=== PATIENT | female | born 1945 | race Caucasian/White ===

== ENCOUNTER 2017-09-07 10:18 | Inpatient (IN) | payer MEDICARE, MEDICAID ==
--- NOTE | 2017-09-07 10:46 | ED Physician Chart ---
ED Chief Complaint/HPI - Patient Information Date Seen:: 09/07/17 Time Seen:: 10:30 Chief Complaint:: anorexia History of Present Illness:: Patient's had anorexia for more than one month. She's had a 25 pound weight loss over the last 2 months. Allergies:: Allergies Allergy/AdvReac Type Severity Reaction Status Date / Time No Known Allergies Allergy Verified 09/07/17 10:33 Vitals:: Vital Signs - 8 hr 09/07/17 10:25 Temp 97.4 F HR 107 RR 18 BP 88/43 O2 Sat % 98 Historian:: Family Member Review:: Nurse's Note Reviewed, Patient unable to respond ED Review of Systems - Review of Systems General/Constitutional: No fever, No chills, Weight loss Skin: No skin lesions Head: No headache Eyes: No loss of vision ENT: No earache Neck: No neck pain Cardio Vascular: No chest pain, No palpitations Pulmonary: No SOB, No cough GI: No nausea, No vomiting, No diarrhea G/U: No dysuria, No hematuria Musculoskeletal: No bone or joint pain, No back pain, No muscle pain Psychiatric: Prior psych history Hematopoietic: No bruising, No lymphadenopathy Allergic/Immuno: No urticaria, No angioedema Neurological: No syncope, No focal symptoms ED Past Medical History - Past Medical History Past Medical History: HTN, DM, Dyslipidemia, Arthritis, Dementia, Other ( hyperlipidemia; anxiety; osteoporosis; degenerative joint disease; neuropathy) Family History: Heart disease Social History: Non Smoker, Care Facility, Other (formerly drank alcohol occasionally) Surgical History: None Psychiatricy History: Dementia Medication: Reviewed Family Medical History - Family Member Mother Ethnicity: Living Status: Hx Family Coronary Artery Disease: Yes ED Physical Exam - Physical Examination General/Constitutional: Awake Other Gen/Cons comments:: Chronically ill-appearing Head: Atraumatic Eyes: Lids, conjuctiva normal Skin: Nl inspection, No rash ENMT: External ears, nose nl Other ENMT comments:: 3 out of 4 peridontal disease Neck: No nuchal rigidity Respiratory: Nl effort/Exclusion, Clear to Auscultation Cardio Vascular: RRR GI: No tenderness/rebounding/guarding, No organomegaly, No hernia : No CVA tenderness Other Extremities comments:: 1/4 pretibial pitting edema Neuro/Psych: No focal deficits Misc: Normal back ED Labs/Radiology/EKG Results - Lab Results Results: Laboratory Results - last 24 hr 09/07/17 09/07/17 09/07/17 10:40 10:40 10:40 WBC 15.7 H RBC 3.94 Hgb 10.2 L Hct 30.6 L MCV 77.7 L MCH 25.9 L MCHC Differential 33.3 RDW 14.3 Plt Count 302 MPV 8.3 Neutrophils % PRODUCTION [employer]ONE LEADER Band Neutrophils % 7 Lymphocytes % PRODUCTION ZONE LEADER Monocytes % PRODUCTION ZONE LEADER Eosinophils % PRODUCTION ZONE LEADER Basophils % PRODUCTION ZONE LEADER Neutrophils (Manual) 80 Lymphocytes 10 L Monocytes 3 PT 10.8 INR 1.04 PTT (Actin FS) 29.0 Sodium 143 Potassium 4.6 Chloride 111 H Carbon Dioxide 25.1 Anion Gap 11.5 BUN 53 H Creatinine 0.9 Est GFR ( Amer) TNP Est GFR (Non-Af Amer) TNP BUN/Creatinine Ratio 58.9 Glucose 182 H Hemoglobin A1c % Whole Bld Lactic Acid Calcium 8.6 Lipase Urine Color Urine Clarity Urine pH Ur Specific [place] Urine Protein Urine Glucose (UA) Urine Ketones Urine Blood Urine Nitrate Urine Bilirubin Urine Urobilinogen Ur Leukocyte Esterase 09/07/17 09/07/17 09/07/17 10:40 10:40 11:10 WBC RBC Hgb Hct MCV MCH MCHC Differential RDW Plt Count MPV Neutrophils % Band Neutrophils % Lymphocytes % Monocytes % Eosinophils % Basophils % Neutrophils (Manual) Lymphocytes Monocytes PT INR PTT (Actin FS) Sodium Potassium Chloride Carbon Dioxide Anion Gap BUN Creatinine Est GFR ( Amer) Est GFR (Non-Af Amer) BUN/Creatinine Ratio Glucose Hemoglobin A1c % 5.7 Whole Bld Lactic Acid 1.39 Calcium Lipase 20 Urine Color Urine Clarity Urine pH Ur Specific [place] Urine Protein Urine Glucose (UA) Urine Ketones Urine Blood Urine Nitrate Urine Bilirubin Urine Urobilinogen Ur Leukocyte Esterase 09/07/17 11:30 WBC RBC Hgb Hct MCV MCH MCHC Differential RDW Plt Count MPV Neutrophils % Band Neutrophils % Lymphocytes % Monocytes % Eosinophils % Basophils % Neutrophils (Manual) Lymphocytes Monocytes PT INR PTT (Actin FS) Sodium Potassium Chloride Carbon Dioxide Anion Gap BUN Creatinine Est GFR ( Amer) Est GFR (Non-Af Amer) BUN/Creatinine Ratio Glucose Hemoglobin A1c % Whole Bld Lactic Acid Calcium Lipase Urine Color YELLOW Urine Clarity HAZY Urine pH 5.5 Ur Specific [place] >= 1.030 Urine Protein 100 H Urine Glucose (UA) NEGATIVE Urine Ketones TRACE Urine Blood NEGATIVE Urine Nitrate NEGATIVE Urine Bilirubin SMALL H Urine Urobilinogen 2.0 Ur Leukocyte Esterase NEGATIVE - Radiology Results Results: Chest x-ray showed prominence of the aortic arch and no infiltrate; scoliosis is noted. ED Assessment - Assessment General Assessment: Etiology of the patient's leukocytosis is uncertain as her urinalysis and the chest x-ray were negative ED Septic Shock - . Is Septic Shock (SBP<90, OR Lactate>4 mmol\L) present?: No - <6hrs of presentation: Vital Signs: Vital Signs - 8 hr 09/07/17 10:25 Temp 97.4 F HR 107 RR 18 BP 88/43 O2 Sat % 98 ED Reassessment (Disposition) - Reassessment Reassessment Condition:: Unchanged - Diagnosis Diagnosis:: Dehydration; leukocytosis; dementia - Patient Disposition Admitted to:: Med/Surg Spoke to:: Allen Quintero Admitting Medical Physician:: Allen Quintero Condition at Disposition:: Stable, Unchanged
[2017-09-07] MEDS ORDERED: Sodium Chloride 0.9% 1,000 ML IV ONE (10:51)
[2017-09-07 10:53] LABS: HEMATOCRIT 30.6 % (41.0-60); HEMOGLOBIN 10.2 gm/dL (12-16); MEAN CELL VOLUME 77.7 fl (81-100); MEAN CORPUSCULAR HEMOGLOBIN 25.9 pg (27.0-31.0); MEAN CORPUSCULAR HGB CONC 33.3 pg (28.0-36.0); MEAN PLATELET VOLUME 8.3 fl; PLATELET COUNT 302 Th/cmm (150-400); RED BLOOD COUNT 3.94 Mil/cmm (3.80-5.20); RED CELL DISTRIBUTION WIDTH 14.3 % (11.5-20.0)
[2017-09-07 10:58] LABS: WHITE BLOOD COUNT 15.7 Th/cmm (4.8-10.8)
[2017-09-07 11:01] LABS: INR 1.04 (0.5-1.4); PROTHROMBIN TIME (TEST) 10.8 SECONDS (9.5-11.5)
[2017-09-07 11:05] LABS: ANION GAP 11.5 (7.0-16.0); BUN - UREA NITROGEN 53 mg/dL (7-25); BUN/CREATININE RATIO 58.9; CALCIUM SERUM 8.6 mg/dL (8.6-10.3); CARBON DIOXIDE 25.1 mEq/L (21.0-31.0); CHLORIDE 111 mEq/L (98-107); CREATININE - SERUM 0.9 mg/dL (0.6-1.2); GLUCOSE 182 mg/dL (40-70); POTASSIUM SERUM 4.6 mEq/L (3.5-5.1); SODIUM SERUM 143 mEq/L (136-145)
[2017-09-07 11:12] LABS: BAND NEUTROPHILE 7 % (0-10); NEUTROPHILS 80 % (40-80); TOTAL CELLS COUNTED 100
[2017-09-07 11:47] LABS: URINE BILIRUBIN SMALL (NEGATIVE); URINE BLOOD NEGATIVE (NEGATIVE); URINE GLUCOSE (UA) NEGATIVE (NEGATIVE); URINE KETONE TRACE mg/dL (NEGATIVE); URINE PH 5.5 (4.6 - 8.0); URINE PROTEIN 100 mg/dL (NEGATIVE)
[2017-09-07 11:55] LABS: URINE COLOR YELLOW
[2017-09-07 11:56] LABS: URINE RBC 0-2 /hpf (0-5); URINE WBC 0-2 /hpf (0-5)
[2017-09-07 11:57] LABS: URINE BACTERIA FEW /hpf (NONE SEEN); URINE EPITHELIAL CELLS MODERATE /lpf (FEW); URINE FINE GRANULAR CAST 0-2 /lpf (NONE SEEN)
--- NOTE | 2017-09-07 12:14 | Diagnostic Imaging Report ---
Exam: Portable examination of the chest. HISTORY: Pneumonia. Findings: Portable examination of the chest at 1117 hours was reviewed no prior studies available comparison. The study demonstrates no acute pulmonic infiltrates or effusions. Bony thorax remarkable for degenerative changes. Mediastinal structures midline the aortic arch calcified. IMPRESSION: No acute disease.
[2017-09-07] MEDS ORDERED: cefTRIAXone 1 GM in Sodium Chloride 0.9% 50 ML IV SCH (12:30)
[2017-09-07] MEDS ORDERED: D5-0.45NS 1,000 ML IV SCH (12:30)
[2017-09-07] MEDS ORDERED: Sodium Chloride 0.9% 500 ML IV ONE (15:26)
[2017-09-07] MEDS ORDERED: Diltiazem 5 mg/mL 5mL Vial IVP PRN (16:32)
[2017-09-07] MEDS ORDERED: Magnesium Hydroxide (MOM) 30 mL UDC PO PRN (16:36)
[2017-09-07] MEDS ORDERED: Fleet Enema 135 mL RC PRN (16:36)
[2017-09-07 17:13] LABS: HEMOGLOBIN 8.6 gm/dL (12-16); MEAN CELL VOLUME 78.4 fl (81-100); MEAN CORPUSCULAR HEMOGLOBIN 25.6 pg (27.0-31.0); MEAN CORPUSCULAR HGB CONC 32.7 pg (28.0-36.0); MEAN PLATELET VOLUME 7.8 fl; RED BLOOD COUNT 3.35 Mil/cmm (3.80-5.20); RED CELL DISTRIBUTION WIDTH 14.5 % (11.5-20.0)
[2017-09-07 17:15] VITALS: BP 129/67
[2017-09-07 17:18] LABS: HEMATOCRIT 26.2 % (41.0-60); WHITE BLOOD COUNT 4.5 Th/cmm (4.8-10.8)
[2017-09-07 17:19] LABS: PLATELET COUNT 231 Th/cmm (150-400)
[2017-09-07 17:25] LABS: ANION GAP 20.2 (7.0-16.0); BUN - UREA NITROGEN 51 mg/dL (7-25); BUN/CREATININE RATIO 39.2; CALCIUM SERUM 7.3 mg/dL (8.6-10.3); CARBON DIOXIDE 12.2 mEq/L (21.0-31.0); CHLORIDE 117 mEq/L (98-107); CREATININE - SERUM 1.3 mg/dL (0.6-1.2); GLUCOSE 144 mg/dL (40-70); POTASSIUM SERUM 3.4 mEq/L (3.5-5.1); SODIUM SERUM 146 mEq/L (136-145)
[2017-09-07 17:43] LABS: BAND NEUTROPHILE 13 % (0-10); BASOPHIL 0 % (0-3); EOSINOPHIL 0 % (0-5); NEUTROPHILS 77 % (40-80); PLATELET ESTIMATE ADEQUATE (NORMAL); PLATELET MORPHOLOGY NORMAL (NORMAL); TOTAL CELLS COUNTED 100
[2017-09-07 17:44] LABS: MICROCYTOSIS 1+
[2017-09-07] MEDS ORDERED: D5-0.9NS w/KCL 20mEq 1,000 ML IV SCH (18:36)
[2017-09-07] MEDS ORDERED: Sodium Bicarbonate 8.4% 50mEq PFS IVP ONE (18:50)
[2017-09-07] MEDS ORDERED: Mag Sulfate 2gm/50mL Premix 2 GM/50 ML BAG IV ONE (20:03)
[2017-09-07] MEDS: KCL 20mEq/100mL Premix 20 MEQ/100 ML PIGGYBACK IV SCH ×2 (20:25→21:31)
[2017-09-07] MEDS ORDERED: MELATONIN PO SCH (21:00)
[2017-09-07] MEDS ORDERED: Vancomycin HCl 500 MG in Sodium Chloride 0.9% 100 ML IV SCH (22:00)
[2017-09-07] MEDS ORDERED: 0.9% NS w/20 mEq KCL 1,000 ML IV SCH (22:00)
--- NOTE | 2017-09-07 23:46 | Consultation ---
Consult Note - Consult Note Service Date: 09/07/17 Referring Physician: Allen Quintero Consult Note: PHYSICIAN Consultation Note: Date of Admission: 09/07/17 Purpose of Consultation: septic shock. Chief Complaint: Patient MILADIS RUIZ was admitted to location Intensive Care Unit with DEHYDRATION,FAILURE TO THRIVE,PNA,UTI. History of Present Illness: 72 year old female with history of dementia, HTN, DM, Dyslipidemia, Arthritis, Dementia, hyperlipidemia; anxiety; osteoporosis; degenerative joint disease; neuropathy brought from SNF for generalized weakness, weight loss and loss of appetite. On initial evaluation, her temperature was 97.4 degree F and WBC Count was 15,700. sepsis was diagnosed. Pneumonia diagnosed and started on ceftriaxone. On iniital evaluation, her BP was in 80's , and it was improving, but her blood pressure dropped to 60's again in medsurg unit. She was transferred to the ICu. Antibiotics were changed to zosyn, I was called and added vanco IV. She had received 2 liter of NS bolus and started on levophed. She also required neisynephrine. ID consult was called for antibiotic management. She had lost 33 lbs in last three months. Past Medical History: dementia, HTN, DM, Dyslipidemia, Arthritis, Dementia, hyperlipidemia; anxiety; osteoporosis; degenerative joint disease; neuropathy Allergies Allergy/AdvReac Type Severity Reaction Status Date / Time No Known Allergies Allergy Verified 09/07/17 10:33 Vital Signs Temp 101 F 09/07/17 16:45 Pulse 129 09/07/17 19:26 Resp 16 09/07/17 19:26 BP 87/45 09/07/17 19:00 Pulse Ox 100 09/07/17 19:26 Intake & Output 09/07/17 09/07/17 09/08/17 06:59 18:59 06:59 Intake Total 543.187 Output Total 100 Balance -100 543.187 Weight (lbs) 53.977 kg Intake: Intake, IV Amount 543.187 KCL 20mEq/100mL Premix 20 55 meq In 100 ml @ 50 mls/ hr IV Q2H [facility] Rx#: [id number] Norepinephrine 4 mg In 480.187 Dextrose 5% 250 ml @ Per Protocol IV STAT PRN Rx#: [id number] Phenylephrine HCl 10 mg 8 In Sodium Chloride 0.9% 249 ml @ 20 MCG/MIN 30 mls/hr IV TITR [facility] Rx#: [id number] Output: Urine 100 Laboratory Results - last 24 hr 09/07/17 09/07/17 09/07/17 15:34 17:00 17:00 WBC 4.5 L D RBC 3.35 L Hgb 8.6 L Hct 26.2 L D MCV 78.4 L MCH 25.6 L MCHC Differential 32.7 RDW 14.5 Plt Count 231 D MPV 7.8 Band Neutrophils % 13 H Neutrophils (Manual) 77 Lymphocytes 8 L Monocytes 2 Eosinophils 0 Basophils 0 Platelet Estimate ADEQUATE Platelet Morphology NORMAL Microcytosis 1+ RBC Morph Micro Appear ABNORMAL Sodium 146 H Potassium 3.4 L Chloride 117 H Carbon Dioxide 12.2 L Anion Gap 20.2 H BUN 51 H Creatinine 1.3 H Est GFR ( Amer) TNP Est GFR (Non-Af Amer) TNP BUN/Creatinine Ratio 39.2 Glucose 144 H D POC Glucose 164 H Whole Bld Lactic Acid Calcium 7.3 L Magnesium Troponin I B-Natriuretic Peptide 09/07/17 09/07/17 09/07/17 17:00 17:00 17:00 WBC RBC Hgb Hct MCV MCH MCHC Differential RDW Plt Count MPV Band Neutrophils % Neutrophils (Manual) Lymphocytes Monocytes Eosinophils Basophils Platelet Estimate Platelet Morphology Microcytosis RBC Morph Micro Appear Sodium Potassium Chloride Carbon Dioxide Anion Gap BUN Creatinine Est GFR ( Amer) Est GFR (Non-Af Amer) BUN/Creatinine Ratio Glucose POC Glucose Whole Bld Lactic Acid Calcium Magnesium 1.6 L Troponin I 0.09 H* B-Natriuretic Peptide 86.4 09/07/17 09/07/17 09/07/17 18:18 20:28 21:27 WBC RBC Hgb Hct MCV MCH MCHC Differential RDW Plt Count MPV Band Neutrophils % Neutrophils (Manual) Lymphocytes Monocytes Eosinophils Basophils Platelet Estimate Platelet Morphology Microcytosis RBC Morph Micro Appear Sodium Potassium Chloride Carbon Dioxide Anion Gap BUN Creatinine Est GFR ( Amer) Est GFR (Non-Af Amer) BUN/Creatinine Ratio Glucose POC Glucose 151 H Whole Bld Lactic Acid 10.41 H* 7.77 H* Calcium Magnesium Troponin I B-Natriuretic Peptide Home Medication Medication Instructions Recorded Type Acetaminophen [Tylenol] 650 mg PO Q6HR PRN 09/07/17 History Alendronate Sodium [Fosamax] 70 mg PO QTHUR 09/07/17 History Aspirin 81 mg PO DAILY 09/07/17 History Bisacodyl [Dulcolax 10 Mg Supp] 10 mg RC DAILY PRN 09/07/17 History Clonazepam [Klonopin] 2 mg PO DAILY 09/07/17 History Cyanocobalamin [Vitamin B12] 1 tab PO DAILY 09/07/17 History Docusate Sodium [Colace] 100 mg PO DAILY 09/07/17 History Fleet Enema [Fleet Enema] 135 ml RC DAILY PRN 09/07/17 History Insulin Glargine, Recombinan 10 units SQ HS 09/07/17 History [Lantus] Lisinopril 40 mg PO HS 09/07/17 History Lorazepam [Ativan] 0.5 mg PO Q6HR PRN 09/07/17 History Magnesium Hydroxide [Milk of 30 ml PO DAILY PRN 09/07/17 History Magnesia] Megestrol Acetate [Megace] 400 mg PO TID 09/07/17 History Melatonin 2 tab PO HS 09/07/17 History Metformin HCl [Glucophage] 1,000 mg PO BIDAC 09/07/17 History Multivitamin [Multiple Vitamins] 1 tab PO DAILY 09/07/17 History QUEtiapine Fumarate [SEROquel] 1 tab PO HS 09/07/17 History Simvastatin [Zocor] 40 mg PO HS 09/07/17 History clonazePAM [klonoPIN] 1 tab PO DAILY 09/07/17 History Current Medications Generic Name Dose Route Start Last Admin Trade Name Freq PRN Reason Stop Dose Admin Acetaminophen 650 mg 09/07/17 16:36 Tylenol PO 11/06/17 16:35 Q6HR PRN MILD PAIN OR TEMP>100.4 Alendronate Sodium 70 mg 09/09/17 06:30 Fosamax PO 11/08/17 06:29 QSAT [facility] Aspirin 81 mg 09/08/17 09:00 Aspirin Chewable PO 11/07/17 08:59 DAILY [facility] Bisacodyl 10 mg 09/07/17 16:36 Dulcolax 10 Mg Supp RC 11/06/17 16:35 DAILY PRN IF MOM INEFFECTIVE Clonazepam 1 mg 09/08/17 09:00 Klonopin PO 11/07/17 08:59 DAILY [facility] Protocol Cyanocobalamin 1,000 mcg 09/08/17 09:00 Vitamin B12 PO 11/07/17 08:59 DAILY [facility] Diltiazem HCl 20 mg 09/07/17 16:32 Cardizem IVP 11/06/17 16:44 Q3H PRN Heart Rate > than 120 bpm Docusate Sodium 100 mg 09/08/17 09:00 Colace PO 11/07/17 08:59 DAILY [facility] Heparin Sodium (Porcine) 5,000 units 09/07/17 21:00 09/07/17 21:31 Heparin SUBQ 11/06/17 20:59 5,000 units Q12HR [facility] Administration Norepinephrine Bitartrate 4 mg 254 mls @ 0 mls/hr 09/07/17 16:12 09/07/17 23: 09 / Dextrose IV 11/06/17 16:11 30 mcg/min STAT PRN 114.3 mls/hr BP MAINTENANCE (PER PROTOCOL) Administration Protocol Per Protocol Piperacillin Sod/Tazobactam 50 mls @ 100 mls/hr 09/07/17 21:00 09/07/17 20:40 Sod 3.375 gm/ Sodium Chloride IV 11/06/17 20:59 100 mls/hr Q8HR [facility] Administration Vancomycin HCl 500 mg/ Sodium 100 mls @ 100 mls/hr 09/07/17 22:00 09/07/17 23 :14 Chloride IV 11/06/17 21:59 100 mls/hr Q24H [facility] Administration Phenylephrine HCl 10 mg/ 250 mls @ 30 mls/hr 09/07/17 22:00 09/07/17 23:02 Sodium Chloride IV 11/06/17 21:59 30 mcg/min TITR [facility] 45 mls/hr Protocol Titration 20 MCG/MIN Potassium Chloride/Sodium Chloride 1,000 mls @ 75 mls/hr 09/07/17 22:00 09/07 22:20 0.9% Ns W/20 Meq Kcl IV 11/06/17 21:59 75 mls/hr .[id number] [facility] Administration Insulin Aspart 0 units 09/07/17 19:00 Novolog Insulin Sliding Scale SUBQ 11/06/17 18:59 Q6HR [facility] Insulin Detemir 10 units 09/07/17 21:00 Levemir Insulin SUBQ 11/06/17 20:59 HS [facility] Lisinopril 40 mg 09/07/17 21:00 Zestril PO 11/06/17 20:59 HS [facility] Lorazepam 0.5 mg 09/07/17 16:36 Ativan PO 11/06/17 16:35 Q6HR PRN Anxiety Protocol Magnesium Hydroxide 30 ml 09/07/17 16:36 Milk Of Magnesia PO 11/06/17 16:35 DAILY PRN Constipation Megestrol Acetate 400 mg 09/07/17 21:00 Megace PO 11/06/17 20:59 TID [facility] Metformin HCl 1,000 mg 09/08/17 07:30 Glucophage PO 11/07/17 07:29 BIDAC [facility] Miscellaneous 2 mg 09/08/17 09:00 Clonazepam [Klonopin] PO 11/07/17 08:59 DAILY [facility] Miscellaneous 2 tab 09/07/17 21:00 Melatonin [Melatonin] PO 11/06/17 20:59 HS [facility] Miscellaneous 1 ea 09/07/17 21:15 Vancomycin Iv Per Pharmacy [facility] 11/06/17 21:14 PRN [facility] Multivitamins/Vitamin C 1 tab 09/08/17 09:00 Theragran PO 11/07/17 08:59 DAILY [facility] Pantoprazole Sodium 40 mg 09/07/17 19:00 09/07/17 21:31 Protonix IVP 11/06/17 18:59 40 mg DAILY [facility] Administration Quetiapine Fumarate mg 09/07/17 21:00 Seroquel PO 11/06/17 20:59 HS [facility] Protocol Simvastatin 40 mg 09/07/17 21:00 Zocor PO 11/06/17 20:59 HS [facility] Protocol Sodium Phosphate 135 ml 09/07/17 16:36 Fleet Enema RC 11/06/17 16:35 DAILY PRN Constipation Review of Systems: A 12 point ROS was reviewed with the pertinent positive and negatives noted in the HPI. Social History Smoking Status Never smoker Physical Exam: General: comfortable, cachectic.lethargic. HEENT: Head is normocephalic and atraumatic. Oral cavity is moist and pink tongue, eyes pallor is present, no icterus. Neck: supple, no JVD, no carotid bruit. Cardio: S1 and S 2 WNL. no murmur. Respiratory: Vesicular breath sounds, no crackles, no wheezing. Abdominal: Soft NT ND BS preesnt, Genital/Urinary: Extremities: NCCE Neurological: Lethargic, unable to communicate. Assessment: 1. sever septic shock. 2. likely reac tive . suspect pneuonia. 3, DM2 4. HTN Plan: Will continue same antibiotics. Thank yo Dr Quintero for involving me in taking care of the patient. Afshin maciel Devesh N., M.D. [id number]
[2017-09-08] MEDS: Insulin Detemir 100 units/mL 10mL Vial SUBQ SCH ×2 (01:09→21:00)
[2017-09-08] MEDS: INSULIN ASPART SLIDING SCALE 100 UNITS/ML UNIT SUBQ SCH ×5 (01:10→20:47)
[2017-09-08] MEDS ORDERED: Piperacillin Sodium/Tazobact 3.375 gm Vial IV ONE ×2 (01:21→04:33)
[2017-09-08] MEDS ORDERED: Norepinephrine 4 mg/4mL Vial IV ONE ×2 (01:23→04:35)
[2017-09-08] MEDS ORDERED: Albumin 25% 25gm/100mL 25 GM/100 ML BTL IV ONE (02:24)
[2017-09-08] MEDS ORDERED: Sodium Bicarbonate 8.4% 50mEq PFS IVP ONE ×2 (02:53→16:48)
--- NOTE | 2017-09-08 03:26 | Consultation ---
DATE OF CONSULTATION: 09/07/2017 INPATIENT GI CONSULTATION CONSULTING PHYSICIAN: Dr. Quintero. REASON FOR CONSULTATION: Failure to thrive. HISTORY OF PRESENT ILLNESS: The patient is a 72-year-old female with past medical history significant for dementia, type 2 diabetes, arthritis, who is admitted to [facility] with hypotension from her [place] [facility] facility. The history is mostly obtained from the chart and the patient's daughter as the patient is noncommunicative. Apparently, the patient has been living at her [place] [facility] facility for some time now, but has been noted that she has lost about 30 pounds in the past 3 months. The patient's daughter reports that she barely eats anything volitionally and that any food has to be injected into her mouth for her to even have an attempted swallowing it. This has been the scenario for some time now. The patient's daughter reports that they did discuss amongst their family whether they would like a G-tube placed for feeding and that the current decision is that they would like this placed. She was transferred to this hospital yesterday because it was noted that her blood pressure was systolic of 80 at her [place] [facility] facility. She is now admitted on ceftriaxone with suspected pneumonia. PAST MEDICAL HISTORY: Hypertension, type 2 diabetes, dementia, arthritis, hyperlipidemia. PAST SURGICAL HISTORY: The patient's daughter denies that she has ever had any surgery. FAMILY HISTORY: Noncontributory. SOCIAL HISTORY: The patient lives in a [place] [facility] facility. There is no history of alcoholism or cigarette use. ALLERGIES: THERE ARE NO KNOWN DRUG ALLERGIES. REVIEW OF SYSTEMS: Not able to be performed given the patient's reduced mental status. CURRENT MEDICATIONS: Include ceftriaxone. PHYSICAL EXAMINATION: VITAL SIGNS: Blood pressure is 102/45, pulse of 95 beats per minute, temperature 98.0, oxygenation 97% on room air. GENERAL: The patient is lying flat in bed. She is contracted and alert and oriented x 0. HEAD, EARS, EYES, NOSE AND THROAT: Extraocular muscles appear to be intact. Pupils are equal and reactive to light. No scleral icterus. Dry mucous membranes are noted. Normocephalic and atraumatic appearing head otherwise. NECK: Supple. No JVD, no thyromegaly, no lymphadenopathy. CHEST: Crackles at both bases. CARDIOVASCULAR: S1, S2 is present. Regular rate and rhythm. ABDOMEN: Soft, nontender to palpation. No obvious guarding or rebound. No distention noted. EXTREMITIES: Contracted. There is slight pitting edema in both legs. Pulses are not palpable. SKIN: No obvious jaundice or other rash or lesions. LABORATORY DATA: White blood cell count 15.7, hemoglobin 10.2, platelet count 302. INR 1.04. Creatinine is 0.9, BUN 53, sodium 143. INR is 1.04. IMAGING: Chest x-ray was performed and shows no obvious acute disease. IMPRESSION AND RECOMMENDATIONS: This is a 72-year-old female with dementia, type 2 diabetes, who is a resident of the [place] [facility], who is now admitted with hypotension. 1. Suspected infection, possibly pneumonia. 2. Failure to thrive with 30-pound weight loss in the past 3 months. 3. Anorexia. 4. Dementia. DISCUSSION: Certainly this patient is likely not achieving adequate nutrition on her own and G-tube is reasonable given her weight loss. The family has discussed this matter previously and do want a G-tube at this time. They understand that a G-tube may not extend her life in any meaningful way or restore her mental status, but will possibly allow her to maintain the same level of health for an extended period of time. At the current time, the patient is a bit tachypneic on exam and presents with a leukocytosis. Thus, we will wait a few days for her infection to improve on antibiotics and then plan for G-tube placement with endoscopy. RECOMMENDATIONS: 1. G-tube placement likely on Monday in the endoscopy suite, n.p.o. after midnight Monday night. 2. We will get an abdominal ultrasound to ensure there is no liver disease or ascites that may complicate placement. 3. We can get a swallowing study, although this may not be of much use given the patient's weight loss. 4. Continue supportive care as per Dr. Quintero. Thank you for allowing me to participate in this patient's care. I will continue to follow. Please call with any further questions. JOB# [id number]
[2017-09-08] MEDS ORDERED: 0.9% NS w/20 mEq KCL 1,000 ML IV SCH (04:06)
[2017-09-08 06:07] LABS: HEMATOCRIT 26.1 % (41.0-60); HEMOGLOBIN 8.6 gm/dL (12-16); MEAN CELL VOLUME 78.2 fl (81-100); MEAN CORPUSCULAR HEMOGLOBIN 25.9 pg (27.0-31.0); MEAN CORPUSCULAR HGB CONC 33.1 pg (28.0-36.0); MEAN PLATELET VOLUME 8.5 fl; NEUTROPHILE ABSOLUTE 28.3 Th/cmm (1.8-8.0); PLATELET COUNT 199 Th/cmm (150-400); RED BLOOD COUNT 3.33 Mil/cmm (3.80-5.20); RED CELL DISTRIBUTION WIDTH 14.6 % (11.5-20.0)
[2017-09-08 06:13] LABS: WHITE BLOOD COUNT 29.9 Th/cmm (4.8-10.8)
[2017-09-08 06:25] LABS: BAND NEUTROPHILE 6 % (0-10); NEUTROPHILS 82 % (40-80); PLATELET ESTIMATE ADEQUATE (NORMAL)
[2017-09-08 06:26] LABS: MICROCYTOSIS 1+
[2017-09-08 06:27] LABS: ALB/GLOB RATIO 0.8 (1.0-1.8); ALKALINE PHOSPHATASE 194 U/L (34-104); ANION GAP 15.1 (7.0-16.0); BILIRUBIN,TOTAL 1.3 mg/dL (0.3-1.0); BUN - UREA NITROGEN 52 mg/dL (7-25); BUN/CREATININE RATIO 28.9; CALCIUM SERUM 7.1 mg/dL (8.6-10.3); CARBON DIOXIDE 16.7 mEq/L (21.0-31.0); CHLORIDE 111 mEq/L (98-107); CREATININE - SERUM 1.8 mg/dL (0.6-1.2); GLUCOSE 230 mg/dL (40-70); MAGNESIUM 2.1 mg/dL (1.9-2.7); POTASSIUM SERUM 4.8 mEq/L (3.5-5.1); SGOT 61 U/L (13-39); SGPT/ALT 30 U/L (7-52); SODIUM SERUM 138 mEq/L (136-145)
--- NOTE | 2017-09-08 07:59 | Diagnostic Imaging Report ---
CHEST X-RAY: AP view INDICATION: Desaturation COMPARISON: Chest x-ray earlier the same day FINDINGS: Increased left basal lung markings are noted. No focal consolidation or pleural effusions. Heart size is normal. IMPRESSION: Increased left basal lung markings favoring subsegmental atelectasis versus scarring. No focal consolidation identified.
--- NOTE | 2017-09-08 07:59 | Diagnostic Imaging Report ---
Abdominal ultrasound HISTORY: Cirrhosis, abnormal liver function tests The exam is very limited due to difficulty in patient positioning and cooperation. There is incomplete visualization of the liver. No obvious focal lesions. There is a markedly dilated gallbladder. Low-level intraluminal echoes may be associated with "sludge". No discrete calculi are seen. The common bile duct could not be visualized. The pancreas cannot be seen. No definite focal renal lesions. No hydronephrosis. Limited visualization of the spleen demonstrates what appears to be a normal size. No other retroperitoneal or intra-abdominal abnormalities. IMPRESSION: 1. Very Limited/suboptimal exam due to difficulty in patient positioning and cooperation. 2. Incomplete visualization of the liver with no obvious focal lesions in the 3 markedly dilated gallbladder. No definite calculi seen. Exact etiology uncertain. If necessary, a radionuclide biliary scan (HIDA scan) would provide for further assessment of gallbladder function.
--- NOTE | 2017-09-08 08:19 | Diagnostic Imaging Report ---
CHEST X-RAY: AP view INDICATION: Septic shock shortness of breath COMPARISON: Chest x-ray 11-17 FINDINGS: Suboptimal lung bones are seen with a focal consolidation or pleural effusions. Heart size is normal. Degenerative changes of the spine are noted. IMPRESSION: Suboptimal lung volumes with no focal consolidation or evidence of CHF.
--- NOTE | 2017-09-08 08:31 | History and Physical ---
History of Present Illness - HPI Chief Complaint: anorexia HPI: 72 year old female who presents to [facility] ER for 25 pound weight loss noted at the [facility]. Patient was noted to have increased fatigue and weakness and decrease appetite. While in the ER patient had a chest xray which revealed a pneumonia. Patient was found to have elevated WBC's of 15.7, and H/H 10.2/30.6, andplatelets 302. Bun/Cr 53/0.9. Na 143 K 4.6. Patient was noted to be hypotensive and was subsequently transferred to ICU for further evaluation and treatment. Vital Signs: Last Vital Signs Temp 98.9 F 09/08/17 04:00 Pulse 104 09/08/17 07:16 Resp 16 09/08/17 07:16 BP 116/65 09/08/17 07:00 Pulse Ox 100 09/08/17 07:16 Past Medical History Cardiovascular: Report: HTN, Hyperlipidemia [employer]ERV[employer]IR ENGINEERING ADVISOR: Report: Peripheral neuropathy Psych: Report: Anxiety, Other (Dementia) Musculoskeletal: Report: Osteoarthritis Rheumatologic: Report: Other (arthritis) Endocrine: Report: Diabetes Family Medical History - Family Member Mother Ethnicity: Living Status: Hx Family Cancer: No Hx Family Coronary Artery Disease: No Hx Family Congestive Heart Failure: Yes sister Hx Family Cancer: Yes Hx Family Coronary Artery Disease: No Hx Family Congestive Heart Failure: Yes Hx Family Hypertension: No Hx Family Stroke: No Hx Family Seizures: No Hx Family Dementia: No Hx Family AIDS: No Hx Family COPD: No Hx Family Hepatitis: No Hx Family Psychiatric Problems: No Hx Family Tuberculosis: No Social History Smoke: No Alcohol: None Drugs: None Lives: Jail - Medications Home Medications: Home Medication Medication Instructions Recorded Type Acetaminophen [Tylenol] 650 mg PO Q6HR PRN 09/07/17 History Alendronate Sodium [Fosamax] 70 mg PO QTHUR 09/07/17 History Aspirin 81 mg PO DAILY 09/07/17 History Bisacodyl [Dulcolax 10 Mg Supp] 10 mg RC DAILY PRN 09/07/17 History Clonazepam [Klonopin] 2 mg PO DAILY 09/07/17 History Cyanocobalamin [Vitamin B12] 1 tab PO DAILY 09/07/17 History Docusate Sodium [Colace] 100 mg PO DAILY 09/07/17 History Fleet Enema [Fleet Enema] 135 ml RC DAILY PRN 09/07/17 History Insulin Glargine, Recombinan 10 units SQ HS 09/07/17 History [Lantus] Lisinopril 40 mg PO HS 09/07/17 History Lorazepam [Ativan] 0.5 mg PO Q6HR PRN 09/07/17 History Magnesium Hydroxide [Milk of 30 ml PO DAILY PRN 09/07/17 History Magnesia] Megestrol Acetate [Megace] 400 mg PO TID 09/07/17 History Melatonin 2 tab PO HS 09/07/17 History Metformin HCl [Glucophage] 1,000 mg PO BIDAC 09/07/17 History Multivitamin [Multiple Vitamins] 1 tab PO DAILY 09/07/17 History QUEtiapine Fumarate [SEROquel] 1 tab PO HS 09/07/17 History Simvastatin [Zocor] 40 mg PO HS 09/07/17 History clonazePAM [klonoPIN] 1 tab PO DAILY 09/07/17 History - Allergies Allergies/Adverse Reactions: Allergies Allergy/AdvReac Type Severity Reaction Status Date / Time No Known Allergies Allergy Verified 09/07/17 10:33 Review of Systems - Review of Systems Constitutional: Report: Fever, Malaise Eyes: Report: No Significant ENT: Report: No Significant Respiratory: Report: Shortness of Breath Cardiovascular: Report: No Significant Gastrointestinal: Denies: Nausea, Vomiting, Abdominal Pain, Diarrhea Genitourinary: Report: No Significant Musculoskeletal: Report: No Significant Skin: Report: No Significant Neurological: Report: Weakness Physical Exam - Physical Exam HEENT: Report: Ears Nose Throat within normal limits, Pharnyx within normal limits Neck: Report: Within normal limits Cardiovascular Systems: Report: Tachycardia Abdomen: Report: Non-tender to palpation Back: Report: Inspection of back is within normal limits. Extremities: Report: Non-tender to palpation. Skin: Report: Color of skin is within normal limits - Lab Results All Lab Results last 24 hours: Laboratory Results - last 24 hr 09/07/17 09/07/17 09/07/17 15:34 17:00 17:00 WBC 4.5 L D RBC 3.35 L Hgb 8.6 L Hct 26.2 L D MCV 78.4 L MCH 25.6 L MCHC Differential 32.7 RDW 14.5 Plt Count 231 D MPV 7.8 Band Neutrophils % 13 H Neutrophils (Manual) 77 Lymphocytes 8 L Monocytes 2 Eosinophils 0 Basophils 0 Platelet Estimate ADEQUATE Platelet Morphology NORMAL Microcytosis 1+ RBC Morph Micro Appear ABNORMAL Sodium 146 H Potassium 3.4 L Chloride 117 H Carbon Dioxide 12.2 L Anion Gap 20.2 H BUN 51 H Creatinine 1.3 H Est GFR ( Amer) TNP Est GFR (Non-Af Amer) TNP BUN/Creatinine Ratio 39.2 Glucose 144 H D POC Glucose 164 H Whole Bld Lactic Acid Calcium 7.3 L Magnesium Total Bilirubin AST ALT Alkaline Phosphatase Troponin I B-Natriuretic Peptide Total Protein Albumin Globulin Albumin/Globulin Ratio 09/07/17 09/07/17 09/07/17 17:00 17:00 17:00 WBC RBC Hgb Hct MCV MCH MCHC Differential RDW Plt Count MPV Band Neutrophils % Neutrophils (Manual) Lymphocytes Monocytes Eosinophils Basophils Platelet Estimate Platelet Morphology Microcytosis RBC Morph Micro Appear Sodium Potassium Chloride Carbon Dioxide Anion Gap BUN Creatinine Est GFR ( Amer) Est GFR (Non-Af Amer) BUN/Creatinine Ratio Glucose POC Glucose Whole Bld Lactic Acid Calcium Magnesium 1.6 L Total Bilirubin AST ALT Alkaline Phosphatase Troponin I 0.09 H* B-Natriuretic Peptide 86.4 Total Protein Albumin Globulin Albumin/Globulin Ratio 09/07/17 09/07/17 09/07/17 18:18 20:28 21:27 WBC RBC Hgb Hct MCV MCH MCHC Differential RDW Plt Count MPV Band Neutrophils % Neutrophils (Manual) Lymphocytes Monocytes Eosinophils Basophils Platelet Estimate Platelet Morphology Microcytosis RBC Morph Micro Appear Sodium Potassium Chloride Carbon Dioxide Anion Gap BUN Creatinine Est GFR ( Amer) Est GFR (Non-Af Amer) BUN/Creatinine Ratio Glucose POC Glucose 151 H Whole Bld Lactic Acid 10.41 H* 7.77 H* Calcium Magnesium Total Bilirubin AST ALT Alkaline Phosphatase Troponin I B-Natriuretic Peptide Total Protein Albumin Globulin Albumin/Globulin Ratio 09/08/17 09/08/17 09/08/17 01:16 05:57 05:57 WBC 29.9 H* RBC 3.33 L Hgb 8.6 L Hct 26.1 L MCV 78.2 L MCH 25.9 L MCHC Differential 33.1 RDW 14.6 Plt Count 199 MPV 8.5 Band Neutrophils % 6 Neutrophils (Manual) 82 H Lymphocytes 10 L Monocytes 1 L Eosinophils Basophils Platelet Estimate ADEQUATE Platelet Morphology Microcytosis 1+ RBC Morph Micro Appear ABNORMAL Sodium 138 Potassium 4.8 Chloride 111 H Carbon Dioxide 16.7 L Anion Gap 15.1 BUN 52 H Creatinine 1.8 H Est GFR ( Amer) TNP Est GFR (Non-Af Amer) TNP BUN/Creatinine Ratio 28.9 Glucose 230 H D POC Glucose 205 H Whole Bld Lactic Acid Calcium 7.1 L Magnesium 2.1 Total Bilirubin 1.3 H AST 61 H ALT 30 Alkaline Phosphatase 194 H Troponin I B-Natriuretic Peptide Total Protein 5.4 L Albumin 2.4 L Globulin 3.0 Albumin/Globulin Ratio 0.8 L 09/08/17 09/08/17 09/08/17 05:57 05:57 06:01 WBC RBC Hgb Hct MCV MCH MCHC Differential RDW Plt Count MPV Band Neutrophils % Neutrophils (Manual) Lymphocytes Monocytes Eosinophils Basophils Platelet Estimate Platelet Morphology Microcytosis RBC Morph Micro Appear Sodium Potassium Chloride Carbon Dioxide Anion Gap BUN Creatinine Est GFR ( Amer) Est GFR (Non-Af Amer) BUN/Creatinine Ratio Glucose POC Glucose 238 H Whole Bld Lactic Acid 4.43 H* Calcium Magnesium Total Bilirubin AST ALT Alkaline Phosphatase Troponin I 0.20 H* D B-Natriuretic Peptide Total Protein Albumin Globulin Albumin/Globulin Ratio - Assessment Assessment: Dehydration Malnutrition sepsis pneumonia UTI leukocytosis - Plan Plan: IV vancomycin IV fluids ID consult Pulmonary consult cardiology consult repeat chest xray blood cultures urine cultures repeat cbc, cmp admit to ICU
[2017-09-08] MEDS ORDERED: Sodium Chloride 0.45% 1,000 ML IV SCH (08:45)
--- NOTE | 2017-09-08 08:48 | General Progress Note ---
Subjective - Review of Systems Service Date: 09/08/17 Subjective: Patient was seen and evaluated this morning. Patient currently on IV vasopressors. Objective - Results Result Diagrams: 09/10/17 05:48 09/10/17 05:48 Recent Labs: Laboratory Last Values WBC 29.9 Th/cmm (4.8-10.8) H* 09/08/17 05:57 RBC 3.33 Mil/cmm (3.80-5.20) L 09/08/17 05:57 Hgb 8.6 gm/dL (12-16) L 09/08/17 05:57 Hct 26.1 % (41.0-60) L 09/08/17 05:57 MCV 78.2 fl (81-100) L 09/08/17 05:57 MCH 25.9 pg (27.0-31.0) L 09/08/17 05:57 MCHC Differential 33.1 pg (28.0-36.0) 09/08/17 05:57 RDW 14.6 % (11.5-20.0) 09/08/17 05:57 Plt Count 199 Th/cmm (150-400) 09/08/17 05:57 MPV 8.5 fl 09/08/17 05:57 Neutrophils % RECREATION WORKER 09/07/17 10:40 Band Neutrophils % 6 % (0-10) 09/08/17 05:57 Lymphocytes % RECREATION WORKER 09/07/17 10:40 Monocytes % RECREATION WORKER 09/07/17 10:40 Eosinophils % RECREATION WORKER 09/07/17 10:40 Basophils % RECREATION WORKER 09/07/17 10:40 Neutrophils (Manual) 82 % (40-80) H 09/08/17 05:57 Lymphocytes 10 % (20-50) L 09/08/17 05:57 Monocytes 1 % (2-10) L 09/08/17 05:57 Eosinophils 0 % (0-5) 09/07/17 17:00 Basophils 0 % (0-3) 09/07/17 17:00 Platelet Estimate ADEQUATE (NORMAL) 09/08/17 05:57 Platelet Morphology NORMAL (NORMAL) 09/07/17 17:00 Microcytosis 1+ 09/08/17 05:57 RBC Morph Micro Appear ABNORMAL (NORMAL) 09/08/17 05:57 PT 10.8 SECONDS (9.5-11.5) 09/07/17 10:40 INR 1.04 (0.5-1.4) 09/07/17 10:40 PTT (Actin FS) 29.0 SECONDS (26.0-38.0) 09/07/17 10:40 Sodium 138 mEq/L (136-145) 09/08/17 05:57 Potassium 4.8 mEq/L (3.5-5.1) 09/08/17 05:57 Chloride 111 mEq/L (98-107) H 09/08/17 05:57 Carbon Dioxide 16.7 mEq/L (21.0-31.0) L 09/08/17 05:57 Anion Gap 15.1 (7.0-16.0) 09/08/17 05:57 BUN 52 mg/dL (7-25) H 09/08/17 05:57 Creatinine 1.8 mg/dL (0.6-1.2) H 09/08/17 05:57 Est GFR ( Amer) TNP 09/08/17 05:57 Est GFR (Non-Af Amer) TNP 09/08/17 05:57 BUN/Creatinine Ratio 28.9 09/08/17 05:57 Glucose 230 mg/dL (40-70) H D 09/08/17 05:57 POC Glucose 238 MG/DL (70 - 105) H 09/08/17 06:01 Hemoglobin A1c % 5.7 % (4.0-6.0) 09/07/17 10:40 Whole Bld Lactic Acid 4.96 mmol/L (0.60-1.99) H* 09/08/17 08:00 Calcium 7.1 mg/dL (8.6-10.3) L 09/08/17 05:57 Magnesium 2.1 mg/dL (1.9-2.7) 09/08/17 05:57 Total Bilirubin 1.3 mg/dL (0.3-1.0) H 09/08/17 05:57 AST 61 U/L (13-39) H 09/08/17 05:57 ALT 30 U/L (7-52) 09/08/17 05:57 Alkaline Phosphatase 194 U/L (34-104) H 09/08/17 05:57 Troponin I 0.20 ng/mL (0.01-0.05) H* D 09/08/17 05:57 B-Natriuretic Peptide 86.4 pg/mL (5.0-100.0) 09/07/17 17:00 Total Protein 5.4 gm/dL (6.0-8.3) L 09/08/17 05:57 Albumin 2.4 gm/dL (3.7-5.3) L 09/08/17 05:57 Globulin 3.0 gm/dL 09/08/17 05:57 Albumin/Globulin Ratio 0.8 (1.0-1.8) L 09/08/17 05:57 Lipase 20 U/L (11-82) 09/07/17 10:40 Urine Source CATH 09/07/17 11:30 Urine Color YELLOW 09/07/17 11:30 Urine Clarity HAZY (CLEAR) 09/07/17 11:30 Urine pH 5.5 (4.6 - 8.0) 09/07/17 11:30 Ur Specific Urich >= 1.030 (1.005-1.030) 09/07/17 11:30 Urine Protein 100 mg/dL (NEGATIVE) H 09/07/17 11:30 Urine Glucose (UA) NEGATIVE mg/dL (NEGATIVE) 09/07/17 11:30 Urine Ketones TRACE mg/dL (NEGATIVE) 09/07/17 11:30 Urine Blood NEGATIVE (NEGATIVE) 09/07/17 11:30 Urine Nitrate NEGATIVE (NEGATIVE) 09/07/17 11:30 Urine Bilirubin SMALL (NEGATIVE) H 09/07/17 11:30 Urine Urobilinogen 2.0 E.U./dL (0.2 - 1.0) 09/07/17 11:30 Ur Leukocyte Esterase NEGATIVE (NEGATIVE) 09/07/17 11:30 Urine RBC 0-2 /hpf (0-5) 09/07/17 11:30 Urine WBC 0-2 /hpf (0-5) 09/07/17 11:30 Ur Epithelial Cells MODERATE /lpf (FEW) 09/07/17 11:30 Urine Bacteria FEW /hpf (NONE SEEN) 09/07/17 11:30 Fine Granular Casts 0-2 /lpf (NONE SEEN) H 09/07/17 11:30 Coarse Granular Casts 2-5 /lpf (NONE SEEN) H 09/07/17 11:30 Urine Mucus FEW /lpf (FEW) 09/07/17 11:30 - Physical Exam Vitals and I&O: Vital Signs Temp 98.9 F 09/08/17 04:00 Pulse 104 09/08/17 07:16 Resp 16 09/08/17 07:16 BP 116/65 09/08/17 07:00 Pulse Ox 100 09/08/17 07:16 Intake & Output 09/07/17 09/08/17 09/08/17 18:59 06:59 18:59 Intake Total 1512.020 Output Total 100 100 Balance -100 1412.020 Weight (lbs) 53.977 kg 55.474 kg 55.338 kg Intake: Intake, IV Amount 1512.020 0.9% NS w/20 mEq KCL 1, 20.833 000 ml @ 125 mls/hr IV . Q8H [facility] Rx#:[id number] KCL 20mEq/100mL Premix 20 55 meq In 100 ml @ 50 mls/ hr IV Q2H [facility] Rx#: [id number] Norepinephrine 4 mg In 988.187 Dextrose 5% 250 ml @ Per Protocol IV STAT PRN Rx#: [id number] Phenylephrine HCl 10 mg 298.000 In Sodium Chloride 0.9% 249 ml @ 20 MCG/MIN 30 mls/hr IV TITR [facility] Rx#: [id number] Piperacillin Sodium/ 50 Tazobact 3.375 gm In Sodium Chloride 0.9% 50 ml @ 100 mls/hr IV Q8HR [facility] Rx#:[id number] Vancomycin HCl 500 mg In 100 Sodium Chloride 0.9% 100 ml @ 100 mls/hr IV Q24H [facility] Rx#:[id number] Output: Urine 100 100 Other: # Bowel Movements 0 1 Active Medications: Current Medications Acetaminophen (Tylenol) 650 mg PO Q6HR PRN PRN Reason: MILD PAIN OR TEMP>100.4 Stop: 11/06/17 16:35 Alendronate Sodium (Fosamax) 70 mg PO QSAT [facility] Stop: 11/08/17 06:29 Aspirin (Aspirin Chewable) 81 mg PO DAILY [facility] Stop: 11/07/17 08:59 Bisacodyl (Dulcolax 10 Mg Supp) 10 mg RC DAILY PRN PRN Reason: IF MOM INEFFECTIVE Stop: 11/06/17 16:35 Clonazepam (Klonopin) 1 mg PO DAILY [facility] PRN Reason: Protocol Stop: 11/07/17 08:59 Clonazepam (Klonopin) 2 mg PO DAILY [facility] Stop: 11/07/17 08:59 Cyanocobalamin (Vitamin B12) 1,000 mcg PO DAILY [facility] Stop: 11/07/17 08:59 Diltiazem HCl (Cardizem) 20 mg IVP Q3H PRN PRN Reason: Heart Rate > than 120 bpm Stop: 11/06/17 16:44 Docusate Sodium (Colace) 100 mg PO DAILY [facility] Stop: 11/07/17 08:59 Heparin Sodium (Porcine) (Heparin) 5,000 units SUBQ Q12HR [facility] Stop: 11/06/17 20:59 Last Admin: 09/07/17 21:31 Dose: 5,000 units Norepinephrine Bitartrate 4 mg (/ Dextrose) 254 mls @ 0 mls/hr IV STAT PRN; Protocol; Per Protocol PRN Reason: BP MAINTENANCE (PER PROTOCOL) Stop: 11/06/17 16:11 Last Admin: 09/08/17 06:44 Dose: 24 mcg/min, 91.44 mls/hr Phenylephrine HCl 10 mg/ (Sodium Chloride) 250 mls @ 30 mls/hr IV TITR [facility]; 20 MCG/MIN PRN Reason: Protocol Stop: 11/06/17 21:59 Last Titration: 09/08/17 06:01 Dose: 0 mcg/min, 0 mls/hr Vancomycin HCl 0.75 gm/ Sodium (Chloride) 250 mls @ 165 mls/hr IV ONCE ONE Stop: 09/08/17 10:30 Piperacillin Sod/Tazobactam (Sod 2.25 gm/ Sodium Chloride) 50 mls @ 100 mls/hr IV Q6HR [facility] Stop: 11/07/17 11:59 Sodium Chloride (Nacl 0.45%) 1,000 mls @ 100 mls/hr IV .Q10H [facility] Stop: 11/07/17 08:44 Insulin Aspart (Novolog Insulin Sliding Scale) 0 units SUBQ ACHS [facility] PRN Reason: Protocol Stop: 11/07/17 11:29 Insulin Detemir (Levemir Insulin) 10 units SUBQ HS [facility] Stop: 11/06/17 20:59 Last Admin: 09/08/17 01:09 Dose: Not Given Lisinopril (Zestril) 40 mg PO HS [facility] Stop: 11/06/17 20:59 Last Admin: 09/07/17 21:40 Dose: Not Given Lorazepam (Ativan) 0.5 mg PO Q6HR PRN; Protocol PRN Reason: Anxiety Stop: 11/06/17 16:35 Magnesium Hydroxide (Milk Of Magnesia) 30 ml PO DAILY PRN PRN Reason: Constipation Stop: 11/06/17 16:35 Megestrol Acetate (Megace) 400 mg PO TID [facility] Stop: 11/06/17 20:59 Last Admin: 09/07/17 21:40 Dose: Not Given Miscellaneous (Vancomycin Iv Per Pharmacy) 1 ea PRN [facility] Stop: 11/06/17 21:14 Miscellaneous (Clinical Monitoring) 1 ea PRN PRN PRN Reason: RENAL DOSE [facility] Stop: 11/07/17 07:51 Multivitamins/Vitamin C (Theragran) 1 tab PO DAILY [facility] Stop: 11/07/17 08:59 Pantoprazole Sodium (Protonix) 40 mg IVP DAILY [facility] Stop: 11/06/17 18:59 Last Admin: 09/07/17 21:31 Dose: 40 mg Quetiapine Fumarate (Seroquel) 100 mg PO HS [facility] PRN Reason: Protocol Stop: 11/06/17 20:59 Simvastatin (Zocor) 40 mg PO HS [facility] PRN Reason: Protocol Stop: 11/06/17 20:59 Last Admin: 09/07/17 21:40 Dose: Not Given Sodium Phosphate (Fleet Enema) 135 ml RC DAILY PRN PRN Reason: Constipation Stop: 11/06/17 16:35 General: no Alert HEENT: Atraumatic Neck: Supple Cardiovascular: Other (increased HR) Lungs: Other (decrease breath sounds) Abdomen: Bowel sounds, Soft Extremities: no Clubbing, no Cyanosis, no Edema Assessment/Plan - Assessment Assessment: Sepsis --- WBC's 29-> 31K continue IV antibiotics. Cholelithiasis ... Prerenal Azotemia --- will continue IV hydration CKD --- Renal Consult Malnutrition ... for swallow evaluation on hold for now Pleural Effusion UTI ... - Plan Plan: IV vancomycin IV fluids ID consult Pulmonary consult cardiology consult repeat chest xray blood cultures urine cultures repeat cbc, cmp admit to ICU Nutritional Asmnt/Malnutr-PDOC - Dietary Evaluation Malnutrition Findings (Please click <Entered> for more info): Nutritional Asmnt/Malnutrition Start: 09/07/17 16: 06 Text: Status: Active Freq: Document 09/07/17 16:06 NIK (Rec: 09/07/17 16:34 NIK [id number]) Nutritional Asmnt/Malnutrition Patient General Information Nutritional Screening Consult Diagnosis Dehydration, leukcytosis, dementia Pertinent Medical Hx/Surgical Hx HTN, DM, Dyslipidemia, Arthritis, Dementia, Hyperlipidemia, Anxiety, Osteoporosis, Degenerative joint disease, Neurophay. Subjective Information Per H&P, pt was on pureed NCS, NSPOT diet from [facility] ([facility]). Pt had anorexia more than one month and wt loss of 25lb in the past two months. Pt was transfered to ICU d/t rapid response. Families were aside, not a propriate time to approach. Currently no plan for nutrition d/t pt is not responding per RN. Current Diet Order/ Nutrition Support no diet order/swallowing eval pending Pertinent Medications D5 50ml/hr Pertinent Labs 09/07 Na 143, K 4.6, Cl 111 H, BUN 53 H, Cr 0.9 GLU 182 H, POC 164 H Nutritional Hx/Data Height 1.42 m Height (Calculated Centimeters) 142.2 Current Weight (lbs) 55.338 kg Weight (Calculated Kilograms) 55.3 Weight (Calculated Grams) 40336.3 [place] Body Weight 90 Recent Weight Change Yes Weight Status Overweight GI Symptoms Food Allergies No Skin Integrity/Comment: 1/4 pretibial pitting edema Estimated Nutritional Goals BEE in Kcals: Using Current wt Calories/Kcals/Kg 30 Kcals Calculated 1664 Protein: Using Current wt Protein g/k-1.2 Protein Calculated 56-67 Fluid: ml 1664-1943ml (30-35ml/kg) Nutritional Problem 1. Problem Problem Involuntary weight loss Etiology anorexia for more then one month Signs/Symptoms: recent wt loss of 25lb in two month Malnutrition Alert Interpretation of weight loss (Severe) >5% in 1 month Intervention/Recommendation Comments No nutrition intervention at this time. RD will follow up as high risk in 1-2 days. Expected Outcomes/Goals Expected Outcomes/Goals Pt to meet 50% of nutritional needs in the following 3 days.
[2017-09-08] MEDS: Aspirin 81mg Chewable Tab PO SCH (09:00)
[2017-09-08] MEDS: Multivitamin Tab PO SCH (09:00)
--- NOTE | 2017-09-08 09:53 | GI Progress Note ---
Subjective - Review of Systems Service Date: 09/08/17 Subjective: Pt became hypotensive after her US, now requiring ICU transfer and levophed. Objective - Results Result Diagrams: 09/08/17 05:57 09/08/17 05:57 Recent Labs: Laboratory Last Values WBC 29.9 Th/cmm (4.8-10.8) H* 09/08/17 05:57 RBC 3.33 Mil/cmm (3.80-5.20) L 09/08/17 05:57 Hgb 8.6 gm/dL (12-16) L 09/08/17 05:57 Hct 26.1 % (41.0-60) L 09/08/17 05:57 MCV 78.2 fl (81-100) L 09/08/17 05:57 MCH 25.9 pg (27.0-31.0) L 09/08/17 05:57 MCHC Differential 33.1 pg (28.0-36.0) 09/08/17 05:57 RDW 14.6 % (11.5-20.0) 09/08/17 05:57 Plt Count 199 Th/cmm (150-400) 09/08/17 05:57 MPV 8.5 fl 09/08/17 05:57 Neutrophils % RESEARCH MICROBIOLOGIST 09/07/17 10:40 Band Neutrophils % 6 % (0-10) 09/08/17 05:57 Lymphocytes % RESEARCH MICROBIOLOGIST 09/07/17 10:40 Monocytes % RESEARCH MICROBIOLOGIST 09/07/17 10:40 Eosinophils % RESEARCH MICROBIOLOGIST 09/07/17 10:40 Basophils % RESEARCH MICROBIOLOGIST 09/07/17 10:40 Neutrophils (Manual) 82 % (40-80) H 09/08/17 05:57 Lymphocytes 10 % (20-50) L 09/08/17 05:57 Monocytes 1 % (2-10) L 09/08/17 05:57 Eosinophils 0 % (0-5) 09/07/17 17:00 Basophils 0 % (0-3) 09/07/17 17:00 Platelet Estimate ADEQUATE (NORMAL) 09/08/17 05:57 Platelet Morphology NORMAL (NORMAL) 09/07/17 17:00 Microcytosis 1+ 09/08/17 05:57 RBC Morph Micro Appear ABNORMAL (NORMAL) 09/08/17 05:57 PT 10.8 SECONDS (9.5-11.5) 09/07/17 10:40 INR 1.04 (0.5-1.4) 09/07/17 10:40 PTT (Actin FS) 29.0 SECONDS (26.0-38.0) 09/07/17 10:40 Sodium 138 mEq/L (136-145) 09/08/17 05:57 Potassium 4.8 mEq/L (3.5-5.1) 09/08/17 05:57 Chloride 111 mEq/L (98-107) H 09/08/17 05:57 Carbon Dioxide 16.7 mEq/L (21.0-31.0) L 09/08/17 05:57 Anion Gap 15.1 (7.0-16.0) 09/08/17 05:57 BUN 52 mg/dL (7-25) H 09/08/17 05:57 Creatinine 1.8 mg/dL (0.6-1.2) H 09/08/17 05:57 Est GFR ( Amer) TNP 09/08/17 05:57 Est GFR (Non-Af Amer) TNP 09/08/17 05:57 BUN/Creatinine Ratio 28.9 09/08/17 05:57 Glucose 230 mg/dL (40-70) H D 09/08/17 05:57 POC Glucose 238 MG/DL (70 - 105) H 09/08/17 06:01 Hemoglobin A1c % 5.7 % (4.0-6.0) 09/07/17 10:40 Whole Bld Lactic Acid 4.96 mmol/L (0.60-1.99) H* 09/08/17 08:00 Calcium 7.1 mg/dL (8.6-10.3) L 09/08/17 05:57 Magnesium 2.1 mg/dL (1.9-2.7) 09/08/17 05:57 Total Bilirubin 1.3 mg/dL (0.3-1.0) H 09/08/17 05:57 AST 61 U/L (13-39) H 09/08/17 05:57 ALT 30 U/L (7-52) 09/08/17 05:57 Alkaline Phosphatase 194 U/L (34-104) H 09/08/17 05:57 Troponin I 0.20 ng/mL (0.01-0.05) H* D 09/08/17 05:57 B-Natriuretic Peptide 86.4 pg/mL (5.0-100.0) 09/07/17 17:00 Total Protein 5.4 gm/dL (6.0-8.3) L 09/08/17 05:57 Albumin 2.4 gm/dL (3.7-5.3) L 09/08/17 05:57 Globulin 3.0 gm/dL 09/08/17 05:57 Albumin/Globulin Ratio 0.8 (1.0-1.8) L 09/08/17 05:57 Lipase 20 U/L (11-82) 09/07/17 10:40 Urine Source CATH 09/07/17 11:30 Urine Color YELLOW 09/07/17 11:30 Urine Clarity HAZY (CLEAR) 09/07/17 11:30 Urine pH 5.5 (4.6 - 8.0) 09/07/17 11:30 Ur Specific [place] >= 1.030 (1.005-1.030) 09/07/17 11:30 Urine Protein 100 mg/dL (NEGATIVE) H 09/07/17 11:30 Urine Glucose (UA) NEGATIVE mg/dL (NEGATIVE) 09/07/17 11:30 Urine Ketones TRACE mg/dL (NEGATIVE) 09/07/17 11:30 Urine Blood NEGATIVE (NEGATIVE) 09/07/17 11:30 Urine Nitrate NEGATIVE (NEGATIVE) 09/07/17 11:30 Urine Bilirubin SMALL (NEGATIVE) H 09/07/17 11:30 Urine Urobilinogen 2.0 E.U./dL (0.2 - 1.0) 09/07/17 11:30 Ur Leukocyte Esterase NEGATIVE (NEGATIVE) 09/07/17 11:30 Urine RBC 0-2 /hpf (0-5) 09/07/17 11:30 Urine WBC 0-2 /hpf (0-5) 09/07/17 11:30 Ur Epithelial Cells MODERATE /lpf (FEW) 09/07/17 11:30 Urine Bacteria FEW /hpf (NONE SEEN) 09/07/17 11:30 Fine Granular Casts 0-2 /lpf (NONE SEEN) H 09/07/17 11:30 Coarse Granular Casts 2-5 /lpf (NONE SEEN) H 09/07/17 11:30 Urine Mucus FEW /lpf (FEW) 09/07/17 11:30 - Physical Exam Vitals and I&O: Vital Signs Temp 98.9 F 09/08/17 04:00 Pulse 104 09/08/17 07:16 Resp 16 09/08/17 07:16 BP 116/65 09/08/17 07:00 Pulse Ox 100 09/08/17 07:16 Intake & Output 09/07/17 09/08/17 09/08/17 18:59 06:59 18:59 Intake Total 1512.020 Output Total 100 100 Balance -100 1412.020 Weight (lbs) 53.977 kg 55.474 kg 55.338 kg Intake: Intake, IV Amount 1512.020 0.9% NS w/20 mEq KCL 1, 20.833 000 ml @ 125 mls/hr IV . Q8H [facility] Rx#:[id number] KCL 20mEq/100mL Premix 20 55 meq In 100 ml @ 50 mls/ hr IV Q2H [facility] Rx#: [id number] Norepinephrine 4 mg In 988.187 Dextrose 5% 250 ml @ Per Protocol IV STAT PRN Rx#: [id number] Phenylephrine HCl 10 mg 298.000 In Sodium Chloride 0.9% 249 ml @ 20 MCG/MIN 30 mls/hr IV TITR [facility] Rx#: [id number] Piperacillin Sodium/ 50 Tazobact 3.375 gm In Sodium Chloride 0.9% 50 ml @ 100 mls/hr IV Q8HR [facility] Rx#:[id number] Vancomycin HCl 500 mg In 100 Sodium Chloride 0.9% 100 ml @ 100 mls/hr IV Q24H [facility] Rx#:[id number] Output: Urine 100 100 Other: # Bowel Movements 0 1 Active Medications: Current Medications Acetaminophen (Tylenol) 650 mg PO Q6HR PRN PRN Reason: MILD PAIN OR TEMP>100.4 Stop: 11/06/17 16:35 Alendronate Sodium (Fosamax) 70 mg PO QSAT [facility] Stop: 11/08/17 06:29 Aspirin (Aspirin Chewable) 81 mg PO DAILY [facility] Stop: 11/07/17 08:59 Bisacodyl (Dulcolax 10 Mg Supp) 10 mg RC DAILY PRN PRN Reason: IF MOM INEFFECTIVE Stop: 11/06/17 16:35 Clonazepam (Klonopin) 1 mg PO DAILY [facility] PRN Reason: Protocol Stop: 11/07/17 08:59 Clonazepam (Klonopin) 2 mg PO DAILY [facility] Stop: 11/07/17 08:59 Cyanocobalamin (Vitamin B12) 1,000 mcg PO DAILY [facility] Stop: 11/07/17 08:59 Diltiazem HCl (Cardizem) 20 mg IVP Q3H PRN PRN Reason: Heart Rate > than 120 bpm Stop: 11/06/17 16:44 Docusate Sodium (Colace) 100 mg PO DAILY [facility] Stop: 11/07/17 08:59 Heparin Sodium (Porcine) (Heparin) 5,000 units SUBQ Q12HR [facility] Stop: 11/06/17 20:59 Last Admin: 09/08/17 08:46 Dose: 5,000 units Phenylephrine HCl 10 mg/ (Sodium Chloride) 250 mls @ 30 mls/hr IV TITR [facility]; 20 MCG/MIN PRN Reason: Protocol Stop: 11/06/17 21:59 Last Titration: 09/08/17 06:01 Dose: 0 mcg/min, 0 mls/hr Vancomycin HCl 0.75 gm/ Sodium (Chloride) 250 mls @ 165 mls/hr IV ONCE ONE Stop: 09/08/17 10:30 Last Admin: 09/08/17 09:05 Dose: 165 mls/hr Piperacillin Sod/Tazobactam (Sod 2.25 gm/ Sodium Chloride) 50 mls @ 100 mls/hr IV Q6HR [facility] Stop: 11/07/17 11:59 Sodium Chloride (Nacl 0.45%) 1,000 mls @ 100 mls/hr IV .Q10H [facility] Stop: 11/07/17 08:44 Norepinephrine Bitartrate 8 mg (/ Dextrose) 258 mls @ 0 mls/hr IV STAT PRN; Protocol; Per Protocol PRN Reason: BP MAINTENANCE (PER PROTOCOL) Stop: 11/06/17 16:11 Insulin Aspart (Novolog Insulin Sliding Scale) 0 units SUBQ ACHS [facility] PRN Reason: Protocol Stop: 11/07/17 11:29 Insulin Detemir (Levemir Insulin) 10 units SUBQ HS [facility] Stop: 11/06/17 20:59 Last Admin: 09/08/17 01:09 Dose: Not Given Lisinopril (Zestril) 40 mg PO HS [facility] Stop: 11/06/17 20:59 Last Admin: 09/07/17 21:40 Dose: Not Given Lorazepam (Ativan) 0.5 mg PO Q6HR PRN; Protocol PRN Reason: Anxiety Stop: 11/06/17 16:35 Magnesium Hydroxide (Milk Of Magnesia) 30 ml PO DAILY PRN PRN Reason: Constipation Stop: 11/06/17 16:35 Megestrol Acetate (Megace) 400 mg PO TID [facility] Stop: 11/06/17 20:59 Last Admin: 09/07/17 21:40 Dose: Not Given Miscellaneous (Vancomycin Iv Per Pharmacy) 1 ea PRN [facility] Stop: 11/06/17 21:14 Miscellaneous (Clinical Monitoring) 1 ea PRN PRN PRN Reason: RENAL DOSE [facility] Stop: 11/07/17 07:51 Multivitamins/Vitamin C (Theragran) 1 tab PO DAILY [facility] Stop: 11/07/17 08:59 Pantoprazole Sodium (Protonix) 40 mg IVP DAILY [facility] Stop: 11/06/17 18:59 Last Admin: 09/08/17 08:46 Dose: 40 mg Quetiapine Fumarate (Seroquel) 100 mg PO HS [facility] PRN Reason: Protocol Stop: 11/06/17 20:59 Simvastatin (Zocor) 40 mg PO HS [facility] PRN Reason: Protocol Stop: 11/06/17 20:59 Last Admin: 09/07/17 21:40 Dose: Not Given Sodium Phosphate (Fleet Enema) 135 ml RC DAILY PRN PRN Reason: Constipation Stop: 11/06/17 16:35 General: no Alert HEENT: Atraumatic Neck: Supple Cardiovascular: Other (increased HR) Lungs: Other (decrease breath sounds) Abdomen: Bowel sounds, Soft, Other (grimaces to abdominal palpation) Extremities: no Clubbing, no Cyanosis, no Edema Assessment/Plan - Assessment Assessment: # Septic shock, likely abdominal source Suspect severe cholecystitis at this point given the appearance of the US with markedly distended GB. She also grimaces to abdominal exam, which indicates an abdominal source. At this point, she will require further imaging, surgery consultation, and possible PTC tube for GB drainage if the family would like to pursue all measures. Likely would not tolerate surgery at this point given levophed requirement, and thus consider PTC tube # Anorexia # Dysphasia G tube placement is reasonable, but would need to be after her infectious process resolves Recommendations: - Surgery consultation - IR consultation for PTC tube drainage - broad abx and ICU blood pressure support - NPO - agree with ID consultation as well. Prognosis is guarded at this time, and likely without GB drainage may be poor. Thank you for allowing me to participate in this patient's care.
--- NOTE | 2017-09-08 11:33 | Diagnostic Imaging Report ---
CT abdomen and pelvis without intravenous contrast Indication: Abdominal pain, assess for cholecystitis, possible perforation 09/08/2017 Technique: Axial images were obtained from the lung bases to the bilateral proximal femurs without IV contrast. Coronal reconstructions were made. total DLP: 618, CTDI12.3 FINDINGS: Hypoventilatory atelectatic changes of the lung bases are seen with small bilateral effusions and bibasal consolidative changes left greater than right. Diffuse atherosclerotic vascular disease is noted. Assessment of the solid organs is limited due to lack of IV contrast. No evidence of focal hepatic lesions. Distended gallbladder is noted. Mild haziness along the gallbladder margins also noted. Small calcifications are seen along the neck portion of the gallbladder. No focal splenic lesions. No focal adrenal lesions. Mild nonspecific bilateral perinephric inflammatory changes are noted. No hydronephrosis. Hurtado catheter is seen within underdistended urinary bladder with few pockets of gas. Calcified lymph nodes of the pelvis are noted. There is moderate amount of stool throughout the colon. Small amount of fluid is seen within the right lower quadrant with mild bowel wall thickening of the cecum and ascending colonic region. The appendix is not well-visualized. No evidence of free air. Nonspecific fluid-filled loops of small bowel are also noted. Degenerative changes of the spine are noted with old mild compression deformity of the T10 vertebral body. There is also 2 mm anterolisthesis of L4 on L5 likely due to facet arthropathy. Mild anasarca is noted. IMPRESSION: Distended gallbladder with small calcification/likely small stones along the gallbladder neck that were not well visualized on previous ultrasound examination. There is also haziness of the gallbladder wall margins. Findings may be due to underlying cholecystitis. No definite evidence of perforation at this time. Recommend clinical correlation and further assessment nuclear medicine HIDA scan Small amount of free fluid in the right lower quadrant. Mild adjacent bowel wall thickening is seen along the right lower quadrant which may be due to infectious inflammatory less likely infiltrative process. Clinical correlation recommended. The Appendix was not visualized. Nonspecific fluid-filled loops of small bowel without evidence of small bowel obstruction. Mild anasarca. Diffuse atherosclerotic vascular disease. Small bilateral effusions and bibasal consolidation changes, left greater than right. Hurtado catheter with few pockets of gas within the urinary bladder.
[2017-09-08] MEDS: Piperacillin/Tazobact 2.25 gm in 0.9% NS 50 ML IV SCH ×2 (12:13→17:29)
[2017-09-08] MEDS: D5-0.9%NS 1,000 ML IV SCH (16:56)
--- NOTE | 2017-09-08 17:22 | Infectious Disease Prog Note ---
Infectious Disease Subjective - Review of Systems Service Date: 09/08/17 Subjective: There is no new change. There is no fever. Still on levophed. Infectious Disease Objective - Results Result Diagrams: 09/08/17 05:57 09/08/17 05:57 Recent Labs: Laboratory Last Values WBC 29.9 Th/cmm (4.8-10.8) H* 09/08/17 05:57 RBC 3.33 Mil/cmm (3.80-5.20) L 09/08/17 05:57 Hgb 8.6 gm/dL (12-16) L 09/08/17 05:57 Hct 26.1 % (41.0-60) L 09/08/17 05:57 MCV 78.2 fl (81-100) L 09/08/17 05:57 MCH 25.9 pg (27.0-31.0) L 09/08/17 05:57 MCHC Differential 33.1 pg (28.0-36.0) 09/08/17 05:57 RDW 14.6 % (11.5-20.0) 09/08/17 05:57 Plt Count 199 Th/cmm (150-400) 09/08/17 05:57 MPV 8.5 fl 09/08/17 05:57 Neutrophils % USER SUPPORT ANALYST SUPERVISOR 09/07/17 10:40 Band Neutrophils % 6 % (0-10) 09/08/17 05:57 Lymphocytes % USER SUPPORT ANALYST SUPERVISOR 09/07/17 10:40 Monocytes % USER SUPPORT ANALYST SUPERVISOR 09/07/17 10:40 Eosinophils % USER SUPPORT ANALYST SUPERVISOR 09/07/17 10:40 Basophils % USER SUPPORT ANALYST SUPERVISOR 09/07/17 10:40 Neutrophils (Manual) 82 % (40-80) H 09/08/17 05:57 Lymphocytes 10 % (20-50) L 09/08/17 05:57 Monocytes 1 % (2-10) L 09/08/17 05:57 Eosinophils 0 % (0-5) 09/07/17 17:00 Basophils 0 % (0-3) 09/07/17 17:00 Platelet Estimate ADEQUATE (NORMAL) 09/08/17 05:57 Platelet Morphology NORMAL (NORMAL) 09/07/17 17:00 Microcytosis 1+ 09/08/17 05:57 RBC Morph Micro Appear ABNORMAL (NORMAL) 09/08/17 05:57 PT 10.8 SECONDS (9.5-11.5) 09/07/17 10:40 INR 1.04 (0.5-1.4) 09/07/17 10:40 PTT (Actin FS) 29.0 SECONDS (26.0-38.0) 09/07/17 10:40 Sodium 138 mEq/L (136-145) 09/08/17 05:57 Potassium 4.8 mEq/L (3.5-5.1) 09/08/17 05:57 Chloride 111 mEq/L (98-107) H 09/08/17 05:57 Carbon Dioxide 16.7 mEq/L (21.0-31.0) L 09/08/17 05:57 Anion Gap 15.1 (7.0-16.0) 09/08/17 05:57 BUN 52 mg/dL (7-25) H 09/08/17 05:57 Creatinine 1.8 mg/dL (0.6-1.2) H 09/08/17 05:57 Est GFR ( Amer) TNP 09/08/17 05:57 Est GFR (Non-Af Amer) TNP 09/08/17 05:57 BUN/Creatinine Ratio 28.9 09/08/17 05:57 Glucose 230 mg/dL (40-70) H D 09/08/17 05:57 POC Glucose 202 MG/DL (70 - 105) H 09/08/17 16:26 Hemoglobin A1c % 5.7 % (4.0-6.0) 09/07/17 10:40 Whole Bld Lactic Acid 4.96 mmol/L (0.60-1.99) H* 09/08/17 08:00 Calcium 7.1 mg/dL (8.6-10.3) L 09/08/17 05:57 Magnesium 2.1 mg/dL (1.9-2.7) 09/08/17 05:57 Total Bilirubin 1.3 mg/dL (0.3-1.0) H 09/08/17 05:57 AST 61 U/L (13-39) H 09/08/17 05:57 ALT 30 U/L (7-52) 09/08/17 05:57 Alkaline Phosphatase 194 U/L (34-104) H 09/08/17 05:57 Troponin I 0.20 ng/mL (0.01-0.05) H* D 09/08/17 05:57 B-Natriuretic Peptide 86.4 pg/mL (5.0-100.0) 09/07/17 17:00 Total Protein 5.4 gm/dL (6.0-8.3) L 09/08/17 05:57 Albumin 2.4 gm/dL (3.7-5.3) L 09/08/17 05:57 Globulin 3.0 gm/dL 09/08/17 05:57 Albumin/Globulin Ratio 0.8 (1.0-1.8) L 09/08/17 05:57 Lipase 20 U/L (11-82) 09/07/17 10:40 Urine Source CATH 09/07/17 11:30 Urine Color YELLOW 09/07/17 11:30 Urine Clarity HAZY (CLEAR) 09/07/17 11:30 Urine pH 5.5 (4.6 - 8.0) 09/07/17 11:30 Ur Specific [place] >= 1.030 (1.005-1.030) 09/07/17 11:30 Urine Protein 100 mg/dL (NEGATIVE) H 09/07/17 11:30 Urine Glucose (UA) NEGATIVE mg/dL (NEGATIVE) 09/07/17 11:30 Urine Ketones TRACE mg/dL (NEGATIVE) 09/07/17 11:30 Urine Blood NEGATIVE (NEGATIVE) 09/07/17 11:30 Urine Nitrate NEGATIVE (NEGATIVE) 09/07/17 11:30 Urine Bilirubin SMALL (NEGATIVE) H 09/07/17 11:30 Urine Urobilinogen 2.0 E.U./dL (0.2 - 1.0) 09/07/17 11:30 Ur Leukocyte Esterase NEGATIVE (NEGATIVE) 09/07/17 11:30 Urine RBC 0-2 /hpf (0-5) 09/07/17 11:30 Urine WBC 0-2 /hpf (0-5) 09/07/17 11:30 Ur Epithelial Cells MODERATE /lpf (FEW) 09/07/17 11:30 Urine Bacteria FEW /hpf (NONE SEEN) 09/07/17 11:30 Fine Granular Casts 0-2 /lpf (NONE SEEN) H 09/07/17 11:30 Coarse Granular Casts 2-5 /lpf (NONE SEEN) H 09/07/17 11:30 Urine Mucus FEW /lpf (FEW) 09/07/17 11:30 - Physical Exam Vitals and I&O: Vital Signs Temp 98.2 F 09/08/17 16:00 Pulse 105 09/08/17 17:00 Resp 35 09/08/17 17:00 BP 97/59 09/08/17 17:00 Pulse Ox 100 09/08/17 17:00 Intake & Output 09/07/17 09/08/17 09/08/17 18:59 06:59 18:59 Intake Total 1512.020 333.155 Output Total 100 100 Balance -100 1412.020 333.155 Weight (lbs) 53.977 kg 55.474 kg 55.338 kg Intake: Intake, IV Amount 1512.020 333.155 0.9% NS w/20 mEq KCL 1, 20.833 000 ml @ 125 mls/hr IV . Q8H [facility] Rx#:[id number] KCL 20mEq/100mL Premix 20 55 meq In 100 ml @ 50 mls/ hr IV Q2H [facility] Rx#: [id number] Norepinephrine 4 mg In 988.187 Dextrose 5% 250 ml @ Per Protocol IV STAT PRN Rx#: [id number] Norepinephrine 8 mg In 283.155 Dextrose 5% 250 ml @ Per Protocol IV STAT PRN Rx#: [id number] Phenylephrine HCl 10 mg 298.000 In Sodium Chloride 0.9% 249 ml @ 20 MCG/MIN 30 mls/hr IV TITR [facility] Rx#: [id number] Piperacillin Sodium/ 50 Tazobact 2.25 gm In Sodium Chloride 0.9% 50 ml @ 100 mls/hr IV Q6HR [facility] Rx#:[id number] Piperacillin Sodium/ 50 Tazobact 3.375 gm In Sodium Chloride 0.9% 50 ml @ 100 mls/hr IV Q8HR [facility] Rx#:[id number] Vancomycin HCl 500 mg In 100 Sodium Chloride 0.9% 100 ml @ 100 mls/hr IV Q24H [facility] Rx#:[id number] Output: Urine 100 100 Other: # Bowel Movements 0 1 Stool Characteristics Soft Brown Active Medications: Current Medications Acetaminophen (Tylenol) 650 mg PO Q6HR PRN PRN Reason: MILD PAIN OR TEMP>100.4 Stop: 11/06/17 16:35 Alendronate Sodium (Fosamax) 70 mg PO QSAT [facility] Stop: 11/08/17 06:29 Aspirin (Aspirin Chewable) 81 mg PO DAILY [facility] Stop: 11/07/17 08:59 Last Admin: 09/08/17 09:00 Dose: Not Given Bisacodyl (Dulcolax 10 Mg Supp) 10 mg RC DAILY PRN PRN Reason: IF MOM INEFFECTIVE Stop: 11/06/17 16:35 Clonazepam (Klonopin) 1 mg PO DAILY [facility] PRN Reason: Protocol Stop: 11/07/17 08:59 Last Admin: 09/08/17 09:00 Dose: Not Given Clonazepam (Klonopin) 2 mg PO DAILY [facility] Stop: 11/07/17 08:59 Cyanocobalamin (Vitamin B12) 1,000 mcg PO DAILY [facility] Stop: 11/07/17 08:59 Last Admin: 09/08/17 09:00 Dose: Not Given Diltiazem HCl (Cardizem) 20 mg IVP Q3H PRN PRN Reason: Heart Rate > than 120 bpm Stop: 11/06/17 16:44 Docusate Sodium (Colace) 100 mg PO DAILY [facility] Stop: 11/07/17 08:59 Last Admin: 09/08/17 09:00 Dose: Not Given Heparin Sodium (Porcine) (Heparin) 5,000 units SUBQ Q12HR [facility] Stop: 11/06/17 20:59 Last Admin: 09/08/17 08:46 Dose: 5,000 units Phenylephrine HCl 10 mg/ (Sodium Chloride) 250 mls @ 30 mls/hr IV TITR [facility]; 20 MCG/MIN PRN Reason: Protocol Stop: 11/06/17 21:59 Last Titration: 09/08/17 06:01 Dose: 0 mcg/min, 0 mls/hr Piperacillin Sod/Tazobactam (Sod 2.25 gm/ Sodium Chloride) 50 mls @ 100 mls/hr IV Q6HR [facility] Stop: 11/07/17 11:59 Last Infusion: 09/08/17 12:45 Dose: Infused Norepinephrine Bitartrate 8 mg (/ Dextrose) 258 mls @ 0 mls/hr IV STAT PRN; Protocol; Per Protocol PRN Reason: BP MAINTENANCE (PER PROTOCOL) Stop: 11/06/17 16:11 Last Titration: 09/08/17 16:29 Dose: 20 mcg/min, 38.7 mls/hr Dextrose/Sodium Chloride (D5-0.9%Ns) 1,000 mls @ 125 mls/hr IV .Q8H [facility] Stop: 11/07/17 16:59 Last Admin: 09/08/17 16:56 Dose: 125 mls/hr Insulin Aspart (Novolog Insulin Sliding Scale) 0 units SUBQ ACHS [facility] PRN Reason: Protocol Stop: 11/07/17 11:29 Last Admin: 09/08/17 16:31 Dose: Not Given Insulin Detemir (Levemir Insulin) 10 units SUBQ HS [facility] Stop: 11/06/17 20:59 Last Admin: 09/08/17 01:09 Dose: Not Given Lisinopril (Zestril) 40 mg PO HS [facility] Stop: 11/06/17 20:59 Last Admin: 09/07/17 21:40 Dose: Not Given Lorazepam (Ativan) 0.5 mg PO Q6HR PRN; Protocol PRN Reason: Anxiety Stop: 11/06/17 16:35 Magnesium Hydroxide (Milk Of Magnesia) 30 ml PO DAILY PRN PRN Reason: Constipation Stop: 11/06/17 16:35 Megestrol Acetate (Megace) 400 mg PO TID [facility] Stop: 11/06/17 20:59 Last Admin: 09/08/17 14:20 Dose: Not Given Miscellaneous (Vancomycin Iv Per Pharmacy) 1 [facility] PRN [facility] Stop: 11/06/17 21:14 Miscellaneous (Clinical Monitoring) 1 [facility] PRN PRN PRN Reason: RENAL DOSE [facility] Stop: 11/07/17 07:51 Miscellaneous (Zosyn Iv Per Pharmacy) 1 [facility] PRN PRN PRN Reason: PROTOCOL Stop: 11/07/17 14:31 Multivitamins/Vitamin C (Theragran) 1 tab PO DAILY [facility] Stop: 11/07/17 08:59 Last Admin: 09/08/17 09:00 Dose: Not Given Pantoprazole Sodium (Protonix) 40 mg IVP DAILY [facility] Stop: 11/06/17 18:59 Last Admin: 09/08/17 08:46 Dose: 40 mg Quetiapine Fumarate (Seroquel) 100 mg PO [facility] PRN Reason: Protocol Stop: 11/06/17 20:59 Simvastatin (Zocor) 40 mg PO HS [facility] PRN Reason: Protocol Stop: 11/06/17 20:59 Last Admin: 09/07/17 21:40 Dose: Not Given Sodium Phosphate (Fleet Enema) 135 ml RC DAILY [facility] PRN Reason: Constipation Stop: 11/06/17 16:35 General: no acute distress, well developed, well nourished HEENT: atraumatic, normocephalic, PERRLA Cardiovascular: S1S2, regular, systolic murmur Lungs: clear to auscultation bilaterally, clear to percussion Abdomen: soft, tender (RUQ), other (Main's sign positive.) Extremities: no cyanosis, no clubbing, no edema Neurological: awake, alert, oriented Skin: intact Infectious Disease Assmt/Plan - Assessment Assessment: 1. sepsis. 2. Acute cholecystitis. 3. dementia. 4. acute renal failure. - Plan Plan: Conitnue zosyn. Dc vanco. repeat blood c./s. labx in am. HIDA. Surgery consult. Nutritional Asmnt/Malnutr-PDOC - Dietary Evaluation Malnutrition Findings (Please click <Entered> for more info): Nutritional Asmnt/Malnutrition Start: 09/07/17 16: 06 Text: Status: Active Freq: Document 09/07/17 16:06 ZACG (Rec: 09/07/17 16:34 [id number] [email or web address]) Nutritional Asmnt/Malnutrition Patient General Information Nutritional Screening Consult Diagnosis Dehydration, leukcytosis, dementia Pertinent Medical Hx/Surgical Hx HTN, DM, Dyslipidemia, Arthritis, Dementia, Hyperlipidemia, Anxiety, Osteoporosis, Degenerative joint disease, Neurophay. Subjective Information Per H&P, pt was on pureed NCS, NSPOT diet from [facility] ([facility]). Pt had anorexia more than one month and wt loss of 25lb in the past two months. Pt was transfered to ICU d/t rapid response. Families were aside, not a propriate time to approach. Currently no plan for nutrition d/t pt is not responding per RN. Current Diet Order/ Nutrition Support no diet order/swallowing eval pending Pertinent Medications D5 50ml/hr Pertinent Labs 09/07 Na 143, K 4.6, Cl 111 H, BUN 53 H, Cr 0.9 GLU 182 H, POC 164 H Nutritional Hx/Data Height 1.42 m Height (Calculated Centimeters) 142.2 Current Weight (lbs) 55.338 kg Weight (Calculated Kilograms) 55.3 Weight (Calculated Grams) 60205.3 [place] Body Weight 90 Recent Weight Change Yes Weight Status Overweight GI Symptoms Food Allergies No Skin Integrity/Comment: 11/09 pretibial pitting edema Estimated Nutritional Goals BEE in Kcals: Using Current wt Calories/Kcals/Kg 30 Kcals Calculated 1664 Protein: Using Current wt Protein g/k-1.2 Protein Calculated 56-67 Fluid: ml 1664-1943ml (30-35ml/kg) Nutritional Problem 1. Problem Problem Involuntary weight loss Etiology anorexia for more then one month Signs/Symptoms: recent wt loss of 25lb in two month Malnutrition Alert Interpretation of weight loss (Severe) >5% in 1 month Intervention/Recommendation Comments No nutrition intervention at this time. RD will follow up as high risk in 1-2 days. Expected Outcomes/Goals Expected Outcomes/Goals Pt to meet 50% of nutritional needs in the following 3 days.
--- NOTE | 2017-09-08 20:07 | Cardiology ---
09/08/2017 PROCEDURE: Echocardiogram. The patient of Dr. Allen Quintero. M-MODE ECHOCARDIOGRAM: Mitral valve, anterior leaflet of mitral valve shows normal excursion, EF velocity. Posterior leaflet of mitral valve shows normal excursion. Left ventricular posterior wall shows increased thickness, normal excursion. Interventricular septum shows increased thickness, normal excursion, hypertrophy of the left ventricle, ejection fraction 50%. Left atrium normal. Aortic root shows normal dimension, normal excursion of aortic leaflets. CONCLUSION: Hypertrophy of the left ventricle, ejection fraction 50%. 2D ECHO: Long axis view showed normal sized left ventricle with hypertrophy of the left ventricle. Left atrium normal. Aortic root shows normal dimension, normal excursion of aortic leaflets. Short axis view of mitral valve normal. Short axis view of aortic valve normal. Apical four chamber view showed normal sized left ventricle with hypertrophy of the left ventricle. Left atrium normal. Right ventricular cavity, right atrium normal, no pericardial effusion. CONCLUSION: Hypertrophy of the left ventricle, ejection fraction 50%. Doppler study shows prominent A wave consistent with poor compliance of left ventricle, mild aortic regurgitation, mild tricuspid regurgitation. Right ventricular systolic pressure 30 mmHg. JOB# [id number]
[2017-09-08] MEDS: Morphine Sulfate 2 mg/mL 1mL Syr IVP PRN (21:20)
--- NOTE | 2017-09-09 01:09 | Consultation ---
DATE OF CONSULTATION: 09/08/2017 PULMONARY/CRITICAL CARE CONSULTATION REASON FOR CONSULTATION: Significant metabolic disease with tachypnea. CONSULT NOTE: This is a 72-year-old female who is basically a very poor historian. Most of the information is obtained by talking to Dr. Quintero yesterday. The patient was basically becoming more anorexic, more short of breath, more fatigued and weak, etc. Subsequently, there was some question as to patient has possibly pneumonia and also subsequently the patient was having more tachypnea with periods of hypertension. Subsequently, the patient was transferred to Intensive Care Unit for further care and necessary treatment. Unfortunately, the patient is awake, blinks eyes. Other meaningful history from the patient is not available except for mentioned above. PAST MEDICAL HISTORY: History of hypertension, dyslipoproteinemia, history of dementia, history of osteoarthritis, although history is very minimal to nil. MEDICATIONS: Medications prior to coming to the hospital include lisinopril, lorazepam, aspirin, Dulcolax, and Klonopin. SOCIAL HISTORY: Smoking history is not available. ALLERGIES: Allergic history is not available. PHYSICAL EXAMINATION: GENERAL: This is an elderly looking female, opens eyes, awake, not in any acute distress. VITAL SIGNS: The patient's recorded vitals: Temperature 96, pulse 110, blood pressure is ____, and saturation is 100% on 4 L. HEENT: Examination of the head is essentially unremarkable. Pupils appear to be equal and reacting to light. Conjunctivae are slightly pallor, otherwise unremarkable. ABDOMEN: Slightly distended, otherwise unremarkable. EXTREMITIES: Show no peripheral edema. No cyanosis or clubbing. LABORATORY DATA: The patient's chest x-ray done on 09/07/2017 shows questionable haziness in left base, but otherwise unremarkable. The patient's other laboratory studies: White count ____ and hemoglobin 8.6. Electrolytes are okay with creatinine 1.52 and lactic acid 4.43. The patient's ABG done yesterday shows significant metabolic acidosis, which is well compensated. IMPRESSION: 1. The patient has acute sepsis with hypertension with questionable pneumonia, left side. 2. Significant malnourishment with anorexia with history of hypertension. PLANS AND SUGGESTIONS: I have discussed with Dr. Quintero, we will go ahead and continue IV fluids. I agree with various cultures. Add vancomycin. Continue Rocephin and we will see how she does. The patient is DNR. Care and plan briefly discussed with patient's daughter at the bedside. [facility]# [id number]
[2017-09-09] MEDS: D5-0.9%NS 1,000 ML IV SCH ×3 (02:00→19:49)
[2017-09-09] MEDS: Piperacillin/Tazobact 2.25 gm in 0.9% NS 50 ML IV SCH ×4 (05:35→17:37)
[2017-09-09 06:09] LABS: HEMATOCRIT 27.9 % (41.0-60); HEMOGLOBIN 9.3 gm/dL (12-16); MEAN CELL VOLUME 77.8 fl (81-100); MEAN CORPUSCULAR HEMOGLOBIN 25.9 pg (27.0-31.0); MEAN CORPUSCULAR HGB CONC 33.2 pg (28.0-36.0); MEAN PLATELET VOLUME 9.6 fl; RED BLOOD COUNT 3.58 Mil/cmm (3.80-5.20); RED CELL DISTRIBUTION WIDTH 14.5 % (11.5-20.0)
[2017-09-09 06:33] LABS: ALB/GLOB RATIO 0.7 (1.0-1.8); ALKALINE PHOSPHATASE 163 U/L (34-104); ANION GAP 12.8 (7.0-16.0); BILIRUBIN,TOTAL 0.9 mg/dL (0.3-1.0); BUN - UREA NITROGEN 53 mg/dL (7-25); CALCIUM SERUM 6.5 mg/dL (8.6-10.3); CARBON DIOXIDE 18.1 mEq/L (21.0-31.0); CHLORIDE 110 mEq/L (98-107); CREATININE - SERUM 2.3 mg/dL (0.6-1.2); POTASSIUM SERUM 3.9 mEq/L (3.5-5.1); SGOT 66 U/L (13-39); SGPT/ALT 42 U/L (7-52); SODIUM SERUM 137 mEq/L (136-145)
[2017-09-09 06:47] LABS: WHITE BLOOD COUNT 31.5 Th/cmm (4.8-10.8)
[2017-09-09 06:48] LABS: PLATELET COUNT 147 Th/cmm (150-400)
[2017-09-09 06:53] LABS: GLUCOSE 286 mg/dL (40-70)
[2017-09-09] MEDS: INSULIN ASPART SLIDING SCALE 100 UNITS/ML UNIT SUBQ SCH ×4 (07:00→21:04)
--- NOTE | 2017-09-09 07:46 | GI Progress Note ---
Subjective - Review of Systems Service Date: 09/09/17 Subjective: HIDA markedly positive, levophed requirement is less but WBC is up Objective - Results Result Diagrams: 09/09/17 05:54 09/09/17 05:54 Recent Labs: Laboratory Last Values WBC 31.5 Th/cmm (4.8-10.8) H* 09/09/17 05:54 RBC 3.58 Mil/cmm (3.80-5.20) L 09/09/17 05:54 Hgb 9.3 gm/dL (12-16) L 09/09/17 05:54 Hct 27.9 % (41.0-60) L 09/09/17 05:54 MCV 77.8 fl (81-100) L 09/09/17 05:54 MCH 25.9 pg (27.0-31.0) L 09/09/17 05:54 MCHC Differential 33.2 pg (28.0-36.0) 09/09/17 05:54 RDW 14.5 % (11.5-20.0) 09/09/17 05:54 Plt Count 147 Th/cmm (150-400) L D 09/09/17 05:54 MPV 9.6 fl 09/09/17 05:54 Neutrophils % ACCREDITED PHARMACY TECHNICIAN 09/07/17 10:40 Band Neutrophils % 6 % (0-10) 09/08/17 05:57 Lymphocytes % ACCREDITED PHARMACY TECHNICIAN 09/07/17 10:40 Monocytes % ACCREDITED PHARMACY TECHNICIAN 09/07/17 10:40 Eosinophils % ACCREDITED PHARMACY TECHNICIAN 09/07/17 10:40 Basophils % ACCREDITED PHARMACY TECHNICIAN 09/07/17 10:40 Neutrophils (Manual) 82 % (40-80) H 09/08/17 05:57 Lymphocytes 10 % (20-50) L 09/08/17 05:57 Monocytes 1 % (2-10) L 09/08/17 05:57 Eosinophils 0 % (0-5) 09/07/17 17:00 Basophils 0 % (0-3) 09/07/17 17:00 Platelet Estimate ADEQUATE (NORMAL) 09/08/17 05:57 Platelet Morphology NORMAL (NORMAL) 09/07/17 17:00 Microcytosis 1+ 09/08/17 05:57 RBC Morph Micro Appear ABNORMAL (NORMAL) 09/08/17 05:57 PT 10.8 SECONDS (9.5-11.5) 09/07/17 10:40 INR 1.04 (0.5-1.4) 09/07/17 10:40 PTT (Actin FS) 29.0 SECONDS (26.0-38.0) 09/07/17 10:40 Sodium 137 mEq/L (136-145) 09/09/17 05:54 Potassium 3.9 mEq/L (3.5-5.1) 09/09/17 05:54 Chloride 110 mEq/L (98-107) H 09/09/17 05:54 Carbon Dioxide 18.1 mEq/L (21.0-31.0) L 09/09/17 05:54 Anion Gap 12.8 (7.0-16.0) 09/09/17 05:54 BUN 53 mg/dL (7-25) H 09/09/17 05:54 Creatinine 2.3 mg/dL (0.6-1.2) H 09/09/17 05:54 Est GFR ( Amer) TNP 09/09/17 05:54 Est GFR (Non-Af Amer) TNP 09/09/17 05:54 BUN/Creatinine Ratio 23.0 09/09/17 05:54 Glucose 286 mg/dL (40-70) H* D 09/09/17 05:54 POC Glucose 276 MG/DL (70 - 105) H 09/09/17 06:43 Hemoglobin A1c % 5.7 % (4.0-6.0) 09/07/17 10:40 Whole Bld Lactic Acid 2.16 mmol/L (0.60-1.99) H* 09/09/17 05:54 Calcium 6.5 mg/dL (8.6-10.3) L 09/09/17 05:54 Magnesium 2.1 mg/dL (1.9-2.7) 09/08/17 05:57 Total Bilirubin 0.9 mg/dL (0.3-1.0) 09/09/17 05:54 AST 66 U/L (13-39) H 09/09/17 05:54 ALT 42 U/L (7-52) 09/09/17 05:54 Alkaline Phosphatase 163 U/L (34-104) H 09/09/17 05:54 Ammonia 35 umol/L (16-53) 09/09/17 05:54 Troponin I 0.20 ng/mL (0.01-0.05) H* D 09/08/17 05:57 B-Natriuretic Peptide 469.0 pg/mL (5.0-100.0) H 09/09/17 05:54 Total Protein 5.1 gm/dL (6.0-8.3) L 09/09/17 05:54 Albumin 2.1 gm/dL (3.7-5.3) L 09/09/17 05:54 Globulin 3.0 gm/dL 09/09/17 05:54 Albumin/Globulin Ratio 0.7 (1.0-1.8) L 09/09/17 05:54 Lipase 20 U/L (11-82) 09/07/17 10:40 Urine Source CATH 09/07/17 11:30 Urine Color YELLOW 09/07/17 11:30 Urine Clarity HAZY (CLEAR) 09/07/17 11:30 Urine pH 5.5 (4.6 - 8.0) 09/07/17 11:30 Ur Specific [place] >= 1.030 (1.005-1.030) 09/07/17 11:30 Urine Protein 100 mg/dL (NEGATIVE) H 09/07/17 11:30 Urine Glucose (UA) NEGATIVE mg/dL (NEGATIVE) 09/07/17 11:30 Urine Ketones TRACE mg/dL (NEGATIVE) 09/07/17 11:30 Urine Blood NEGATIVE (NEGATIVE) 09/07/17 11:30 Urine Nitrate NEGATIVE (NEGATIVE) 09/07/17 11:30 Urine Bilirubin SMALL (NEGATIVE) H 09/07/17 11:30 Urine Urobilinogen 2.0 E.U./dL (0.2 - 1.0) 09/07/17 11:30 Ur Leukocyte Esterase NEGATIVE (NEGATIVE) 09/07/17 11:30 Urine RBC 0-2 /hpf (0-5) 09/07/17 11:30 Urine WBC 0-2 /hpf (0-5) 09/07/17 11:30 Ur Epithelial Cells MODERATE /lpf (FEW) 09/07/17 11:30 Urine Bacteria FEW /hpf (NONE SEEN) 09/07/17 11:30 Fine Granular Casts 0-2 /lpf (NONE SEEN) H 09/07/17 11:30 Coarse Granular Casts 2-5 /lpf (NONE SEEN) H 09/07/17 11:30 Urine Mucus FEW /lpf (FEW) 09/07/17 11:30 Random Vancomycin 13.5 ug/mL (5.0-40.0) 09/09/17 05:54 - Physical Exam Vitals and I&O: Vital Signs Temp 97.5 F 09/09/17 04:00 Pulse 90 09/09/17 07:30 Resp 19 09/09/17 07:37 BP 121/76 09/09/17 07:37 Pulse Ox 100 09/09/17 07:30 Intake & Output 09/08/17 09/09/17 09/09/17 18:59 06:59 18:59 Intake Total 383.155 530.525 Output Total 400 Balance -16.845 530.525 Weight (lbs) 56.245 kg Intake: Intake, IV Amount 383.155 530.525 Norepinephrine 8 mg In 283.155 480.525 Dextrose 5% 250 ml @ Per Protocol IV STAT PRN Rx#: [id number] Piperacillin Sodium/ 100.000 50 Tazobact 2.25 gm In Sodium Chloride 0.9% 50 ml @ 100 mls/hr IV Q6HR [facility] Rx#:[id number] Output: Urine 400 Other: # Bowel Movements 2 Stool Characteristics Soft Brown Active Medications: Current Medications Acetaminophen (Tylenol) 650 mg PO Q6HR PRN PRN Reason: MILD PAIN OR TEMP>100.4 Stop: 11/06/17 16:35 Alendronate Sodium (Fosamax) 70 mg PO QSAT [facility] [place] Stop: 11/08/17 06:29 Aspirin (Aspirin Chewable) 81 mg PO DAILY [facility] [place] Stop: 11/07/17 08:59 Last Admin: 09/08/17 09:00 Dose: Not Given Bisacodyl (Dulcolax 10 Mg Supp) 10 mg RC DAILY PRN PRN Reason: IF MOM INEFFECTIVE Stop: 11/06/17 16:35 Clonazepam (Klonopin) 1 mg PO DAILY [facility] PRN Reason: Protocol Stop: 11/07/17 08:59 Last Admin: 09/08/17 09:00 Dose: Not Given Clonazepam (Klonopin) 2 mg PO DAILY [facility] [place] Stop: 11/07/17 08:59 Cyanocobalamin (Vitamin B12) 1,000 mcg PO DAILY [facility] [place] Stop: 11/07/17 08:59 Last Admin: 09/08/17 09:00 Dose: Not Given Diltiazem HCl (Cardizem) 20 mg IVP Q3H PRN PRN Reason: Heart Rate > than 120 bpm Stop: 11/06/17 16:44 Docusate Sodium (Colace) 100 mg PO DAILY [facility] [place] Stop: 11/07/17 08:59 Last Admin: 09/08/17 09:00 Dose: Not Given Heparin Sodium (Porcine) (Heparin) 5,000 units SUBQ Q12HR [facility] [place] Stop: 11/06/17 20:59 Last Admin: 09/08/17 20:47 Dose: 5,000 units Phenylephrine HCl 10 mg/ (Sodium Chloride) 250 mls @ 30 mls/hr IV TITR [facility]; 20 MCG/MIN PRN Reason: Protocol Stop: 11/06/17 21:59 Last Titration: 09/08/17 06:01 Dose: 0 mcg/min, 0 mls/hr Piperacillin Sod/Tazobactam (Sod 2.25 gm/ Sodium Chloride) 50 mls @ 100 mls/hr IV Q6HR [facility] [place] Stop: 11/07/17 11:59 Last Admin: 09/09/17 05:35 Dose: 100 mls/hr Norepinephrine Bitartrate 8 mg (/ Dextrose) 258 mls @ 0 mls/hr IV STAT PRN; Protocol; Per Protocol PRN Reason: BP MAINTENANCE (PER PROTOCOL) Stop: 11/06/17 16:11 Last Admin: 09/09/17 05:15 Dose: 20 mcg/min, 38.7 mls/hr Dextrose/Sodium Chloride (D5-0.9%Ns) 1,000 mls @ 125 mls/hr IV .Q8H [facility] [place] Stop: 11/07/17 16:59 Last Admin: 09/08/17 16:56 Dose: 125 mls/hr Insulin Aspart (Novolog Insulin Sliding Scale) 0 units SUBQ ACHS [facility] PRN Reason: Protocol Stop: 11/07/17 11:29 Last Admin: 09/09/17 07:00 Dose: 6 units Insulin Detemir (Levemir Insulin) 10 units SUBQ HS [facility] [place] Stop: 11/06/17 20:59 Last Admin: 09/08/17 21:00 Dose: Not Given Lisinopril (Zestril) 40 mg PO HS [facility] [place] Stop: 11/06/17 20:59 Last Admin: 09/08/17 21:00 Dose: Not Given Lorazepam (Ativan) 0.5 mg PO Q6HR PRN; Protocol PRN Reason: Anxiety Stop: 11/06/17 16:35 Magnesium Hydroxide (Milk Of Magnesia) 30 ml PO DAILY PRN PRN Reason: Constipation Stop: 11/06/17 16:35 Megestrol Acetate (Megace) 400 mg PO TID [facility] [place] Stop: 11/06/17 20:59 Last Admin: 09/08/17 22:34 Dose: Not Given Miscellaneous (Clinical Monitoring) 1 ea PRN PRN PRN Reason: RENAL DOSE ZOSYN Stop: 11/07/17 07:51 Miscellaneous (Zosyn Iv Per Pharmacy) 1 [facility] PRN PRN PRN Reason: PROTOCOL Stop: 11/07/17 14:31 Morphine Sulfate (Morphine) 1 mg IVP Q6HR PRN PRN Reason: Pain (Mild) Stop: 11/07/17 18:24 Last Admin: 09/08/17 21:20 Dose: 1 mg Multivitamins/Vitamin C (Theragran) 1 tab PO DAILY [facility] [place] Stop: 11/07/17 08:59 Last Admin: 09/08/17 09:00 Dose: Not Given Pantoprazole Sodium (Protonix) 40 mg IVP DAILY [facility] Stop: 11/06/17 18:59 Last Admin: 09/08/17 08:46 Dose: 40 mg Quetiapine Fumarate (Seroquel) 100 mg PO [facility] PRN Reason: Protocol Stop: 11/06/17 20:59 Simvastatin (Zocor) 40 mg PO HS [facility] PRN Reason: Protocol Stop: 11/06/17 20:59 Last Admin: 09/08/17 22:20 Dose: Not Given Sodium Phosphate (Fleet Enema) 135 ml RC DAILY PRN PRN Reason: Constipation Stop: 11/06/17 16:35 General: no Alert HEENT: Atraumatic Neck: Supple Cardiovascular: Other (increased HR) Lungs: Other (decrease breath sounds) Abdomen: Bowel sounds, Soft, Other (grimaces to abdominal palpation) Extremities: no Clubbing, no Cyanosis, no Edema Assessment/Plan - Assessment Assessment: # Septic shock, likely abdominal source Suspect severe cholecystitis at this point given the appearance of the US with markedly distended GB. She also grimaces to abdominal exam, which indicates an abdominal source. HIDA and CT consistent with cholecystitis, which is severe by clinical standards. Patient would be best served by percutaneous cholecystostomy tube if possible, or cholecystectomy if deemed safe by surgery. # Anorexia # Dysphasia G tube placement is reasonable, but would need to be after her infectious process resolves Recommendations: - Surgery consultation - IR consultation for PTC cholecystostomy tube for gallbladder drainage - broad abx and ICU blood pressure support - NPO - appreciate ID input Prognosis is guarded at this time, and likely without GB drainage may be poor. Thank you for allowing me to participate in this patient's care.
--- NOTE | 2017-09-09 08:35 | General Progress Note ---
Subjective - Review of Systems Service Date: 09/09/17 Subjective: Patient more awake and alert today. Patient currently on IV vasopressor. on Levophed IV and Dopamine. Objective - Results Result Diagrams: 09/09/17 05:54 09/09/17 05:54 Recent Labs: Laboratory Last Values WBC 31.5 Th/cmm (4.8-10.8) H* 09/09/17 05:54 RBC 3.58 Mil/cmm (3.80-5.20) L 09/09/17 05:54 Hgb 9.3 gm/dL (12-16) L 09/09/17 05:54 Hct 27.9 % (41.0-60) L 09/09/17 05:54 MCV 77.8 fl (81-100) L 09/09/17 05:54 MCH 25.9 pg (27.0-31.0) L 09/09/17 05:54 MCHC Differential 33.2 pg (28.0-36.0) 09/09/17 05:54 RDW 14.5 % (11.5-20.0) 09/09/17 05:54 Plt Count 147 Th/cmm (150-400) L D 09/09/17 05:54 MPV 9.6 fl 09/09/17 05:54 Neutrophils % ADVERTISING REP 09/07/17 10:40 Band Neutrophils % 6 % (0-10) 09/08/17 05:57 Lymphocytes % ADVERTISING REP 09/07/17 10:40 Monocytes % ADVERTISING REP 09/07/17 10:40 Eosinophils % ADVERTISING REP 09/07/17 10:40 Basophils % ADVERTISING REP 09/07/17 10:40 Neutrophils (Manual) 82 % (40-80) H 09/08/17 05:57 Lymphocytes 10 % (20-50) L 09/08/17 05:57 Monocytes 1 % (2-10) L 09/08/17 05:57 Eosinophils 0 % (0-5) 09/07/17 17:00 Basophils 0 % (0-3) 09/07/17 17:00 Platelet Estimate ADEQUATE (NORMAL) 09/08/17 05:57 Platelet Morphology NORMAL (NORMAL) 09/07/17 17:00 Microcytosis 1+ 09/08/17 05:57 RBC Morph Micro Appear ABNORMAL (NORMAL) 09/08/17 05:57 PT 10.8 SECONDS (9.5-11.5) 09/07/17 10:40 INR 1.04 (0.5-1.4) 09/07/17 10:40 PTT (Actin FS) 29.0 SECONDS (26.0-38.0) 09/07/17 10:40 Sodium 137 mEq/L (136-145) 09/09/17 05:54 Potassium 3.9 mEq/L (3.5-5.1) 09/09/17 05:54 Chloride 110 mEq/L (98-107) H 09/09/17 05:54 Carbon Dioxide 18.1 mEq/L (21.0-31.0) L 09/09/17 05:54 Anion Gap 12.8 (7.0-16.0) 09/09/17 05:54 BUN 53 mg/dL (7-25) H 09/09/17 05:54 Creatinine 2.3 mg/dL (0.6-1.2) H 09/09/17 05:54 Est GFR ( Amer) TNP 09/09/17 05:54 Est GFR (Non-Af Amer) TNP 09/09/17 05:54 BUN/Creatinine Ratio 23.0 09/09/17 05:54 Glucose 286 mg/dL (40-70) H* D 09/09/17 05:54 POC Glucose 276 MG/DL (70 - 105) H 09/09/17 06:43 Hemoglobin A1c % 5.7 % (4.0-6.0) 09/07/17 10:40 Whole Bld Lactic Acid 2.59 mmol/L (0.60-1.99) H* 09/09/17 07:43 Calcium 6.5 mg/dL (8.6-10.3) L 09/09/17 05:54 Magnesium 2.1 mg/dL (1.9-2.7) 09/08/17 05:57 Total Bilirubin 0.9 mg/dL (0.3-1.0) 09/09/17 05:54 AST 66 U/L (13-39) H 09/09/17 05:54 ALT 42 U/L (7-52) 09/09/17 05:54 Alkaline Phosphatase 163 U/L (34-104) H 09/09/17 05:54 Ammonia 35 umol/L (16-53) 09/09/17 05:54 Troponin I 0.20 ng/mL (0.01-0.05) H* D 09/08/17 05:57 B-Natriuretic Peptide 469.0 pg/mL (5.0-100.0) H 09/09/17 05:54 Total Protein 5.1 gm/dL (6.0-8.3) L 09/09/17 05:54 Albumin 2.1 gm/dL (3.7-5.3) L 09/09/17 05:54 Globulin 3.0 gm/dL 09/09/17 05:54 Albumin/Globulin Ratio 0.7 (1.0-1.8) L 09/09/17 05:54 Lipase 20 U/L (11-82) 09/07/17 10:40 Urine Source CATH 09/07/17 11:30 Urine Color YELLOW 09/07/17 11:30 Urine Clarity HAZY (CLEAR) 09/07/17 11:30 Urine pH 5.5 (4.6 - 8.0) 09/07/17 11:30 Ur Specific [place] >= 1.030 (1.005-1.030) 09/07/17 11:30 Urine Protein 100 mg/dL (NEGATIVE) H 09/07/17 11:30 Urine Glucose (UA) NEGATIVE mg/dL (NEGATIVE) 09/07/17 11:30 Urine Ketones TRACE mg/dL (NEGATIVE) 09/07/17 11:30 Urine Blood NEGATIVE (NEGATIVE) 09/07/17 11:30 Urine Nitrate NEGATIVE (NEGATIVE) 09/07/17 11:30 Urine Bilirubin SMALL (NEGATIVE) H 09/07/17 11:30 Urine Urobilinogen 2.0 E.U./dL (0.2 - 1.0) 09/07/17 11:30 Ur Leukocyte Esterase NEGATIVE (NEGATIVE) 09/07/17 11:30 Urine RBC 0-2 /hpf (0-5) 09/07/17 11:30 Urine WBC 0-2 /hpf (0-5) 09/07/17 11:30 Ur Epithelial Cells MODERATE /lpf (FEW) 09/07/17 11:30 Urine Bacteria FEW /hpf (NONE SEEN) 09/07/17 11:30 Fine Granular Casts 0-2 /lpf (NONE SEEN) H 09/07/17 11:30 Coarse Granular Casts 2-5 /lpf (NONE SEEN) H 09/07/17 11:30 Urine Mucus FEW /lpf (FEW) 09/07/17 11:30 Random Vancomycin 14.8 ug/mL (5.0-40.0) 09/09/17 05:54 - Physical Exam Vitals and I&O: Vital Signs Temp 97.5 F 09/09/17 04:00 Pulse 90 09/09/17 07:30 Resp 19 09/09/17 07:37 BP 121/76 09/09/17 07:37 Pulse Ox 100 09/09/17 07:30 Intake & Output 09/08/17 09/09/17 09/09/17 18:59 06:59 18:59 Intake Total 288.626 0733.525 Output Total 400 350 Balance -16.845 1180.525 Weight (lbs) 56.245 kg 60.237 kg Intake: Intake, IV Amount 651.332 3090.525 D5-0.9%Ns 1,000 ml @ 125 1000 mls/hr IV .Q8H [facility] Rx#: [id number] Norepinephrine 8 mg In 283.155 480.525 Dextrose 5% 250 ml @ Per Protocol IV STAT PRN Rx#: [id number] Piperacillin Sodium/ 100.000 50 Tazobact 2.25 gm In Sodium Chloride 0.9% 50 ml @ 100 mls/hr IV Q6HR [facility] Rx#:[id number] Oral 0 Output: Urine 400 350 Other: # Bowel Movements 2 1 Stool Characteristics Soft Brown Active Medications: Current Medications Acetaminophen (Tylenol) 650 mg PO Q6HR PRN PRN Reason: MILD PAIN OR TEMP>100.4 Stop: 11/06/17 16:35 Alendronate Sodium (Fosamax) 70 mg PO QSAT [facility] Stop: 11/08/17 06:29 Aspirin (Aspirin Chewable) 81 mg PO DAILY [facility] Stop: 11/07/17 08:59 Last Admin: 09/08/17 09:00 Dose: Not Given Bisacodyl (Dulcolax 10 Mg Supp) 10 mg RC DAILY PRN PRN Reason: IF MOM INEFFECTIVE Stop: 11/06/17 16:35 Clonazepam (Klonopin) 1 mg PO DAILY [facility] PRN Reason: Protocol Stop: 11/07/17 08:59 Last Admin: 09/08/17 09:00 Dose: Not Given Clonazepam (Klonopin) 2 mg PO DAILY [facility] Stop: 11/07/17 08:59 Cyanocobalamin (Vitamin B12) 1,000 mcg PO DAILY [facility] Stop: 11/07/17 08:59 Last Admin: 09/08/17 09:00 Dose: Not Given Diltiazem HCl (Cardizem) 20 mg IVP Q3H PRN PRN Reason: Heart Rate > than 120 bpm Stop: 11/06/17 16:44 Docusate Sodium (Colace) 100 mg PO DAILY [facility] Stop: 11/07/17 08:59 Last Admin: 09/08/17 09:00 Dose: Not Given Heparin Sodium (Porcine) (Heparin) 5,000 units SUBQ Q12HR [facility] Stop: 11/06/17 20:59 Last Admin: 09/08/17 20:47 Dose: 5,000 units Phenylephrine HCl 10 mg/ (Sodium Chloride) 250 mls @ 30 mls/hr IV TITR [facility]; 20 MCG/MIN PRN Reason: Protocol Stop: 11/06/17 21:59 Last Titration: 09/08/17 06:01 Dose: 0 mcg/min, 0 mls/hr Piperacillin Sod/Tazobactam (Sod 2.25 gm/ Sodium Chloride) 50 mls @ 100 mls/hr IV Q6HR [facility] Stop: 11/07/17 11:59 Last Admin: 09/09/17 05:35 Dose: 100 mls/hr Norepinephrine Bitartrate 8 mg (/ Dextrose) 258 mls @ 0 mls/hr IV STAT PRN; Protocol; Per Protocol PRN Reason: BP MAINTENANCE (PER PROTOCOL) Stop: 11/06/17 16:11 Last Admin: 09/09/17 05:15 Dose: 20 mcg/min, 38.7 mls/hr Dextrose/Sodium Chloride (D5-0.9%Ns) 1,000 mls @ 125 mls/hr IV .Q8H [facility] Stop: 11/07/17 16:59 Last Admin: 09/09/17 02:00 Dose: 125 mls/hr Insulin Aspart (Novolog Insulin Sliding Scale) 0 units SUBQ [facility] PRN Reason: Protocol Stop: 11/07/17 11:29 Last Admin: 09/09/17 07:00 Dose: 6 units Insulin Detemir (Levemir Insulin) 10 units SUBQ HS [facility] Stop: 11/06/17 20:59 Last Admin: 09/08/17 21:00 Dose: Not Given Lisinopril (Zestril) 40 mg PO HS [facility] Stop: 11/06/17 20:59 Last Admin: 09/08/17 21:00 Dose: Not Given Lorazepam (Ativan) 0.5 mg PO Q6HR PRN; Protocol PRN Reason: Anxiety Stop: 11/06/17 16:35 Magnesium Hydroxide (Milk Of Magnesia) 30 ml PO DAILY PRN PRN Reason: Constipation Stop: 11/06/17 16:35 Megestrol Acetate (Megace) 400 mg PO TID [facility] Stop: 11/06/17 20:59 Last Admin: 09/08/17 22:34 Dose: Not Given Miscellaneous (Clinical Monitoring) 1 [facility] PRN PRN PRN Reason: RENAL DOSE ZOSYN Stop: 11/07/17 07:51 Miscellaneous (Zosyn Iv Per Pharmacy) 1 [facility] PRN PRN PRN Reason: PROTOCOL Stop: 11/07/17 14:31 Morphine Sulfate (Morphine) 1 mg IVP Q6HR PRN PRN Reason: Pain (Mild) Stop: 11/07/17 18:24 Last Admin: 09/08/17 21:20 Dose: 1 mg Multivitamins/Vitamin C (Theragran) 1 tab PO DAILY [facility] Stop: 11/07/17 08:59 Last Admin: 09/08/17 09:00 Dose: Not Given Pantoprazole Sodium (Protonix) 40 mg IVP DAILY [facility] Stop: 11/06/17 18:59 Last Admin: 09/08/17 08:46 Dose: 40 mg Quetiapine Fumarate (Seroquel) 100 mg PO [facility] PRN Reason: Protocol Stop: 11/06/17 20:59 Simvastatin (Zocor) 40 mg PO [facility] PRN Reason: Protocol Stop: 11/06/17 20:59 Last Admin: 09/08/17 22:20 Dose: Not Given Sodium Phosphate (Fleet Enema) 135 ml RC DAILY PRN PRN Reason: Constipation Stop: 11/06/17 16:35 General: no Alert HEENT: Atraumatic Neck: Supple Cardiovascular: Other (increased HR) Lungs: Other (decrease breath sounds) Abdomen: Bowel sounds, Soft, Other (grimaces to abdominal palpation) Extremities: no Clubbing, no Cyanosis, no Edema Assessment/Plan - Assessment Assessment: Sepsis WBC's 31K .... continue IV Zosyn Chronic Kidney Disease ... continue BMP, Dehydration Cholecystitis +hida scan .... UTI Hypotension ... on IV Vasopressors, IV fluids. CHF ... will monitor BNP - Plan Plan: IV vancomycin IV fluids ID consult Pulmonary consult cardiology consult repeat chest xray blood cultures urine cultures repeat cbc, cmp admit to ICU Nutritional Asmnt/Malnutr-PDOC - Dietary Evaluation Malnutrition Findings (Please click <Entered> for more info): Nutritional Asmnt/Malnutrition Start: 09/07/17 16: 06 Text: Status: Active Freq: Document 09/07/17 16:06 LCHENG (Rec: 09/07/17 16:34 [email or web address] [email or web address]) Nutritional Asmnt/Malnutrition Patient General Information Nutritional Screening Consult Diagnosis Dehydration, leukcytosis, dementia Pertinent Medical Hx/Surgical Hx HTN, DM, Dyslipidemia, Arthritis, Dementia, Hyperlipidemia, Anxiety, Osteoporosis, Degenerative joint disease, Neurophay. Subjective Information Per H&P, pt was on pureed NCS, NSPOT diet from [facility] ([facility]). Pt had anorexia more than one month and wt loss of 25lb in the past two months. Pt was transfered to ICU d/t rapid response. Families were aside, not a propriate time to approach. Currently no plan for nutrition d/t pt is not responding per RN. Current Diet Order/ Nutrition Support no diet order/swallowing eval pending Pertinent Medications D5 50ml/hr Pertinent Labs 09/07 Na 143, K 4.6, Cl 111 H, BUN 53 H, Cr 0.9 GLU 182 H, POC 164 H Nutritional Hx/Data Height 1.42 m Height (Calculated Centimeters) 142.2 Current Weight (lbs) 55.338 kg Weight (Calculated Kilograms) 55.3 Weight (Calculated Grams) 80326.3 [place] Body Weight 90 Recent Weight Change Yes Weight Status Overweight GI Symptoms Food Allergies No Skin Integrity/Comment: 11/09 pretibial pitting edema Estimated Nutritional Goals BEE in Kcals: Using Current wt Calories/Kcals/Kg 30 Kcals Calculated 1664 Protein: Using Current wt Protein g/k-1.2 Protein Calculated 56-67 Fluid: ml 1664-1943ml (30-35ml/kg) Nutritional Problem 1. Problem Problem Involuntary weight loss Etiology anorexia for more then one month Signs/Symptoms: recent wt loss of 25lb in two month Malnutrition Alert Interpretation of weight loss (Severe) >5% in 1 month Intervention/Recommendation Comments No nutrition intervention at this time. RD will follow up as high risk in 1-2 days. Expected Outcomes/Goals Expected Outcomes/Goals Pt to meet 50% of nutritional needs in the following 3 days.
[2017-09-09] MEDS: Aspirin 81mg Chewable Tab PO SCH (08:58)
[2017-09-09 09:09] LABS: ABG SOURCE Arterial; BE(B) -7.7 mEq/L (-3.0-3.0); HCO3 18.9 mEq/L (20.0-26.0); pH 7.37 (7.35-7.45)
[2017-09-09 09:10] LABS: ALLEN TEST YES; FIO2 28
[2017-09-09 09:10] LABS: BAND NEUTROPHILE 9 % (0-10); NEUTROPHILS 81 % (40-80); TOTAL CELLS COUNTED 100
[2017-09-09 09:11] LABS: MICROCYTOSIS 1+; PLATELET ESTIMATE ADEQUATE (NORMAL); PLATELET MORPHOLOGY NORMAL (NORMAL)
--- NOTE | 2017-09-09 09:34 | General Progress Note ---
Subjective - Review of Systems Service Date: 09/09/17 Events since last encounter: consult dictated HIDA non=-viz of GB LFT noted, minimal elevation continues to be hypotensive, on Levo patient is very high risk for surgery, doubt GB gangrene is cause for leukocytosis as she does not appear to be tender in this area Objective - Results Result Diagrams: 09/09/17 05:54 09/09/17 05:54 Recent Labs: Laboratory Last Values WBC 31.5 Th/cmm (4.8-10.8) H* 09/09/17 05:54 RBC 3.58 Mil/cmm (3.80-5.20) L 09/09/17 05:54 Hgb 9.3 gm/dL (12-16) L 09/09/17 05:54 Hct 27.9 % (41.0-60) L 09/09/17 05:54 MCV 77.8 fl (81-100) L 09/09/17 05:54 MCH 25.9 pg (27.0-31.0) L 09/09/17 05:54 MCHC Differential 33.2 pg (28.0-36.0) 09/09/17 05:54 RDW 14.5 % (11.5-20.0) 09/09/17 05:54 Plt Count 147 Th/cmm (150-400) L D 09/09/17 05:54 MPV 9.6 fl 09/09/17 05:54 Neutrophils % [employer] 09/07/17 10:40 Band Neutrophils % 9 % (0-10) 09/09/17 05:54 Lymphocytes % [employer] 09/07/17 10:40 Monocytes % [employer] 09/07/17 10:40 Eosinophils % [employer] 09/07/17 10:40 Basophils % [employer] 09/07/17 10:40 Neutrophils (Manual) 81 % (40-80) H 09/09/17 05:54 Lymphocytes 10 % (20-50) L 09/09/17 05:54 Monocytes 1 % (2-10) L 09/08/17 05:57 Eosinophils 0 % (0-5) 09/07/17 17:00 Basophils 0 % (0-3) 09/07/17 17:00 Platelet Estimate ADEQUATE (NORMAL) 09/09/17 05:54 Platelet Morphology NORMAL (NORMAL) 09/09/17 05:54 Microcytosis 1+ 09/09/17 05:54 RBC Morph Micro Appear ABNORMAL (NORMAL) 09/09/17 05:54 PT 10.8 SECONDS (9.5-11.5) 09/07/17 10:40 INR 1.04 (0.5-1.4) 09/07/17 10:40 PTT (Actin FS) 29.0 SECONDS (26.0-38.0) 09/07/17 10:40 Specimen Source Arterial 09/09/17 08:53 Sample Site Left Radial 09/09/17 08:53 pH 7.37 (7.35-7.45) 09/09/17 08:53 pCO2 28.0 mmHg (35.0-45.0) L 09/09/17 08:53 pO2 100.0 mmHg (80.0-100.0) 09/09/17 08:53 HCO3 18.9 mEq/L (20.0-26.0) L 09/09/17 08:53 Base Excess -7.7 mEq/L (-3.0-3.0) L 09/09/17 08:53 O2 Saturation 98.0 % (92.0-100.0) 09/09/17 08:53 Vinod Test YES 09/09/17 08:53 Vent Rate NA 09/09/17 08:53 Inspired O2 28 09/09/17 08:53 Tidal Volume NA 09/09/17 08:53 PEEP NA 09/09/17 08:53 Pressure (ins/psv/peep) NA 09/09/17 08:53 Critical Value FERNANDO LEEDSMA 09/09/17 08:53 Sodium 137 mEq/L (136-145) 09/09/17 05:54 Potassium 3.9 mEq/L (3.5-5.1) 09/09/17 05:54 Chloride 110 mEq/L (98-107) H 09/09/17 05:54 Carbon Dioxide 18.1 mEq/L (21.0-31.0) L 09/09/17 05:54 Anion Gap 12.8 (7.0-16.0) 09/09/17 05:54 BUN 53 mg/dL (7-25) H 09/09/17 05:54 Creatinine 2.3 mg/dL (0.6-1.2) H 09/09/17 05:54 Est GFR ( Amer) TNP 09/09/17 05:54 Est GFR (Non-Af Amer) TNP 09/09/17 05:54 BUN/Creatinine Ratio 23.0 09/09/17 05:54 Glucose 286 mg/dL (40-70) H* D 09/09/17 05:54 POC Glucose 276 MG/DL (70 - 105) H 09/09/17 06:43 Hemoglobin A1c % 5.7 % (4.0-6.0) 09/07/17 10:40 Whole Bld Lactic Acid 2.59 mmol/L (0.60-1.99) H* 09/09/17 07:43 Calcium 6.5 mg/dL (8.6-10.3) L 09/09/17 05:54 Magnesium 2.1 mg/dL (1.9-2.7) 09/08/17 05:57 Total Bilirubin 0.9 mg/dL (0.3-1.0) 09/09/17 05:54 AST 66 U/L (13-39) H 09/09/17 05:54 ALT 42 U/L (7-52) 09/09/17 05:54 Alkaline Phosphatase 163 U/L (34-104) H 09/09/17 05:54 Ammonia 35 umol/L (16-53) 09/09/17 05:54 Troponin I 0.20 ng/mL (0.01-0.05) H* D 09/08/17 05:57 B-Natriuretic Peptide 469.0 pg/mL (5.0-100.0) H 09/09/17 05:54 Total Protein 5.1 gm/dL (6.0-8.3) L 09/09/17 05:54 Albumin 2.1 gm/dL (3.7-5.3) L 09/09/17 05:54 Globulin 3.0 gm/dL 09/09/17 05:54 Albumin/Globulin Ratio 0.7 (1.0-1.8) L 09/09/17 05:54 Lipase 20 U/L (11-82) 09/07/17 10:40 Urine Source CATH 09/07/17 11:30 Urine Color YELLOW 09/07/17 11:30 Urine Clarity HAZY (CLEAR) 09/07/17 11:30 Urine pH 5.5 (4.6 - 8.0) 09/07/17 11:30 Ur Specific [place] >= 1.030 (1.005-1.030) 09/07/17 11:30 Urine Protein 100 mg/dL (NEGATIVE) H 09/07/17 11:30 Urine Glucose (UA) NEGATIVE mg/dL (NEGATIVE) 09/07/17 11:30 Urine Ketones TRACE mg/dL (NEGATIVE) 09/07/17 11:30 Urine Blood NEGATIVE (NEGATIVE) 09/07/17 11:30 Urine Nitrate NEGATIVE (NEGATIVE) 09/07/17 11:30 Urine Bilirubin SMALL (NEGATIVE) H 09/07/17 11:30 Urine Urobilinogen 2.0 E.U./dL (0.2 - 1.0) 09/07/17 11:30 Ur Leukocyte Esterase NEGATIVE (NEGATIVE) 09/07/17 11:30 Urine RBC 0-2 /hpf (0-5) 09/07/17 11:30 Urine WBC 0-2 /hpf (0-5) 09/07/17 11:30 Ur Epithelial Cells MODERATE /lpf (FEW) 09/07/17 11:30 Urine Bacteria FEW /hpf (NONE SEEN) 09/07/17 11:30 Fine Granular Casts 0-2 /lpf (NONE SEEN) H 09/07/17 11:30 Coarse Granular Casts 2-5 /lpf (NONE SEEN) H 09/07/17 11:30 Urine Mucus FEW /lpf (FEW) 09/07/17 11:30 Random Vancomycin 14.8 ug/mL (5.0-40.0) 09/09/17 05:54 - Physical Exam Vitals and I&O: Vital Signs Temp 97.5 F 09/09/17 04:00 Pulse 90 09/09/17 07:30 Resp 19 09/09/17 07:37 BP 121/76 09/09/17 07:37 Pulse Ox 100 09/09/17 08:00 Intake & Output 09/08/17 09/09/17 09/09/17 18:59 06:59 18:59 Intake Total 503.311 6815.525 870.833 Output Total 400 350 Balance -16.845 1230.525 870.833 Weight (lbs) 56.245 kg 60.237 kg Intake: Intake, IV Amount 942.279 0601.525 870.833 D5-0.9%Ns 1,000 ml @ 125 1000 870.833 mls/hr IV .Q8H [facility] Rx#: [id number] Norepinephrine 8 mg In 283.155 480.525 Dextrose 5% 250 ml @ Per Protocol IV STAT PRN Rx#: [id number] Piperacillin Sodium/ 100.000 100 Tazobact 2.25 gm In Sodium Chloride 0.9% 50 ml @ 100 mls/hr IV Q6HR [facility] Rx#:[id number] Oral 0 Output: Urine 400 350 Other: # Bowel Movements 2 1 Stool Characteristics Soft Soft Brown Brown Active Medications: Current Medications Acetaminophen (Tylenol) 650 mg PO Q6HR PRN PRN Reason: MILD PAIN OR TEMP>100.4 Stop: 11/06/17 16:35 Alendronate Sodium (Fosamax) 70 mg PO QSAT [facility] Stop: 11/08/17 06:29 Aspirin (Aspirin Chewable) 81 mg PO DAILY [facility] Stop: 11/07/17 08:59 Last Admin: 09/09/17 08:58 Dose: Not Given Bisacodyl (Dulcolax 10 Mg Supp) 10 mg RC DAILY PRN PRN Reason: IF MOM INEFFECTIVE Stop: 11/06/17 16:35 Clonazepam (Klonopin) 1 mg PO DAILY [facility] PRN Reason: Protocol Stop: 11/07/17 08:59 Last Admin: 09/09/17 08:58 Dose: Not Given Clonazepam (Klonopin) 2 mg PO DAILY [facility] Stop: 11/07/17 08:59 Cyanocobalamin (Vitamin B12) 1,000 mcg PO DAILY [facility] Stop: 11/07/17 08:59 Last Admin: 09/09/17 08:58 Dose: Not Given Diltiazem HCl (Cardizem) 20 mg IVP Q3H PRN PRN Reason: Heart Rate > than 120 bpm Stop: 11/06/17 16:44 Docusate Sodium (Colace) 100 mg PO DAILY [facility] Stop: 11/07/17 08:59 Last Admin: 09/09/17 08:59 Dose: Not Given Heparin Sodium (Porcine) (Heparin) 5,000 units SUBQ Q12HR [facility] Stop: 11/06/17 20:59 Last Admin: 09/09/17 08:56 Dose: 5,000 units Phenylephrine HCl 10 mg/ (Sodium Chloride) 250 mls @ 30 mls/hr IV TITR [facility]; 20 MCG/MIN PRN Reason: Protocol Stop: 11/06/17 21:59 Last Titration: 09/08/17 06:01 Dose: 0 mcg/min, 0 mls/hr Piperacillin Sod/Tazobactam (Sod 2.25 gm/ Sodium Chloride) 50 mls @ 100 mls/hr IV Q6HR [facility] Stop: 11/07/17 11:59 Last Infusion: 09/09/17 06:05 Dose: Infused Dextrose/Sodium Chloride (D5-0.9%Ns) 1,000 mls @ 125 mls/hr IV .Q8H [facility] Stop: 11/07/17 16:59 Last Admin: 09/09/17 08:58 Dose: 125 mls/hr Norepinephrine Bitartrate 4 mg (/ Dextrose) 254 mls @ 0 mls/hr IV STAT PRN; Protocol; Per Protocol PRN Reason: BP MAINTENANCE (PER PROTOCOL) Stop: 11/06/17 16:11 Insulin Aspart (Novolog Insulin Sliding Scale) 0 units SUBQ [facility] PRN Reason: Protocol Stop: 11/07/17 11:29 Last Admin: 09/09/17 07:00 Dose: 6 units Insulin Detemir (Levemir Insulin) 10 units SUBQ [facility] Stop: 11/06/17 20:59 Last Admin: 09/08/17 21:00 Dose: Not Given Lisinopril (Zestril) 40 mg PO HS [facility] Stop: 11/06/17 20:59 Last Admin: 09/08/17 21:00 Dose: Not Given Lorazepam (Ativan) 0.5 mg PO Q6HR PRN; Protocol PRN Reason: Anxiety Stop: 11/06/17 16:35 Magnesium Hydroxide (Milk Of Magnesia) 30 ml PO DAILY PRN PRN Reason: Constipation Stop: 11/06/17 16:35 Megestrol Acetate (Megace) 400 mg PO TID [facility] Stop: 11/06/17 20:59 Last Admin: 09/09/17 08:59 Dose: Not Given Miscellaneous (Clinical Monitoring) 1 [facility] PRN PRN PRN Reason: RENAL DOSE ZOSYN Stop: 11/07/17 07:51 Miscellaneous (Zosyn Iv Per Pharmacy) 1 [facility] PRN PRN PRN Reason: PROTOCOL Stop: 11/07/17 14:31 Morphine Sulfate (Morphine) 1 mg IVP Q6HR PRN PRN Reason: Pain (Mild) Stop: 11/07/17 18:24 Last Admin: 09/08/17 21:20 Dose: 1 mg Multivitamins/Vitamin C (Theragran) 1 tab PO DAILY [facility] Stop: 11/07/17 08:59 Last Admin: 09/08/17 09:00 Dose: Not Given Pantoprazole Sodium (Protonix) 40 mg IVP DAILY [facility] Stop: 11/06/17 18:59 Last Admin: 09/09/17 08:56 Dose: 40 mg Quetiapine Fumarate (Seroquel) 100 mg PO HS [facility] PRN Reason: Protocol Stop: 11/06/17 20:59 Simvastatin (Zocor) 40 mg PO HS [facility] PRN Reason: Protocol Stop: 11/06/17 20:59 Last Admin: 09/08/17 22:20 Dose: Not Given Sodium Phosphate (Fleet Enema) 135 ml RC DAILY PRN PRN Reason: Constipation Stop: 11/06/17 16:35 General: no Alert HEENT: Atraumatic Neck: Supple Cardiovascular: Other (increased HR) Lungs: Other (decrease breath sounds) Abdomen: Bowel sounds, Soft, Other (grimaces to abdominal palpation) Extremities: no Clubbing, no Cyanosis, no Edema Nutritional Asmnt/Malnutr-PDOC - Dietary Evaluation Malnutrition Findings (Please click <Entered> for more info): Nutritional Asmnt/Malnutrition Start: 09/07/17 16: 06 Text: Status: Active Freq: Document 09/07/17 16:06 LCHENG (Rec: 09/07/17 16:34 [email or web address] [email or web address]) Nutritional Asmnt/Malnutrition Patient General Information Nutritional Screening Consult Diagnosis Dehydration, leukcytosis, dementia Pertinent Medical Hx/Surgical Hx HTN, DM, Dyslipidemia, Arthritis, Dementia, Hyperlipidemia, Anxiety, Osteoporosis, Degenerative joint disease, Neurophay. Subjective Information Per H&P, pt was on pureed NCS, NSPOT diet from [facility] ([facility] Pt had anorexia more than one month and wt loss of 25lb in the past two months. Pt was transfered to ICU d/t rapid response. Families were aside, not a propriate time to approach. Currently no plan for nutrition d/t pt is not responding per RN. Current Diet Order/ Nutrition Support no diet order/swallowing eval pending Pertinent Medications D5 50ml/hr Pertinent Labs 09/07 Na 143, K 4.6, Cl 111 H, BUN 53 H, Cr 0.9 GLU 182 H, POC 164 H Nutritional Hx/Data Height 1.42 m Height (Calculated Centimeters) 142.2 Current Weight (lbs) 55.338 kg Weight (Calculated Kilograms) 55.3 Weight (Calculated Grams) 60220.3 [place] Body Weight 90 Recent Weight Change Yes Weight Status Overweight GI Symptoms Food Allergies No Skin Integrity/Comment: 11/09 pretibial pitting edema Estimated Nutritional Goals BEE in Kcals: Using Current wt Calories/Kcals/Kg 30 Kcals Calculated 1664 Protein: Using Current wt Protein g/k-1.2 Protein Calculated 56-67 Fluid: ml 1664-1943ml (30-35ml/kg) Nutritional Problem 1. Problem Problem Involuntary weight loss Etiology anorexia for more then one month Signs/Symptoms: recent wt loss of 25lb in two month Malnutrition Alert Interpretation of weight loss (Severe) >5% in 1 month Intervention/Recommendation Comments No nutrition intervention at this time. RD will follow up as high risk in 1-2 days. Expected Outcomes/Goals Expected Outcomes/Goals Pt to meet 50% of nutritional needs in the following 3 days.
--- NOTE | 2017-09-09 10:06 | Diagnostic Imaging Report ---
CHEST X-RAY: AP view INDICATION: Shortness of breath COMPARISON: Chest x-ray 09/08/2017 FINDINGS: Small left effusion is noted. Mild cardiomegaly is noted. IMPRESSION: Small left effusion. No focal consolidation identified. Mild cardiomegaly.
--- NOTE | 2017-09-09 10:09 | Diagnostic Imaging Report ---
Nuclear medicine HIDA scan HISTORY: Pain, assess for possible cholecystitis COMPARISON: CT abdomen and pelvis on 09/08/2017 ultrasound abdomen on 09-22 Technique/procedure: 5.1 mCi of technetium labeled Choletec was administered intravenously and multiple scintigraphic images were obtained for up to 3.5 hours FINDINGS: Prompt hepatic uptake is demonstrated. Small bowel uptake is seen at 45 minutes. Images obtained from to 3.5 hours demonstrate no evidence of gallbladder uptake. IMPRESSION: No evidence of gallbladder uptake after 3.5 hours. Findings may be due to cystic duct obstruction and acute or chronic cholecystitis. Clinical correlation is recommended.
[2017-09-09] MEDS ORDERED: Probiotic Screen MC PRN (10:16)
[2017-09-09] MEDS: Multivitamin Tab PO SCH (11:30)
--- NOTE | 2017-09-09 14:35 | Consultation ---
DATE OF CONSULTATION: 09/08/[address] Quintero. HISTORY AND PHYSICAL: This is a 72-year-old female patient, who was brought to the hospital with respiratory failure. The patient was found to have septic shock, hypotension, and pneumonia. The patient was started on Levophed. The patient is admitted to ICU and Cardiac consult is requested. PAST MEDICAL HISTORY: Respiratory failure, diabetes mellitus type 2, diabetic CKD stage II, dementia, anxiety, diabetic peripheral neuropathy. FAMILY HISTORY: Unremarkable. SOCIAL HISTORY: No history of smoking, alcohol abuse. ALLERGIES: No known allergies. PHYSICAL EXAMINATION: VITAL SIGNS: Blood pressure 90 systolic, on Levophed; pulse 100; respirations 28. HEAD: Normocephalic. No lumps or bumps. EYES: Pupils equal, reactive to light. Fundi show AV nicking, sclerae white, conjunctivae pink. NECK: Carotids 2+. Normal upstroke. JVD 10 cm above sternal angle. Thyroid not palpable. Lymph nodes not palpable. CHEST: Shows increased AP diameter. No kyphosis or scoliosis. LUNGS: Bilateral rales. Decreased breath sounds in both the bases. HEART: PMI sixth intercostal space with lateral to midclavicular line. S1 and S2. S3, S4. Soft systolic murmur. ABDOMEN: Soft. Liver and spleen not palpable. Tenderness in the right upper quadrant. No rebound tenderness. Bowel sounds active. RECTAL: Hemoccult negative. EXTREMITIES: Peripheral pulses 1+. No pedal edema. CLINICAL IMPRESSION: Acute respiratory failure, septic shock, hypotension, septicemia, urinary tract infection, pneumonia, lactic acidosis, diabetes mellitus type 2, diabetic chronic kidney disease stage II, diabetic peripheral neuropathy, acute cholecystitis, bilateral pleural effusion, dementia, and anxiety. PLAN: Admit the patient. We will continue present care. We will continue on Levophed, IV antibiotics, and get ultrasound of the gallbladder and pancreas. JOB# [id number]
[2017-09-09] MEDS: Morphine Sulfate 2 mg/mL 1mL Syr IVP PRN ×2 (15:06→20:56)
[2017-09-09] MEDS: Insulin Detemir 100 units/mL 10mL Vial SUBQ SCH (21:05)
[2017-09-10] MEDS: Piperacillin/Tazobact 2.25 gm in 0.9% NS 50 ML IV SCH ×4 (00:09→17:52)
--- NOTE | 2017-09-10 02:00 | History & Physical ---
ADMIT DATE: 09/09/2017 SURGICAL CONSULTATION REFERRING PHYSICIAN: Dr. Quintero. REASON FOR CONSULTATION: Distended gallbladder. Thank you for referring this patient to me. HISTORY OF PRESENT ILLNESS: This is a 72-year-old female admitted because of hypertension, leukocytosis and failure to obtain adequate malnutrition. She has lost about 30-pound in the last 2 to 3 months. She resides in the senior care. On admission, she was found to have bibasilar ____ changes, greater on the right side with bilateral small effusions, likely the etiology of the WBC count is markedly elevated. Additionally, she had distended gallbladder. LABORATORY STUDIES: WBC was 29,900 with a hemoglobin of 8.2. Chemistry showed blood sugar of 286 and albumin of 2.1. Liver function tests are slightly abnormal. The patient has been evaluated by Infectious Disease, Cardiology, Pulmonary as well as GI consultants. PAST MEDICAL HISTORY: In view of the distended gallbladder and CT scan, a HIDA scan was done and this showed nonvisualization of the gallbladder. PHYSICAL EXAMINATION: GENERAL: The patient is now on Levophed drip at 9 mcg per hours. She is awake, but noncommunicative. ABDOMEN: It is difficult to assess of any abdominal tenderness, but the abdomen per se is soft with minimal bowel sounds and pushing the right upper quadrant does not really elicit pain. RECOMMENDATIONS: The patient will continue to be observed and receive antibiotics. When improvement occurs, possibility of gallbladder surgery will be considered, but the patient is extremely at high risk. We will follow with you. [facility]# [id number]
[2017-09-10] MEDS: D5-0.9%NS 1,000 ML IV SCH ×3 (03:16→17:53)
[2017-09-10 06:08] LABS: HEMATOCRIT 29.6 % (41.0-60); HEMOGLOBIN 9.7 gm/dL (12-16); MEAN CORPUSCULAR HEMOGLOBIN 25.5 pg (27.0-31.0); MEAN CORPUSCULAR HGB CONC 32.7 pg (28.0-36.0); MEAN PLATELET VOLUME 10.1 fl; NEUTROPHILE ABSOLUTE 13.2 Th/cmm (1.8-8.0); RED BLOOD COUNT 3.79 Mil/cmm (3.80-5.20); RED CELL DISTRIBUTION WIDTH 14.5 % (11.5-20.0)
[2017-09-10 06:25] LABS: PLATELET COUNT 102 Th/cmm (150-400); WHITE BLOOD COUNT 14.2 Th/cmm (4.8-10.8)
[2017-09-10 06:33] LABS: ALB/GLOB RATIO 0.6 (1.0-1.8); ALKALINE PHOSPHATASE 196 U/L (34-104); ANION GAP 14.2 (7.0-16.0); BILIRUBIN,TOTAL 0.7 mg/dL (0.3-1.0); BUN - UREA NITROGEN 50 mg/dL (7-25); BUN/CREATININE RATIO 20.8; CALCIUM SERUM 6.3 mg/dL (8.6-10.3); CARBON DIOXIDE 15.6 mEq/L (21.0-31.0); CHLORIDE 115 mEq/L (98-107); CREATININE - SERUM 2.4 mg/dL (0.6-1.2); MAGNESIUM 1.8 mg/dL (1.9-2.7); PHOSPHOROUS 2.1 mg/dL (2.5-5.0); POTASSIUM SERUM 3.8 mEq/L (3.5-5.1); SGOT 30 U/L (13-39); SGPT/ALT 37 U/L (7-52); SODIUM SERUM 141 mEq/L (136-145); URIC ACID 5.4 mg/dL (2.3-6.6)
[2017-09-10 06:37] LABS: GLUCOSE 284 mg/dL (40-70)
[2017-09-10] MEDS: INSULIN ASPART SLIDING SCALE 100 UNITS/ML UNIT SUBQ SCH ×4 (06:51→21:13)
[2017-09-10 07:07] LABS: ANISOCYTOSIS 1+; BAND NEUTROPHILE 2 % (0-10); NEUTROPHILS 95 % (40-80); TOTAL CELLS COUNTED 100
[2017-09-10] MEDS ORDERED: Mag Sulfate 2gm/50mL Premix 2 GM/50 ML BAG IV ONE (07:11)
--- NOTE | 2017-09-10 07:19 | General Progress Note ---
Subjective - Review of Systems Service Date: 09/10/17 Subjective: Patient is much more awake and alert this morning. WBC's 14K this AM. On Iv vasopressors. Objective - Results Result Diagrams: 09/10/17 05:48 09/10/17 05:48 Recent Labs: Laboratory Last Values WBC 14.2 Th/cmm (4.8-10.8) H D 09/10/17 05:48 RBC 3.79 Mil/cmm (3.80-5.20) L 09/10/17 05:48 Hgb 9.7 gm/dL (12-16) L 09/10/17 05:48 Hct 29.6 % (41.0-60) L 09/10/17 05:48 MCV 78.0 fl (81-100) L 09/10/17 05:48 MCH 25.5 pg (27.0-31.0) L 09/10/17 05:48 MCHC Differential 32.7 pg (28.0-36.0) 09/10/17 05:48 RDW 14.5 % (11.5-20.0) 09/10/17 05:48 Plt Count 102 Th/cmm (150-400) L D 09/10/17 05:48 MPV 10.1 fl 09/10/17 05:48 Neutrophils % [employer]PLIANCE WORKER 09/07/17 10:40 Band Neutrophils % 2 % (0-10) 09/10/17 05:48 Lymphocytes % APPLIANCE WORKER 09/07/17 10:40 Monocytes % APPLIANCE WORKER 09/07/17 10:40 Eosinophils % APPLIANCE WORKER 09/07/17 10:40 Basophils % APPLIANCE WORKER 09/07/17 10:40 Neutrophils (Manual) 95 % (40-80) H 09/10/17 05:48 Lymphocytes 3 % (20-50) L 09/10/17 05:48 Monocytes 1 % (2-10) L 09/08/17 05:57 Eosinophils 0 % (0-5) 09/07/17 17:00 Basophils 0 % (0-3) 09/07/17 17:00 Platelet Estimate ADEQUATE (NORMAL) 09/09/17 05:54 Platelet Morphology NORMAL (NORMAL) 09/09/17 05:54 Anisocytosis 1+ 09/10/17 05:48 Microcytosis 1+ 09/09/17 05:54 RBC Morph Micro Appear ABNORMAL (NORMAL) 09/09/17 05:54 Eos Smear Source URINE 09/09/17 21:29 Eos Smear Total Cells NONE SEEN (NONE SEEN) 09/09/17 21:29 PT 10.8 SECONDS (9.5-11.5) 09/07/17 10:40 INR 1.04 (0.5-1.4) 09/07/17 10:40 PTT (Actin FS) 29.0 SECONDS (26.0-38.0) 09/07/17 10:40 Specimen Source Arterial 09/09/17 08:53 Sample Site Left Radial 09/09/17 08:53 pH 7.37 (7.35-7.45) 09/09/17 08:53 pCO2 28.0 mmHg (35.0-45.0) L 09/09/17 08:53 pO2 100.0 mmHg (80.0-100.0) 09/09/17 08:53 HCO3 18.9 mEq/L (20.0-26.0) L 09/09/17 08:53 Base Excess -7.7 mEq/L (-3.0-3.0) L 09/09/17 08:53 O2 Saturation 98.0 % (92.0-100.0) 09/09/17 08:53 Vinod Test YES 09/09/17 08:53 Vent Rate NA 09/09/17 08:53 Inspired O2 28 09/09/17 08:53 Tidal Volume NA 09/09/17 08:53 PEEP NA 09/09/17 08:53 Pressure (ins/psv/peep) NA 09/09/17 08:53 Critical Value FERNANDO LEDESMA 09/09/17 08:53 Sodium 141 mEq/L (136-145) 09/10/17 05:48 Potassium 3.8 mEq/L (3.5-5.1) 09/10/17 05:48 Chloride 115 mEq/L (98-107) H 09/10/17 05:48 Carbon Dioxide 15.6 mEq/L (21.0-31.0) L 09/10/17 05:48 Anion Gap 14.2 (7.0-16.0) 09/10/17 05:48 BUN 50 mg/dL (7-25) H 09/10/17 05:48 Creatinine 2.4 mg/dL (0.6-1.2) H 09/10/17 05:48 Est GFR ( Amer) TNP 09/10/17 05:48 Est GFR (Non-Af Amer) TNP 09/10/17 05:48 BUN/Creatinine Ratio 20.8 09/10/17 05:48 Glucose 284 mg/dL (40-70) H* 09/10/17 05:48 POC Glucose 270 MG/DL (70 - 105) H 09/10/17 06:15 Hemoglobin A1c % 5.7 % (4.0-6.0) 09/07/17 10:40 Whole Bld Lactic Acid 2.49 mmol/L (0.60-1.99) H* 09/10/17 05:48 Uric Acid 5.4 mg/dL (2.3-6.6) 09/10/17 05:48 Calcium 6.3 mg/dL (8.6-10.3) L 09/10/17 05:48 Phosphorus 2.1 mg/dL (2.5-5.0) L 09/10/17 05:48 Magnesium 1.8 mg/dL (1.9-2.7) L 09/10/17 05:48 Total Bilirubin 0.7 mg/dL (0.3-1.0) 09/10/17 05:48 AST 30 U/L (13-39) 09/10/17 05:48 ALT 37 U/L (7-52) 09/10/17 05:48 Alkaline Phosphatase 196 U/L (34-104) H 09/10/17 05:48 Ammonia 35 umol/L (16-53) 09/09/17 05:54 Troponin I 0.20 ng/mL (0.01-0.05) H* D 09/08/17 05:57 B-Natriuretic Peptide 298.0 pg/mL (5.0-100.0) H 09/10/17 05:48 Total Protein 4.6 gm/dL (6.0-8.3) L 09/10/17 05:48 Albumin 1.8 gm/dL (3.7-5.3) L 09/10/17 05:48 Globulin 2.8 gm/dL 09/10/17 05:48 Albumin/Globulin Ratio 0.6 (1.0-1.8) L 09/10/17 05:48 Lipase 20 U/L (11-82) 09/07/17 10:40 Urine Source CATH 09/07/17 11:30 Urine Color YELLOW 09/07/17 11:30 Urine Clarity HAZY (CLEAR) 09/07/17 11:30 Urine pH 5.5 (4.6 - 8.0) 09/07/17 11:30 Ur Specific [place] >= 1.030 (1.005-1.030) 09/07/17 11:30 Urine Protein 100 mg/dL (NEGATIVE) H 09/07/17 11:30 Urine Glucose (UA) NEGATIVE mg/dL (NEGATIVE) 09/07/17 11:30 Urine Ketones TRACE mg/dL (NEGATIVE) 09/07/17 11:30 Urine Blood NEGATIVE (NEGATIVE) 09/07/17 11:30 Urine Nitrate NEGATIVE (NEGATIVE) 09/07/17 11:30 Urine Bilirubin SMALL (NEGATIVE) H 09/07/17 11:30 Urine Urobilinogen 2.0 E.U./dL (0.2 - 1.0) 09/07/17 11:30 Ur Leukocyte Esterase NEGATIVE (NEGATIVE) 09/07/17 11:30 Urine RBC 0-2 /hpf (0-5) 09/07/17 11:30 Urine WBC 0-2 /hpf (0-5) 09/07/17 11:30 Ur Epithelial Cells MODERATE /lpf (FEW) 09/07/17 11:30 Urine Bacteria FEW /hpf (NONE SEEN) 09/07/17 11:30 Fine Granular Casts 0-2 /lpf (NONE SEEN) H 09/07/17 11:30 Coarse Granular Casts 2-5 /lpf (NONE SEEN) H 09/07/17 11:30 Urine Mucus FEW /lpf (FEW) 09/07/17 11:30 Urine Creatinine 24.0 mg/dl (28.0-217.0) L 09/09/17 21:29 Random Vancomycin 14.8 ug/mL (5.0-40.0) 09/09/17 05:54 - Physical Exam Vitals and I&O: Vital Signs Temp 97.5 F 09/10/17 04:00 Pulse 95 09/10/17 06:20 Resp 20 09/10/17 06:00 BP 112/67 09/10/17 06:20 Pulse Ox 100 09/10/17 06:00 Intake & Output 09/09/17 09/10/17 09/10/17 19:59 06:59 18:59 Intake Total Output Total Balance Weight (lbs) Intake: Intake, IV Amount D5-0.9%Ns 1,000 ml @ 125 mls/hr IV .Q8H [facility] Rx#: [id number] Norepinephrine 4 mg In Dextrose 5% 250 ml @ Per Protocol IV STAT PRN Rx#: [id number] Piperacillin Sodium/ Tazobact 2.25 gm In Sodium Chloride 0.9% 50 ml @ 100 mls/hr IV Q6HR [facility] Rx#:[id number] Oral Output: Urine Other: # Bowel Movements Stool Characteristics Active Medications: Current Medications Acetaminophen (Tylenol) 650 mg PO Q6HR PRN PRN Reason: MILD PAIN OR TEMP>100.4 Stop: 11/06/17 16:35 Alendronate Sodium (Fosamax) 70 mg PO QSAT [facility] Stop: 11/08/17 06:29 Last Admin: 09/09/17 07:10 Dose: Not Given Aspirin (Aspirin Chewable) 81 mg PO DAILY [facility] Stop: 11/07/17 08:59 Last Admin: 09/09/17 08:58 Dose: Not Given Bisacodyl (Dulcolax 10 Mg Supp) 10 mg RC DAILY PRN PRN Reason: IF MOM INEFFECTIVE Stop: 11/06/17 16:35 Clonazepam (Klonopin) 1 mg PO DAILY [facility] PRN Reason: Protocol Stop: 11/07/17 08:59 Last Admin: 09/09/17 08:58 Dose: Not Given Clonazepam (Klonopin) 2 mg PO DAILY [facility] Stop: 11/07/17 08:59 Last Admin: 09/09/17 13:35 Dose: Not Given Cyanocobalamin (Vitamin B12) 1,000 mcg PO DAILY [facility] Stop: 11/07/17 08:59 Last Admin: 09/09/17 08:58 Dose: Not Given Diltiazem HCl (Cardizem) 20 mg IVP Q3H PRN PRN Reason: Heart Rate > than 120 bpm Stop: 11/06/17 16:44 Docusate Sodium (Colace) 100 mg PO DAILY [facility] Stop: 11/07/17 08:59 Last Admin: 09/09/17 08:59 Dose: Not Given Heparin Sodium (Porcine) (Heparin) 5,000 units SUBQ Q12HR [facility] Stop: 11/06/17 20:59 Last Admin: 09/09/17 20:50 Dose: 5,000 units Phenylephrine HCl 10 mg/ (Sodium Chloride) 250 mls @ 30 mls/hr IV TITR [facility]; 20 MCG/MIN PRN Reason: Protocol Stop: 11/06/17 21:59 Last Titration: 09/08/17 06:01 Dose: 0 mcg/min, 0 mls/hr Piperacillin Sod/Tazobactam (Sod 2.25 gm/ Sodium Chloride) 50 mls @ 100 mls/hr IV Q6HR [facility] Stop: 11/07/17 11:59 Last Infusion: 09/10/17 06:05 Dose: Infused Dextrose/Sodium Chloride (D5-0.9%Ns) 1,000 mls @ 125 mls/hr IV .Q8H [facility] Stop: 11/07/17 16:59 Last Admin: 09/10/17 03:16 Dose: 125 mls/hr Norepinephrine Bitartrate 4 mg (/ Dextrose) 254 mls @ 0 mls/hr IV STAT PRN; Protocol; Per Protocol PRN Reason: BP MAINTENANCE (PER PROTOCOL) Stop: 11/06/17 16:11 Last Titration: 09/10/17 06:20 Dose: 0 mcg/min, 0 mls/hr Magnesium Sulfate (Magnesium Sulfate Premix) 2 gm in 50 mls @ 25 mls/hr IV X1 ONE Stop: 09/10/17 09:10 Insulin Aspart (Novolog Insulin Sliding Scale) 0 units SUBQ ACHS [facility] PRN Reason: Protocol Stop: 11/07/17 11:29 Last Admin: 09/10/17 06:51 Dose: 6 units Insulin Detemir (Levemir Insulin) 10 units SUBQ HS [facility] Stop: 11/06/17 20:59 Last Admin: 09/09/17 21:05 Dose: Not Given Lactobacillus Rhamnosus (Culturelle) 1 each PO DAILY [facility] Stop: 11/09/17 08:59 Lorazepam (Ativan) 0.5 mg PO Q6HR PRN; Protocol PRN Reason: Anxiety Stop: 11/06/17 16:35 Magnesium Hydroxide (Milk Of Magnesia) 30 ml PO DAILY PRN PRN Reason: Constipation Stop: 11/06/17 16:35 Megestrol Acetate (Megace) 400 mg PO TID [facility] Stop: 11/06/17 20:59 Last Admin: 09/09/17 20:35 Dose: Not Given Miscellaneous (Clinical Monitoring) 1 ea PRN PRN PRN Reason: RENAL DOSE ZOSYN Stop: 11/07/17 07:51 Miscellaneous (Zosyn Iv Per Pharmacy) 1 ea PRN PRN PRN Reason: PROTOCOL Stop: 11/07/17 14:31 Miscellaneous (Probiotic Screen) 1 ea PRN PRN PRN Reason: PROTOCOL Stop: 11/08/17 10:15 Morphine Sulfate (Morphine) 1 mg IVP Q6HR PRN PRN Reason: Pain (Mild) Stop: 11/07/17 18:24 Last Admin: 09/09/17 20:56 Dose: 1 mg Multivitamins/Vitamin C (Theragran) 1 tab PO DAILY [facility] Stop: 11/07/17 08:59 Last Admin: 09/09/17 11:30 Dose: Not Given Pantoprazole Sodium (Protonix) 40 mg IVP DAILY [facility] Stop: 11/06/17 18:59 Last Admin: 09/09/17 08:56 Dose: 40 mg Quetiapine Fumarate (Seroquel) 100 mg PO HS [facility] PRN Reason: Protocol Stop: 11/06/17 20:59 Last Admin: 09/09/17 20:34 Dose: Not Given Simvastatin (Zocor) 40 mg PO HS [facility] PRN Reason: Protocol Stop: 11/06/17 20:59 Last Admin: 09/09/17 20:35 Dose: Not Given Sodium Phosphate (Fleet Enema) 135 ml RC DAILY PRN PRN Reason: Constipation Stop: 11/06/17 16:35 General: no Alert HEENT: Atraumatic Neck: Supple Cardiovascular: Other (increased HR) Lungs: Other (decrease breath sounds) Abdomen: Bowel sounds, Soft Extremities: no Clubbing, no Cyanosis, no Edema Assessment/Plan - Assessment Assessment: Sepsis --- blood cultures x 2 pending, WBC's 29-> 31K --> 14K continue IV antibiotics. Cholelithiasis ... high risk for surgery Prerenal Azotemia --- will continue IV hydration CKD --- for 24h urine protein collection Anemia ... check h/h Malnutrition ... for swallow evaluation, on hold for now d/t current state Left Pleural Effusion r/o CHF .... will monitor BNP. Chest xray done yesterday. UTI ... urine cultures pending - Plan Plan: IV vancomycin IV fluids ID consult Pulmonary consult cardiology consult repeat chest xray blood cultures urine cultures repeat cbc, cmp admit to ICU Nutritional Asmnt/Malnutr-PDOC - Dietary Evaluation Malnutrition Findings (Please click <Entered> for more info): Nutritional Asmnt/Malnutrition Start: 09/07/17 16: 06 Text: Status: Active Freq: Document 09/07/17 16:06 SAGRARIOG (Rec: 09/07/17 16:34 SAGRARIOG [id number]) Nutritional Asmnt/Malnutrition Patient General Information Nutritional Screening Consult Diagnosis Dehydration, leukcytosis, dementia Pertinent Medical Hx/Surgical Hx HTN, DM, Dyslipidemia, Arthritis, Dementia, Hyperlipidemia, Anxiety, Osteoporosis, Degenerative joint disease, Neurophay. Subjective Information Per H&P, pt was on pureed NCS, NSPOT diet from [facility] ([facility]). Pt had anorexia more than one month and wt loss of 25lb in the past two months. Pt was transfered to ICU d/t rapid response. Families were aside, not a propriate time to approach. Currently no plan for nutrition d/t pt is not responding per RN. Current Diet Order/ Nutrition Support no diet order/swallowing eval pending Pertinent Medications D5 50ml/hr Pertinent Labs 09/07 Na 143, K 4.6, Cl 111 H, BUN 53 H, Cr 0.9 GLU 182 H, POC 164 H Nutritional Hx/Data Height 1.42 m Height (Calculated Centimeters) 142.2 Current Weight (lbs) 55.338 kg Weight (Calculated Kilograms) 55.3 Weight (Calculated Grams) 14685.3 Grace Body Weight 90 Recent Weight Change Yes Weight Status Overweight GI Symptoms Food Allergies No Skin Integrity/Comment: 11/09 pretibial pitting edema Estimated Nutritional Goals BEE in Kcals: Using Current wt Calories/Kcals/Kg 30 Kcals Calculated 1664 Protein: Using Current wt Protein g/k-1.2 Protein Calculated 56-67 Fluid: ml 1664-1943ml (30-35ml/kg) Nutritional Problem 1. Problem Problem Involuntary weight loss Etiology anorexia for more then one month Signs/Symptoms: recent wt loss of 25lb in two month Malnutrition Alert Interpretation of weight loss (Severe) >5% in 1 month Intervention/Recommendation Comments No nutrition intervention at this time. RD will follow up as high risk in 1-2 days. Expected Outcomes/Goals Expected Outcomes/Goals Pt to meet 50% of nutritional needs in the following 3 days.
[2017-09-10] MEDS ORDERED: Potassium Phosphate 20 MMOLE in Sodium Chloride 0.9% 250 ML IV ONE (07:29)
[2017-09-10] MEDS ORDERED: Calcium Gluconate 1 GM in Sodium Chloride 0.9% 100 ML IV ONE ×2 (07:49→09:18)
[2017-09-10] MEDS: Morphine Sulfate 2 mg/mL 1mL Syr IVP PRN ×3 (08:40→21:32)
[2017-09-10] MEDS: Aspirin 81mg Chewable Tab PO SCH (08:42)
[2017-09-10] MEDS: Lactobacillus Rhamnosus 10 Billion CFU Capsule PO SCH (08:43)
--- NOTE | 2017-09-10 09:08 | GI Progress Note ---
Subjective - Review of Systems Service Date: 09/10/17 Subjective: remains on levophed Objective - Results Result Diagrams: 09/10/17 05:48 09/10/17 05:48 Recent Labs: Laboratory Last Values WBC 14.2 Th/cmm (4.8-10.8) H D 09/10/17 05:48 RBC 3.79 Mil/cmm (3.80-5.20) L 09/10/17 05:48 Hgb 9.7 gm/dL (12-16) L 09/10/17 05:48 Hct 29.6 % (41.0-60) L 09/10/17 05:48 MCV 78.0 fl (81-100) L 09/10/17 05:48 MCH 25.5 pg (27.0-31.0) L 09/10/17 05:48 MCHC Differential 32.7 pg (28.0-36.0) 09/10/17 05:48 RDW 14.5 % (11.5-20.0) 09/10/17 05:48 Plt Count 102 Th/cmm (150-400) L D 09/10/17 05:48 MPV 10.1 fl 09/10/17 05:48 Neutrophils % [employer] 09/07/17 10:40 Band Neutrophils % 2 % (0-10) 09/10/17 05:48 Lymphocytes % [employer] 09/07/17 10:40 Monocytes % [employer] 09/07/17 10:40 Eosinophils % [employer] 09/07/17 10:40 Basophils % [employer] 09/07/17 10:40 Neutrophils (Manual) 95 % (40-80) H 09/10/17 05:48 Lymphocytes 3 % (20-50) L 09/10/17 05:48 Monocytes 1 % (2-10) L 09/08/17 05:57 Eosinophils 0 % (0-5) 09/07/17 17:00 Basophils 0 % (0-3) 09/07/17 17:00 Platelet Estimate ADEQUATE (NORMAL) 09/09/17 05:54 Platelet Morphology NORMAL (NORMAL) 09/09/17 05:54 Anisocytosis 1+ 09/10/17 05:48 Microcytosis 1+ 09/09/17 05:54 RBC Morph Micro Appear ABNORMAL (NORMAL) 09/09/17 05:54 Eos Smear Source URINE 09/09/17 21:29 Eos Smear Total Cells NONE SEEN (NONE SEEN) 09/09/17 21:29 PT 10.8 SECONDS (9.5-11.5) 09/07/17 10:40 INR 1.04 (0.5-1.4) 09/07/17 10:40 PTT (Actin FS) 29.0 SECONDS (26.0-38.0) 09/07/17 10:40 Specimen Source Arterial 09/09/17 08:53 Sample Site Left Radial 09/09/17 08:53 pH 7.37 (7.35-7.45) 09/09/17 08:53 pCO2 28.0 mmHg (35.0-45.0) L 09/09/17 08:53 pO2 100.0 mmHg (80.0-100.0) 09/09/17 08:53 HCO3 18.9 mEq/L (20.0-26.0) L 09/09/17 08:53 Base Excess -7.7 mEq/L (-3.0-3.0) L 09/09/17 08:53 O2 Saturation 98.0 % (92.0-100.0) 09/09/17 08:53 Vinod Test YES 09/09/17 08:53 Vent Rate NA 09/09/17 08:53 Inspired O2 28 09/09/17 08:53 Tidal Volume NA 09/09/17 08:53 PEEP NA 09/09/17 08:53 Pressure (ins/psv/peep) NA 09/09/17 08:53 Critical Value FERNANDO LEDESMA 09/09/17 08:53 Sodium 141 mEq/L (136-145) 09/10/17 05:48 Potassium 3.8 mEq/L (3.5-5.1) 09/10/17 05:48 Chloride 115 mEq/L (98-107) H 09/10/17 05:48 Carbon Dioxide 15.6 mEq/L (21.0-31.0) L 09/10/17 05:48 Anion Gap 14.2 (7.0-16.0) 09/10/17 05:48 BUN 50 mg/dL (7-25) H 09/10/17 05:48 Creatinine 2.4 mg/dL (0.6-1.2) H 09/10/17 05:48 Est GFR ( Amer) TNP 11/05/17 05:48 Est GFR (Non-Af Amer) TNP 09/10/17 05:48 BUN/Creatinine Ratio 20.8 09/10/17 05:48 Glucose 284 mg/dL (40-70) H* 09/10/17 05:48 POC Glucose 270 MG/DL (70 - 105) H 09/10/17 06:15 Hemoglobin A1c % 5.7 % (4.0-6.0) 09/07/17 10:40 Whole Bld Lactic Acid 2.66 mmol/L (0.60-1.99) H* 09/10/17 07:48 Uric Acid 5.4 mg/dL (2.3-6.6) 09/10/17 05:48 Calcium 6.3 mg/dL (8.6-10.3) L 09/10/17 05:48 Phosphorus 2.1 mg/dL (2.5-5.0) L 09/10/17 05:48 Magnesium 1.8 mg/dL (1.9-2.7) L 09/10/17 05:48 Total Bilirubin 0.7 mg/dL (0.3-1.0) 09/10/17 05:48 AST 30 U/L (13-39) 09/10/17 05:48 ALT 37 U/L (7-52) 09/10/17 05:48 Alkaline Phosphatase 196 U/L (34-104) H 09/10/17 05:48 Ammonia 35 umol/L (16-53) 09/09/17 05:54 Troponin I 0.20 ng/mL (0.01-0.05) H* D 09/08/17 05:57 B-Natriuretic Peptide 298.0 pg/mL (5.0-100.0) H 09/10/17 05:48 Total Protein 4.6 gm/dL (6.0-8.3) L 09/10/17 05:48 Albumin 1.8 gm/dL (3.7-5.3) L 09/10/17 05:48 Globulin 2.8 gm/dL 09/10/17 05:48 Albumin/Globulin Ratio 0.6 (1.0-1.8) L 09/10/17 05:48 Lipase 20 U/L (11-82) 09/07/17 10:40 Urine Source CATH 09/07/17 11:30 Urine Color YELLOW 09/07/17 11:30 Urine Clarity HAZY (CLEAR) 09/07/17 11:30 Urine pH 5.5 (4.6 - 8.0) 09/07/17 11:30 Ur Specific [place] >= 1.030 (1.005-1.030) 09/07/17 11:30 Urine Protein 100 mg/dL (NEGATIVE) H 09/07/17 11:30 Urine Glucose (UA) NEGATIVE mg/dL (NEGATIVE) 09/07/17 11:30 Urine Ketones TRACE mg/dL (NEGATIVE) 09/07/17 11:30 Urine Blood NEGATIVE (NEGATIVE) 09/07/17 11:30 Urine Nitrate NEGATIVE (NEGATIVE) 09/07/17 11:30 Urine Bilirubin SMALL (NEGATIVE) H 09/07/17 11:30 Urine Urobilinogen 2.0 E.U./dL (0.2 - 1.0) 09/07/17 11:30 Ur Leukocyte Esterase NEGATIVE (NEGATIVE) 09/07/17 11:30 Urine RBC 0-2 /hpf (0-5) 09/07/17 11:30 Urine WBC 0-2 /hpf (0-5) 09/07/17 11:30 Ur Epithelial Cells MODERATE /lpf (FEW) 09/07/17 11:30 Urine Bacteria FEW /hpf (NONE SEEN) 09/07/17 11:30 Fine Granular Casts 0-2 /lpf (NONE SEEN) H 09/07/17 11:30 Coarse Granular Casts 2-5 /lpf (NONE SEEN) H 09/07/17 11:30 Urine Mucus FEW /lpf (FEW) 09/07/17 11:30 Urine Creatinine 24.0 mg/dl (28.0-217.0) L 09/09/17 21:29 Random Vancomycin 14.8 ug/mL (5.0-40.0) 09/09/17 05:54 - Physical Exam Vitals and I&O: Vital Signs Temp 97.5 F 09/10/17 04:00 Pulse 104 09/10/17 07:28 Resp 23 09/10/17 07:28 BP 112/67 09/10/17 06:20 Pulse Ox 100 09/10/17 07:28 Intake & Output 09/09/17 09/10/17 09/10/17 19:59 06:59 18:59 Intake Total 658.333 Output Total Balance 658.333 Weight (lbs) Intake: Intake, IV Amount 658.333 D5-0.9%Ns 1,000 ml @ 125 658.333 mls/hr IV .Q8H [facility] Rx#: [id number] Norepinephrine 4 mg In Dextrose 5% 250 ml @ Per Protocol IV STAT PRN Rx#: [id number] Piperacillin Sodium/ Tazobact 2.25 gm In Sodium Chloride 0.9% 50 ml @ 100 mls/hr IV Q6HR [facility] Rx#:[id number] Oral Output: Urine Other: # Bowel Movements Stool Characteristics Active Medications: Current Medications Acetaminophen (Tylenol) 650 mg PO Q6HR PRN PRN Reason: MILD PAIN OR TEMP>100.4 Stop: 11/06/17 16:35 Alendronate Sodium (Fosamax) 70 mg PO QSAT [facility] Stop: 11/08/17 06:29 Last Admin: 09/09/17 07:10 Dose: Not Given Aspirin (Aspirin Chewable) 81 mg PO DAILY [facility] Stop: 11/07/17 08:59 Last Admin: 09/10/17 08:42 Dose: Not Given Bisacodyl (Dulcolax 10 Mg Supp) 10 mg RC DAILY PRN PRN Reason: IF MOM INEFFECTIVE Stop: 11/06/17 16:35 Clonazepam (Klonopin) 1 mg PO DAILY [place] PRN Reason: Protocol Stop: 11/07/17 08:59 Last Admin: 09/10/17 08:43 Dose: Not Given Clonazepam (Klonopin) 2 mg PO DAILY [facility] Stop: 11/07/17 08:59 Last Admin: 09/10/17 08:42 Dose: Not Given Cyanocobalamin (Vitamin B12) 1,000 mcg PO DAILY [facility] Stop: 11/07/17 08:59 Last Admin: 09/10/17 08:43 Dose: Not Given Diltiazem HCl (Cardizem) 20 mg IVP Q3H PRN PRN Reason: Heart Rate > than 120 bpm Stop: 11/06/17 16:44 Docusate Sodium (Colace) 100 mg PO DAILY [facility] Stop: 11/07/17 08:59 Last Admin: 09/10/17 08:43 Dose: Not Given Heparin Sodium (Porcine) (Heparin) 5,000 units SUBQ Q12HR [facility] Stop: 11/06/17 20:59 Last Admin: 09/10/17 08:33 Dose: 5,000 units Phenylephrine HCl 10 mg/ (Sodium Chloride) 250 mls @ 30 mls/hr IV TITR CLARITA; 20 MCG/MIN PRN Reason: Protocol Stop: 11/06/17 21:59 Last Titration: 09/08/17 06:01 Dose: 0 mcg/min, 0 mls/hr Piperacillin Sod/Tazobactam (Sod 2.25 gm/ Sodium Chloride) 50 mls @ 100 mls/hr IV Q6HR [facility] Stop: 11/07/17 11:59 Last Infusion: 09/10/17 06:05 Dose: Infused Dextrose/Sodium Chloride (D5-0.9%Ns) 1,000 mls @ 125 mls/hr IV .Q8H [facility] Stop: 11/07/17 16:59 Last Admin: 09/10/17 08:32 Dose: 125 mls/hr Norepinephrine Bitartrate 4 mg (/ Dextrose) 254 mls @ 0 mls/hr IV STAT PRN; Protocol; Per Protocol PRN Reason: BP MAINTENANCE (PER PROTOCOL) Stop: 11/06/17 16:11 Last Titration: 09/10/17 06:20 Dose: 0 mcg/min, 0 mls/hr Magnesium Sulfate (Magnesium Sulfate Premix) 2 gm in 50 mls @ 25 mls/hr IV X1 ONE Stop: 09/10/17 09:10 Last Admin: 09/10/17 07:40 Dose: 25 mls/hr Potassium Phosphate 20 mmole/ (Sodium Chloride) 256.6667 mls @ 42.5 mls/hr IV X1 ONE Stop: 09/10/17 13:31 Last Admin: 09/10/17 08:05 Dose: 42.5 mls/hr Insulin Aspart (Novolog Insulin Sliding Scale) 0 units SUBQ ACHS [place] PRN Reason: Protocol Stop: 11/07/17 11:29 Last Admin: 09/10/17 06:51 Dose: 6 units Insulin Detemir (Levemir Insulin) 10 units SUBQ HS [facility] Stop: 11/06/17 20:59 Last Admin: 09/09/17 21:05 Dose: Not Given Lactobacillus Rhamnosus (Culturelle) 1 each PO DAILY [facility] Stop: 11/09/17 08:59 Last Admin: 09/10/17 08:43 Dose: Not Given Lorazepam (Ativan) 0.5 mg PO Q6HR PRN; Protocol PRN Reason: Anxiety Stop: 11/06/17 16:35 Magnesium Hydroxide (Milk Of Magnesia) 30 ml PO DAILY PRN PRN Reason: Constipation Stop: 11/06/17 16:35 Megestrol Acetate (Megace) 400 mg PO TID [place] Stop: 11/06/17 20:59 Last Admin: 09/10/17 08:43 Dose: Not Given Miscellaneous (Clinical Monitoring) 1 ea PRN PRN PRN Reason: RENAL DOSE ZOSYN Stop: 11/07/17 07:51 Miscellaneous (Zosyn Iv Per Pharmacy) 1 ea PRN PRN PRN Reason: PROTOCOL Stop: 11/07/17 14:31 Miscellaneous (Probiotic Screen) 1 ea PRN PRN PRN Reason: PROTOCOL Stop: 11/08/17 10:15 Morphine Sulfate (Morphine) 1 mg IVP Q6HR PRN PRN Reason: Pain (Mild) Stop: 11/07/17 18:24 Last Admin: 09/10/17 08:40 Dose: 1 mg Multivitamins/Vitamin C (Theragran) 1 tab PO DAILY [facility] Stop: 11/07/17 08:59 Last Admin: 09/09/17 11:30 Dose: Not Given Pantoprazole Sodium (Protonix) 40 mg IVP DAILY [facility] Stop: 11/06/17 18:59 Last Admin: 09/10/17 08:33 Dose: 40 mg Quetiapine Fumarate (Seroquel) 100 mg PO HS [place] PRN Reason: Protocol Stop: 11/06/17 20:59 Last Admin: 09/09/17 20:34 Dose: Not Given Simvastatin (Zocor) 40 mg PO HS [place] PRN Reason: Protocol Stop: 11/06/17 20:59 Last Admin: 09/09/17 20:35 Dose: Not Given Sodium Phosphate (Fleet Enema) 135 ml RC DAILY PRN PRN Reason: Constipation Stop: 11/06/17 16:35 General: no Alert HEENT: Atraumatic Neck: Supple Cardiovascular: Other (increased HR) Lungs: Other (decrease breath sounds) Abdomen: Bowel sounds, Soft Extremities: no Clubbing, no Cyanosis, no Edema Assessment/Plan - Assessment Assessment: # Septic shock, likely abdominal source Suspect severe cholecystitis at this point given the appearance of the US with markedly distended GB. She also grimaces to abdominal exam, which indicates an abdominal source. HIDA and CT consistent with cholecystitis, which is severe by clinical standards. Patient would be best served by percutaneous cholecystostomy tube if possible, or cholecystectomy if deemed safe by surgery. # Anorexia # Dysphasia G tube placement is reasonable, but would need to be after her infectious process resolves Recommendations: - appreciate surgical input - IR consultation for PTC cholecystostomy tube for gallbladder drainage, possible transfer to [place] for cholecystostomy tube - broad abx and ICU blood pressure support - NPO - appreciate ID input Prognosis is guarded at this time, and likely without GB drainage may be poor. Thank you for allowing me to participate in this patient's care.
[2017-09-10] MEDS: Multivitamin Tab PO SCH (09:46)
--- NOTE | 2017-09-10 13:41 | Consultation ---
DATE OF CONSULTATION: 09/09/2017 ATTENDING PHYSICIAN: Dr. Allen Quintero. FLOOR COVERINGS INSTALLER: Jose Rashid M.D. REASON FOR CONSULTATION: Worsening kidney function, electrolyte imbalance, and fluid management. HISTORY OF PRESENT ILLNESS: History obtained from daughter. This is a 72-year-old female with past medical history of type 2 diabetes mellitus, was brought in because of poor oral intake. Two months prior to admission, the patient's appetite started to decline. A few days prior to admission, patient's daughter noted her to have generalized weakness with easy fatigability. She estimated the patient lost approximately 25-30 pounds. A few hours prior to admission, daughter noted the patient to be very weak and complained of generalized pain/myalgias. She was then brought to the Emergency Room. The patient became hypotensive associated with sinus tachycardic and hypoxemia. She was resuscitated with fluids as well as oxygen. Daughter signed the DNR form. CT scan of the abdomen/pelvis revealed distended gallbladder with stones. Recommendation was for a HIDA scan. This was done and revealed no gallbladder uptake suggestive of acute or chronic cholecystitis. Lactic acid was 10.4 and now down to 4. Chest x-ray showed small left effusion, but there was no consolidation. She was admitted with a BUN/creatinine of 51/1.3. Her BUN/creatinine today were 53/2.3. PAST MEDICAL HISTORY: 1. Type 2 diabetes mellitus. 2. Dyslipidemia. 3. Essential hypertension. 4. Anxiety disorder. 5. Osteoporosis. CURRENT MEDICATIONS: She is currently on acetaminophen, Fosamax, bisacodyl, clonazepam, vitamin B12, Levophed, diltiazem, docusate sodium, Fleet enema, detemir, lactobacillus, lorazepam, lisinopril, magnesium hydroxide, megestrol acetate, morphine, multivitamins, pantoprazole, Zosyn, quetiapine, and simvastatin. ALLERGIES: No known drug allergies. SOCIAL HISTORY: As per daughter, the patient has no history of tobacco use. She used to drink during special events. She is retired as a seamstress. FAMILY HISTORY: Noncontributory to present illness. REVIEW OF SYSTEMS: Unable to obtain from the patient because she remains nonverbal. PHYSICAL EXAMINATION: GENERAL: The patient is more awake; however, still has problem interacting and communicating. VITAL SIGNS: Her blood pressure is 113/57, pulse 83, temperature 96.8 degrees. SKIN: Poor turgor, warm. No rash, no jaundice appreciated. HEENT: Head normocephalic, atraumatic. Eyes: Extraocular muscles intact. Pupils equal, round, reactive to light and accommodates. Anicteric sclerae. Pale conjunctivae. Nose, midline nasal septum. Mouth: Dry mucosa with poor dentition. NECK: Supple, no adenopathy, no thyromegaly, no bruits. Trachea palpated in the midline. CHEST AND CVS: S1, S2. No rub, murmur or gallop appreciated. Point of maximal impulse, fifth intercostal space, left midclavicular line. No abdominal or femoral bruits appreciated. LUNGS: Equal expansion. No use of accessory muscles. No supraclavicular retractions. Decreased breath sounds. A few rhonchi, but no rales or wheezes appreciated. BREASTS: Symmetrical, without any discharge. ABDOMEN: Scaphoid, soft, positive for bowel sounds. No tenderness elicited. Upon palpation of right upper quadrant, there is no guarding or rigidity. No bruits, either diastolic or systolic. RECTAL: The patient refused. GENITOURINARY: Normal appearing female genitalia with indwelling Hurtado catheter. MUSCULOSKELETAL: No effusions present in her joints, but unable to assess her range of motion. EXTREMITIES: No evidence of any edema, cyanosis or clubbing with palpable femoral, popliteal and dorsalis pedis pulses. NEUROLOGIC: The patient is awake; however, unable to follow my neuro commands, so I was not able to pursue further my neuro exam. LABORATORY DATA: Did reveal sodium 137, potassium 3.9, chloride 110, CO2 is 18, BUN 53, creatinine 2.3, glucose 286, lactic acid is 4.96, calcium 6.5, alkaline phosphatase 163, albumin is 2.1. White count 31.5, hemoglobin 9.3, hematocrit 27.9, platelets 147, polys 81%. IMPRESSION: 1. The patient had very poor oral intake with failure to thrive. She was unable to replenish both sensible and insensible fluid losses. She developed prerenal azotemia, which progressed to acute tubular injury. She also has overwhelming sepsis which could lead to a development of acute interstitial nephritis. 2. Leukocytosis/elevated lactic acid/tachycardia with hypotension, suggestive of ongoing septic shock. 3. Sepsis secondary to acute cholecystitis. 4. Failure to thrive. 5. Severe malnutrition. 6. Microscopic anemia, possibly iron deficiency with GI loss. 7. Type 2 diabetes mellitus. 8. Dyslipidemia. 9. Essential hypertension. 10. Anxiety disorder. 11. Osteoporosis. PLAN: 1. Urinalysis. 2. Urine spot sodium, eosinophil, and creatinine. 3. A 24-hour urine collection for protein and creatinine clearance. 4. Continue with IV fluids. 5. Maintain antibiotics. 6. Discontinue lisinopril due to kidney failure and hypotension. 7. Follow up electrolytes. Thank you, Dr. Quintero for this consult. I will follow the patient closely with you. JOB# [id number]
--- NOTE | 2017-09-10 14:21 | General Progress Note ---
Subjective - Review of Systems Service Date: 09/10/17 Events since last encounter: WBC better HIDA no visualization of GB discussed options with daughter - too high risk for surgery might do cholecystostomy at [facility] Objective - Results Result Diagrams: 09/10/17 05:48 09/10/17 05:48 Recent Labs: Laboratory Last Values WBC 14.2 Th/cmm (4.8-10.8) H D 09/10/17 05:48 RBC 3.79 Mil/cmm (3.80-5.20) L 09/10/17 05:48 Hgb 9.7 gm/dL (12-16) L 09/10/17 05:48 Hct 29.6 % (41.0-60) L 09/10/17 05:48 MCV 78.0 fl (81-100) L 09/10/17 05:48 MCH 25.5 pg (27.0-31.0) L 09/10/17 05:48 MCHC Differential 32.7 pg (28.0-36.0) 09/10/17 05:48 RDW 14.5 % (11.5-20.0) 09/10/17 05:48 Plt Count 102 Th/cmm (150-400) L D 09/10/17 05:48 MPV 10.1 fl 09/10/17 05:48 Neutrophils % MICROCOMPUTER TECHNICIAN 09/07/17 10:40 Band Neutrophils % 2 % (0-10) 09/10/17 05:48 Lymphocytes % MICROCOMPUTER TECHNICIAN 09/07/17 10:40 Monocytes % MICROCOMPUTER TECHNICIAN 09/07/17 10:40 Eosinophils % MICROCOMPUTER TECHNICIAN 09/07/17 10:40 Basophils % MICROCOMPUTER TECHNICIAN 09/07/17 10:40 Neutrophils (Manual) 95 % (40-80) H 09/10/17 05:48 Lymphocytes 3 % (20-50) L 09/10/17 05:48 Monocytes 1 % (2-10) L 09/08/17 05:57 Eosinophils 0 % (0-5) 09/07/17 17:00 Basophils 0 % (0-3) 09/07/17 17:00 Platelet Estimate ADEQUATE (NORMAL) 09/09/17 05:54 Platelet Morphology NORMAL (NORMAL) 09/09/17 05:54 Anisocytosis 1+ 09/10/17 05:48 Microcytosis 1+ 09/09/17 05:54 RBC Morph Micro Appear ABNORMAL (NORMAL) 09/09/17 05:54 Eos Smear Source URINE 09/09/17 21:29 Eos Smear Total Cells NONE SEEN (NONE SEEN) 09/09/17 21:29 PT 10.8 SECONDS (9.5-11.5) 09/07/17 10:40 INR 1.04 (0.5-1.4) 09/07/17 10:40 PTT (Actin FS) 29.0 SECONDS (26.0-38.0) 09/07/17 10:40 Specimen Source Arterial 09/09/17 08:53 Sample Site Left Radial 09/09/17 08:53 pH 7.37 (7.35-7.45) 09/09/17 08:53 pCO2 28.0 mmHg (35.0-45.0) L 09/09/17 08:53 pO2 100.0 mmHg (80.0-100.0) 09/09/17 08:53 HCO3 18.9 mEq/L (20.0-26.0) L 09/09/17 08:53 Base Excess -7.7 mEq/L (-3.0-3.0) L 09/09/17 08:53 O2 Saturation 98.0 % (92.0-100.0) 09/09/17 08:53 Vinod Test YES 09/09/17 08:53 Vent Rate NA 09/09/17 08:53 Inspired O2 28 09/09/17 08:53 Tidal Volume NA 09/09/17 08:53 PEEP NA 09/09/17 08:53 Pressure (ins/psv/peep) NA 09/09/17 08:53 Critical Value FERNANDO LEDESMA 09/09/17 08:53 Sodium 141 mEq/L (136-145) 09/10/17 05:48 Potassium 3.8 mEq/L (3.5-5.1) 09/10/17 05:48 Chloride 115 mEq/L (98-107) H 09/10/17 05:48 Carbon Dioxide 15.6 mEq/L (21.0-31.0) L 09/10/17 05:48 Anion Gap 14.2 (7.0-16.0) 09/10/17 05:48 BUN 50 mg/dL (7-25) H 09/10/17 05:48 Creatinine 2.4 mg/dL (0.6-1.2) H 09/10/17 05:48 Est GFR ( Amer) TNP 09/10/17 05:48 Est GFR (Non-Af Amer) TNP 09/10/17 05:48 BUN/Creatinine Ratio 20.8 09/10/17 05:48 Glucose 284 mg/dL (40-70) H* 09/10/17 05:48 POC Glucose 181 MG/DL (70 - 105) H 09/10/17 11:27 Hemoglobin A1c % 5.7 % (4.0-6.0) 09/07/17 10:40 Whole Bld Lactic Acid 2.66 mmol/L (0.60-1.99) H* 09/10/17 07:48 Uric Acid 5.4 mg/dL (2.3-6.6) 09/10/17 05:48 Calcium 6.3 mg/dL (8.6-10.3) L 09/10/17 05:48 Phosphorus 2.1 mg/dL (2.5-5.0) L 09/10/17 05:48 Magnesium 1.8 mg/dL (1.9-2.7) L 09/10/17 05:48 Total Bilirubin 0.7 mg/dL (0.3-1.0) 09/10/17 05:48 AST 30 U/L (13-39) 09/10/17 05:48 ALT 37 U/L (7-52) 09/10/17 05:48 Alkaline Phosphatase 196 U/L (34-104) H 09/10/17 05:48 Ammonia 35 umol/L (16-53) 09/09/17 05:54 Troponin I 0.20 ng/mL (0.01-0.05) H* D 09/08/17 05:57 B-Natriuretic Peptide 298.0 pg/mL (5.0-100.0) H 09/10/17 05:48 Total Protein 4.6 gm/dL (6.0-8.3) L 09/10/17 05:48 Albumin 1.8 gm/dL (3.7-5.3) L 09/10/17 05:48 Globulin 2.8 gm/dL 09/10/17 05:48 Albumin/Globulin Ratio 0.6 (1.0-1.8) L 09/10/17 05:48 Lipase 20 U/L (11-82) 09/07/17 10:40 Urine Source CATH 09/07/17 11:30 Urine Color YELLOW 09/07/17 11:30 Urine Clarity HAZY (CLEAR) 09/07/17 11:30 Urine pH 5.5 (4.6 - 8.0) 09/07/17 11:30 Ur Specific [place] >= 1.030 (1.005-1.030) 09/07/17 11:30 Urine Protein 100 mg/dL (NEGATIVE) H 09/07/17 11:30 Urine Glucose (UA) NEGATIVE mg/dL (NEGATIVE) 09/07/17 11:30 Urine Ketones TRACE mg/dL (NEGATIVE) 09/07/17 11:30 Urine Blood NEGATIVE (NEGATIVE) 09/07/17 11:30 Urine Nitrate NEGATIVE (NEGATIVE) 09/07/17 11:30 Urine Bilirubin SMALL (NEGATIVE) H 09/07/17 11:30 Urine Urobilinogen 2.0 E.U./dL (0.2 - 1.0) 09/07/17 11:30 Ur Leukocyte Esterase NEGATIVE (NEGATIVE) 09/07/17 11:30 Urine RBC 0-2 /hpf (0-5) 09/07/17 11:30 Urine WBC 0-2 /hpf (0-5) 09/07/17 11:30 Ur Epithelial Cells MODERATE /lpf (FEW) 09/07/17 11:30 Urine Bacteria FEW /hpf (NONE SEEN) 09/07/17 11:30 Fine Granular Casts 0-2 /lpf (NONE SEEN) H 09/07/17 11:30 Coarse Granular Casts 2-5 /lpf (NONE SEEN) H 09/07/17 11:30 Urine Mucus FEW /lpf (FEW) 09/07/17 11:30 Urine Creatinine 24.0 mg/dl (28.0-217.0) L 09/09/17 21:29 Random Vancomycin 14.8 ug/mL (5.0-40.0) 09/09/17 05:54 - Physical Exam Vitals and I&O: Vital Signs Temp 97.5 F 09/10/17 13:00 Pulse 109 09/10/17 13:00 Resp 13 09/10/17 13:00 BP 128/74 09/10/17 13:00 Pulse Ox 100 09/10/17 13:00 Intake & Output 09/09/17 09/10/17 09/10/17 19:59 06:59 18:59 Intake Total 708.333 Output Total Balance 708.333 Weight (lbs) Intake: Intake, IV Amount 708.333 D5-0.9%Ns 1,000 ml @ 125 658.333 mls/hr IV .Q8H [facility] Rx#: [id number] Norepinephrine 4 mg In Dextrose 5% 250 ml @ Per Protocol IV STAT PRN Rx#: [id number] Piperacillin Sodium/ 50 Tazobact 2.25 gm In Sodium Chloride 0.9% 50 ml @ 100 mls/hr IV Q6HR [facility] Rx#:[id number] Oral Output: Urine Other: # Bowel Movements Stool Characteristics Active Medications: Current Medications Acetaminophen (Tylenol) 650 mg PO Q6HR PRN PRN Reason: MILD PAIN OR TEMP>100.4 Stop: 11/06/17 16:35 Alendronate Sodium (Fosamax) 70 mg PO QSAT [facility] Stop: 11/08/17 06:29 Last Admin: 09/09/17 07:10 Dose: Not Given Aspirin (Aspirin Chewable) 81 mg PO DAILY [facility] Stop: 11/07/17 08:59 Last Admin: 09/10/17 08:42 Dose: Not Given Bisacodyl (Dulcolax 10 Mg Supp) 10 mg RC DAILY PRN PRN Reason: IF MOM INEFFECTIVE Stop: 11/06/17 16:35 Clonazepam (Klonopin) 1 mg PO DAILY [facility] PRN Reason: Protocol Stop: 11/07/17 08:59 Last Admin: 09/10/17 08:43 Dose: Not Given Clonazepam (Klonopin) 2 mg PO DAILY [facility] Stop: 11/07/17 08:59 Last Admin: 09/10/17 08:42 Dose: Not Given Cyanocobalamin (Vitamin B12) 1,000 mcg PO DAILY [facility] Stop: 11/07/17 08:59 Last Admin: 09/10/17 08:43 Dose: Not Given Diltiazem HCl (Cardizem) 20 mg IVP Q3H PRN PRN Reason: Heart Rate > than 120 bpm Stop: 11/06/17 16:44 Docusate Sodium (Colace) 100 mg PO DAILY [facility] Stop: 11/07/17 08:59 Last Admin: 09/10/17 08:43 Dose: Not Given Heparin Sodium (Porcine) (Heparin) 5,000 units SUBQ Q12HR [facility] Stop: 11/06/17 20:59 Last Admin: 09/10/17 08:33 Dose: 5,000 units Phenylephrine HCl 10 mg/ (Sodium Chloride) 250 mls @ 30 mls/hr IV TITR [facility]; 20 MCG/MIN PRN Reason: Protocol Stop: 11/06/17 21:59 Last Titration: 09/08/17 06:01 Dose: 0 mcg/min, 0 mls/hr Piperacillin Sod/Tazobactam (Sod 2.25 gm/ Sodium Chloride) 50 mls @ 100 mls/hr IV Q6HR [facility] Stop: 11/07/17 11:59 Last Infusion: 09/10/17 13:14 Dose: Infused Dextrose/Sodium Chloride (D5-0.9%Ns) 1,000 mls @ 125 mls/hr IV .Q8H [facility] Stop: 11/07/17 16:59 Last Admin: 09/10/17 08:32 Dose: 125 mls/hr Norepinephrine Bitartrate 4 mg (/ Dextrose) 254 mls @ 0 mls/hr IV STAT PRN; Protocol; Per Protocol PRN Reason: BP MAINTENANCE (PER PROTOCOL) Stop: 11/06/17 16:11 Last Titration: 09/10/17 06:20 Dose: 0 mcg/min, 0 mls/hr Insulin Aspart (Novolog Insulin Sliding Scale) 0 units SUBQ ACHS [facility] PRN Reason: Protocol Stop: 11/07/17 11:29 Last Admin: 09/10/17 11:27 Dose: 2 units Insulin Detemir (Levemir Insulin) 10 units SUBQ HS [facility] Stop: 11/06/17 20:59 Last Admin: 09/09/17 21:05 Dose: Not Given Lactobacillus Rhamnosus (Culturelle) 1 each PO DAILY [facility] Stop: 11/09/17 08:59 Last Admin: 09/10/17 08:43 Dose: Not Given Lorazepam (Ativan) 0.5 mg PO Q6HR PRN; Protocol PRN Reason: Anxiety Stop: 11/06/17 16:35 Magnesium Hydroxide (Milk Of Magnesia) 30 ml PO DAILY PRN PRN Reason: Constipation Stop: 11/06/17 16:35 Megestrol Acetate (Megace) 400 mg PO TID [facility] Stop: 11/06/17 20:59 Last Admin: 09/10/17 08:43 Dose: Not Given Miscellaneous (Clinical Monitoring) 1 ea MC PRN PRN PRN Reason: RENAL DOSE ZOSYN Stop: 11/07/17 07:51 Miscellaneous (Zosyn Iv Per Pharmacy) 1 ea PRN PRN PRN Reason: PROTOCOL Stop: 11/07/17 14:31 Miscellaneous (Probiotic Screen) 1 ea PRN PRN PRN Reason: PROTOCOL Stop: 11/08/17 10:15 Morphine Sulfate (Morphine) 1 mg IVP Q6HR PRN PRN Reason: Pain (Mild) Stop: 11/07/17 18:24 Last Admin: 09/10/17 08:40 Dose: 1 mg Multivitamins/Vitamin C (Theragran) 1 tab PO DAILY [facility] Stop: 11/07/17 08:59 Last Admin: 09/10/17 09:46 Dose: Not Given Pantoprazole Sodium (Protonix) 40 mg IVP DAILY [facility] Stop: 11/06/17 18:59 Last Admin: 09/10/17 08:33 Dose: 40 mg Quetiapine Fumarate (Seroquel) 100 mg PO HS [facility] PRN Reason: Protocol Stop: 11/06/17 20:59 Last Admin: 09/09/17 20:34 Dose: Not Given Simvastatin (Zocor) 40 mg PO HS [facility] PRN Reason: Protocol Stop: 11/06/17 20:59 Last Admin: 09/09/17 20:35 Dose: Not Given Sodium Phosphate (Fleet Enema) 135 ml RC DAILY PRN PRN Reason: Constipation Stop: 11/06/17 16:35 General: no Alert HEENT: Atraumatic Neck: Supple Cardiovascular: Other (increased HR) Lungs: Other (decrease breath sounds) Abdomen: Bowel sounds, Soft Extremities: no Clubbing, no Cyanosis, no Edema Nutritional Asmnt/Malnutr-PDOC - Dietary Evaluation Malnutrition Findings (Please click <Entered> for more info): Nutritional Asmnt/Malnutrition Start: 09/07/17 16: 06 Text: Status: Active Freq: Document 09/07/17 16:06 NIK (Rec: 09/07/17 16:34 NIK [id number]) Nutritional Asmnt/Malnutrition Patient General Information Nutritional Screening Consult Diagnosis Dehydration, leukcytosis, dementia Pertinent Medical Hx/Surgical Hx HTN, DM, Dyslipidemia, Arthritis, Dementia, Hyperlipidemia, Anxiety, Osteoporosis, Degenerative joint disease, Neurophay. Subjective Information Per H&P, pt was on pureed NCS, NSPOT diet from [facility] ([facility]). Pt had anorexia more than one month and wt loss of 25lb in the past two months. Pt was transfered to ICU d/t rapid response. Families were aside, not a propriate time to approach. Currently no plan for nutrition d/t pt is not responding per RN. Current Diet Order/ Nutrition Support no diet order/swallowing eval pending Pertinent Medications D5 50ml/hr Pertinent Labs 09/07 Na 143, K 4.6, Cl 111 H, BUN 53 H, Cr 0.9 GLU 182 H, POC 164 H Nutritional Hx/Data Height 1.42 m Height (Calculated Centimeters) 142.2 Current Weight (lbs) 55.338 kg Weight (Calculated Kilograms) 55.3 Weight (Calculated Grams) 99351.3 [place] Body Weight 90 Recent Weight Change Yes Weight Status Overweight GI Symptoms Food Allergies No Skin Integrity/Comment: 11/09 pretibial pitting edema Estimated Nutritional Goals BEE in Kcals: Using Current wt Calories/Kcals/Kg 30 Kcals Calculated 1664 Protein: Using Current wt Protein g/k-1.2 Protein Calculated 56-67 Fluid: ml 1664-1943ml (30-35ml/kg) Nutritional Problem 1. Problem Problem Involuntary weight loss Etiology anorexia for more then one month Signs/Symptoms: recent wt loss of 25lb in two month Malnutrition Alert Interpretation of weight loss (Severe) >5% in 1 month Intervention/Recommendation Comments No nutrition intervention at this time. RD will follow up as high risk in 1-2 days. Expected Outcomes/Goals Expected Outcomes/Goals Pt to meet 50% of nutritional needs in the following 3 days.
[2017-09-10] MEDS ORDERED: Sodium Bicarbonate 8.4% 50mEq PFS IVP ONE (15:49)
[2017-09-10] MEDS: Insulin Detemir 100 units/mL 10mL Vial SUBQ SCH (21:11)
[2017-09-10 22:23] LABS: SODIUM 24HR URINE 39 mmol/24H (40-220); URINE COLLECTION TIME 24 hours
[2017-09-10 22:28] LABS: SURFACE AREA 1.54
[2017-09-11] MEDS: Piperacillin/Tazobact 2.25 gm in 0.9% NS 50 ML IV SCH ×4 (00:09→18:40)
--- NOTE | 2017-09-11 02:34 | Progress Notes ---
DATE: 09/09/2017 PULMONARY/CRITICAL CARE PROGRESS NOTE PROBLEM LIST: 1. Septic shock with respiratory failure. 2. Significant malnutrition with anorexia. 3. Possibly Alzheimer. SYMPTOMS: Nil. The patient is moaning and groaning. No respiratory distress. Currently on her nasal O2. PHYSICAL EXAMINATION: VITAL SIGNS: Temperature is 97.5. BP is 108/57 and saturation 100% on 2 liters of oxygen. NECK: Veins not visualized. Good bilateral carotid upstroke. CHEST: Shows diminished air entry with occasional rhonchi. HEART: Regular. ABDOMEN: Shows generalized tenderness, but no definite guarding. EXTREMITIES: Shows no peripheral edema. LABORATORY AND DIAGNOSTIC DATA: The patient's chest x-ray shows some obliteration of the left diaphragm, otherwise unremarkable and the patient's other laboratory studies: White count is 31,000, hemoglobin 9.3, ABG shows alveolar hypoventilation with pH of 7.3, pCO2 of 28, O2 is 100, bicarbonate is 89 on 2 liters. Electrolytes are okay with creatinine 2.3, hemoglobin ____, BUN is 53 and there is an elevation of lactic acid 2.59, which is trending down. BNP is 469 and patient's so far culture shows no growth and urine cultures are pending. IMPRESSION: The patient clinically looks stable, still has elevated white count to rule out ____ versus cholecystitis, cholelithiasis and possibly infiltrated left basal area. PLANS AND SUGGESTIONS: We will continue supportive care, inhalation treatment, and antibiotic. We will repeat lab and chest x-ray including CBC tomorrow to see how it is and we will go from there. Care and plan briefly discussed with the patient's son at the bedside. JOB# [id number]
[2017-09-11] MEDS: Morphine Sulfate 2 mg/mL 1mL Syr IVP PRN (04:10)
--- NOTE | 2017-09-11 04:54 | Progress Notes ---
DATE: 09/10/2017 PROBLEM LIST: 1. Septic shock. 2. Leukocytosis ____. 3. Possibly vascular insufficiency with possibly cholecystitis. SYMPTOMS: The patient is awake, but not too much communication according to the family. The patient moans and groans quite a bit on and off. PHYSICAL EXAMINATION: VITAL SIGNS: Temperature is 97.5, blood pressure 128/74, saturation 100% on 2 liters. NECK: Veins not visualized. Good bilateral carotid upstroke. CHEST: Shows diminished air entry with occasional rhonchi. HEART: Regular. ABDOMEN: Slightly tender less than yesterday. LABORATORY DATA: The patient's white count is 14.2, hemoglobin 9.7. The patient's so far cultures have been negative. ASSESSMENT: The patient is clinically stable, unchanged. PLANS AND SUGGESTIONS: We will go ahead and continue current regimen and also we will go ahead and have active GI followup and consider invasive therapy for gallbladder issue. We will discuss with family. Continue other therapy at this particular time and go from there. JOB# [id number]
[2017-09-11] MEDS: D5-0.9%NS 1,000 ML IV SCH ×2 (05:41→09:46)
[2017-09-11 05:46] LABS: ALB/GLOB RATIO 0.6 (1.0-1.8); ALKALINE PHOSPHATASE 230 U/L (34-104); ANION GAP 12.2 (7.0-16.0); BILIRUBIN,TOTAL 0.7 mg/dL (0.3-1.0); BUN - UREA NITROGEN 47 mg/dL (7-25); BUN/CREATININE RATIO 18.8; CALCIUM SERUM 6.5 mg/dL (8.6-10.3); CARBON DIOXIDE 19.6 mEq/L (21.0-31.0); CHLORIDE 122 mEq/L (98-107); CREATININE - SERUM 2.5 mg/dL (0.6-1.2); GLUCOSE 129 mg/dL (40-70); MAGNESIUM 2.3 mg/dL (1.9-2.7); PHOSPHOROUS 3.2 mg/dL (2.5-5.0); POTASSIUM SERUM 3.8 mEq/L (3.5-5.1); SGOT 27 U/L (13-39); SGPT/ALT 29 U/L (7-52); SODIUM SERUM 150 mEq/L (136-145)
[2017-09-11 05:47] LABS: HEMOGLOBIN 10.1 gm/dL (12-16)
[2017-09-11 06:41] LABS: HEMATOCRIT 30.8 % (41.0-60); MEAN CELL VOLUME 77.1 fl (81-100); WHITE BLOOD COUNT 11.3 Th/cmm (4.8-10.8)
[2017-09-11 06:42] LABS: MEAN CORPUSCULAR HEMOGLOBIN 25.3 pg (27.0-31.0); MEAN CORPUSCULAR HGB CONC 32.8 pg (28.0-36.0); MEAN PLATELET VOLUME 10.3 fl; PLATELET COUNT 106 Th/cmm (150-400); RED CELL DISTRIBUTION WIDTH 14.9 % (11.5-20.0)
[2017-09-11] MEDS: INSULIN ASPART SLIDING SCALE 100 UNITS/ML UNIT SUBQ SCH ×4 (06:47→20:56)
[2017-09-11 06:53] LABS: BAND NEUTROPHILE 5 % (0-10); BASOPHIL 0 % (0-3); EOSINOPHIL 0 % (0-5); NEUTROPHILS 82 % (40-80); PLATELET ESTIMATE ADEQUATE (NORMAL); PLATELET MORPHOLOGY NORMAL (NORMAL); TOTAL CELLS COUNTED 100
[2017-09-11 06:54] LABS: MICROCYTOSIS 1+
--- NOTE | 2017-09-11 08:13 | General Progress Note ---
Subjective - Review of Systems Service Date: 09/11/17 Subjective: Patient is much more awake and alert this morning. WBC's 11K this AM. Off levofed. Objective - Results Result Diagrams: 09/11/17 04:55 09/11/17 04:55 Recent Labs: Laboratory Last Values WBC 11.3 Th/cmm (4.8-10.8) H D 09/11/17 04:55 RBC 4.00 Mil/cmm (3.80-5.20) 09/11/17 04:55 Hgb 10.1 gm/dL (12-16) L 09/11/17 04:55 Hct 30.8 % (41.0-60) L 09/11/17 04:55 MCV 77.1 fl (81-100) L 09/11/17 04:55 MCH 25.3 pg (27.0-31.0) L 09/11/17 04:55 MCHC Differential 32.8 pg (28.0-36.0) 09/11/17 04:55 RDW 14.9 % (11.5-20.0) 09/11/17 04:55 Plt Count 106 Th/cmm (150-400) L 09/11/17 04:55 MPV 10.3 fl 09/11/17 04:55 Neutrophils % RECORDS TECHNICIAN 09/07/17 10:40 Band Neutrophils % 5 % (0-10) 09/11/17 04:55 Lymphocytes % RECORDS TECHNICIAN 09/07/17 10:40 Monocytes % RECORDS TECHNICIAN 09/07/17 10:40 Eosinophils % RECORDS TECHNICIAN 09/07/17 10:40 Basophils % RECORDS TECHNICIAN 09/07/17 10:40 Neutrophils (Manual) 82 % (40-80) H 09/11/17 04:55 Lymphocytes 11 % (20-50) L 09/11/17 04:55 Monocytes 2 % (2-10) 09/11/17 04:55 Eosinophils 0 % (0-5) 09/11/17 04:55 Basophils 0 % (0-3) 09/11/17 04:55 Platelet Estimate ADEQUATE (NORMAL) 09/11/17 04:55 Platelet Morphology NORMAL (NORMAL) 09/11/17 04:55 Anisocytosis 1+ 09/10/17 05:48 Microcytosis 1+ 09/11/17 04:55 RBC Morph Micro Appear ABNORMAL (NORMAL) 09/11/17 04:55 Eos Smear Source URINE 09/09/17 21:29 Eos Smear Total Cells NONE SEEN (NONE SEEN) 09/09/17 21:29 PT 10.8 SECONDS (9.5-11.5) 09/07/17 10:40 INR 1.04 (0.5-1.4) 09/07/17 10:40 PTT (Actin FS) 29.0 SECONDS (26.0-38.0) 09/07/17 10:40 Specimen Source Arterial 09/09/17 08:53 Sample Site Left Radial 09/09/17 08:53 pH 7.37 (7.35-7.45) 09/09/17 08:53 pCO2 28.0 mmHg (35.0-45.0) L 09/09/17 08:53 pO2 100.0 mmHg (80.0-100.0) 09/09/17 08:53 HCO3 18.9 mEq/L (20.0-26.0) L 09/09/17 08:53 Base Excess -7.7 mEq/L (-3.0-3.0) L 09/09/17 08:53 O2 Saturation 98.0 % (92.0-100.0) 09/09/17 08:53 Vinod Test YES 09/09/17 08:53 Vent Rate NA 09/09/17 08:53 Inspired O2 28 09/09/17 08:53 Tidal Volume NA 09/09/17 08:53 PEEP NA 09/09/17 08:53 Pressure (ins/psv/peep) NA 09/09/17 08:53 Critical Value FERNANDO LEDESMA 09/09/17 08:53 Sodium 150 mEq/L (136-145) H 09/11/17 04:55 Potassium 3.8 mEq/L (3.5-5.1) 09/11/17 04:55 Chloride 122 mEq/L (98-107) H 09/11/17 04:55 Carbon Dioxide 19.6 mEq/L (21.0-31.0) L 09/11/17 04:55 Anion Gap 12.2 (7.0-16.0) 09/11/17 04:55 BUN 47 mg/dL (7-25) H 09/11/17 04:55 Creatinine 2.5 mg/dL (0.6-1.2) H 09/11/17 04:55 Est GFR ( Amer) TNP 09/11/17 04:55 Est GFR (Non-Af Amer) TNP 09/11/17 04:55 BUN/Creatinine Ratio 18.8 09/11/17 04:55 Glucose 129 mg/dL (40-70) H D 09/11/17 04:55 POC Glucose 195 MG/DL (70 - 105) H 09/10/17 21:10 Hemoglobin A1c % 5.7 % (4.0-6.0) 09/07/17 10:40 Whole Bld Lactic Acid 2.66 mmol/L (0.60-1.99) H* 09/10/17 07:48 Uric Acid 5.4 mg/dL (2.3-6.6) 09/10/17 05:48 Calcium 6.5 mg/dL (8.6-10.3) L 09/11/17 04:55 Phosphorus 3.2 mg/dL (2.5-5.0) 09/11/17 04:55 Magnesium 2.3 mg/dL (1.9-2.7) 09/11/17 04:55 Total Bilirubin 0.7 mg/dL (0.3-1.0) 09/11/17 04:55 AST 27 U/L (13-39) 09/11/17 04:55 ALT 29 U/L (7-52) 09/11/17 04:55 Alkaline Phosphatase 230 U/L (34-104) H 09/11/17 04:55 Ammonia 29 umol/L (16-53) 09/11/17 04:55 Troponin I 0.20 ng/mL (0.01-0.05) H* D 09/08/17 05:57 B-Natriuretic Peptide 245.0 pg/mL (5.0-100.0) H 09/11/17 04:55 Total Protein 4.0 gm/dL (6.0-8.3) L 09/11/17 04:55 Albumin < 1.5 gm/dL (3.7-5.3) L 09/11/17 04:55 Globulin 2.5 gm/dL 09/11/17 04:55 Albumin/Globulin Ratio 0.6 (1.0-1.8) L 09/11/17 04:55 Lipase 20 U/L (11-82) 09/07/17 10:40 Urine Source CATH 09/07/17 11:30 Urine Color YELLOW 09/07/17 11:30 Urine Clarity HAZY (CLEAR) 09/07/17 11:30 Urine pH 5.5 (4.6 - 8.0) 09/07/17 11:30 Ur Specific [place] >= 1.030 (1.005-1.030) 09/07/17 11:30 Urine Protein 100 mg/dL (NEGATIVE) H 09/07/17 11:30 Urine Glucose (UA) NEGATIVE mg/dL (NEGATIVE) 09/07/17 11:30 Urine Ketones TRACE mg/dL (NEGATIVE) 09/07/17 11:30 Urine Blood NEGATIVE (NEGATIVE) 09/07/17 11:30 Urine Nitrate NEGATIVE (NEGATIVE) 09/07/17 11:30 Urine Bilirubin SMALL (NEGATIVE) H 09/07/17 11:30 Urine Urobilinogen 2.0 E.U./dL (0.2 - 1.0) 09/07/17 11:30 Ur Leukocyte Esterase NEGATIVE (NEGATIVE) 09/07/17 11:30 Urine RBC 0-2 /hpf (0-5) 09/07/17 11:30 Urine WBC 0-2 /hpf (0-5) 09/07/17 11:30 Ur Epithelial Cells MODERATE /lpf (FEW) 09/07/17 11:30 Urine Bacteria FEW /hpf (NONE SEEN) 09/07/17 11:30 Fine Granular Casts 0-2 /lpf (NONE SEEN) H 09/07/17 11:30 Coarse Granular Casts 2-5 /lpf (NONE SEEN) H 09/07/17 11:30 Urine Mucus FEW /lpf (FEW) 09/07/17 11:30 U Random Total Protein 104.0 mg/dL 09/10/17 21:45 Ur Random Sodium 70 mmol/L 09/10/17 21:45 Urine Collection Time 24 hours 09/10/17 21:45 Urine Total Volume 550 ml 09/10/17 21:45 Urine Creatinine 42.0 mg/dl (28.0-217.0) 09/10/17 21:45 Creat Clearance 24 Hr 8 ml/min (88.00-128.00) L 09/10/17 21:45 U Tot Protein 24h, Calc 572.0 mg/24 hr (0-165) H 09/10/17 21:45 Ur Sodium 24 Hour 39 mmol/24H (40-220) L 09/10/17 21:45 Body Surface Area 1.54 09/10/17 21:45 Random Vancomycin 14.8 ug/mL (5.0-40.0) 09/09/17 05:54 - Physical Exam Vitals and I&O: Vital Signs Temp 97.8 F 09/11/17 04:10 Pulse 98 09/11/17 07:00 Resp 13 09/11/17 07:00 BP 145/76 09/11/17 07:00 Pulse Ox 98 09/11/17 07:00 Intake & Output 09/10/17 09/11/17 09/11/17 18:59 06:59 18:59 Intake Total 6903.174 7300.583 Output Total 280 600 Balance 1428.333 589.583 Weight (lbs) 65.913 kg 66.281 kg Intake: Intake, IV Amount 8792.864 5128.583 D5-0.9%Ns 1,000 ml @ 125 0804.643 9787.583 mls/hr IV .Q8H [facility] Rx#: [id number] Piperacillin Sodium/ 50 150 Tazobact 2.25 gm In Sodium Chloride 0.9% 50 ml @ 100 mls/hr IV Q6HR [facility] Rx#:[id number] Oral 0 Output: Urine 280 600 Other: # Bowel Movements 0 1 Stool Characteristics Soft Brown Active Medications: Current Medications Acetaminophen (Tylenol) 650 mg PO Q6HR PRN PRN Reason: MILD PAIN OR TEMP>100.4 Stop: 11/06/17 16:35 Alendronate Sodium (Fosamax) 70 mg PO QSAT [facility] Stop: 11/08/17 06:29 Last Admin: 09/09/17 07:10 Dose: Not Given Aspirin (Aspirin Chewable) 81 mg PO DAILY [facility] Stop: 11/07/17 08:59 Last Admin: 09/10/17 08:42 Dose: Not Given Bisacodyl (Dulcolax 10 Mg Supp) 10 mg RC DAILY PRN PRN Reason: IF MOM INEFFECTIVE Stop: 11/06/17 16:35 Clonazepam (Klonopin) 1 mg PO DAILY [facility] PRN Reason: Protocol Stop: 11/07/17 08:59 Last Admin: 09/10/17 08:43 Dose: Not Given Clonazepam (Klonopin) 2 mg PO DAILY [facility] Stop: 11/07/17 08:59 Last Admin: 09/10/17 08:42 Dose: Not Given Cyanocobalamin (Vitamin B12) 1,000 mcg PO DAILY [facility] Stop: 11/07/17 08:59 Last Admin: 09/10/17 08:43 Dose: Not Given Diltiazem HCl (Cardizem) 20 mg IVP Q3H PRN PRN Reason: Heart Rate > than 120 bpm Stop: 11/06/17 16:44 Docusate Sodium (Colace) 100 mg PO DAILY [facility] Stop: 11/07/17 08:59 Last Admin: 09/10/17 08:43 Dose: Not Given Enalaprilat (Vasotec) 1.25 mg IVP Q6HR PRN PRN Reason: SBP > 170 Stop: 11/10/17 04:29 Last Admin: 09/11/17 04:47 Dose: 1.25 mg Heparin Sodium (Porcine) (Heparin) 5,000 units SUBQ Q12HR [facility] Stop: 11/06/17 20:59 Last Admin: 09/10/17 21:04 Dose: 5,000 units Phenylephrine HCl 10 mg/ (Sodium Chloride) 250 mls @ 30 mls/hr IV TITR [facility]; 20 MCG/MIN PRN Reason: Protocol Stop: 11/06/17 21:59 Last Titration: 09/08/17 06:01 Dose: 0 mcg/min, 0 mls/hr Piperacillin Sod/Tazobactam (Sod 2.25 gm/ Sodium Chloride) 50 mls @ 100 mls/hr IV Q6HR [facility] Stop: 11/07/17 11:59 Last Infusion: 09/11/17 06:00 Dose: Infused Dextrose/Sodium Chloride (D5-0.9%Ns) 1,000 mls @ 125 mls/hr IV .Q8H [facility] Stop: 11/07/17 16:59 Last Infusion: 09/11/17 06:00 Dose: 125 mls/hr Norepinephrine Bitartrate 4 mg (/ Dextrose) 254 mls @ 0 mls/hr IV STAT PRN; Protocol; Per Protocol PRN Reason: BP MAINTENANCE (PER PROTOCOL) Stop: 11/06/17 16:11 Last Titration: 09/10/17 06:20 Dose: 0 mcg/min, 0 mls/hr Insulin Aspart (Novolog Insulin Sliding Scale) 0 units SUBQ ACHS [facility] PRN Reason: Protocol Stop: 11/07/17 11:29 Last Admin: 09/11/17 06:47 Dose: Not Given Insulin Detemir (Levemir Insulin) 10 units SUBQ HS [facility] Stop: 11/06/17 20:59 Last Admin: 09/10/17 21:11 Dose: 10 units Lactobacillus Rhamnosus (Culturelle) 1 each PO DAILY [facility] Stop: 11/09/17 08:59 Last Admin: 09/10/17 08:43 Dose: Not Given Lorazepam (Ativan) 0.5 mg PO Q6HR PRN; Protocol PRN Reason: Anxiety Stop: 11/06/17 16:35 Magnesium Hydroxide (Milk Of Magnesia) 30 ml PO DAILY PRN PRN Reason: Constipation Stop: 11/06/17 16:35 Megestrol Acetate (Megace) 400 mg PO TID [facility] Stop: 11/06/17 20:59 Last Admin: 09/10/17 22:12 Dose: Not Given Miscellaneous (Clinical Monitoring) 1 ea PRN PRN PRN Reason: RENAL DOSE ZOSYN Stop: 11/07/17 07:51 Miscellaneous (Zosyn Iv Per Pharmacy) 1 ea PRN PRN PRN Reason: PROTOCOL Stop: 11/07/17 14:31 Miscellaneous (Probiotic Screen) 1 ea PRN PRN PRN Reason: PROTOCOL Stop: 11/08/17 10:15 Morphine Sulfate (Morphine) 1 mg IVP Q6HR PRN PRN Reason: Pain (Mild) Stop: 11/07/17 18:24 Last Admin: 09/11/17 04:10 Dose: 1 mg Multivitamins/Vitamin C (Theragran) 1 tab PO DAILY [facility] Stop: 11/07/17 08:59 Last Admin: 09/10/17 09:46 Dose: Not Given Pantoprazole Sodium (Protonix) 40 mg IVP DAILY [facility] Stop: 11/06/17 18:59 Last Admin: 09/10/17 08:33 Dose: 40 mg Quetiapine Fumarate (Seroquel) 100 mg PO [facility] PRN Reason: Protocol Stop: 11/06/17 20:59 Last Admin: 09/10/17 22:12 Dose: Not Given Simvastatin (Zocor) 40 mg PO HS [facility] PRN Reason: Protocol Stop: 11/06/17 20:59 Last Admin: 09/10/17 22:13 Dose: Not Given Sodium Phosphate (Fleet Enema) 135 ml RC DAILY PRN PRN Reason: Constipation Stop: 11/06/17 16:35 General: no Alert HEENT: Atraumatic Neck: Supple Cardiovascular: Other (increased HR) Lungs: Other (decrease breath sounds) Abdomen: Bowel sounds, Soft Extremities: no Clubbing, no Cyanosis, no Edema Assessment/Plan - Assessment Assessment: Sepsis --- blood cultures x 2 pending, WBC's 29-> 31K --> 14K-->11K will continue IV antibiotics per ID Cholelithiasis ... high risk for surgery. Patient to be transferred to [place] for outpatient cholecystostomy if OK with consultants.. CKD --- for 24h urine protein collection. continue to monitor. Anemia ... check h/h. stable. Malnutrition ... for swallow evaluation, on hold for now d/t current state Left Pleural Effusion r/o CHF .... will monitor BNP. Chest xray done yesterday. UTI ... urine cultures pending - Plan Plan: IV Zosyn IV fluids ID consult Pulmonary consult cardiology consult repeat chest xray blood cultures urine cultures repeat cbc, cmp admit to ICU Nutritional Asmnt/Malnutr-PDOC - Dietary Evaluation Malnutrition Findings (Please click <Entered> for more info): Nutritional Asmnt/Malnutrition Start: 09/07/17 16: 06 Text: Status: Active Freq: Document 09/07/17 16:06 LCHENG (Rec: 09/07/17 16:34 [email or web address]) Nutritional Asmnt/Malnutrition Patient General Information Nutritional Screening Consult Diagnosis Dehydration, leukcytosis, dementia Pertinent Medical Hx/Surgical Hx HTN, DM, Dyslipidemia, Arthritis, Dementia, Hyperlipidemia, Anxiety, Osteoporosis, Degenerative joint disease, Neurophay. Subjective Information Per H&P, pt was on pureed NCS, NSPOT diet from [facility] ([facility]). Pt had anorexia more than one month and wt loss of 25lb in the past two months. Pt was transfered to ICU d/t rapid response. Families were aside, not a propriate time to approach. Currently no plan for nutrition d/t pt is not responding per RN. Current Diet Order/ Nutrition Support no diet order/swallowing eval pending Pertinent Medications D5 50ml/hr Pertinent Labs 09/07 Na 143, K 4.6, Cl 111 H, BUN 53 H, Cr 0.9 GLU 182 H, POC 164 H Nutritional Hx/Data Height 1.42 m Height (Calculated Centimeters) 142.2 Current Weight (lbs) 55.338 kg Weight (Calculated Kilograms) 55.3 Weight (Calculated Grams) 31387.3 [place] Body Weight 90 Recent Weight Change Yes Weight Status Overweight GI Symptoms Food Allergies No Skin Integrity/Comment: 11/09 pretibial pitting edema Estimated Nutritional Goals BEE in Kcals: Using Current wt Calories/Kcals/Kg 30 Kcals Calculated 1664 Protein: Using Current wt Protein g/k-1.2 Protein Calculated 56-67 Fluid: ml 1664-1943ml (30-35ml/kg) Nutritional Problem 1. Problem Problem Involuntary weight loss Etiology anorexia for more then one month Signs/Symptoms: recent wt loss of 25lb in two month Malnutrition Alert Interpretation of weight loss (Severe) >5% in 1 month Intervention/Recommendation Comments No nutrition intervention at this time. RD will follow up as high risk in 1-2 days. Expected Outcomes/Goals Expected Outcomes/Goals Pt to meet 50% of nutritional needs in the following 3 days.
[2017-09-11] MEDS: Aspirin 81mg Chewable Tab PO SCH (09:46)
[2017-09-11] MEDS: Multivitamin Tab PO SCH (09:47)
[2017-09-11] MEDS: Lactobacillus Rhamnosus 10 Billion CFU Capsule PO SCH (09:47)
--- NOTE | 2017-09-11 10:14 | GI Progress Note ---
Subjective - Review of Systems Service Date: 09/11/17 Subjective: Plan is to transfer to [facility] for PTC tube Objective - Results Result Diagrams: 09/11/17 04:55 09/11/17 04:55 Recent Labs: Laboratory Last Values WBC 11.3 Th/cmm (4.8-10.8) H D 09/11/17 04:55 RBC 4.00 Mil/cmm (3.80-5.20) 09/11/17 04:55 Hgb 10.1 gm/dL (12-16) L 09/11/17 04:55 Hct 30.8 % (41.0-60) L 09/11/17 04:55 MCV 77.1 fl (81-100) L 09/11/17 04:55 MCH 25.3 pg (27.0-31.0) L 09/11/17 04:55 MCHC Differential 32.8 pg (28.0-36.0) 09/11/17 04:55 RDW 14.9 % (11.5-20.0) 09/11/17 04:55 Plt Count 106 Th/cmm (150-400) L 09/11/17 04:55 MPV 10.3 fl 09/11/17 04:55 Neutrophils % POCKET [employer]ER 09/07/17 10:40 Band Neutrophils % 5 % (0-10) 09/11/17 04:55 Lymphocytes % POCKET MA[employer]ER 09/07/17 10:40 Monocytes % POCKET MAKER 09/07/17 10:40 Eosinophils % POCKET MAKER 09/07/17 10:40 Basophils % POCKET MAKER 09/07/17 10:40 Neutrophils (Manual) 82 % (40-80) H 09/11/17 04:55 Lymphocytes 11 % (20-50) L 09/11/17 04:55 Monocytes 2 % (2-10) 09/11/17 04:55 Eosinophils 0 % (0-5) 09/11/17 04:55 Basophils 0 % (0-3) 09/11/17 04:55 Platelet Estimate ADEQUATE (NORMAL) 09/11/17 04:55 Platelet Morphology NORMAL (NORMAL) 09/11/17 04:55 Anisocytosis 1+ 09/10/17 05:48 Microcytosis 1+ 09/11/17 04:55 RBC Morph Micro Appear ABNORMAL (NORMAL) 09/11/17 04:55 Eos Smear Source URINE 09/09/17 21:29 Eos Smear Total Cells NONE SEEN (NONE SEEN) 09/09/17 21:29 PT 10.8 SECONDS (9.5-11.5) 09/07/17 10:40 INR 1.04 (0.5-1.4) 09/07/17 10:40 PTT (Actin FS) 29.0 SECONDS (26.0-38.0) 09/07/17 10:40 Specimen Source Arterial 09/09/17 08:53 Sample Site Left Radial 09/09/17 08:53 pH 7.37 (7.35-7.45) 09/09/17 08:53 pCO2 28.0 mmHg (35.0-45.0) L 09/09/17 08:53 pO2 100.0 mmHg (80.0-100.0) 09/09/17 08:53 HCO3 18.9 mEq/L (20.0-26.0) L 09/09/17 08:53 Base Excess -7.7 mEq/L (-3.0-3.0) L 09/09/17 08:53 O2 Saturation 98.0 % (92.0-100.0) 09/09/17 08:53 Vinod Test YES 09/09/17 08:53 Vent Rate NA 09/09/17 08:53 Inspired O2 28 09/09/17 08:53 Tidal Volume NA 09/09/17 08:53 PEEP NA 09/09/17 08:53 Pressure (ins/psv/peep) NA 09/09/17 08:53 Critical Value FERNANDO LEDESMA 09/09/17 08:53 Sodium 150 mEq/L (136-145) H 09/11/17 04:55 Potassium 3.8 mEq/L (3.5-5.1) 09/11/17 04:55 Chloride 122 mEq/L (98-107) H 09/11/17 04:55 Carbon Dioxide 19.6 mEq/L (21.0-31.0) L 09/11/17 04:55 Anion Gap 12.2 (7.0-16.0) 09/11/17 04:55 BUN 47 mg/dL (7-25) H 09/11/17 04:55 Creatinine 2.5 mg/dL (0.6-1.2) H 09/11/17 04:55 Est GFR ( Amer) TNP 09/11/17 04:55 Est GFR (Non-Af Amer) TNP 09/11/17 04:55 BUN/Creatinine Ratio 18.8 09/11/17 04:55 Glucose 129 mg/dL (40-70) H D 09/11/17 04:55 POC Glucose 195 MG/DL (70 - 105) H 09/10/17 21:10 Hemoglobin A1c % 5.7 % (4.0-6.0) 09/07/17 10:40 Whole Bld Lactic Acid 2.66 mmol/L (0.60-1.99) H* 09/10/17 07:48 Uric Acid 5.4 mg/dL (2.3-6.6) 09/10/17 05:48 Calcium 6.5 mg/dL (8.6-10.3) L 09/11/17 04:55 Phosphorus 3.2 mg/dL (2.5-5.0) 09/11/17 04:55 Magnesium 2.3 mg/dL (1.9-2.7) 09/11/17 04:55 Total Bilirubin 0.7 mg/dL (0.3-1.0) 09/11/17 04:55 AST 27 U/L (13-39) 09/11/17 04:55 ALT 29 U/L (7-52) 09/11/17 04:55 Alkaline Phosphatase 230 U/L (34-104) H 09/11/17 04:55 Ammonia 29 umol/L (16-53) 09/11/17 04:55 Troponin I 0.20 ng/mL (0.01-0.05) H* D 09/08/17 05:57 B-Natriuretic Peptide 245.0 pg/mL (5.0-100.0) H 09/11/17 04:55 Total Protein 4.0 gm/dL (6.0-8.3) L 09/11/17 04:55 Albumin < 1.5 gm/dL (3.7-5.3) L 09/11/17 04:55 Globulin 2.5 gm/dL 09/11/17 04:55 Albumin/Globulin Ratio 0.6 (1.0-1.8) L 09/11/17 04:55 Lipase 20 U/L (11-82) 09/07/17 10:40 Urine Source CATH 09/07/17 11:30 Urine Color YELLOW 09/07/17 11:30 Urine Clarity HAZY (CLEAR) 09/07/17 11:30 Urine pH 5.5 (4.6 - 8.0) 09/07/17 11:30 Ur Specific [place] >= 1.030 (1.005-1.030) 09/07/17 11:30 Urine Protein 100 mg/dL (NEGATIVE) H 09/07/17 11:30 Urine Glucose (UA) NEGATIVE mg/dL (NEGATIVE) 09/07/17 11:30 Urine Ketones TRACE mg/dL (NEGATIVE) 09/07/17 11:30 Urine Blood NEGATIVE (NEGATIVE) 09/07/17 11:30 Urine Nitrate NEGATIVE (NEGATIVE) 09/07/17 11:30 Urine Bilirubin SMALL (NEGATIVE) H 09/07/17 11:30 Urine Urobilinogen 2.0 E.U./dL (0.2 - 1.0) 09/07/17 11:30 Ur Leukocyte Esterase NEGATIVE (NEGATIVE) 09/07/17 11:30 Urine RBC 0-2 /hpf (0-5) 09/07/17 11:30 Urine WBC 0-2 /hpf (0-5) 09/07/17 11:30 Ur Epithelial Cells MODERATE /lpf (FEW) 09/07/17 11:30 Urine Bacteria FEW /hpf (NONE SEEN) 09/07/17 11:30 Fine Granular Casts 0-2 /lpf (NONE SEEN) H 09/07/17 11:30 Coarse Granular Casts 2-5 /lpf (NONE SEEN) H 09/07/17 11:30 Urine Mucus FEW /lpf (FEW) 09/07/17 11:30 U Random Total Protein 104.0 mg/dL 09/10/17 21:45 Ur Random Sodium 70 mmol/L 09/10/17 21:45 Urine Collection Time 24 hours 09/10/17 21:45 Urine Total Volume 550 ml 09/10/17 21:45 Urine Creatinine 42.0 mg/dl (28.0-217.0) 09/10/17 21:45 Creat Clearance 24 Hr 8 ml/min (88.00-128.00) L 09/10/17 21:45 U Tot Protein 24h, Calc 572.0 mg/24 hr (0-165) H 09/10/17 21:45 Ur Sodium 24 Hour 39 mmol/24H (40-220) L 09/10/17 21:45 Body Surface Area 1.54 09/10/17 21:45 Random Vancomycin 14.8 ug/mL (5.0-40.0) 09/09/17 05:54 - Physical Exam Vitals and I&O: Vital Signs Temp 97.8 F 09/11/17 04:10 Pulse 98 09/11/17 07:00 Resp 13 09/11/17 07:00 BP 145/76 09/11/17 07:00 Pulse Ox 98 09/11/17 07:00 Intake & Output 09/10/17 09/11/17 09/11/17 18:59 06:59 18:59 Intake Total 8250.662 0876.583 470.833 Output Total 280 600 Balance 1428.333 589.583 470.833 Weight (lbs) 65.913 kg 66.281 kg Intake: Intake, IV Amount 4292.866 3210.583 470.833 D5-0.9%Ns 1,000 ml @ 125 3864.644 6659.583 470.833 mls/hr IV .Q8H [facility] Rx#: [id number] Piperacillin Sodium/ 50 150 Tazobact 2.25 gm In Sodium Chloride 0.9% 50 ml @ 100 mls/hr IV Q6HR [facility] Rx#:[id number] Oral 0 Output: Urine 280 600 Other: # Bowel Movements 0 1 Stool Characteristics Soft Brown Active Medications: Current Medications Acetaminophen (Tylenol) 650 mg PO Q6HR PRN PRN Reason: MILD PAIN OR TEMP>100.4 Stop: 11/06/17 16:35 Alendronate Sodium (Fosamax) 70 mg PO QSAT [facility] Stop: 11/08/17 06:29 Last Admin: 09/09/17 07:10 Dose: Not Given Aspirin (Aspirin Chewable) 81 mg PO DAILY [facility] Stop: 11/07/17 08:59 Last Admin: 09/11/17 09:46 Dose: Not Given Bisacodyl (Dulcolax 10 Mg Supp) 10 mg RC DAILY PRN PRN Reason: IF MOM INEFFECTIVE Stop: 11/06/17 16:35 Clonazepam (Klonopin) 1 mg PO DAILY [facility] PRN Reason: Protocol Stop: 11/07/17 08:59 Last Admin: 09/11/17 09:46 Dose: Not Given Clonazepam (Klonopin) 2 mg PO DAILY [facility] Stop: 11/07/17 08:59 Last Admin: 09/11/17 09:46 Dose: Not Given Cyanocobalamin (Vitamin B12) 1,000 mcg PO DAILY [facility] Stop: 11/07/17 08:59 Last Admin: 09/11/17 09:46 Dose: Not Given Diltiazem HCl (Cardizem) 20 mg IVP Q3H PRN PRN Reason: Heart Rate > than 120 bpm Stop: 11/06/17 16:44 Docusate Sodium (Colace) 100 mg PO DAILY [facility] Stop: 11/07/17 08:59 Last Admin: 09/11/17 09:47 Dose: Not Given Enalaprilat (Vasotec) 1.25 mg IVP Q6HR PRN PRN Reason: SBP > 170 Stop: 11/10/17 04:29 Last Admin: 09/11/17 04:47 Dose: 1.25 mg Heparin Sodium (Porcine) (Heparin) 5,000 units SUBQ Q12HR [facility] Stop: 11/06/17 20:59 Last Admin: 09/11/17 09:47 Dose: Not Given Phenylephrine HCl 10 mg/ (Sodium Chloride) 250 mls @ 30 mls/hr IV TITR [place]; 20 MCG/MIN PRN Reason: Protocol Stop: 11/06/17 21:59 Last Titration: 09/08/17 06:01 Dose: 0 mcg/min, 0 mls/hr Piperacillin Sod/Tazobactam (Sod 2.25 gm/ Sodium Chloride) 50 mls @ 100 mls/hr IV Q6HR [facility] Stop: 11/07/17 11:59 Last Infusion: 09/11/17 06:00 Dose: Infused Dextrose/Sodium Chloride (D5-0.9%Ns) 1,000 mls @ 125 mls/hr IV .Q8H [facility] Stop: 11/07/17 16:59 Last Admin: 09/11/17 09:46 Dose: 125 mls/hr Norepinephrine Bitartrate 4 mg (/ Dextrose) 254 mls @ 0 mls/hr IV STAT PRN; Protocol; Per Protocol PRN Reason: BP MAINTENANCE (PER PROTOCOL) Stop: 11/06/17 16:11 Last Titration: 09/10/17 06:20 Dose: 0 mcg/min, 0 mls/hr Insulin Aspart (Novolog Insulin Sliding Scale) 0 units SUBQ ACHS [place] PRN Reason: Protocol Stop: 11/07/17 11:29 Last Admin: 09/11/17 06:47 Dose: Not Given Insulin Detemir (Levemir Insulin) 10 units SUBQ HS [facility] Stop: 11/06/17 20:59 Last Admin: 09/10/17 21:11 Dose: 10 units Lactobacillus Rhamnosus (Culturelle) 1 each PO DAILY [facility] Stop: 11/09/17 08:59 Last Admin: 09/11/17 09:47 Dose: Not Given Lorazepam (Ativan) 0.5 mg PO Q6HR PRN; Protocol PRN Reason: Anxiety Stop: 11/06/17 16:35 Magnesium Hydroxide (Milk Of Magnesia) 30 ml PO DAILY PRN PRN Reason: Constipation Stop: 11/06/17 16:35 Megestrol Acetate (Megace) 400 mg PO TID [facility] Stop: 11/06/17 20:59 Last Admin: 09/11/17 09:47 Dose: Not Given Miscellaneous (Clinical Monitoring) 1 ea MC PRN PRN PRN Reason: RENAL DOSE ZOSYN Stop: 11/07/17 07:51 Miscellaneous (Zosyn Iv Per Pharmacy) 1 ea PRN PRN PRN Reason: PROTOCOL Stop: 11/07/17 14:31 Miscellaneous (Probiotic Screen) 1 ea PRN PRN PRN Reason: PROTOCOL Stop: 11/08/17 10:15 Morphine Sulfate (Morphine) 1 mg IVP Q4HR PRN PRN Reason: Pain (Moderate-Severe) Stop: 11/07/17 18:24 Multivitamins/Vitamin C (Theragran) 1 tab PO DAILY [facility] Stop: 11/07/17 08:59 Last Admin: 09/11/17 09:47 Dose: Not Given Pantoprazole Sodium (Protonix) 40 mg IVP DAILY [facility] Stop: 11/06/17 18:59 Last Admin: 09/11/17 09:45 Dose: 40 mg Quetiapine Fumarate (Seroquel) 100 mg PO [facility] PRN Reason: Protocol Stop: 11/06/17 20:59 Last Admin: 09/10/17 22:12 Dose: Not Given Simvastatin (Zocor) 40 mg PO HS [place] PRN Reason: Protocol Stop: 11/06/17 20:59 Last Admin: 09/10/17 22:13 Dose: Not Given Sodium Phosphate (Fleet Enema) 135 ml RC DAILY PRN PRN Reason: Constipation Stop: 11/06/17 16:35 General: no Alert HEENT: Atraumatic Neck: Supple Cardiovascular: Other (increased HR) Lungs: Other (decrease breath sounds) Abdomen: Bowel sounds, Soft Extremities: no Clubbing, no Cyanosis, no Edema Assessment/Plan - Assessment Assessment: # Septic shock, likely abdominal source Suspect severe cholecystitis at this point given the appearance of the US with markedly distended GB. She also grimaces to abdominal exam, which indicates an abdominal source. HIDA and CT consistent with cholecystitis, which is severe by clinical standards. Patient would be best served by percutaneous cholecystostomy tube if possible, or cholecystectomy if deemed safe by surgery. # Anorexia # Dysphasia G tube placement is reasonable, but would need to be after her infectious process resolves Recommendations: - appreciate surgical input, likely would still benefit from surgery once stabilized after PTC tube - IR consultation for PTC cholecystostomy tube for gallbladder drainage, possible transfer to [place] for cholecystostomy tube - broad abx and ICU blood pressure support - NPO - appreciate ID input Prognosis is guarded at this time, and likely without GB drainage may be poor. Thank you for allowing me to participate in this patient's care.
[2017-09-11 10:28] LABS: INR 1.05 (0.5-1.4); PROTHROMBIN TIME (TEST) 10.9 SECONDS (9.5-11.5)
--- NOTE | 2017-09-11 15:56 | General Progress Note ---
Subjective - Review of Systems Service Date: 09/11/17 Subjective: more awake today, comfortable Objective - Results Result Diagrams: 09/11/17 04:55 09/11/17 04:55 Recent Labs: Laboratory Last Values WBC 11.3 Th/cmm (4.8-10.8) H D 09/11/17 04:55 RBC 4.00 Mil/cmm (3.80-5.20) 09/11/17 04:55 Hgb 10.1 gm/dL (12-16) L 09/11/17 04:55 Hct 30.8 % (41.0-60) L 09/11/17 04:55 MCV 77.1 fl (81-100) L 09/11/17 04:55 MCH 25.3 pg (27.0-31.0) L 09/11/17 04:55 MCHC Differential 32.8 pg (28.0-36.0) 09/11/17 04:55 RDW 14.9 % (11.5-20.0) 09/11/17 04:55 Plt Count 106 Th/cmm (150-400) L 09/11/17 04:55 MPV 10.3 fl 09/11/17 04:55 Neutrophils % [facility] PARAMEDIC 09/07/17 10:40 Band Neutrophils % 5 % (0-10) 09/11/17 04:55 Lymphocytes % [facility] C[facility] AMBULANCE PARAMEDIC 09/07/17 10:40 Monocytes % [facility] CARE AMBULANCE PARAMEDIC 09/07/17 10:40 Eosinophils % [facility]ENS[facility] CARE AMBULANCE PARAMEDIC 09/07/17 10:40 Basophils % INTENS[facility] CARE AMBULANCE PARAMEDIC 09/07/17 10:40 Neutrophils (Manual) 82 % (40-80) H 09/11/17 04:55 Lymphocytes 11 % (20-50) L 09/11/17 04:55 Monocytes 2 % (2-10) 09/11/17 04:55 Eosinophils 0 % (0-5) 09/11/17 04:55 Basophils 0 % (0-3) 09/11/17 04:55 Platelet Estimate ADEQUATE (NORMAL) 09/11/17 04:55 Platelet Morphology NORMAL (NORMAL) 09/11/17 04:55 Anisocytosis 1+ 09/10/17 05:48 Microcytosis 1+ 09/11/17 04:55 RBC Morph Micro Appear ABNORMAL (NORMAL) 09/11/17 04:55 Eos Smear Source URINE 09/09/17 21:29 Eos Smear Total Cells NONE SEEN (NONE SEEN) 09/09/17 21:29 PT 10.9 SECONDS (9.5-11.5) 09/11/17 10:04 INR 1.05 (0.5-1.4) 09/11/17 10:04 PTT (Actin FS) 32.9 SECONDS (26.0-38.0) 09/11/17 10:04 Specimen Source Arterial 09/09/17 08:53 Sample Site Left Radial 09/09/17 08:53 pH 7.37 (7.35-7.45) 09/09/17 08:53 pCO2 28.0 mmHg (35.0-45.0) L 09/09/17 08:53 pO2 100.0 mmHg (80.0-100.0) 09/09/17 08:53 HCO3 18.9 mEq/L (20.0-26.0) L 09/09/17 08:53 Base Excess -7.7 mEq/L (-3.0-3.0) L 09/09/17 08:53 O2 Saturation 98.0 % (92.0-100.0) 09/09/17 08:53 Vinod Test YES 09/09/17 08:53 Vent Rate NA 09/09/17 08:53 Inspired O2 28 09/09/17 08:53 Tidal Volume NA 09/09/17 08:53 PEEP NA 09/09/17 08:53 Pressure (ins/psv/peep) NA 09/09/17 08:53 Critical Value FERNANDO CALLIE 09/09/17 08:53 Sodium 150 mEq/L (136-145) H 09/11/17 04:55 Potassium 3.8 mEq/L (3.5-5.1) 09/11/17 04:55 Chloride 122 mEq/L (98-107) H 09/11/17 04:55 Carbon Dioxide 19.6 mEq/L (21.0-31.0) L 09/11/17 04:55 Anion Gap 12.2 (7.0-16.0) 09/11/17 04:55 BUN 47 mg/dL (7-25) H 09/11/17 04:55 Creatinine 2.5 mg/dL (0.6-1.2) H 09/11/17 04:55 Est GFR ( Amer) TNP 09/11/17 04:55 Est GFR (Non-Af Amer) TNP 09/11/17 04:55 BUN/Creatinine Ratio 18.8 09/11/17 04:55 Glucose 129 mg/dL (40-70) H D 09/11/17 04:55 POC Glucose 109 MG/DL (70 - 105) H 09/11/17 11:16 Hemoglobin A1c % 5.7 % (4.0-6.0) 09/07/17 10:40 Whole Bld Lactic Acid 2.66 mmol/L (0.60-1.99) H* 09/10/17 07:48 Uric Acid 5.4 mg/dL (2.3-6.6) 09/10/17 05:48 Calcium 6.5 mg/dL (8.6-10.3) L 09/11/17 04:55 Phosphorus 3.2 mg/dL (2.5-5.0) 09/11/17 04:55 Magnesium 2.3 mg/dL (1.9-2.7) 09/11/17 04:55 Total Bilirubin 0.7 mg/dL (0.3-1.0) 09/11/17 04:55 AST 27 U/L (13-39) 09/11/17 04:55 ALT 29 U/L (7-52) 09/11/17 04:55 Alkaline Phosphatase 230 U/L (34-104) H 09/11/17 04:55 Ammonia 29 umol/L (16-53) 09/11/17 04:55 Troponin I 0.20 ng/mL (0.01-0.05) H* D 09/08/17 05:57 B-Natriuretic Peptide 245.0 pg/mL (5.0-100.0) H 09/11/17 04:55 Total Protein 4.0 gm/dL (6.0-8.3) L 09/11/17 04:55 Albumin < 1.5 gm/dL (3.7-5.3) L 09/11/17 04:55 Globulin 2.5 gm/dL 09/11/17 04:55 Albumin/Globulin Ratio 0.6 (1.0-1.8) L 09/11/17 04:55 Lipase 20 U/L (11-82) 09/07/17 10:40 Urine Source CATH 09/07/17 11:30 Urine Color YELLOW 09/07/17 11:30 Urine Clarity HAZY (CLEAR) 09/07/17 11:30 Urine pH 5.5 (4.6 - 8.0) 09/07/17 11:30 Ur Specific [place] >= 1.030 (1.005-1.030) 09/07/17 11:30 Urine Protein 100 mg/dL (NEGATIVE) H 09/07/17 11:30 Urine Glucose (UA) NEGATIVE mg/dL (NEGATIVE) 09/07/17 11:30 Urine Ketones TRACE mg/dL (NEGATIVE) 09/07/17 11:30 Urine Blood NEGATIVE (NEGATIVE) 09/07/17 11:30 Urine Nitrate NEGATIVE (NEGATIVE) 09/07/17 11:30 Urine Bilirubin SMALL (NEGATIVE) H 09/07/17 11:30 Urine Urobilinogen 2.0 E.U./dL (0.2 - 1.0) 09/07/17 11:30 Ur Leukocyte Esterase NEGATIVE (NEGATIVE) 09/07/17 11:30 Urine RBC 0-2 /hpf (0-5) 09/07/17 11:30 Urine WBC 0-2 /hpf (0-5) 09/07/17 11:30 Ur Epithelial Cells MODERATE /lpf (FEW) 09/07/17 11:30 Urine Bacteria FEW /hpf (NONE SEEN) 09/07/17 11:30 Fine Granular Casts 0-2 /lpf (NONE SEEN) H 09/07/17 11:30 Coarse Granular Casts 2-5 /lpf (NONE SEEN) H 09/07/17 11:30 Urine Mucus FEW /lpf (FEW) 09/07/17 11:30 U Random Total Protein 104.0 mg/dL 09/10/17 21:45 Ur Random Sodium 70 mmol/L 09/10/17 21:45 Urine Collection Time 24 hours 09/10/17 21:45 Urine Total Volume 550 ml 09/10/17 21:45 Urine Creatinine 42.0 mg/dl (28.0-217.0) 09/10/17 21:45 Creat Clearance 24 Hr 8 ml/min (88.00-128.00) L 09/10/17 21:45 U Tot Protein 24h, Calc 572.0 mg/24 hr (0-165) H 09/10/17 21:45 Ur Sodium 24 Hour 39 mmol/24H (40-220) L 09/10/17 21:45 Body Surface Area 1.54 09/10/17 21:45 Random Vancomycin 14.8 ug/mL (5.0-40.0) 09/09/17 05:54 - Physical Exam Vitals and I&O: Vital Signs Temp 97.6 F 09/11/17 11:00 Pulse 102 09/11/17 11:00 Resp 21 09/11/17 11:00 BP 141/80 09/11/17 11:00 Pulse Ox 98 09/11/17 12:00 Intake & Output 09/10/17 09/11/17 09/11/17 18:59 06:59 18:59 Intake Total 5183.983 6822.583 520.833 Output Total 280 600 Balance 1428.333 589.583 520.833 Weight (lbs) 65.913 kg 66.281 kg Intake: Intake, IV Amount 0772.720 4909.583 520.833 D5-0.9%Ns 1,000 ml @ 125 6577.444 9349.583 470.833 mls/hr IV .Q8H [facility] Rx#: [id number] Piperacillin Sodium/ 50 150 50 Tazobact 2.25 gm In Sodium Chloride 0.9% 50 ml @ 100 mls/hr IV Q6HR [facility] Rx#:[id number] Oral 0 Output: Urine 280 600 Other: # Bowel Movements 0 1 Stool Characteristics Soft Brown Active Medications: Current Medications Acetaminophen (Tylenol) 650 mg PO Q6HR PRN PRN Reason: MILD PAIN OR TEMP>100.4 Stop: 11/06/17 16:35 Alendronate Sodium (Fosamax) 70 mg PO QSAT [facility] Stop: 11/08/17 06:29 Last Admin: 09/09/17 07:10 Dose: Not Given Aspirin (Aspirin Chewable) 81 mg PO DAILY [facility] Stop: 11/07/17 08:59 Last Admin: 09/11/17 09:46 Dose: Not Given Bisacodyl (Dulcolax 10 Mg Supp) 10 mg RC DAILY PRN PRN Reason: IF MOM INEFFECTIVE Stop: 11/06/17 16:35 Clonazepam (Klonopin) 1 mg PO DAILY [facility] PRN Reason: Protocol Stop: 11/07/17 08:59 Last Admin: 09/11/17 09:46 Dose: Not Given Clonazepam (Klonopin) 2 mg PO HS [facility] Stop: 11/10/17 20:59 Cyanocobalamin (Vitamin B12) 1,000 mcg PO DAILY [facility] Stop: 11/07/17 08:59 Last Admin: 09/11/17 09:46 Dose: Not Given Diltiazem HCl (Cardizem) 20 mg IVP Q3H PRN PRN Reason: Heart Rate > than 120 bpm Stop: 11/06/17 16:44 Docusate Sodium (Colace) 100 mg PO DAILY [facility] Stop: 11/07/17 08:59 Last Admin: 09/11/17 09:47 Dose: Not Given Enalaprilat (Vasotec) 1.25 mg IVP Q6HR PRN PRN Reason: SBP > 170 Stop: 11/10/17 04:29 Last Admin: 09/11/17 04:47 Dose: 1.25 mg Heparin Sodium (Porcine) (Heparin) 5,000 units SUBQ Q12HR [facility] Stop: 11/06/17 20:59 Last Admin: 09/11/17 09:47 Dose: Not Given Phenylephrine HCl 10 mg/ (Sodium Chloride) 250 mls @ 30 mls/hr IV TITR [facility]; 20 MCG/MIN PRN Reason: Protocol Stop: 11/06/17 21:59 Last Titration: 09/08/17 06:01 Dose: 0 mcg/min, 0 mls/hr Piperacillin Sod/Tazobactam (Sod 2.25 gm/ Sodium Chloride) 50 mls @ 100 mls/hr IV Q6HR [facility] Stop: 11/07/17 11:59 Last Infusion: 09/11/17 11:45 Dose: Infused Norepinephrine Bitartrate 4 mg (/ Dextrose) 254 mls @ 0 mls/hr IV STAT PRN; Protocol; Per Protocol PRN Reason: BP MAINTENANCE (PER PROTOCOL) Stop: 11/06/17 16:11 Last Titration: 09/10/17 06:20 Dose: 0 mcg/min, 0 mls/hr Dextrose (D5w) 1,000 mls @ 125 mls/hr IV .Q8H [facility] Stop: 11/10/17 15:48 Insulin Aspart (Novolog Insulin Sliding Scale) 0 units SUBQ ACHS [facility] PRN Reason: Protocol Stop: 11/07/17 11:29 Last Admin: 09/11/17 11:20 Dose: Not Given Insulin Detemir (Levemir Insulin) 10 units SUBQ HS [facility] Stop: 11/06/17 20:59 Last Admin: 09/10/17 21:11 Dose: 10 units Lactobacillus Rhamnosus (Culturelle) 1 each PO DAILY [facility] Stop: 11/09/17 08:59 Last Admin: 09/11/17 09:47 Dose: Not Given Lorazepam (Ativan) 0.5 mg PO Q6HR PRN; Protocol PRN Reason: Anxiety Stop: 11/06/17 16:35 Magnesium Hydroxide (Milk Of Magnesia) 30 ml PO DAILY PRN PRN Reason: Constipation Stop: 11/06/17 16:35 Megestrol Acetate (Megace) 400 mg PO TID [facility] Stop: 11/06/17 20:59 Last Admin: 09/11/17 09:47 Dose: Not Given Miscellaneous (Clinical Monitoring) 1 ea PRN PRN PRN Reason: RENAL DOSE ZOSYN Stop: 11/07/17 07:51 Miscellaneous (Zosyn Iv Per Pharmacy) 1 ea PRN PRN PRN Reason: PROTOCOL Stop: 11/07/17 14:31 Miscellaneous (Probiotic Screen) 1 ea PRN PRN PRN Reason: PROTOCOL Stop: 11/08/17 10:15 Morphine Sulfate (Morphine) 1 mg IVP Q4HR PRN PRN Reason: Pain (Moderate-Severe) Stop: 11/07/17 18:24 Multivitamins/Vitamin C (Theragran) 1 tab PO DAILY [facility] Stop: 11/07/17 08:59 Last Admin: 09/11/17 09:47 Dose: Not Given Pantoprazole Sodium (Protonix) 40 mg IVP DAILY [facility] Stop: 11/06/17 18:59 Last Admin: 09/11/17 09:45 Dose: 40 mg Quetiapine Fumarate (Seroquel) 100 mg PO HS [facility] PRN Reason: Protocol Stop: 11/06/17 20:59 Last Admin: 09/10/17 22:12 Dose: Not Given Simvastatin (Zocor) 40 mg PO [facility] PRN Reason: Protocol Stop: 11/06/17 20:59 Last Admin: 09/10/17 22:13 Dose: Not Given Sodium Phosphate (Fleet Enema) 135 ml RC DAILY PRN PRN Reason: Constipation Stop: 11/06/17 16:35 General: Alert, Mild distress HEENT: Atraumatic, EOMI, Mucous membr. moist/pink Neck: Supple, +2 carotid pulse wo bruit Cardiovascular: Regular rate, Normal S1, Normal S2, Other (increased HR) Lungs: Other (decrease breath sounds) Abdomen: Bowel sounds, Soft Extremities: no Clubbing, no Cyanosis, no Edema Neurological: Sensation intact Skin: no Rash Psych/Mental Status: Mood NL Assessment/Plan - Assessment Assessment: JHOAN Septic shock better Acute cholecystitis s/p drainage of GB FTT Severe malnutrition Microcytic anemia Type 2 DM Dyslipidemia Ess Htn Non gap met acid - Plan Plan: Lab - Result Diagrams 09/11/17 04:55 09/11/17 04:55 Current Medications Acetaminophen (Tylenol) 650 mg PO Q6HR PRN PRN Reason: MILD PAIN OR TEMP>100.4 Stop: 11/06/17 16:35 Alendronate Sodium (Fosamax) 70 mg PO QSAT [facility] Stop: 11/08/17 06:29 Last Admin: 09/09/17 07:10 Dose: Not Given Aspirin (Aspirin Chewable) 81 mg PO DAILY [facility] Stop: 11/07/17 08:59 Last Admin: 09/11/17 09:46 Dose: Not Given Bisacodyl (Dulcolax 10 Mg Supp) 10 mg RC DAILY PRN PRN Reason: IF MOM INEFFECTIVE Stop: 11/06/17 16:35 Clonazepam (Klonopin) 1 mg PO DAILY [facility] PRN Reason: Protocol Stop: 11/07/17 08:59 Last Admin: 09/11/17 09:46 Dose: Not Given Clonazepam (Klonopin) 2 mg PO HS [facility] Stop: 11/10/17 20:59 Cyanocobalamin (Vitamin B12) 1,000 mcg PO DAILY [facility] Stop: 11/07/17 08:59 Last Admin: 09/11/17 09:46 Dose: Not Given Diltiazem HCl (Cardizem) 20 mg IVP Q3H PRN PRN Reason: Heart Rate > than 120 bpm Stop: 11/06/17 16:44 Docusate Sodium (Colace) 100 mg PO DAILY [facility] Stop: 11/07/17 08:59 Last Admin: 09/11/17 09:47 Dose: Not Given Enalaprilat (Vasotec) 1.25 mg IVP Q6HR PRN PRN Reason: SBP > 170 Stop: 11/10/17 04:29 Last Admin: 09/11/17 04:47 Dose: 1.25 mg Heparin Sodium (Porcine) (Heparin) 5,000 units SUBQ Q12HR [facility] Stop: 11/06/17 20:59 Last Admin: 09/11/17 09:47 Dose: Not Given Phenylephrine HCl 10 mg/ (Sodium Chloride) 250 mls @ 30 mls/hr IV TITR [facility]; 20 MCG/MIN PRN Reason: Protocol Stop: 11/06/17 21:59 Last Titration: 09/08/17 06:01 Dose: 0 mcg/min, 0 mls/hr Piperacillin Sod/Tazobactam (Sod 2.25 gm/ Sodium Chloride) 50 mls @ 100 mls/hr IV Q6HR [facility] Stop: 11/07/17 11:59 Last Infusion: 09/11/17 11:45 Dose: Infused Norepinephrine Bitartrate 4 mg (/ Dextrose) 254 mls @ 0 mls/hr IV STAT PRN; Protocol; Per Protocol PRN Reason: BP MAINTENANCE (PER PROTOCOL) Stop: 11/06/17 16:11 Last Titration: 09/10/17 06:20 Dose: 0 mcg/min, 0 mls/hr Dextrose (D5w) 1,000 mls @ 125 mls/hr IV .Q8H [facility] Stop: 11/10/17 15:48 Insulin Aspart (Novolog Insulin Sliding Scale) 0 units SUBQ ACHS [facility] PRN Reason: Protocol Stop: 11/07/17 11:29 Last Admin: 09/11/17 11:20 Dose: Not Given Insulin Detemir (Levemir Insulin) 10 units SUBQ HS [facility] Stop: 11/06/17 20:59 Last Admin: 09/10/17 21:11 Dose: 10 units Lactobacillus Rhamnosus (Culturelle) 1 each PO DAILY [facility] Stop: 11/09/17 08:59 Last Admin: 09/11/17 09:47 Dose: Not Given Lorazepam (Ativan) 0.5 mg PO Q6HR PRN; Protocol PRN Reason: Anxiety Stop: 11/06/17 16:35 Magnesium Hydroxide (Milk Of Magnesia) 30 ml PO DAILY PRN PRN Reason: Constipation Stop: 11/06/17 16:35 Megestrol Acetate (Megace) 400 mg PO TID [facility] Stop: 11/06/17 20:59 Last Admin: 09/11/17 09:47 Dose: Not Given Miscellaneous (Clinical Monitoring) 1 ea PRN PRN PRN Reason: RENAL DOSE ZOSYN Stop: 11/07/17 07:51 Miscellaneous (Zosyn Iv Per Pharmacy) 1 ea PRN PRN PRN Reason: PROTOCOL Stop: 11/07/17 14:31 Miscellaneous (Probiotic Screen) 1 ea PRN PRN PRN Reason: PROTOCOL Stop: 11/08/17 10:15 Morphine Sulfate (Morphine) 1 mg IVP Q4HR PRN PRN Reason: Pain (Moderate-Severe) Stop: 11/07/17 18:24 Multivitamins/Vitamin C (Theragran) 1 tab PO DAILY [facility] Stop: 11/07/17 08:59 Last Admin: 09/11/17 09:47 Dose: Not Given Pantoprazole Sodium (Protonix) 40 mg IVP DAILY [facility] Stop: 11/06/17 18:59 Last Admin: 09/11/17 09:45 Dose: 40 mg Quetiapine Fumarate (Seroquel) 100 mg PO HS [facility] PRN Reason: Protocol Stop: 11/06/17 20:59 Last Admin: 09/10/17 22:12 Dose: Not Given Simvastatin (Zocor) 40 mg PO HS [facility] PRN Reason: Protocol Stop: 11/06/17 20:59 Last Admin: 09/10/17 22:13 Dose: Not Given Sodium Phosphate (Fleet Enema) 135 ml RC DAILY PRN PRN Reason: Constipation Stop: 11/06/17 16:35 Lab - Result Diagrams 09/11/17 04:55 09/11/17 04:55 Na up to 150, likely from [id number] C02 better @ 19 Kidney fnc basically the same already had drainage of GB @ [facility] f/u electrolytes Nutritional Asmnt/Malnutr-PDOC - Dietary Evaluation Malnutrition Findings (Please click <Entered> for more info): Nutritional Asmnt/Malnutrition Start: 09/07/17 16: 06 Text: Status: Active Freq: Document 09/07/17 16:06 LCHENG (Rec: 09/07/17 16:34 MERGED WITH [id number]) Nutritional Asmnt/Malnutrition Patient General Information Nutritional Screening Consult Diagnosis Dehydration, leukcytosis, dementia Pertinent Medical Hx/Surgical Hx HTN, DM, Dyslipidemia, Arthritis, Dementia, Hyperlipidemia, Anxiety, Osteoporosis, Degenerative joint disease, Neurophay. Subjective Information Per H&P, pt was on pureed NCS, NSPOT diet from [facility] ([facility]). Pt had anorexia more than one month and wt loss of 25lb in the past two months. Pt was transfered to ICU d/t rapid response. Families were aside, not a propriate time to approach. Currently no plan for nutrition d/t pt is not responding per RN. Current Diet Order/ Nutrition Support no diet order/swallowing eval pending Pertinent Medications D5 50ml/hr Pertinent Labs 09/07 Na 143, K 4.6, Cl 111 H, BUN 53 H, Cr 0.9 GLU 182 H, POC 164 H Nutritional Hx/Data Height 1.42 m Height (Calculated Centimeters) 142.2 Current Weight (lbs) 55.338 kg Weight (Calculated Kilograms) 55.3 Weight (Calculated Grams) 61298.3 [place] Body Weight 90 Recent Weight Change Yes Weight Status Overweight GI Symptoms Food Allergies No Skin Integrity/Comment: 1/ pretibial pitting edema Estimated Nutritional Goals BEE in Kcals: Using Current wt Calories/Kcals/Kg 30 Kcals Calculated 1664 Protein: Using Current wt Protein g/k-1.2 Protein Calculated 56-67 Fluid: ml 1664-1943ml (30-35ml/kg) Nutritional Problem 1. Problem Problem Involuntary weight loss Etiology anorexia for more then one month Signs/Symptoms: recent wt loss of 25lb in two month Malnutrition Alert Interpretation of weight loss (Severe) >5% in 1 month Intervention/Recommendation Comments No nutrition intervention at this time. RD will follow up as high risk in 1-2 days. Expected Outcomes/Goals Expected Outcomes/Goals Pt to meet 50% of nutritional needs in the following 3 days.
[2017-09-11] MEDS ORDERED: Morphine Sulfate 2 mg/mL 1mL Syr IVP PRN (16:13)
[2017-09-11] MEDS: Dextrose 5% 1,000 ML IV SCH (17:35)
[2017-09-11] MEDS: Insulin Detemir 100 units/mL 10mL Vial SUBQ SCH (20:56)
--- NOTE | 2017-09-11 22:38 | Progress Notes ---
DATE: 09/11/2017 PROBLEM LIST: 1. Septic shock with acidosis, improving. 2. Percutaneous guidewire for drainage from gallbladder fossa and gallbladder was done this morning at other hospital. SYMPTOMS: The patient is awake, restless, in no respiratory distress. PHYSICAL EXAMINATION: VITAL SIGNS: Temperature is 97.8 and blood pressure 140/80. NECK: Veins not visualized. CHEST: Shows diminished air entry. No other adventitious breath sounds. HEART: Regular. SKIN: Turgor is still poor. LABORATORY DATA: White count is 11,000 and hemoglobin 10.1. Sodium is 150 with chloride of 122 and creatinine is 2.5. ASSESSMENT: 1. The patient is clinically stable with septic shock, improving. 2. Cholecystitis and cholelithiasis. Percutaneous drainage from the gallbladder was put this morning. It also looks like a little bit more hypovolemia, which we will ____. Meantime, continue rest of other treatment, etc., and go from there. JOB# [id number]
[2017-09-12] MEDS: Piperacillin/Tazobact 2.25 gm in 0.9% NS 50 ML IV SCH ×3 (00:50→12:53)
[2017-09-12] MEDS: Dextrose 5% 1,000 ML IV SCH ×2 (02:18→17:51)
[2017-09-12 05:44] LABS: % EOSINOPHILS 1.1 % (0.0-5.0); % LYMPHOCYTES 10.9 % (20.0-50.0); % MONOCYTES 3.4 % (2.0-10.0); % NEUTROPHILS 84.6 % (40.0-80.0); MEAN CELL VOLUME 75.9 fl (81-100); MEAN CORPUSCULAR HEMOGLOBIN 24.9 pg (27.0-31.0); MEAN CORPUSCULAR HGB CONC 32.8 pg (28.0-36.0); MEAN PLATELET VOLUME 9.8 fl; NEUTROPHILE ABSOLUTE 6.7 Th/cmm (1.8-8.0); PLATELET COUNT 118 Th/cmm (150-400); RED BLOOD COUNT 3.63 Mil/cmm (3.80-5.20); RED CELL DISTRIBUTION WIDTH 14.4 % (11.5-20.0)
[2017-09-12 05:52] LABS: HEMATOCRIT 27.5 % (41.0-60)
[2017-09-12 06:04] LABS: ALB/GLOB RATIO 0.6 (1.0-1.8); ALKALINE PHOSPHATASE 185 U/L (34-104); ANION GAP 9.9 (7.0-16.0); BILIRUBIN,TOTAL 0.7 mg/dL (0.3-1.0); BUN - UREA NITROGEN 44 mg/dL (7-25); BUN/CREATININE RATIO 16.9; CALCIUM SERUM 7.2 mg/dL (8.6-10.3); CARBON DIOXIDE 19.4 mEq/L (21.0-31.0); CHLORIDE 116 mEq/L (98-107); CREATININE - SERUM 2.6 mg/dL (0.6-1.2); GLUCOSE 119 mg/dL (40-70); POTASSIUM SERUM 3.3 mEq/L (3.5-5.1); SGOT 12 U/L (13-39); SGPT/ALT 21 U/L (7-52); SODIUM SERUM 142 mEq/L (136-145)
[2017-09-12] MEDS: INSULIN ASPART SLIDING SCALE 100 UNITS/ML UNIT SUBQ SCH ×4 (07:47→20:47)
--- NOTE | 2017-09-12 08:11 | General Progress Note ---
Subjective - Review of Systems Service Date: 09/12/17 Subjective: transferred to telemetry yesterday following placement of PTC tube. more awake and alert this morning. WBC's improved to 8K this AM. K+ 3.3. Objective - Results Result Diagrams: 09/12/17 05:30 09/12/17 05:30 Recent Labs: Laboratory Last Values WBC 8.0 Th/cmm (4.8-10.8) D 09/12/17 05:30 RBC 3.63 Mil/cmm (3.80-5.20) L 09/12/17 05:30 Hgb 9.0 gm/dL (12-16) L 09/12/17 05:30 Hct 27.5 % (41.0-60) L D 09/12/17 05:30 MCV 75.9 fl (81-100) L 09/12/17 05:30 MCH 24.9 pg (27.0-31.0) L 09/12/17 05:30 MCHC Differential 32.8 pg (28.0-36.0) 09/12/17 05:30 RDW 14.4 % (11.5-20.0) 09/12/17 05:30 Plt Count 118 Th/cmm (150-400) L 09/12/17 05:30 MPV 9.8 fl 09/12/17 05:30 Neutrophils % 84.6 % (40.0-80.0) H 09/12/17 05:30 Band Neutrophils % 5 % (0-10) 09/11/17 04:55 Lymphocytes % 10.9 % (20.0-50.0) L 09/12/17 05:30 Monocytes % 3.4 % (2.0-10.0) 09/12/17 05:30 Eosinophils % 1.1 % (0.0-5.0) 09/12/17 05:30 Basophils % 0.0 % (0.0-2.0) 09/12/17 05:30 Neutrophils (Manual) 82 % (40-80) H 09/11/17 04:55 Lymphocytes 11 % (20-50) L 09/11/17 04:55 Monocytes 2 % (2-10) 09/11/17 04:55 Eosinophils 0 % (0-5) 09/11/17 04:55 Basophils 0 % (0-3) 09/11/17 04:55 Platelet Estimate ADEQUATE (NORMAL) 09/11/17 04:55 Platelet Morphology NORMAL (NORMAL) 09/11/17 04:55 Anisocytosis 1+ 09/10/17 05:48 Microcytosis 1+ 09/11/17 04:55 RBC Morph Micro Appear ABNORMAL (NORMAL) 09/11/17 04:55 Eos Smear Source URINE 09/09/17 21:29 Eos Smear Total Cells NONE SEEN (NONE SEEN) 09/09/17 21:29 PT 10.9 SECONDS (9.5-11.5) 09/11/17 10:04 INR 1.05 (0.5-1.4) 09/11/17 10:04 PTT (Actin FS) 32.9 SECONDS (26.0-38.0) 09/11/17 10:04 Specimen Source Arterial 09/09/17 08:53 Sample Site Left Radial 09/09/17 08:53 pH 7.37 (7.35-7.45) 09/09/17 08:53 pCO2 28.0 mmHg (35.0-45.0) L 09/09/17 08:53 pO2 100.0 mmHg (80.0-100.0) 09/09/17 08:53 HCO3 18.9 mEq/L (20.0-26.0) L 09/09/17 08:53 Base Excess -7.7 mEq/L (-3.0-3.0) L 09/09/17 08:53 O2 Saturation 98.0 % (92.0-100.0) 09/09/17 08:53 Vinod Test YES 09/09/17 08:53 Vent Rate NA 09/09/17 08:53 Inspired O2 28 09/09/17 08:53 Tidal Volume NA 09/09/17 08:53 PEEP NA 09/09/17 08:53 Pressure (ins/psv/peep) NA 09/09/17 08:53 Critical Value FERNANDO LANGSTONO 09/09/17 08:53 Sodium 142 mEq/L (136-145) 09/12/17 05:30 Potassium 3.3 mEq/L (3.5-5.1) L 09/12/17 05:30 Chloride 116 mEq/L (98-107) H 09/12/17 05:30 Carbon Dioxide 19.4 mEq/L (21.0-31.0) L 09/12/17 05:30 Anion Gap 9.9 (7.0-16.0) 09/12/17 05:30 BUN 44 mg/dL (7-25) H 09/12/17 05:30 Creatinine 2.6 mg/dL (0.6-1.2) H 09/12/17 05:30 Est GFR ( Amer) TNP 09/12/17 05:30 Est GFR (Non-Af Amer) TNP 09/12/17 05:30 BUN/Creatinine Ratio 16.9 09/12/17 05:30 Glucose 119 mg/dL (40-70) H 09/12/17 05:30 POC Glucose 118 MG/DL (70 - 105) H 09/12/17 05:37 Hemoglobin A1c % 5.7 % (4.0-6.0) 09/07/17 10:40 Whole Bld Lactic Acid 2.66 mmol/L (0.60-1.99) H* 09/10/17 07:48 Uric Acid 5.4 mg/dL (2.3-6.6) 09/10/17 05:48 Calcium 7.2 mg/dL (8.6-10.3) L 09/12/17 05:30 Phosphorus 3.2 mg/dL (2.5-5.0) 09/11/17 04:55 Magnesium 2.3 mg/dL (1.9-2.7) 09/11/17 04:55 Total Bilirubin 0.7 mg/dL (0.3-1.0) 09/12/17 05:30 AST 12 U/L (13-39) L 09/12/17 05:30 ALT 21 U/L (7-52) 09/12/17 05:30 Alkaline Phosphatase 185 U/L (34-104) H 09/12/17 05:30 Ammonia 29 umol/L (16-53) 09/11/17 04:55 Troponin I 0.20 ng/mL (0.01-0.05) H* D 09/08/17 05:57 B-Natriuretic Peptide 311.0 pg/mL (5.0-100.0) H 09/12/17 05:30 Total Protein 4.5 gm/dL (6.0-8.3) L 09/12/17 05:30 Albumin 1.7 gm/dL (3.7-5.3) L 09/12/17 05:30 Globulin 2.8 gm/dL 09/12/17 05:30 Albumin/Globulin Ratio 0.6 (1.0-1.8) L 09/12/17 05:30 Lipase 20 U/L (11-82) 09/07/17 10:40 Urine Source CATH 09/07/17 11:30 Urine Color YELLOW 09/07/17 11:30 Urine Clarity HAZY (CLEAR) 09/07/17 11:30 Urine pH 5.5 (4.6 - 8.0) 09/07/17 11:30 Ur Specific [place] >= 1.030 (1.005-1.030) 09/07/17 11:30 Urine Protein 100 mg/dL (NEGATIVE) H 09/07/17 11:30 Urine Glucose (UA) NEGATIVE mg/dL (NEGATIVE) 09/07/17 11:30 Urine Ketones TRACE mg/dL (NEGATIVE) 09/07/17 11:30 Urine Blood NEGATIVE (NEGATIVE) 09/07/17 11:30 Urine Nitrate NEGATIVE (NEGATIVE) 09/07/17 11:30 Urine Bilirubin SMALL (NEGATIVE) H 09/07/17 11:30 Urine Urobilinogen 2.0 E.U./dL (0.2 - 1.0) 09/07/17 11:30 Ur Leukocyte Esterase NEGATIVE (NEGATIVE) 09/07/17 11:30 Urine RBC 0-2 /hpf (0-5) 09/07/17 11:30 Urine WBC 0-2 /hpf (0-5) 09/07/17 11:30 Ur Epithelial Cells MODERATE /lpf (FEW) 09/07/17 11:30 Urine Bacteria FEW /hpf (NONE SEEN) 09/07/17 11:30 Fine Granular Casts 0-2 /lpf (NONE SEEN) H 09/07/17 11:30 Coarse Granular Casts 2-5 /lpf (NONE SEEN) H 09/07/17 11:30 Urine Mucus FEW /lpf (FEW) 09/07/17 11:30 U Random Total Protein 104.0 mg/dL 09/10/17 21:45 Ur Random Sodium 70 mmol/L 09/10/17 21:45 Urine Collection Time 24 hours 09/10/17 21:45 Urine Total Volume 550 ml 09/10/17 21:45 Urine Creatinine 42.0 mg/dl (28.0-217.0) 09/10/17 21:45 Creat Clearance 24 Hr 8 ml/min (88.00-128.00) L 09/10/17 21:45 U Tot Protein 24h, Calc 572.0 mg/24 hr (0-165) H 09/10/17 21:45 Ur Sodium 24 Hour 39 mmol/24H (40-220) L 09/10/17 21:45 Body Surface Area 1.54 09/10/17 21:45 Random Vancomycin 14.8 ug/mL (5.0-40.0) 09/09/17 05:54 - Physical Exam Vitals and I&O: Vital Signs Temp 98.4 F 09/12/17 00:00 Pulse 90 09/12/17 08:02 Resp 16 09/12/17 08:02 BP 149/83 09/12/17 00:00 Pulse Ox 98 09/12/17 08:02 Intake & Output 09/11/17 09/12/17 09/12/17 18:59 06:59 18:59 Intake Total 284.426 8131 Output Total 270 Balance 933.520 0078 -270 Weight (lbs) 66.224 kg Intake: Intake, IV Amount 655.814 5168 D5-0.9%Ns 1,000 ml @ 125 470.833 mls/hr IV .Q8H [facility] Rx#: [id number] Dextrose 5% 1,000 ml @ 1000 125 mls/hr IV .Q8H [facility] Rx #:[id number] Piperacillin Sodium/ 50 100 Tazobact 2.25 gm In Sodium Chloride 0.9% 50 ml @ 100 mls/hr IV Q6HR [facility] Rx#:[id number] Output: Gastric Drainage 270 Active Medications: Current Medications Acetaminophen (Tylenol) 650 mg PO Q6HR PRN PRN Reason: MILD PAIN OR TEMP>100.4 Stop: 11/06/17 16:35 Alendronate Sodium (Fosamax) 70 mg PO QSAT [facility] Stop: 11/08/17 06:29 Last Admin: 09/09/17 07:10 Dose: Not Given Aspirin (Aspirin Chewable) 81 mg PO DAILY [facility] Stop: 11/07/17 08:59 Last Admin: 09/11/17 09:46 Dose: Not Given Bisacodyl (Dulcolax 10 Mg Supp) 10 mg RC DAILY PRN PRN Reason: IF MOM INEFFECTIVE Stop: 11/06/17 16:35 Clonazepam (Klonopin) 1 mg PO DAILY [facility] PRN Reason: Protocol Stop: 11/07/17 08:59 Last Admin: 09/11/17 09:46 Dose: Not Given Clonazepam (Klonopin) 2 mg PO HS [facility] Stop: 11/10/17 20:59 Last Admin: 09/11/17 20:47 Dose: Not Given Cyanocobalamin (Vitamin B12) 1,000 mcg PO DAILY [facility] Stop: 11/07/17 08:59 Last Admin: 09/11/17 09:46 Dose: Not Given Diltiazem HCl (Cardizem) 20 mg IVP Q3H PRN PRN Reason: Heart Rate > than 120 bpm Stop: 11/06/17 16:44 Docusate Sodium (Colace) 100 mg PO DAILY [facility] Stop: 11/07/17 08:59 Last Admin: 09/11/17 09:47 Dose: Not Given Enalaprilat (Vasotec) 1.25 mg IVP Q6HR PRN PRN Reason: SBP > 170 Stop: 11/10/17 04:29 Last Admin: 09/11/17 04:47 Dose: 1.25 mg Heparin Sodium (Porcine) (Heparin) 5,000 units SUBQ Q12HR [facility] Stop: 11/06/17 20:59 Last Admin: 09/11/17 20:57 Dose: 5,000 units Phenylephrine HCl 10 mg/ (Sodium Chloride) 250 mls @ 30 mls/hr IV TITR [facility]; 20 MCG/MIN PRN Reason: Protocol Stop: 11/06/17 21:59 Last Titration: 09/08/17 06:01 Dose: 0 mcg/min, 0 mls/hr Piperacillin Sod/Tazobactam (Sod 2.25 gm/ Sodium Chloride) 50 mls @ 100 mls/hr IV Q6HR [facility] Stop: 11/07/17 11:59 Last Admin: 09/12/17 06:30 Dose: 100 mls/hr Norepinephrine Bitartrate 4 mg (/ Dextrose) 254 mls @ 0 mls/hr IV STAT PRN; Protocol; Per Protocol PRN Reason: BP MAINTENANCE (PER PROTOCOL) Stop: 11/06/17 16:11 Last Titration: 09/10/17 06:20 Dose: 0 mcg/min, 0 mls/hr Dextrose (D5w) 1,000 mls @ 125 mls/hr IV .Q8H [facility] Stop: 11/10/17 15:48 Last Admin: 09/12/17 02:18 Dose: 125 mls/hr Potassium Chloride (Potassium Chloride) 20 meq in 100 mls @ 50 mls/hr IV Q2H [facility] Stop: 09/12/17 12:14 Insulin Aspart (Novolog Insulin Sliding Scale) 0 units SUBQ ACHS [facility] PRN Reason: Protocol Stop: 11/07/17 11:29 Last Admin: 09/12/17 07:47 Dose: Not Given Insulin Detemir (Levemir Insulin) 10 units SUBQ HS [facility] Stop: 11/06/17 20:59 Last Admin: 09/11/17 20:56 Dose: 10 units Lactobacillus Rhamnosus (Culturelle) 1 each PO DAILY [facility] Stop: 11/09/17 08:59 Last Admin: 09/11/17 09:47 Dose: Not Given Lorazepam (Ativan) 0.5 mg PO Q6HR PRN; Protocol PRN Reason: Anxiety Stop: 11/06/17 16:35 Magnesium Hydroxide (Milk Of Magnesia) 30 ml PO DAILY PRN PRN Reason: Constipation Stop: 11/06/17 16:35 Megestrol Acetate (Megace) 400 mg PO TID [facility] Stop: 11/06/17 20:59 Last Admin: 09/11/17 20:48 Dose: Not Given Miscellaneous (Clinical Monitoring) 1 ea MC PRN PRN PRN Reason: RENAL DOSE ZOSYN Stop: 11/07/17 07:51 Miscellaneous (Zosyn Iv Per Pharmacy) 1 ea MC PRN PRN PRN Reason: PROTOCOL Stop: 11/07/17 14:31 Miscellaneous (Probiotic Screen) 1 ea MC PRN PRN PRN Reason: PROTOCOL Stop: 11/08/17 10:15 Morphine Sulfate (Morphine) 1 mg IVP Q4HR PRN PRN Reason: Pain (Severe) Stop: 11/07/17 18:24 Morphine Sulfate (Morphine) 1 mg IVP Q6HR PRN PRN Reason: Pain (Moderate) Stop: 11/10/17 17:59 Multivitamins/Vitamin C (Theragran) 1 tab PO DAILY [facility] Stop: 11/07/17 08:59 Last Admin: 09/11/17 09:47 Dose: Not Given Pantoprazole Sodium (Protonix) 40 mg IVP DAILY [facility] Stop: 11/06/17 18:59 Last Admin: 09/11/17 09:45 Dose: 40 mg Quetiapine Fumarate (Seroquel) 100 mg PO HS [facility] PRN Reason: Protocol Stop: 11/06/17 20:59 Last Admin: 09/11/17 20:47 Dose: Not Given Simvastatin (Zocor) 40 mg PO HS [facility] PRN Reason: Protocol Stop: 11/06/17 20:59 Last Admin: 09/11/17 20:48 Dose: Not Given Sodium Phosphate (Fleet Enema) 135 ml RC DAILY PRN PRN Reason: Constipation Stop: 11/06/17 16:35 General: Alert, Mild distress HEENT: Atraumatic, EOMI, Mucous membr. moist/pink Neck: Supple, +2 carotid pulse wo bruit Cardiovascular: Regular rate, Normal S1, Normal S2, Other (increased HR) Lungs: Other (decrease breath sounds) Abdomen: Bowel sounds, Soft Extremities: no Clubbing, no Cyanosis, no Edema Neurological: Sensation intact Skin: no Rash Psych/Mental Status: Mood NL Assessment/Plan - Assessment Assessment: Sepsis --- blood cultures x 2 pending, WBC's 29-> 31K --> 14K-->11K --> 8K will continue IV antibiotics per ID Cholelithiasis s/p placement of PTC tube CKD ---continue to monitor. h/h. 9.0 stable. dysphagia ... for swallow evaluation. Left Pleural Effusion r/o CHF .... will monitor BNP. Chest xray done yesterday. UTI ... - Plan Plan: IV Zosyn IV fluids ID consult Pulmonary consult cardiology consult repeat chest xray blood cultures urine cultures repeat cbc, cmp admit to ICU Nutritional Asmnt/Malnutr-PDOC - Dietary Evaluation Malnutrition Findings (Please click <Entered> for more info): Nutritional Asmnt/Malnutrition Start: 09/07/17 16: 06 Text: Status: Active Freq: Document 09/07/17 16:06 NIK (Rec: 09/07/17 16:34 [facility]-[email or web address]) Nutritional Asmnt/Malnutrition Patient General Information Nutritional Screening Consult Diagnosis Dehydration, leukcytosis, dementia Pertinent Medical Hx/Surgical Hx HTN, DM, Dyslipidemia, Arthritis, Dementia, Hyperlipidemia, Anxiety, Osteoporosis, Degenerative joint disease, Neurophay. Subjective Information Per H&P, pt was on pureed NCS, NSPOT diet from [facility] ([facility]). Pt had anorexia more than one month and wt loss of 25lb in the past two months. Pt was transfered to ICU d/t rapid response. Families were aside, not a propriate time to approach. Currently no plan for nutrition d/t pt is not responding per RN. Current Diet Order/ Nutrition Support no diet order/swallowing eval pending Pertinent Medications D5 50ml/hr Pertinent Labs 09/07 Na 143, K 4.6, Cl 111 H, BUN 53 H, Cr 0.9 GLU 182 H, POC 164 H Nutritional Hx/Data Height 1.42 m Height (Calculated Centimeters) 142.2 Current Weight (lbs) 55.338 kg Weight (Calculated Kilograms) 55.3 Weight (Calculated Grams) 35432.3 Pep Body Weight 90 Recent Weight Change Yes Weight Status Overweight GI Symptoms Food Allergies No Skin Integrity/Comment: 1/4 pretibial pitting edema Estimated Nutritional Goals BEE in Kcals: Using Current wt Calories/Kcals/Kg 30 Kcals Calculated 1664 Protein: Using Current wt Protein g/k-1.2 Protein Calculated 56-67 Fluid: ml 1664-1943ml (30-35ml/kg) Nutritional Problem 1. Problem Problem Involuntary weight loss Etiology anorexia for more then one month Signs/Symptoms: recent wt loss of 25lb in two month Malnutrition Alert Interpretation of weight loss (Severe) >5% in 1 month Intervention/Recommendation Comments No nutrition intervention at this time. RD will follow up as high risk in 1-2 days. Expected Outcomes/Goals Expected Outcomes/Goals Pt to meet 50% of nutritional needs in the following 3 days.
[2017-09-12] MEDS ORDERED: KCL 20mEq/100mL Premix 20 MEQ/100 ML PIGGYBACK IV SCH (08:15)
--- NOTE | 2017-09-12 09:01 | Diagnostic Imaging Report ---
Exam: CT guided percutaneous cholecystotomy HISTORY cholecystitis Total DLP equals 180 CTDI equals 22.3 Findings: After obtaining informed consent the patient was prepped and draped in sterile fashion. Utilizing CT guidance the 10 Sami catheter was introduced the gallbladder and secured. The contiguous nature of the gallbladder was established into the catheter via gravity. IMPRESSION: Successful percutaneous cholecystotomy .
--- NOTE | 2017-09-12 09:45 | General Progress Note ---
Subjective - Review of Systems Service Date: 09/12/17 Events since last encounter: cholecystostomy draining well patient feels better discussed with son, will need cholecystectomy in future when clinically improved Objective - Results Result Diagrams: 09/12/17 05:30 09/12/17 05:30 Recent Labs: Laboratory Last Values WBC 8.0 Th/cmm (4.8-10.8) D 09/12/17 05:30 RBC 3.63 Mil/cmm (3.80-5.20) L 09/12/17 05:30 Hgb 9.0 gm/dL (12-16) L 09/12/17 05:30 Hct 27.5 % (41.0-60) L D 09/12/17 05:30 MCV 75.9 fl (81-100) L 09/12/17 05:30 MCH 24.9 pg (27.0-31.0) L 09/12/17 05:30 MCHC Differential 32.8 pg (28.0-36.0) 09/12/17 05:30 RDW 14.4 % (11.5-20.0) 09/12/17 05:30 Plt Count 118 Th/cmm (150-400) L 09/12/17 05:30 MPV 9.8 fl 09/12/17 05:30 Neutrophils % 84.6 % (40.0-80.0) H 09/12/17 05:30 Band Neutrophils % 5 % (0-10) 09/11/17 04:55 Lymphocytes % 10.9 % (20.0-50.0) L 09/12/17 05:30 Monocytes % 3.4 % (2.0-10.0) 09/12/17 05:30 Eosinophils % 1.1 % (0.0-5.0) 09/12/17 05:30 Basophils % 0.0 % (0.0-2.0) 09/12/17 05:30 Neutrophils (Manual) 82 % (40-80) H 09/11/17 04:55 Lymphocytes 11 % (20-50) L 09/11/17 04:55 Monocytes 2 % (2-10) 09/11/17 04:55 Eosinophils 0 % (0-5) 09/11/17 04:55 Basophils 0 % (0-3) 09/11/17 04:55 Platelet Estimate ADEQUATE (NORMAL) 09/11/17 04:55 Platelet Morphology NORMAL (NORMAL) 09/11/17 04:55 Anisocytosis 1+ 09/10/17 05:48 Microcytosis 1+ 09/11/17 04:55 RBC Morph Micro Appear ABNORMAL (NORMAL) 09/11/17 04:55 Eos Smear Source URINE 09/09/17 21:29 Eos Smear Total Cells NONE SEEN (NONE SEEN) 09/09/17 21:29 PT 10.9 SECONDS (9.5-11.5) 09/11/17 10:04 INR 1.05 (0.5-1.4) 09/11/17 10:04 PTT (Actin FS) 32.9 SECONDS (26.0-38.0) 09/11/17 10:04 Specimen Source Arterial 09/09/17 08:53 Sample Site Left Radial 09/09/17 08:53 pH 7.37 (7.35-7.45) 09/09/17 08:53 pCO2 28.0 mmHg (35.0-45.0) L 09/09/17 08:53 pO2 100.0 mmHg (80.0-100.0) 09/09/17 08:53 HCO3 18.9 mEq/L (20.0-26.0) L 09/09/17 08:53 Base Excess -7.7 mEq/L (-3.0-3.0) L 09/09/17 08:53 O2 Saturation 98.0 % (92.0-100.0) 09/09/17 08:53 Vinod Test YES 09/09/17 08:53 Vent Rate NA 09/09/17 08:53 Inspired O2 28 09/09/17 08:53 Tidal Volume NA 09/09/17 08:53 PEEP NA 09/09/17 08:53 Pressure (ins/psv/peep) NA 09/09/17 08:53 Critical Value FERNANDO CALLIE 09/09/17 08:53 Sodium 142 mEq/L (136-145) 09/12/17 05:30 Potassium 3.3 mEq/L (3.5-5.1) L 09/12/17 05:30 Chloride 116 mEq/L (98-107) H 09/12/17 05:30 Carbon Dioxide 19.4 mEq/L (21.0-31.0) L 09/12/17 05:30 Anion Gap 9.9 (7.0-16.0) 09/12/17 05:30 BUN 44 mg/dL (7-25) H 09/12/17 05:30 Creatinine 2.6 mg/dL (0.6-1.2) H 09/12/17 05:30 Est GFR ( Amer) TNP 09/12/17 05:30 Est GFR (Non-Af Amer) TNP 09/12/17 05:30 BUN/Creatinine Ratio 16.9 09/12/17 05:30 Glucose 119 mg/dL (40-70) H 09/12/17 05:30 POC Glucose 118 MG/DL (70 - 105) H 09/12/17 05:37 Hemoglobin A1c % 5.7 % (4.0-6.0) 09/07/17 10:40 Whole Bld Lactic Acid 2.66 mmol/L (0.60-1.99) H* 09/10/17 07:48 Uric Acid 5.4 mg/dL (2.3-6.6) 09/10/17 05:48 Calcium 7.2 mg/dL (8.6-10.3) L 09/12/17 05:30 Phosphorus 3.2 mg/dL (2.5-5.0) 09/11/17 04:55 Magnesium 2.0 mg/dL (1.9-2.7) 09/12/17 05:30 Total Bilirubin 0.7 mg/dL (0.3-1.0) 09/12/17 05:30 AST 12 U/L (13-39) L 09/12/17 05:30 ALT 21 U/L (7-52) 09/12/17 05:30 Alkaline Phosphatase 185 U/L (34-104) H 09/12/17 05:30 Ammonia 29 umol/L (16-53) 09/11/17 04:55 Troponin I 0.20 ng/mL (0.01-0.05) H* D 09/08/17 05:57 B-Natriuretic Peptide 311.0 pg/mL (5.0-100.0) H 09/12/17 05:30 Total Protein 4.5 gm/dL (6.0-8.3) L 09/12/17 05:30 Albumin 1.7 gm/dL (3.7-5.3) L 09/12/17 05:30 Globulin 2.8 gm/dL 09/12/17 05:30 Albumin/Globulin Ratio 0.6 (1.0-1.8) L 09/12/17 05:30 Lipase 20 U/L (11-82) 09/07/17 10:40 Urine Source CATH 09/07/17 11:30 Urine Color YELLOW 09/07/17 11:30 Urine Clarity HAZY (CLEAR) 09/07/17 11:30 Urine pH 5.5 (4.6 - 8.0) 09/07/17 11:30 Ur Specific [place] >= 1.030 (1.005-1.030) 09/07/17 11:30 Urine Protein 100 mg/dL (NEGATIVE) H 09/07/17 11:30 Urine Glucose (UA) NEGATIVE mg/dL (NEGATIVE) 09/07/17 11:30 Urine Ketones TRACE mg/dL (NEGATIVE) 09/07/17 11:30 Urine Blood NEGATIVE (NEGATIVE) 09/07/17 11:30 Urine Nitrate NEGATIVE (NEGATIVE) 09/07/17 11:30 Urine Bilirubin SMALL (NEGATIVE) H 09/07/17 11:30 Urine Urobilinogen 2.0 E.U./dL (0.2 - 1.0) 09/07/17 11:30 Ur Leukocyte Esterase NEGATIVE (NEGATIVE) 09/07/17 11:30 Urine RBC 0-2 /hpf (0-5) 09/07/17 11:30 Urine WBC 0-2 /hpf (0-5) 09/07/17 11:30 Ur Epithelial Cells MODERATE /lpf (FEW) 09/07/17 11:30 Urine Bacteria FEW /hpf (NONE SEEN) 09/07/17 11:30 Fine Granular Casts 0-2 /lpf (NONE SEEN) H 09/07/17 11:30 Coarse Granular Casts 2-5 /lpf (NONE SEEN) H 09/07/17 11:30 Urine Mucus FEW /lpf (FEW) 09/07/17 11:30 U Random Total Protein 104.0 mg/dL 09/10/17 21:45 Ur Random Sodium 70 mmol/L 09/10/17 21:45 Urine Collection Time 24 hours 09/10/17 21:45 Urine Total Volume 550 ml 09/10/17 21:45 Urine Creatinine 42.0 mg/dl (28.0-217.0) 09/10/17 21:45 Creat Clearance 24 Hr 8 ml/min (88.00-128.00) L 09/10/17 21:45 U Tot Protein 24h, Calc 572.0 mg/24 hr (0-165) H 09/10/17 21:45 Ur Sodium 24 Hour 39 mmol/24H (40-220) L 09/10/17 21:45 Body Surface Area 1.54 09/10/17 21:45 Random Vancomycin 14.8 ug/mL (5.0-40.0) 09/09/17 05:54 - Physical Exam Vitals and I&O: Vital Signs Temp 98.5 F 09/12/17 08:12 Pulse 87 09/12/17 08:12 Resp 18 09/12/17 08:12 BP 162/88 09/12/17 08:12 Pulse Ox 96 09/12/17 08:12 Intake & Output 09/11/17 09/12/17 09/12/17 18:59 06:59 18:59 Intake Total 392.060 6527 Output Total 270 Balance 473.110 3762 -270 Weight (lbs) 66.224 kg Intake: Intake, IV Amount 660.485 3397 D5-0.9%Ns 1,000 ml @ 125 470.833 mls/hr IV .Q8H [facility] Rx#: [id number] Dextrose 5% 1,000 ml @ 1000 125 mls/hr IV .Q8H [facility] Rx #:[id number] Piperacillin Sodium/ 50 100 Tazobact 2.25 gm In Sodium Chloride 0.9% 50 ml @ 100 mls/hr IV Q6HR [facility] Rx#:[id number] Output: Gastric Drainage 270 Active Medications: Current Medications Acetaminophen (Tylenol) 650 mg PO Q6HR PRN PRN Reason: MILD PAIN OR TEMP>100.4 Stop: 11/06/17 16:35 Alendronate Sodium (Fosamax) 70 mg PO QSAT [facility] Stop: 11/08/17 06:29 Last Admin: 09/09/17 07:10 Dose: Not Given Aspirin (Aspirin Chewable) 81 mg PO DAILY [facility] Stop: 11/07/17 08:59 Last Admin: 09/11/17 09:46 Dose: Not Given Bisacodyl (Dulcolax 10 Mg Supp) 10 mg RC DAILY PRN PRN Reason: IF MOM INEFFECTIVE Stop: 11/06/17 16:35 Clonazepam (Klonopin) 1 mg PO DAILY [facility] PRN Reason: Protocol Stop: 11/07/17 08:59 Last Admin: 09/11/17 09:46 Dose: Not Given Clonazepam (Klonopin) 2 mg PO HS [facility] Stop: 11/10/17 20:59 Last Admin: 09/11/17 20:47 Dose: Not Given Cyanocobalamin (Vitamin B12) 1,000 mcg PO DAILY [facility] Stop: 11/07/17 08:59 Last Admin: 09/11/17 09:46 Dose: Not Given Diltiazem HCl (Cardizem) 20 mg IVP Q3H PRN PRN Reason: Heart Rate > than 120 bpm Stop: 11/06/17 16:44 Docusate Sodium (Colace) 100 mg PO DAILY [facility] Stop: 11/07/17 08:59 Last Admin: 09/11/17 09:47 Dose: Not Given Enalaprilat (Vasotec) 1.25 mg IVP Q6HR PRN PRN Reason: SBP > 170 Stop: 11/10/17 04:29 Last Admin: 09/11/17 04:47 Dose: 1.25 mg Heparin Sodium (Porcine) (Heparin) 5,000 units SUBQ Q12HR [facility] Stop: 11/06/17 20:59 Last Admin: 09/11/17 20:57 Dose: 5,000 units Phenylephrine HCl 10 mg/ (Sodium Chloride) 250 mls @ 30 mls/hr IV TITR [facility]; 20 MCG/MIN PRN Reason: Protocol Stop: 11/06/17 21:59 Last Titration: 09/08/17 06:01 Dose: 0 mcg/min, 0 mls/hr Piperacillin Sod/Tazobactam (Sod 2.25 gm/ Sodium Chloride) 50 mls @ 100 mls/hr IV Q6HR [facility] Stop: 11/07/17 11:59 Last Admin: 09/12/17 06:30 Dose: 100 mls/hr Norepinephrine Bitartrate 4 mg (/ Dextrose) 254 mls @ 0 mls/hr IV STAT PRN; Protocol; Per Protocol PRN Reason: BP MAINTENANCE (PER PROTOCOL) Stop: 11/06/17 16:11 Last Titration: 09/10/17 06:20 Dose: 0 mcg/min, 0 mls/hr Dextrose (D5w) 1,000 mls @ 125 mls/hr IV .Q8H [facility] Stop: 11/10/17 15:48 Last Admin: 09/12/17 02:18 Dose: 125 mls/hr Potassium Chloride (Potassium Chloride) 20 meq in 100 mls @ 50 mls/hr IV Q2H [facility] Stop: 09/12/17 12:14 Insulin Aspart (Novolog Insulin Sliding Scale) 0 units SUBQ ACHS [facility] PRN Reason: Protocol Stop: 11/07/17 11:29 Last Admin: 09/12/17 07:47 Dose: Not Given Insulin Detemir (Levemir Insulin) 10 units SUBQ HS [facility] Stop: 11/06/17 20:59 Last Admin: 09/11/17 20:56 Dose: 10 units Lactobacillus Rhamnosus (Culturelle) 1 each PO DAILY [facility] Stop: 11/09/17 08:59 Last Admin: 09/11/17 09:47 Dose: Not Given Lorazepam (Ativan) 0.5 mg PO Q6HR PRN; Protocol PRN Reason: Anxiety Stop: 11/06/17 16:35 Magnesium Hydroxide (Milk Of Magnesia) 30 ml PO DAILY PRN PRN Reason: Constipation Stop: 11/06/17 16:35 Megestrol Acetate (Megace) 400 mg PO TID [facility] Stop: 11/06/17 20:59 Last Admin: 09/11/17 20:48 Dose: Not Given Miscellaneous (Clinical Monitoring) 1 ea MC PRN PRN PRN Reason: RENAL DOSE ZOSYN Stop: 11/07/17 07:51 Miscellaneous (Zosyn Iv Per Pharmacy) 1 ea PRN PRN PRN Reason: PROTOCOL Stop: 11/07/17 14:31 Miscellaneous (Probiotic Screen) 1 ea PRN PRN PRN Reason: PROTOCOL Stop: 11/08/17 10:15 Morphine Sulfate (Morphine) 1 mg IVP Q4HR PRN PRN Reason: Pain (Severe) Stop: 11/07/17 18:24 Morphine Sulfate (Morphine) 1 mg IVP Q6HR PRN PRN Reason: Pain (Moderate) Stop: 11/10/17 17:59 Multivitamins/Vitamin C (Theragran) 1 tab PO DAILY [facility] Stop: 11/07/17 08:59 Last Admin: 09/11/17 09:47 Dose: Not Given Pantoprazole Sodium (Protonix) 40 mg IVP DAILY [facility] Stop: 11/06/17 18:59 Last Admin: 09/11/17 09:45 Dose: 40 mg Quetiapine Fumarate (Seroquel) 100 mg PO HS [facility] PRN Reason: Protocol Stop: 11/06/17 20:59 Last Admin: 09/11/17 20:47 Dose: Not Given Simvastatin (Zocor) 40 mg PO HS [facility] PRN Reason: Protocol Stop: 11/06/17 20:59 Last Admin: 09/11/17 20:48 Dose: Not Given Sodium Phosphate (Fleet Enema) 135 ml RC DAILY PRN PRN Reason: Constipation Stop: 11/06/17 16:35 General: Alert, Mild distress HEENT: Atraumatic, EOMI, Mucous membr. moist/pink Neck: Supple, +2 carotid pulse wo bruit Cardiovascular: Regular rate, Normal S1, Normal S2, Other (increased HR) Lungs: Other (decrease breath sounds) Abdomen: Bowel sounds, Soft Extremities: no Clubbing, no Cyanosis, no Edema Neurological: Sensation intact Skin: no Rash Psych/Mental Status: Mood NL Nutritional Asmnt/Malnutr-PDOC - Dietary Evaluation Malnutrition Findings (Please click <Entered> for more info): Nutritional Asmnt/Malnutrition Start: 09/07/17 16: 06 Text: Status: Active Freq: Document 09/07/17 16:06 LCHENG (Rec: 09/07/17 16:34 [email or web address]) Nutritional Asmnt/Malnutrition Patient General Information Nutritional Screening Consult Diagnosis Dehydration, leukcytosis, dementia Pertinent Medical Hx/Surgical Hx HTN, DM, Dyslipidemia, Arthritis, Dementia, Hyperlipidemia, Anxiety, Osteoporosis, Degenerative joint disease, Neurophay. Subjective Information Per H&P, pt was on pureed NCS, NSPOT diet from [facility] ([facility]). Pt had anorexia more than one month and wt loss of 25lb in the past two months. Pt was transfered to ICU d/t rapid response. Families were aside, not a propriate time to approach. Currently no plan for nutrition d/t pt is not responding per RN. Current Diet Order/ Nutrition Support no diet order/swallowing eval pending Pertinent Medications D5 50ml/hr Pertinent Labs 09/07 Na 143, K 4.6, Cl 111 H, BUN 53 H, Cr 0.9 GLU 182 H, POC 164 H Nutritional Hx/Data Height 1.42 m Height (Calculated Centimeters) 142.2 Current Weight (lbs) 55.338 kg Weight (Calculated Kilograms) 55.3 Weight (Calculated Grams) 40123.3 [place] Body Weight 90 Recent Weight Change Yes Weight Status Overweight GI Symptoms Food Allergies No Skin Integrity/Comment: 11/09 pretibial pitting edema Estimated Nutritional Goals BEE in Kcals: Using Current wt Calories/Kcals/Kg 30 Kcals Calculated 1664 Protein: Using Current wt Protein g/k-1.2 Protein Calculated 56-67 Fluid: ml 1664-1943ml (30-35ml/kg) Nutritional Problem 1. Problem Problem Involuntary weight loss Etiology anorexia for more then one month Signs/Symptoms: recent wt loss of 25lb in two month Malnutrition Alert Interpretation of weight loss (Severe) >5% in 1 month Intervention/Recommendation Comments No nutrition intervention at this time. RD will follow up as high risk in 1-2 days. Expected Outcomes/Goals Expected Outcomes/Goals Pt to meet 50% of nutritional needs in the following 3 days.
--- NOTE | 2017-09-12 09:57 | GI Progress Note ---
Subjective - Review of Systems Service Date: 09/12/17 Subjective: Plan is to transfer to [facility] for PTC tube Objective - Results Result Diagrams: 09/12/17 05:30 09/12/17 05:30 Recent Labs: Laboratory Last Values WBC 8.0 Th/cmm (4.8-10.8) D 09/12/17 05:30 RBC 3.63 Mil/cmm (3.80-5.20) L 09/12/17 05:30 Hgb 9.0 gm/dL (12-16) L 09/12/17 05:30 Hct 27.5 % (41.0-60) L D 09/12/17 05:30 MCV 75.9 fl (81-100) L 09/12/17 05:30 MCH 24.9 pg (27.0-31.0) L 09/12/17 05:30 MCHC Differential 32.8 pg (28.0-36.0) 09/12/17 05:30 RDW 14.4 % (11.5-20.0) 09/12/17 05:30 Plt Count 118 Th/cmm (150-400) L 09/12/17 05:30 MPV 9.8 fl 09/12/17 05:30 Neutrophils % 84.6 % (40.0-80.0) H 09/12/17 05:30 Band Neutrophils % 5 % (0-10) 09/11/17 04:55 Lymphocytes % 10.9 % (20.0-50.0) L 09/12/17 05:30 Monocytes % 3.4 % (2.0-10.0) 09/12/17 05:30 Eosinophils % 1.1 % (0.0-5.0) 09/12/17 05:30 Basophils % 0.0 % (0.0-2.0) 09/12/17 05:30 Neutrophils (Manual) 82 % (40-80) H 09/11/17 04:55 Lymphocytes 11 % (20-50) L 09/11/17 04:55 Monocytes 2 % (2-10) 09/11/17 04:55 Eosinophils 0 % (0-5) 09/11/17 04:55 Basophils 0 % (0-3) 09/11/17 04:55 Platelet Estimate ADEQUATE (NORMAL) 09/11/17 04:55 Platelet Morphology NORMAL (NORMAL) 09/11/17 04:55 Anisocytosis 1+ 09/10/17 05:48 Microcytosis 1+ 09/11/17 04:55 RBC Morph Micro Appear ABNORMAL (NORMAL) 09/11/17 04:55 Eos Smear Source URINE 09/09/17 21:29 Eos Smear Total Cells NONE SEEN (NONE SEEN) 09/09/17 21:29 PT 10.9 SECONDS (9.5-11.5) 09/11/17 10:04 INR 1.05 (0.5-1.4) 09/11/17 10:04 PTT (Actin FS) 32.9 SECONDS (26.0-38.0) 09/11/17 10:04 Specimen Source Arterial 09/09/17 08:53 Sample Site Left Radial 09/09/17 08:53 pH 7.37 (7.35-7.45) 09/09/17 08:53 pCO2 28.0 mmHg (35.0-45.0) L 09/09/17 08:53 pO2 100.0 mmHg (80.0-100.0) 09/09/17 08:53 HCO3 18.9 mEq/L (20.0-26.0) L 09/09/17 08:53 Base Excess -7.7 mEq/L (-3.0-3.0) L 09/09/17 08:53 O2 Saturation 98.0 % (92.0-100.0) 09/09/17 08:53 Vinod Test YES 09/09/17 08:53 Vent Rate NA 09/09/17 08:53 Inspired O2 28 09/09/17 08:53 Tidal Volume NA 09/09/17 08:53 PEEP NA 09/09/17 08:53 Pressure (ins/psv/peep) NA 09/09/17 08:53 Critical Value FERNANDO CALLIE 09/09/17 08:53 Sodium 142 mEq/L (136-145) 09/12/17 05:30 Potassium 3.3 mEq/L (3.5-5.1) L 09/12/17 05:30 Chloride 116 mEq/L (98-107) H 09/12/17 05:30 Carbon Dioxide 19.4 mEq/L (21.0-31.0) L 09/12/17 05:30 Anion Gap 9.9 (7.0-16.0) 09/12/17 05:30 BUN 44 mg/dL (7-25) H 09/12/17 05:30 Creatinine 2.6 mg/dL (0.6-1.2) H 09/12/17 05:30 Est GFR ( Amer) TNP 09/12/17 05:30 Est GFR (Non-Af Amer) TNP 09/12/17 05:30 BUN/Creatinine Ratio 16.9 09/12/17 05:30 Glucose 119 mg/dL (40-70) H 09/12/17 05:30 POC Glucose 118 MG/DL (70 - 105) H 09/12/17 05:37 Hemoglobin A1c % 5.7 % (4.0-6.0) 09/07/17 10:40 Whole Bld Lactic Acid 2.66 mmol/L (0.60-1.99) H* 09/10/17 07:48 Uric Acid 5.4 mg/dL (2.3-6.6) 09/10/17 05:48 Calcium 7.2 mg/dL (8.6-10.3) L 09/12/17 05:30 Phosphorus 3.2 mg/dL (2.5-5.0) 09/11/17 04:55 Magnesium 2.0 mg/dL (1.9-2.7) 09/12/17 05:30 Total Bilirubin 0.7 mg/dL (0.3-1.0) 09/12/17 05:30 AST 12 U/L (13-39) L 09/12/17 05:30 ALT 21 U/L (7-52) 09/12/17 05:30 Alkaline Phosphatase 185 U/L (34-104) H 09/12/17 05:30 Ammonia 29 umol/L (16-53) 09/11/17 04:55 Troponin I 0.20 ng/mL (0.01-0.05) H* D 09/08/17 05:57 B-Natriuretic Peptide 311.0 pg/mL (5.0-100.0) H 09/12/17 05:30 Total Protein 4.5 gm/dL (6.0-8.3) L 09/12/17 05:30 Albumin 1.7 gm/dL (3.7-5.3) L 09/12/17 05:30 Globulin 2.8 gm/dL 09/12/17 05:30 Albumin/Globulin Ratio 0.6 (1.0-1.8) L 09/12/17 05:30 Lipase 20 U/L (11-82) 09/07/17 10:40 Urine Source CATH 09/07/17 11:30 Urine Color YELLOW 09/07/17 11:30 Urine Clarity HAZY (CLEAR) 09/07/17 11:30 Urine pH 5.5 (4.6 - 8.0) 09/07/17 11:30 Ur Specific [place] >= 1.030 (1.005-1.030) 09/07/17 11:30 Urine Protein 100 mg/dL (NEGATIVE) H 09/07/17 11:30 Urine Glucose (UA) NEGATIVE mg/dL (NEGATIVE) 09/07/17 11:30 Urine Ketones TRACE mg/dL (NEGATIVE) 09/07/17 11:30 Urine Blood NEGATIVE (NEGATIVE) 09/07/17 11:30 Urine Nitrate NEGATIVE (NEGATIVE) 09/07/17 11:30 Urine Bilirubin SMALL (NEGATIVE) H 09/07/17 11:30 Urine Urobilinogen 2.0 E.U./dL (0.2 - 1.0) 09/07/17 11:30 Ur Leukocyte Esterase NEGATIVE (NEGATIVE) 09/07/17 11:30 Urine RBC 0-2 /hpf (0-5) 09/07/17 11:30 Urine WBC 0-2 /hpf (0-5) 09/07/17 11:30 Ur Epithelial Cells MODERATE /lpf (FEW) 09/07/17 11:30 Urine Bacteria FEW /hpf (NONE SEEN) 09/07/17 11:30 Fine Granular Casts 0-2 /lpf (NONE SEEN) H 09/07/17 11:30 Coarse Granular Casts 2-5 /lpf (NONE SEEN) H 09/07/17 11:30 Urine Mucus FEW /lpf (FEW) 09/07/17 11:30 U Random Total Protein 104.0 mg/dL 09/10/17 21:45 Ur Random Sodium 70 mmol/L 09/10/17 21:45 Urine Collection Time 24 hours 09/10/17 21:45 Urine Total Volume 550 ml 09/10/17 21:45 Urine Creatinine 42.0 mg/dl (28.0-217.0) 09/10/17 21:45 Creat Clearance 24 Hr 8 ml/min (88.00-128.00) L 09/10/17 21:45 U Tot Protein 24h, Calc 572.0 mg/24 hr (0-165) H 09/10/17 21:45 Ur Sodium 24 Hour 39 mmol/24H (40-220) L 09/10/17 21:45 Body Surface Area 1.54 09/10/17 21:45 Random Vancomycin 14.8 ug/mL (5.0-40.0) 09/09/17 05:54 - Physical Exam Vitals and I&O: Vital Signs Temp 98.5 F 09/12/17 08:12 Pulse 87 09/12/17 08:12 Resp 18 09/12/17 08:12 BP 162/88 09/12/17 08:12 Pulse Ox 96 09/12/17 08:12 Intake & Output 09/11/17 09/12/17 09/12/17 18:59 06:59 18:59 Intake Total 959.380 8857 Output Total 270 Balance 386.910 2778 -270 Weight (lbs) 66.224 kg Intake: Intake, IV Amount 218.323 2936 D5-0.9%Ns 1,000 ml @ 125 470.833 mls/hr IV .Q8H [facility] Rx#: [id number] Dextrose 5% 1,000 ml @ 1000 125 mls/hr IV .Q8H [facility] Rx #:[id number] Piperacillin Sodium/ 50 100 Tazobact 2.25 gm In Sodium Chloride 0.9% 50 ml @ 100 mls/hr IV Q6HR [facility] Rx#:[id number] Output: Gastric Drainage 270 Active Medications: Current Medications Acetaminophen (Tylenol) 650 mg PO Q6HR PRN PRN Reason: MILD PAIN OR TEMP>100.4 Stop: 11/06/17 16:35 Alendronate Sodium (Fosamax) 70 mg PO QSAT [facility] Stop: 11/08/17 06:29 Last Admin: 09/09/17 07:10 Dose: Not Given Aspirin (Aspirin Chewable) 81 mg PO DAILY [facility] Stop: 11/07/17 08:59 Last Admin: 09/11/17 09:46 Dose: Not Given Bisacodyl (Dulcolax 10 Mg Supp) 10 mg RC DAILY PRN PRN Reason: IF MOM INEFFECTIVE Stop: 11/06/17 16:35 Clonazepam (Klonopin) 1 mg PO DAILY [facility] PRN Reason: Protocol Stop: 11/07/17 08:59 Last Admin: 09/11/17 09:46 Dose: Not Given Clonazepam (Klonopin) 2 mg PO HS [facility] Stop: 11/10/17 20:59 Last Admin: 09/11/17 20:47 Dose: Not Given Cyanocobalamin (Vitamin B12) 1,000 mcg PO DAILY [facility] Stop: 11/07/17 08:59 Last Admin: 09/11/17 09:46 Dose: Not Given Diltiazem HCl (Cardizem) 20 mg IVP Q3H PRN PRN Reason: Heart Rate > than 120 bpm Stop: 11/06/17 16:44 Docusate Sodium (Colace) 100 mg PO DAILY [facility] Stop: 11/07/17 08:59 Last Admin: 09/11/17 09:47 Dose: Not Given Enalaprilat (Vasotec) 1.25 mg IVP Q6HR PRN PRN Reason: SBP > 170 Stop: 11/10/17 04:29 Last Admin: 09/11/17 04:47 Dose: 1.25 mg Heparin Sodium (Porcine) (Heparin) 5,000 units SUBQ Q12HR [facility] Stop: 11/06/17 20:59 Last Admin: 09/11/17 20:57 Dose: 5,000 units Phenylephrine HCl 10 mg/ (Sodium Chloride) 250 mls @ 30 mls/hr IV TITR [facility]; 20 MCG/MIN PRN Reason: Protocol Stop: 11/06/17 21:59 Last Titration: 09/08/17 06:01 Dose: 0 mcg/min, 0 mls/hr Piperacillin Sod/Tazobactam (Sod 2.25 gm/ Sodium Chloride) 50 mls @ 100 mls/hr IV Q6HR [facility] Stop: 11/07/17 11:59 Last Admin: 09/12/17 06:30 Dose: 100 mls/hr Norepinephrine Bitartrate 4 mg (/ Dextrose) 254 mls @ 0 mls/hr IV STAT PRN; Protocol; Per Protocol PRN Reason: BP MAINTENANCE (PER PROTOCOL) Stop: 11/06/17 16:11 Last Titration: 09/10/17 06:20 Dose: 0 mcg/min, 0 mls/hr Dextrose (D5w) 1,000 mls @ 125 mls/hr IV .Q8H [facility] Stop: 11/10/17 15:48 Last Admin: 09/12/17 02:18 Dose: 125 mls/hr Potassium Chloride (Potassium Chloride) 20 meq in 100 mls @ 50 mls/hr IV Q2H [facility] Stop: 09/12/17 12:14 Insulin Aspart (Novolog Insulin Sliding Scale) 0 units SUBQ ACHS [facility] PRN Reason: Protocol Stop: 11/07/17 11:29 Last Admin: 09/12/17 07:47 Dose: Not Given Insulin Detemir (Levemir Insulin) 10 units SUBQ HS [facility] Stop: 11/06/17 20:59 Last Admin: 09/11/17 20:56 Dose: 10 units Lactobacillus Rhamnosus (Culturelle) 1 each PO DAILY [facility] Stop: 11/09/17 08:59 Last Admin: 09/11/17 09:47 Dose: Not Given Lorazepam (Ativan) 0.5 mg PO Q6HR PRN; Protocol PRN Reason: Anxiety Stop: 11/06/17 16:35 Magnesium Hydroxide (Milk Of Magnesia) 30 ml PO DAILY PRN PRN Reason: Constipation Stop: 11/06/17 16:35 Megestrol Acetate (Megace) 400 mg PO TID [facility] Stop: 11/06/17 20:59 Last Admin: 09/11/17 20:48 Dose: Not Given Miscellaneous (Clinical Monitoring) 1 ea PRN PRN PRN Reason: RENAL DOSE ZOSYN Stop: 11/07/17 07:51 Miscellaneous (Zosyn Iv Per Pharmacy) 1 ea PRN PRN PRN Reason: PROTOCOL Stop: 11/07/17 14:31 Miscellaneous (Probiotic Screen) 1 ea PRN PRN PRN Reason: PROTOCOL Stop: 11/08/17 10:15 Morphine Sulfate (Morphine) 1 mg IVP Q4HR PRN PRN Reason: Pain (Severe) Stop: 11/07/17 18:24 Morphine Sulfate (Morphine) 1 mg IVP Q6HR PRN PRN Reason: Pain (Moderate) Stop: 11/10/17 17:59 Multivitamins/Vitamin C (Theragran) 1 tab PO DAILY [facility] Stop: 11/07/17 08:59 Last Admin: 09/11/17 09:47 Dose: Not Given Pantoprazole Sodium (Protonix) 40 mg IVP DAILY [facility] Stop: 11/06/17 18:59 Last Admin: 09/11/17 09:45 Dose: 40 mg Quetiapine Fumarate (Seroquel) 100 mg PO HS [facility] PRN Reason: Protocol Stop: 11/06/17 20:59 Last Admin: 09/11/17 20:47 Dose: Not Given Simvastatin (Zocor) 40 mg PO HS [facility] PRN Reason: Protocol Stop: 11/06/17 20:59 Last Admin: 09/11/17 20:48 Dose: Not Given Sodium Phosphate (Fleet Enema) 135 ml RC DAILY PRN PRN Reason: Constipation Stop: 11/06/17 16:35 General: Alert, Mild distress HEENT: Atraumatic, EOMI, Mucous membr. moist/pink Neck: Supple, +2 carotid pulse wo bruit Cardiovascular: Regular rate, Normal S1, Normal S2, Other (increased HR) Lungs: Other (decrease breath sounds) Abdomen: Bowel sounds, Soft Extremities: no Clubbing, no Cyanosis, no Edema Neurological: Sensation intact Skin: no Rash Psych/Mental Status: Mood NL Assessment/Plan - Assessment Assessment: # Septic shock, likely abdominal source Suspect severe cholecystitis at this point given the appearance of the US with markedly distended GB. She also grimaces to abdominal exam, which indicates an abdominal source. HIDA and CT consistent with cholecystitis, which is severe by clinical standards. Patient would be best served by percutaneous cholecystostomy tube if possible, or cholecystectomy if deemed safe by surgery. # Anorexia # Dysphasia G tube placement is reasonable, but would need to be after her infectious process resolves Recommendations: - appreciate surgical input, likely would still benefit from surgery once stabilized after PTC tube - IR consultation for PTC cholecystostomy tube for gallbladder drainage, possible transfer to [facility] for cholecystostomy tube - broad abx and ICU blood pressure support - NPO - appreciate ID input Prognosis is guarded at this time, and likely without GB drainage may be poor. Thank you for allowing me to participate in this patient's care.
[2017-09-12] MEDS: Lactobacillus Rhamnosus 10 Billion CFU Capsule PO SCH (10:02)
[2017-09-12] MEDS: Aspirin 81mg Chewable Tab PO SCH (10:02)
[2017-09-12] MEDS: Multivitamin Tab PO SCH (10:02)
[2017-09-12] MEDS ORDERED: Potassium Chloride 40 MEQ, Lidocaine 1% 20mL Vial 25 MG in Sodium Chloride 0.9% 250 ML IV ONE (11:12)
--- NOTE | 2017-09-12 12:27 | Infectious Disease Prog Note ---
Infectious Disease Subjective - Review of Systems Service Date: 09/12/17 Events since last encounter: PTC placement was performed yesterday. Otherwise, she is doing well. Subjective: There is no new change. There is no fever. Infectious Disease Objective - Results Result Diagrams: 09/12/17 05:30 09/12/17 05:30 Recent Labs: Laboratory Last Values WBC 8.0 Th/cmm (4.8-10.8) D 09/12/17 05:30 RBC 3.63 Mil/cmm (3.80-5.20) L 09/12/17 05:30 Hgb 9.0 gm/dL (12-16) L 09/12/17 05:30 Hct 27.5 % (41.0-60) L D 09/12/17 05:30 MCV 75.9 fl (81-100) L 09/12/17 05:30 MCH 24.9 pg (27.0-31.0) L 09/12/17 05:30 MCHC Differential 32.8 pg (28.0-36.0) 09/12/17 05:30 RDW 14.4 % (11.5-20.0) 09/12/17 05:30 Plt Count 118 Th/cmm (150-400) L 09/12/17 05:30 MPV 9.8 fl 09/12/17 05:30 Neutrophils % 84.6 % (40.0-80.0) H 09/12/17 05:30 Band Neutrophils % 5 % (0-10) 09/11/17 04:55 Lymphocytes % 10.9 % (20.0-50.0) L 09/12/17 05:30 Monocytes % 3.4 % (2.0-10.0) 09/12/17 05:30 Eosinophils % 1.1 % (0.0-5.0) 09/12/17 05:30 Basophils % 0.0 % (0.0-2.0) 09/12/17 05:30 Neutrophils (Manual) 82 % (40-80) H 09/11/17 04:55 Lymphocytes 11 % (20-50) L 09/11/17 04:55 Monocytes 2 % (2-10) 09/11/17 04:55 Eosinophils 0 % (0-5) 09/11/17 04:55 Basophils 0 % (0-3) 09/11/17 04:55 Platelet Estimate ADEQUATE (NORMAL) 09/11/17 04:55 Platelet Morphology NORMAL (NORMAL) 09/11/17 04:55 Anisocytosis 1+ 09/10/17 05:48 Microcytosis 1+ 09/11/17 04:55 RBC Morph Micro Appear ABNORMAL (NORMAL) 09/11/17 04:55 Eos Smear Source URINE 09/09/17 21:29 Eos Smear Total Cells NONE SEEN (NONE SEEN) 09/09/17 21:29 PT 10.9 SECONDS (9.5-11.5) 09/11/17 10:04 INR 1.05 (0.5-1.4) 09/11/17 10:04 PTT (Actin FS) 32.9 SECONDS (26.0-38.0) 09/11/17 10:04 Specimen Source Arterial 09/09/17 08:53 Sample Site Left Radial 09/09/17 08:53 pH 7.37 (7.35-7.45) 09/09/17 08:53 pCO2 28.0 mmHg (35.0-45.0) L 09/09/17 08:53 pO2 100.0 mmHg (80.0-100.0) 09/09/17 08:53 HCO3 18.9 mEq/L (20.0-26.0) L 09/09/17 08:53 Base Excess -7.7 mEq/L (-3.0-3.0) L 09/09/17 08:53 O2 Saturation 98.0 % (92.0-100.0) 09/09/17 08:53 Vinod Test YES 09/09/17 08:53 Vent Rate NA 09/09/17 08:53 Inspired O2 28 09/09/17 08:53 Tidal Volume NA 09/09/17 08:53 PEEP NA 09/09/17 08:53 Pressure (ins/psv/peep) NA 09/09/17 08:53 Critical Value FERNANDO LEDESMA 09/09/17 08:53 Sodium 142 mEq/L (136-145) 09/12/17 05:30 Potassium 3.3 mEq/L (3.5-5.1) L 09/12/17 05:30 Chloride 116 mEq/L (98-107) H 09/12/17 05:30 Carbon Dioxide 19.4 mEq/L (21.0-31.0) L 09/12/17 05:30 Anion Gap 9.9 (7.0-16.0) 09/12/17 05:30 BUN 44 mg/dL (7-25) H 09/12/17 05:30 Creatinine 2.6 mg/dL (0.6-1.2) H 09/12/17 05:30 Est GFR ( Amer) TNP 09/12/17 05:30 Est GFR (Non-Af Amer) TNP 09/12/17 05:30 BUN/Creatinine Ratio 16.9 09/12/17 05:30 Glucose 119 mg/dL (40-70) H 09/12/17 05:30 POC Glucose 118 MG/DL (70 - 105) H 09/12/17 05:37 Hemoglobin A1c % 5.7 % (4.0-6.0) 09/07/17 10:40 Whole Bld Lactic Acid 2.66 mmol/L (0.60-1.99) H* 09/10/17 07:48 Uric Acid 5.4 mg/dL (2.3-6.6) 09/10/17 05:48 Calcium 7.2 mg/dL (8.6-10.3) L 09/12/17 05:30 Phosphorus 3.2 mg/dL (2.5-5.0) 09/11/17 04:55 Magnesium 2.0 mg/dL (1.9-2.7) 09/12/17 05:30 Total Bilirubin 0.7 mg/dL (0.3-1.0) 09/12/17 05:30 AST 12 U/L (13-39) L 09/12/17 05:30 ALT 21 U/L (7-52) 09/12/17 05:30 Alkaline Phosphatase 185 U/L (34-104) H 09/12/17 05:30 Ammonia 29 umol/L (16-53) 09/11/17 04:55 Troponin I 0.20 ng/mL (0.01-0.05) H* D 09/08/17 05:57 B-Natriuretic Peptide 311.0 pg/mL (5.0-100.0) H 09/12/17 05:30 Total Protein 4.5 gm/dL (6.0-8.3) L 09/12/17 05:30 Albumin 1.7 gm/dL (3.7-5.3) L 09/12/17 05:30 Globulin 2.8 gm/dL 09/12/17 05:30 Albumin/Globulin Ratio 0.6 (1.0-1.8) L 09/12/17 05:30 Lipase 20 U/L (11-82) 09/07/17 10:40 Urine Source CATH 09/07/17 11:30 Urine Color YELLOW 09/07/17 11:30 Urine Clarity HAZY (CLEAR) 09/07/17 11:30 Urine pH 5.5 (4.6 - 8.0) 09/07/17 11:30 Ur Specific [place] >= 1.030 (1.005-1.030) 09/07/17 11:30 Urine Protein 100 mg/dL (NEGATIVE) H 09/07/17 11:30 Urine Glucose (UA) NEGATIVE mg/dL (NEGATIVE) 09/07/17 11:30 Urine Ketones TRACE mg/dL (NEGATIVE) 09/07/17 11:30 Urine Blood NEGATIVE (NEGATIVE) 09/07/17 11:30 Urine Nitrate NEGATIVE (NEGATIVE) 09/07/17 11:30 Urine Bilirubin SMALL (NEGATIVE) H 09/07/17 11:30 Urine Urobilinogen 2.0 E.U./dL (0.2 - 1.0) 09/07/17 11:30 Ur Leukocyte Esterase NEGATIVE (NEGATIVE) 09/07/17 11:30 Urine RBC 0-2 /hpf (0-5) 09/07/17 11:30 Urine WBC 0-2 /hpf (0-5) 09/07/17 11:30 Ur Epithelial Cells MODERATE /lpf (FEW) 09/07/17 11:30 Urine Bacteria FEW /hpf (NONE SEEN) 09/07/17 11:30 Fine Granular Casts 0-2 /lpf (NONE SEEN) H 09/07/17 11:30 Coarse Granular Casts 2-5 /lpf (NONE SEEN) H 09/07/17 11:30 Urine Mucus FEW /lpf (FEW) 09/07/17 11:30 U Random Total Protein 104.0 mg/dL 09/10/17 21:45 Ur Random Sodium 70 mmol/L 09/10/17 21:45 Urine Collection Time 24 hours 09/10/17 21:45 Urine Total Volume 550 ml 09/10/17 21:45 Urine Creatinine 42.0 mg/dl (28.0-217.0) 09/10/17 21:45 Creat Clearance 24 Hr 8 ml/min (88.00-128.00) L 09/10/17 21:45 U Tot Protein 24h, Calc 572.0 mg/24 hr (0-165) H 09/10/17 21:45 Ur Sodium 24 Hour 39 mmol/24H (40-220) L 09/10/17 21:45 Body Surface Area 1.54 09/10/17 21:45 Random Vancomycin 14.8 ug/mL (5.0-40.0) 09/09/17 05:54 - Physical Exam Vitals and I&O: Vital Signs Temp 98.8 F 09/12/17 12:22 Pulse 96 09/12/17 12:22 Resp 18 09/12/17 12:22 BP 94/74 09/12/17 12:22 Pulse Ox 100 09/12/17 12:22 Intake & Output 09/11/17 09/12/17 09/12/17 18:59 06:59 18:59 Intake Total 224.313 8850 Output Total 270 Balance 164.993 5463 -270 Weight (lbs) 66.224 kg Intake: Intake, IV Amount 219.997 4005 D5-0.9%Ns 1,000 ml @ 125 470.833 mls/hr IV .Q8H [facility] Rx#: [id number] Dextrose 5% 1,000 ml @ 1000 125 mls/hr IV .Q8H [facility] Rx #:[id number] Piperacillin Sodium/ 50 100 Tazobact 2.25 gm In Sodium Chloride 0.9% 50 ml @ 100 mls/hr IV Q6HR [facility] Rx#:[id number] Output: Gastric Drainage 270 Active Medications: Current Medications Acetaminophen (Tylenol) 650 mg PO Q6HR PRN PRN Reason: MILD PAIN OR TEMP>100.4 Stop: 11/06/17 16:35 Alendronate Sodium (Fosamax) 70 mg PO QSAT [facility] Stop: 11/08/17 06:29 Last Admin: 09/09/17 07:10 Dose: Not Given Aspirin (Aspirin Chewable) 81 mg PO DAILY [facility] Stop: 11/07/17 08:59 Last Admin: 09/12/17 10:02 Dose: 81 mg Bisacodyl (Dulcolax 10 Mg Supp) 10 mg RC DAILY PRN PRN Reason: IF MOM INEFFECTIVE Stop: 11/06/17 16:35 Clonazepam (Klonopin) 1 mg PO DAILY [facility] PRN Reason: Protocol Stop: 11/07/17 08:59 Last Admin: 09/12/17 10:03 Dose: 1 mg Clonazepam (Klonopin) 2 mg PO HS [facility] Stop: 11/10/17 20:59 Last Admin: 09/11/17 20:47 Dose: Not Given Cyanocobalamin (Vitamin B12) 1,000 mcg PO DAILY [facility] Stop: 11/07/17 08:59 Last Admin: 09/12/17 10:02 Dose: 1,000 mcg Diltiazem HCl (Cardizem) 20 mg IVP Q3H PRN PRN Reason: Heart Rate > than 120 bpm Stop: 11/06/17 16:44 Docusate Sodium (Colace) 100 mg PO DAILY [facility] Stop: 11/07/17 08:59 Last Admin: 09/12/17 10:02 Dose: 100 mg Enalaprilat (Vasotec) 1.25 mg IVP Q6HR PRN PRN Reason: SBP > 170 Stop: 11/10/17 04:29 Last Admin: 09/11/17 04:47 Dose: 1.25 mg Heparin Sodium (Porcine) (Heparin) 5,000 units SUBQ Q12HR [facility] Stop: 11/06/17 20:59 Last Admin: 09/12/17 10:03 Dose: 5,000 units Phenylephrine HCl 10 mg/ (Sodium Chloride) 250 mls @ 30 mls/hr IV TITR [facility]; 20 MCG/MIN PRN Reason: Protocol Stop: 11/06/17 21:59 Last Titration: 09/08/17 06:01 Dose: 0 mcg/min, 0 mls/hr Piperacillin Sod/Tazobactam (Sod 2.25 gm/ Sodium Chloride) 50 mls @ 100 mls/hr IV Q6HR [facility] Stop: 11/07/17 11:59 Last Admin: 09/12/17 06:30 Dose: 100 mls/hr Norepinephrine Bitartrate 4 mg (/ Dextrose) 254 mls @ 0 mls/hr IV STAT PRN; Protocol; Per Protocol PRN Reason: BP MAINTENANCE (PER PROTOCOL) Stop: 11/06/17 16:11 Last Titration: 09/10/17 06:20 Dose: 0 mcg/min, 0 mls/hr Dextrose (D5w) 1,000 mls @ 125 mls/hr IV .Q8H [facility] Stop: 11/10/17 15:48 Last Admin: 09/12/17 02:18 Dose: 125 mls/hr Potassium Chloride 40 meq/ (Sodium Chloride) 270 mls @ 67 mls/hr IV X1 ONE Stop: 09/12/17 15:01 Last Admin: 09/12/17 11:18 Dose: 67 mls/hr Potassium Chloride 40 meq/Lidocaine HCl 25 mg/ Sodium Chloride 272.5 mls @ 68 mls/hr IV X1 ONE Stop: 09/12/17 15:12 Insulin Aspart (Novolog Insulin Sliding Scale) 0 units SUBQ ACHS [facility] PRN Reason: Protocol Stop: 11/07/17 11:29 Last Admin: 09/12/17 07:47 Dose: Not Given Insulin Detemir (Levemir Insulin) 10 units SUBQ HS [facility] Stop: 11/06/17 20:59 Last Admin: 09/11/17 20:56 Dose: 10 units Lactobacillus Rhamnosus (Culturelle) 1 each PO DAILY [facility] Stop: 11/09/17 08:59 Last Admin: 09/12/17 10:02 Dose: 1 each Lorazepam (Ativan) 0.5 mg PO Q6HR PRN; Protocol PRN Reason: Anxiety Stop: 11/06/17 16:35 Magnesium Hydroxide (Milk Of Magnesia) 30 ml PO DAILY PRN PRN Reason: Constipation Stop: 11/06/17 16:35 Megestrol Acetate (Megace) 400 mg PO TID [facility] Stop: 11/06/17 20:59 Last Admin: 09/12/17 10:02 Dose: 400 mg Miscellaneous (Clinical Monitoring) 1 ea MC PRN PRN PRN Reason: RENAL DOSE ZOSYN Stop: 11/07/17 07:51 Miscellaneous (Zosyn Iv Per Pharmacy) 1 ea MC PRN PRN PRN Reason: PROTOCOL Stop: 11/07/17 14:31 Miscellaneous (Probiotic Screen) 1 ea MC PRN PRN PRN Reason: PROTOCOL Stop: 11/08/17 10:15 Morphine Sulfate (Morphine) 1 mg IVP Q4HR PRN PRN Reason: Pain (Severe) Stop: 11/07/17 18:24 Morphine Sulfate (Morphine) 1 mg IVP Q6HR PRN PRN Reason: Pain (Moderate) Stop: 11/10/17 17:59 Multivitamins/Vitamin C (Theragran) 1 tab PO DAILY [facility] Stop: 11/07/17 08:59 Last Admin: 09/12/17 10:02 Dose: 1 tab Pantoprazole Sodium (Protonix) 40 mg IVP DAILY [facility] Stop: 11/06/17 18:59 Last Admin: 09/12/17 10:01 Dose: 40 mg Quetiapine Fumarate (Seroquel) 100 mg PO HS [facility] PRN Reason: Protocol Stop: 11/06/17 20:59 Last Admin: 09/11/17 20:47 Dose: Not Given Simvastatin (Zocor) 40 mg PO HS [facility] PRN Reason: Protocol Stop: 11/06/17 20:59 Last Admin: 09/11/17 20:48 Dose: Not Given Sodium Phosphate (Fleet Enema) 135 ml RC DAILY PRN PRN Reason: Constipation Stop: 11/06/17 16:35 General: no acute distress, well developed, well nourished HEENT: atraumatic, normocephalic, PERRLA, EOMI Neck: supple, no thyromegaly Cardiovascular: S1S2, regular Lungs: clear to auscultation bilaterally, clear to percussion Abdomen: soft, drain (PTC RUQ.), no tender, no distended, no guarding Extremities: no cyanosis, no clubbing, no edema Neurological: awake, alert, oriented Skin: intact Infectious Disease Assmt/Plan - Assessment Assessment: 1. sepsis. Improving. 2. Acute cholecystitis. 3. dementia. 4. acute renal failure. 5. S/p PTC placement. - Plan Plan: Aryaitnprateek zosyn. plan to do peg. Nutritional Asmnt/Malnutr-PDOC - Dietary Evaluation Malnutrition Findings (Please click <Entered> for more info): Nutritional Asmnt/Malnutrition Start: 09/07/17 16: 06 Text: Status: Active Freq: Document 09/07/17 16:06 ZAC (Rec: 09/07/17 16:34 [email or web address] [email or web address]) Nutritional Asmnt/Malnutrition Patient General Information Nutritional Screening Consult Diagnosis Dehydration, leukcytosis, dementia Pertinent Medical Hx/Surgical Hx HTN, DM, Dyslipidemia, Arthritis, Dementia, Hyperlipidemia, Anxiety, Osteoporosis, Degenerative joint disease, Neurophay. Subjective Information Per H&P, pt was on pureed NCS, NSPOT diet from [facility] ([facility]). Pt had anorexia more than one month and wt loss of 25lb in the past two months. Pt was transfered to ICU d/t rapid response. Families were aside, not a propriate time to approach. Currently no plan for nutrition d/t pt is not responding per RN. Current Diet Order/ Nutrition Support no diet order/swallowing eval pending Pertinent Medications D5 50ml/hr Pertinent Labs 09/07 Na 143, K 4.6, Cl 111 H, BUN 53 H, Cr 0.9 GLU 182 H, POC 164 H Nutritional Hx/Data Height 1.42 m Height (Calculated Centimeters) 142.2 Current Weight (lbs) 55.338 kg Weight (Calculated Kilograms) 55.3 Weight (Calculated Grams) 32743.3 Prosser Body Weight 90 Recent Weight Change Yes Weight Status Overweight GI Symptoms Food Allergies No Skin Integrity/Comment: 11/09 pretibial pitting edema Estimated Nutritional Goals BEE in Kcals: Using Current wt Calories/Kcals/Kg 30 Kcals Calculated 1664 Protein: Using Current wt Protein g/k-1.2 Protein Calculated 56-67 Fluid: ml 1664-1943ml (30-35ml/kg) Nutritional Problem 1. Problem Problem Involuntary weight loss Etiology anorexia for more then one month Signs/Symptoms: recent wt loss of 25lb in two month Malnutrition Alert Interpretation of weight loss (Severe) >5% in 1 month Intervention/Recommendation Comments No nutrition intervention at this time. RD will follow up as high risk in 1-2 days. Expected Outcomes/Goals Expected Outcomes/Goals Pt to meet 50% of nutritional needs in the following 3 days.
--- NOTE | 2017-09-12 13:11 | General Progress Note ---
Subjective - Review of Systems Service Date: 09/12/17 Subjective: more awake today, interacting, comfortable Objective - Results Result Diagrams: 09/12/17 05:30 09/12/17 05:30 Recent Labs: Laboratory Last Values WBC 8.0 Th/cmm (4.8-10.8) D 09/12/17 05:30 RBC 3.63 Mil/cmm (3.80-5.20) L 09/12/17 05:30 Hgb 9.0 gm/dL (12-16) L 09/12/17 05:30 Hct 27.5 % (41.0-60) L D 09/12/17 05:30 MCV 75.9 fl (81-100) L 09/12/17 05:30 MCH 24.9 pg (27.0-31.0) L 09/12/17 05:30 MCHC Differential 32.8 pg (28.0-36.0) 09/12/17 05:30 RDW 14.4 % (11.5-20.0) 09/12/17 05:30 Plt Count 118 Th/cmm (150-400) L 09/12/17 05:30 MPV 9.8 fl 09/12/17 05:30 Neutrophils % 84.6 % (40.0-80.0) H 09/12/17 05:30 Band Neutrophils % 5 % (0-10) 09/11/17 04:55 Lymphocytes % 10.9 % (20.0-50.0) L 09/12/17 05:30 Monocytes % 3.4 % (2.0-10.0) 09/12/17 05:30 Eosinophils % 1.1 % (0.0-5.0) 09/12/17 05:30 Basophils % 0.0 % (0.0-2.0) 09/12/17 05:30 Neutrophils (Manual) 82 % (40-80) H 09/11/17 04:55 Lymphocytes 11 % (20-50) L 09/11/17 04:55 Monocytes 2 % (2-10) 09/11/17 04:55 Eosinophils 0 % (0-5) 09/11/17 04:55 Basophils 0 % (0-3) 09/11/17 04:55 Platelet Estimate ADEQUATE (NORMAL) 09/11/17 04:55 Platelet Morphology NORMAL (NORMAL) 09/11/17 04:55 Anisocytosis 1+ 09/10/17 05:48 Microcytosis 1+ 09/11/17 04:55 RBC Morph Micro Appear ABNORMAL (NORMAL) 09/11/17 04:55 Eos Smear Source URINE 09/09/17 21:29 Eos Smear Total Cells NONE SEEN (NONE SEEN) 09/09/17 21:29 PT 10.9 SECONDS (9.5-11.5) 09/11/17 10:04 INR 1.05 (0.5-1.4) 09/11/17 10:04 PTT (Actin FS) 32.9 SECONDS (26.0-38.0) 09/11/17 10:04 Specimen Source Arterial 09/09/17 08:53 Sample Site Left Radial 09/09/17 08:53 pH 7.37 (7.35-7.45) 09/09/17 08:53 pCO2 28.0 mmHg (35.0-45.0) L 09/09/17 08:53 pO2 100.0 mmHg (80.0-100.0) 09/09/17 08:53 HCO3 18.9 mEq/L (20.0-26.0) L 09/09/17 08:53 Base Excess -7.7 mEq/L (-3.0-3.0) L 09/09/17 08:53 O2 Saturation 98.0 % (92.0-100.0) 09/09/17 08:53 Vinod Test YES 09/09/17 08:53 Vent Rate NA 09/09/17 08:53 Inspired O2 28 09/09/17 08:53 Tidal Volume NA 09/09/17 08:53 PEEP NA 09/09/17 08:53 Pressure (ins/psv/peep) NA 09/09/17 08:53 Critical Value FERNANDO CALLIE 09/09/17 08:53 Sodium 142 mEq/L (136-145) 09/12/17 05:30 Potassium 3.3 mEq/L (3.5-5.1) L 09/12/17 05:30 Chloride 116 mEq/L (98-107) H 09/12/17 05:30 Carbon Dioxide 19.4 mEq/L (21.0-31.0) L 09/12/17 05:30 Anion Gap 9.9 (7.0-16.0) 09/12/17 05:30 BUN 44 mg/dL (7-25) H 09/12/17 05:30 Creatinine 2.6 mg/dL (0.6-1.2) H 09/12/17 05:30 Est GFR ( Amer) TNP 09/12/17 05:30 Est GFR (Non-Af Amer) TNP 09/12/17 05:30 BUN/Creatinine Ratio 16.9 09/12/17 05:30 Glucose 119 mg/dL (40-70) H 09/12/17 05:30 POC Glucose 118 MG/DL (70 - 105) H 09/12/17 05:37 Hemoglobin A1c % 5.7 % (4.0-6.0) 09/07/17 10:40 Whole Bld Lactic Acid 2.66 mmol/L (0.60-1.99) H* 09/10/17 07:48 Uric Acid 5.4 mg/dL (2.3-6.6) 09/10/17 05:48 Calcium 7.2 mg/dL (8.6-10.3) L 09/12/17 05:30 Phosphorus 3.2 mg/dL (2.5-5.0) 09/11/17 04:55 Magnesium 2.0 mg/dL (1.9-2.7) 09/12/17 05:30 Total Bilirubin 0.7 mg/dL (0.3-1.0) 09/12/17 05:30 AST 12 U/L (13-39) L 09/12/17 05:30 ALT 21 U/L (7-52) 09/12/17 05:30 Alkaline Phosphatase 185 U/L (34-104) H 09/12/17 05:30 Ammonia 29 umol/L (16-53) 09/11/17 04:55 Troponin I 0.20 ng/mL (0.01-0.05) H* D 09/08/17 05:57 B-Natriuretic Peptide 311.0 pg/mL (5.0-100.0) H 09/12/17 05:30 Total Protein 4.5 gm/dL (6.0-8.3) L 09/12/17 05:30 Albumin 1.7 gm/dL (3.7-5.3) L 09/12/17 05:30 Globulin 2.8 gm/dL 09/12/17 05:30 Albumin/Globulin Ratio 0.6 (1.0-1.8) L 09/12/17 05:30 Lipase 20 U/L (11-82) 09/07/17 10:40 Urine Source CATH 09/07/17 11:30 Urine Color YELLOW 09/07/17 11:30 Urine Clarity HAZY (CLEAR) 09/07/17 11:30 Urine pH 5.5 (4.6 - 8.0) 09/07/17 11:30 Ur Specific [place] >= 1.030 (1.005-1.030) 09/07/17 11:30 Urine Protein 100 mg/dL (NEGATIVE) H 09/07/17 11:30 Urine Glucose (UA) NEGATIVE mg/dL (NEGATIVE) 09/07/17 11:30 Urine Ketones TRACE mg/dL (NEGATIVE) 09/07/17 11:30 Urine Blood NEGATIVE (NEGATIVE) 09/07/17 11:30 Urine Nitrate NEGATIVE (NEGATIVE) 09/07/17 11:30 Urine Bilirubin SMALL (NEGATIVE) H 09/07/17 11:30 Urine Urobilinogen 2.0 E.U./dL (0.2 - 1.0) 09/07/17 11:30 Ur Leukocyte Esterase NEGATIVE (NEGATIVE) 09/07/17 11:30 Urine RBC 0-2 /hpf (0-5) 09/07/17 11:30 Urine WBC 0-2 /hpf (0-5) 09/07/17 11:30 Ur Epithelial Cells MODERATE /lpf (FEW) 09/07/17 11:30 Urine Bacteria FEW /hpf (NONE SEEN) 09/07/17 11:30 Fine Granular Casts 0-2 /lpf (NONE SEEN) H 09/07/17 11:30 Coarse Granular Casts 2-5 /lpf (NONE SEEN) H 09/07/17 11:30 Urine Mucus FEW /lpf (FEW) 09/07/17 11:30 U Random Total Protein 104.0 mg/dL 09/10/17 21:45 Ur Random Sodium 70 mmol/L 09/10/17 21:45 Urine Collection Time 24 hours 09/10/17 21:45 Urine Total Volume 550 ml 09/10/17 21:45 Urine Creatinine 42.0 mg/dl (28.0-217.0) 09/10/17 21:45 Creat Clearance 24 Hr 8 ml/min (88.00-128.00) L 09/10/17 21:45 U Tot Protein 24h, Calc 572.0 mg/24 hr (0-165) H 09/10/17 21:45 Ur Sodium 24 Hour 39 mmol/24H (40-220) L 09/10/17 21:45 Body Surface Area 1.54 09/10/17 21:45 Random Vancomycin 14.8 ug/mL (5.0-40.0) 09/09/17 05:54 - Physical Exam Vitals and I&O: Vital Signs Temp 98.8 F 09/12/17 12:22 Pulse 96 09/12/17 12:22 Resp 18 09/12/17 12:22 BP 94/74 09/12/17 12:22 Pulse Ox 100 09/12/17 12:22 Intake & Output 09/11/17 09/12/17 09/12/17 18:59 06:59 18:59 Intake Total 150.223 7103 50 Output Total 270 Balance 798.661 3763 -220 Weight (lbs) 66.224 kg Intake: Intake, IV Amount 066.632 5536 50 D5-0.9%Ns 1,000 ml @ 125 470.833 mls/hr IV .Q8H [facility] Rx#: [id number] Dextrose 5% 1,000 ml @ 1000 125 mls/hr IV .Q8H [facility] Rx #:[id number] Piperacillin Sodium/ 50 100 50 Tazobact 2.25 gm In Sodium Chloride 0.9% 50 ml @ 100 mls/hr IV Q6HR [facility] Rx#:[id number] Output: Gastric Drainage 270 Active Medications: Current Medications Acetaminophen (Tylenol) 650 mg PO Q6HR PRN PRN Reason: MILD PAIN OR TEMP>100.4 Stop: 11/06/17 16:35 Alendronate Sodium (Fosamax) 70 mg PO QSAT [facility] Stop: 11/08/17 06:29 Last Admin: 09/09/17 07:10 Dose: Not Given Aspirin (Aspirin Chewable) 81 mg PO DAILY [facility] Stop: 11/07/17 08:59 Last Admin: 09/12/17 10:02 Dose: 81 mg Bisacodyl (Dulcolax 10 Mg Supp) 10 mg RC DAILY PRN PRN Reason: IF MOM INEFFECTIVE Stop: 11/06/17 16:35 Clonazepam (Klonopin) 1 mg PO DAILY [facility] PRN Reason: Protocol Stop: 11/07/17 08:59 Last Admin: 09/12/17 10:03 Dose: 1 mg Clonazepam (Klonopin) 2 mg PO HS [facility] Stop: 11/10/17 20:59 Last Admin: 09/11/17 20:47 Dose: Not Given Cyanocobalamin (Vitamin B12) 1,000 mcg PO DAILY [facility] Stop: 11/07/17 08:59 Last Admin: 09/12/17 10:02 Dose: 1,000 mcg Diltiazem HCl (Cardizem) 20 mg IVP Q3H PRN PRN Reason: Heart Rate > than 120 bpm Stop: 11/06/17 16:44 Docusate Sodium (Colace) 100 mg PO DAILY [facility] Stop: 11/07/17 08:59 Last Admin: 09/12/17 10:02 Dose: 100 mg Enalaprilat (Vasotec) 1.25 mg IVP Q6HR PRN PRN Reason: SBP > 170 Stop: 11/10/17 04:29 Last Admin: 09/11/17 04:47 Dose: 1.25 mg Heparin Sodium (Porcine) (Heparin) 5,000 units SUBQ Q12HR [facility] Stop: 11/06/17 20:59 Last Admin: 09/12/17 10:03 Dose: 5,000 units Phenylephrine HCl 10 mg/ (Sodium Chloride) 250 mls @ 30 mls/hr IV TITR [facility]; 20 MCG/MIN PRN Reason: Protocol Stop: 11/06/17 21:59 Last Titration: 09/08/17 06:01 Dose: 0 mcg/min, 0 mls/hr Piperacillin Sod/Tazobactam (Sod 2.25 gm/ Sodium Chloride) 50 mls @ 100 mls/hr IV Q6HR [facility] Stop: 11/07/17 11:59 Last Admin: 09/12/17 12:53 Dose: 100 mls/hr Norepinephrine Bitartrate 4 mg (/ Dextrose) 254 mls @ 0 mls/hr IV STAT PRN; Protocol; Per Protocol PRN Reason: BP MAINTENANCE (PER PROTOCOL) Stop: 11/06/17 16:11 Last Titration: 09/10/17 06:20 Dose: 0 mcg/min, 0 mls/hr Dextrose (D5w) 1,000 mls @ 125 mls/hr IV .Q8H [facility] Stop: 11/10/17 15:48 Last Admin: 09/12/17 02:18 Dose: 125 mls/hr Potassium Chloride 40 meq/ (Sodium Chloride) 270 mls @ 67 mls/hr IV X1 ONE Stop: 09/12/17 15:01 Last Admin: 09/12/17 11:18 Dose: 67 mls/hr Potassium Chloride 40 meq/Lidocaine HCl 25 mg/ Sodium Chloride 272.5 mls @ 68 mls/hr IV X1 ONE Stop: 09/12/17 15:12 Insulin Aspart (Novolog Insulin Sliding Scale) 0 units SUBQ ACHS [facility] PRN Reason: Protocol Stop: 11/07/17 11:29 Last Admin: 09/12/17 12:33 Dose: Not Given Insulin Detemir (Levemir Insulin) 10 units SUBQ HS [facility] Stop: 11/06/17 20:59 Last Admin: 09/11/17 20:56 Dose: 10 units Lactobacillus Rhamnosus (Culturelle) 1 each PO DAILY [facility] Stop: 11/09/17 08:59 Last Admin: 09/12/17 10:02 Dose: 1 each Lorazepam (Ativan) 0.5 mg PO Q6HR PRN; Protocol PRN Reason: Anxiety Stop: 11/06/17 16:35 Magnesium Hydroxide (Milk Of Magnesia) 30 ml PO DAILY PRN PRN Reason: Constipation Stop: 11/06/17 16:35 Megestrol Acetate (Megace) 400 mg PO TID [facility] Stop: 11/06/17 20:59 Last Admin: 09/12/17 10:02 Dose: 400 mg Miscellaneous (Clinical Monitoring) 1 ea MC PRN PRN PRN Reason: RENAL DOSE [facility] Stop: 11/07/17 07:51 Miscellaneous (Zosyn Iv Per Pharmacy) 1 ea MC PRN PRN PRN Reason: PROTOCOL Stop: 11/07/17 14:31 Miscellaneous (Probiotic Screen) 1 ea MC PRN PRN PRN Reason: PROTOCOL Stop: 11/08/17 10:15 Morphine Sulfate (Morphine) 1 mg IVP Q4HR PRN PRN Reason: Pain (Severe) Stop: 11/07/17 18:24 Morphine Sulfate (Morphine) 1 mg IVP Q6HR PRN PRN Reason: Pain (Moderate) Stop: 11/10/17 17:59 Multivitamins/Vitamin C (Theragran) 1 tab PO DAILY [facility] Stop: 11/07/17 08:59 Last Admin: 09/12/17 10:02 Dose: 1 tab Pantoprazole Sodium (Protonix) 40 mg IVP DAILY [facility] Stop: 11/06/17 18:59 Last Admin: 09/12/17 10:01 Dose: 40 mg Quetiapine Fumarate (Seroquel) 100 mg PO HS [facility] PRN Reason: Protocol Stop: 11/06/17 20:59 Last Admin: 09/11/17 20:47 Dose: Not Given Simvastatin (Zocor) 40 mg PO HS [facility] PRN Reason: Protocol Stop: 11/06/17 20:59 Last Admin: 09/11/17 20:48 Dose: Not Given Sodium Phosphate (Fleet Enema) 135 ml RC DAILY PRN PRN Reason: Constipation Stop: 11/06/17 16:35 General: Alert, Mild distress HEENT: Atraumatic, EOMI, Mucous membr. moist/pink Neck: Supple, +2 carotid pulse wo bruit Cardiovascular: Regular rate, Normal S1, Normal S2, Other (increased HR) Lungs: Other (decrease breath sounds) Abdomen: Bowel sounds, Soft Extremities: no Clubbing, no Cyanosis, no Edema Neurological: Sensation intact Skin: no Rash Psych/Mental Status: Mood NL Assessment/Plan - Assessment Assessment: JHOAN Septic shock better Acute cholecystitis s/p drainage of GB FTT Severe malnutrition Microcytic anemia Type 2 DM Dyslipidemia Ess Htn Non gap met acid - Plan Plan: Lab - Result Diagrams 09/11/17 04:55 09/11/17 04:55 Current Medications Acetaminophen (Tylenol) 650 mg PO Q6HR PRN PRN Reason: MILD PAIN OR TEMP>100.4 Stop: 11/06/17 16:35 Alendronate Sodium (Fosamax) 70 mg PO QSAT [facility] Stop: 11/08/17 06:29 Last Admin: 09/09/17 07:10 Dose: Not Given Aspirin (Aspirin Chewable) 81 mg PO DAILY [facility] Stop: 11/07/17 08:59 Last Admin: 09/11/17 09:46 Dose: Not Given Bisacodyl (Dulcolax 10 Mg Supp) 10 mg RC DAILY PRN PRN Reason: IF MOM INEFFECTIVE Stop: 11/06/17 16:35 Clonazepam (Klonopin) 1 mg PO DAILY [facility] PRN Reason: Protocol Stop: 11/07/17 08:59 Last Admin: 09/11/17 09:46 Dose: Not Given Clonazepam (Klonopin) 2 mg PO HS [facility] Stop: 11/10/17 20:59 Cyanocobalamin (Vitamin B12) 1,000 mcg PO DAILY [facility] Stop: 11/07/17 08:59 Last Admin: 09/11/17 09:46 Dose: Not Given Diltiazem HCl (Cardizem) 20 mg IVP Q3H PRN PRN Reason: Heart Rate > than 120 bpm Stop: 11/06/17 16:44 Docusate Sodium (Colace) 100 mg PO DAILY [facility] Stop: 11/07/17 08:59 Last Admin: 09/11/17 09:47 Dose: Not Given Enalaprilat (Vasotec) 1.25 mg IVP Q6HR PRN PRN Reason: SBP > 170 Stop: 11/10/17 04:29 Last Admin: 09/11/17 04:47 Dose: 1.25 mg Heparin Sodium (Porcine) (Heparin) 5,000 units SUBQ Q12HR [facility] Stop: 11/06/17 20:59 Last Admin: 09/11/17 09:47 Dose: Not Given Phenylephrine HCl 10 mg/ (Sodium Chloride) 250 mls @ 30 mls/hr IV TITR [facility]; 20 MCG/MIN PRN Reason: Protocol Stop: 11/06/17 21:59 Last Titration: 09/08/17 06:01 Dose: 0 mcg/min, 0 mls/hr Piperacillin Sod/Tazobactam (Sod 2.25 gm/ Sodium Chloride) 50 mls @ 100 mls/hr IV Q6HR [facility] Stop: 11/07/17 11:59 Last Infusion: 09/11/17 11:45 Dose: Infused Norepinephrine Bitartrate 4 mg (/ Dextrose) 254 mls @ 0 mls/hr IV STAT PRN; Protocol; Per Protocol PRN Reason: BP MAINTENANCE (PER PROTOCOL) Stop: 11/06/17 16:11 Last Titration: 09/10/17 06:20 Dose: 0 mcg/min, 0 mls/hr Dextrose (D5w) 1,000 mls @ 125 mls/hr IV .Q8H [facility] Stop: 11/10/17 15:48 Insulin Aspart (Novolog Insulin Sliding Scale) 0 units SUBQ ACHS [facility] PRN Reason: Protocol Stop: 11/07/17 11:29 Last Admin: 09/11/17 11:20 Dose: Not Given Insulin Detemir (Levemir Insulin) 10 units SUBQ HS [facility] Stop: 11/06/17 20:59 Last Admin: 09/10/17 21:11 Dose: 10 units Lactobacillus Rhamnosus (Culturelle) 1 each PO DAILY [facility] Stop: 11/09/17 08:59 Last Admin: 09/11/17 09:47 Dose: Not Given Lorazepam (Ativan) 0.5 mg PO Q6HR PRN; Protocol PRN Reason: Anxiety Stop: 11/06/17 16:35 Magnesium Hydroxide (Milk Of Magnesia) 30 ml PO DAILY PRN PRN Reason: Constipation Stop: 11/06/17 16:35 Megestrol Acetate (Megace) 400 mg PO TID [facility] Stop: 11/06/17 20:59 Last Admin: 09/11/17 09:47 Dose: Not Given Miscellaneous (Clinical Monitoring) 1 ea MC PRN PRN PRN Reason: RENAL DOSE [facility] Stop: 11/07/17 07:51 Miscellaneous (Zosyn Iv Per Pharmacy) 1 ea PRN PRN PRN Reason: PROTOCOL Stop: 11/07/17 14:31 Miscellaneous (Probiotic Screen) 1 ea PRN PRN PRN Reason: PROTOCOL Stop: 11/08/17 10:15 Morphine Sulfate (Morphine) 1 mg IVP Q4HR PRN PRN Reason: Pain (Moderate-Severe) Stop: 11/07/17 18:24 Multivitamins/Vitamin C (Theragran) 1 tab PO DAILY [facility] Stop: 11/07/17 08:59 Last Admin: 09/11/17 09:47 Dose: Not Given Pantoprazole Sodium (Protonix) 40 mg IVP DAILY [facility] Stop: 11/06/17 18:59 Last Admin: 09/11/17 09:45 Dose: 40 mg Quetiapine Fumarate (Seroquel) 100 mg PO [facility] PRN Reason: Protocol Stop: 11/06/17 20:59 Last Admin: 09/10/17 22:12 Dose: Not Given Simvastatin (Zocor) 40 mg PO HS [facility] PRN Reason: Protocol Stop: 11/06/17 20:59 Last Admin: 09/10/17 22:13 Dose: Not Given Sodium Phosphate (Fleet Enema) 135 ml RC DAILY PRN PRN Reason: Constipation Stop: 11/06/17 16:35 Lab - Result Diagrams 09/12/17 05:30 09/12/17 05:30 Na down to 142 C02 better @ 19 Kidney fnc basically the same already had drainage of GB @ [facility] w/ PCT replace K f/u electrolytes Nutritional Asmnt/Malnutr-PDOC - Dietary Evaluation Malnutrition Findings (Please click <Entered> for more info): Nutritional Asmnt/Malnutrition Start: 09/07/17 16: 06 Text: Status: Active Freq: Document 09/07/17 16:06 NIK (Rec: 09/07/17 16:34 [id number] [email or web address]) Nutritional Asmnt/Malnutrition Patient General Information Nutritional Screening Consult Diagnosis Dehydration, leukcytosis, dementia Pertinent Medical Hx/Surgical Hx HTN, DM, Dyslipidemia, Arthritis, Dementia, Hyperlipidemia, Anxiety, Osteoporosis, Degenerative joint disease, Neurophay. Subjective Information Per H&P, pt was on pureed NCS, NSPOT diet from [facility] ([facility]). Pt had anorexia more than one month and wt loss of 25lb in the past two months. Pt was transfered to ICU d/t rapid response. Families were aside, not a propriate time to approach. Currently no plan for nutrition d/t pt is not responding per RN. Current Diet Order/ Nutrition Support no diet order/swallowing eval pending Pertinent Medications D5 50ml/hr Pertinent Labs 09/07 Na 143, K 4.6, Cl 111 H, BUN 53 H, Cr 0.9 GLU 182 H, POC 164 H Nutritional Hx/Data Height 1.42 m Height (Calculated Centimeters) 142.2 Current Weight (lbs) 55.338 kg Weight (Calculated Kilograms) 55.3 Weight (Calculated Grams) 49681.3 Okay Body Weight 90 Recent Weight Change Yes Weight Status Overweight GI Symptoms Food Allergies No Skin Integrity/Comment: 11/09 pretibial pitting edema Estimated Nutritional Goals BEE in Kcals: Using Current wt Calories/Kcals/Kg 30 Kcals Calculated 1664 Protein: Using Current wt Protein g/k-1.2 Protein Calculated 56-67 Fluid: ml 1664-1943ml (30-35ml/kg) Nutritional Problem 1. Problem Problem Involuntary weight loss Etiology anorexia for more then one month Signs/Symptoms: recent wt loss of 25lb in two month Malnutrition Alert Interpretation of weight loss (Severe) >5% in 1 month Intervention/Recommendation Comments No nutrition intervention at this time. RD will follow up as high risk in 1-2 days. Expected Outcomes/Goals Expected Outcomes/Goals Pt to meet 50% of nutritional needs in the following 3 days.
[2017-09-12] MEDS: Insulin Detemir 100 units/mL 10mL Vial SUBQ SCH (20:47)
--- NOTE | 2017-09-12 22:20 | Progress Notes ---
DATE: 09/12/2017 PROBLEM LIST: 1. Acute cholecystitis with cholelithiasis, drainage put in the gallbladder. 2. Anorexia with septic shock. SYMPTOMS: Nil. The patient is awake, not too much eating, no respiratory distress. PHYSICAL EXAMINATION: VITAL SIGNS: Temperature is 98.5, blood pressure 142/46, saturation 98. NECK: Veins not visualized. CHEST: Shows clear with diminished air entry. HEART: Regular. LABORATORY DATA: White count is dropping down to 8000, hemoglobin 9. Electrolytes are okay with still creatinine 2.6 and chloride is 118. ASSESSMENT: The patient clinically seeming respiratory cordero stable and improving. PLANS AND SUGGESTIONS: Discussed with the patient's daughter, agree with G-tube, will continue supportive care, etc., and go from there. JOB# [id number]
[2017-09-13 03:21] LABS: URINE BILIRUBIN NEGATIVE (NEGATIVE); URINE BLOOD TRACE (NEGATIVE); URINE GLUCOSE (UA) NEGATIVE (NEGATIVE); URINE KETONE NEGATIVE (NEGATIVE); URINE PH 5.5 (4.6 - 8.0); URINE PROTEIN TRACE mg/dL (NEGATIVE); URINE UROBILINOGEN 0.2 E.U./dL (0.2 - 1.0)
[2017-09-13 03:24] LABS: URINE COLOR YELLOW
[2017-09-13 03:38] LABS: URINE BACTERIA FEW /hpf (NONE SEEN); URINE EPITHELIAL CELLS FEW /lpf (FEW); URINE RBC 0-2 /hpf (0-5)
[2017-09-13] MEDS: Dextrose 5% 1,000 ML IV SCH (04:13)
[2017-09-13 06:01] LABS: ANION GAP 12.5 (7.0-16.0); BUN - UREA NITROGEN 44 mg/dL (7-25); BUN/CREATININE RATIO 16.3; CALCIUM SERUM 7.3 mg/dL (8.6-10.3); CHLORIDE 115 mEq/L (98-107); CREATININE - SERUM 2.7 mg/dL (0.6-1.2); MAGNESIUM 2.3 mg/dL (1.9-2.7); POTASSIUM SERUM 4.5 mEq/L (3.5-5.1); SODIUM SERUM 139 mEq/L (136-145)
[2017-09-13 06:02] LABS: GLUCOSE 239 mg/dL (40-70)
[2017-09-13] MEDS: Morphine Sulfate 2 mg/mL 1mL Syr IVP PRN ×2 (06:13→12:11)
[2017-09-13] MEDS: INSULIN ASPART SLIDING SCALE 100 UNITS/ML UNIT SUBQ SCH ×3 (07:21→21:45)
[2017-09-13 07:54] LABS: % BASOPHILS 0.1 % (0.0-2.0); % EOSINOPHILS 3.8 % (0.0-5.0); % LYMPHOCYTES 10.7 % (20.0-50.0); % NEUTROPHILS 83.4 % (40.0-80.0); HEMATOCRIT 28.9 % (41.0-60); HEMOGLOBIN 9.5 gm/dL (12-16); MEAN CELL VOLUME 78.2 fl (81-100); MEAN CORPUSCULAR HEMOGLOBIN 25.7 pg (27.0-31.0); MEAN CORPUSCULAR HGB CONC 32.8 pg (28.0-36.0); MEAN PLATELET VOLUME 9.5 fl; NEUTROPHILE ABSOLUTE 8.2 Th/cmm (1.8-8.0); RED CELL DISTRIBUTION WIDTH 14.5 % (11.5-20.0)
[2017-09-13 07:57] LABS: PLATELET COUNT 174 Th/cmm (150-400); WHITE BLOOD COUNT 9.8 Th/cmm (4.8-10.8)
--- NOTE | 2017-09-13 08:12 | General Progress Note ---
Subjective - Review of Systems Service Date: 09/13/17 Subjective: Patient tolerating PTC tube placement. No new complaints. For G-tube placement later in the week. more awake and alert today. no overt pain. smiling. Objective - Results Result Diagrams: 09/13/17 07:00 09/13/17 04:36 Recent Labs: Laboratory Last Values WBC 9.8 Th/cmm (4.8-10.8) D 09/13/17 07:00 RBC 3.70 Mil/cmm (3.80-5.20) L 09/13/17 07:00 Hgb 9.5 gm/dL (12-16) L 09/13/17 07:00 Hct 28.9 % (41.0-60) L 09/13/17 07:00 MCV 78.2 fl (81-100) L 09/13/17 07:00 MCH 25.7 pg (27.0-31.0) L 09/13/17 07:00 MCHC Differential 32.8 pg (28.0-36.0) 09/13/17 07:00 RDW 14.5 % (11.5-20.0) 09/13/17 07:00 Plt Count 174 Th/cmm (150-400) D 09/13/17 07:00 MPV 9.5 fl 09/13/17 07:00 Neutrophils % 83.4 % (40.0-80.0) H 09/13/17 07:00 Band Neutrophils % 5 % (0-10) 09/11/17 04:55 Lymphocytes % 10.7 % (20.0-50.0) L 09/13/17 07:00 Monocytes % 2.0 % (2.0-10.0) 09/13/17 07:00 Eosinophils % 3.8 % (0.0-5.0) 09/13/17 07:00 Basophils % 0.1 % (0.0-2.0) 09/13/17 07:00 Neutrophils (Manual) 82 % (40-80) H 09/11/17 04:55 Lymphocytes 11 % (20-50) L 09/11/17 04:55 Monocytes 2 % (2-10) 09/11/17 04:55 Eosinophils 0 % (0-5) 09/11/17 04:55 Basophils 0 % (0-3) 09/11/17 04:55 Platelet Estimate ADEQUATE (NORMAL) 09/11/17 04:55 Platelet Morphology NORMAL (NORMAL) 09/11/17 04:55 Anisocytosis 1+ 09/10/17 05:48 Microcytosis 1+ 09/11/17 04:55 RBC Morph Micro Appear ABNORMAL (NORMAL) 09/11/17 04:55 Eos Smear Source URINE 09/09/17 21:29 Eos Smear Total Cells NONE SEEN (NONE SEEN) 09/09/17 21:29 PT 10.9 SECONDS (9.5-11.5) 09/11/17 10:04 INR 1.05 (0.5-1.4) 09/11/17 10:04 PTT (Actin FS) 32.9 SECONDS (26.0-38.0) 09/11/17 10:04 Specimen Source Arterial 09/09/17 08:53 Sample Site Left Radial 09/09/17 08:53 pH 7.37 (7.35-7.45) 09/09/17 08:53 pCO2 28.0 mmHg (35.0-45.0) L 09/09/17 08:53 pO2 100.0 mmHg (80.0-100.0) 09/09/17 08:53 HCO3 18.9 mEq/L (20.0-26.0) L 09/09/17 08:53 Base Excess -7.7 mEq/L (-3.0-3.0) L 09/09/17 08:53 O2 Saturation 98.0 % (92.0-100.0) 09/09/17 08:53 Vinod Test YES 09/09/17 08:53 Vent Rate NA 09/09/17 08:53 Inspired O2 28 09/09/17 08:53 Tidal Volume NA 09/09/17 08:53 PEEP NA 09/09/17 08:53 Pressure (ins/psv/peep) NA 09/09/17 08:53 Critical Value FERNANDO LEDESMA 09/09/17 08:53 Sodium 139 mEq/L (136-145) 09/13/17 04:36 Potassium 4.5 mEq/L (3.5-5.1) 09/13/17 04:36 Chloride 115 mEq/L (98-107) H 09/13/17 04:36 Carbon Dioxide 16.0 mEq/L (21.0-31.0) L 09/13/17 04:36 Anion Gap 12.5 (7.0-16.0) 09/13/17 04:36 BUN 44 mg/dL (7-25) H 09/13/17 04:36 Creatinine 2.7 mg/dL (0.6-1.2) H 09/13/17 04:36 Est GFR ( Amer) TNP 09/13/17 04:36 Est GFR (Non-Af Amer) TNP 09/13/17 04:36 BUN/Creatinine Ratio 16.3 09/13/17 04:36 Glucose 239 mg/dL (40-70) H D 09/13/17 04:36 POC Glucose 250 MG/DL (70 - 105) H 09/13/17 06:38 Hemoglobin A1c % 5.7 % (4.0-6.0) 09/07/17 10:40 Whole Bld Lactic Acid 2.66 mmol/L (0.60-1.99) H* 09/10/17 07:48 Uric Acid 5.4 mg/dL (2.3-6.6) 09/10/17 05:48 Calcium 7.3 mg/dL (8.6-10.3) L 09/13/17 04:36 Phosphorus 3.2 mg/dL (2.5-5.0) 09/11/17 04:55 Magnesium 2.3 mg/dL (1.9-2.7) 09/13/17 04:36 Total Bilirubin 0.7 mg/dL (0.3-1.0) 09/12/17 05:30 AST 12 U/L (13-39) L 09/12/17 05:30 ALT 21 U/L (7-52) 09/12/17 05:30 Alkaline Phosphatase 185 U/L (34-104) H 09/12/17 05:30 Ammonia 29 umol/L (16-53) 09/11/17 04:55 Troponin I 0.20 ng/mL (0.01-0.05) H* D 09/08/17 05:57 B-Natriuretic Peptide 311.0 pg/mL (5.0-100.0) H 09/12/17 05:30 Total Protein 4.5 gm/dL (6.0-8.3) L 09/12/17 05:30 Albumin 1.7 gm/dL (3.7-5.3) L 09/12/17 05:30 Globulin 2.8 gm/dL 09/12/17 05:30 Albumin/Globulin Ratio 0.6 (1.0-1.8) L 09/12/17 05:30 Lipase 20 U/L (11-82) 09/07/17 10:40 Procalcitonin SEE REF LAB REPORT 09/09/17 05:54 Urine Source [place] 09/13/17 02:40 Urine Color YELLOW 09/13/17 02:40 Urine Clarity CLEAR (CLEAR) 09/13/17 02:40 Urine pH 5.5 (4.6 - 8.0) 09/13/17 02:40 Ur Specific [place] 1.015 (1.005-1.030) 09/13/17 02:40 Urine Protein TRACE mg/dL (NEGATIVE) 09/13/17 02:40 Urine Glucose (UA) NEGATIVE mg/dL (NEGATIVE) 09/13/17 02:40 Urine Ketones NEGATIVE mg/dL (NEGATIVE) 09/13/17 02:40 Urine Blood TRACE (NEGATIVE) 09/13/17 02:40 Urine Nitrate NEGATIVE (NEGATIVE) 09/13/17 02:40 Urine Bilirubin NEGATIVE (NEGATIVE) 09/13/17 02:40 Urine Urobilinogen 0.2 E.U./dL (0.2 - 1.0) 09/13/17 02:40 Ur Leukocyte Esterase NEGATIVE (NEGATIVE) 09/13/17 02:40 Urine RBC 0-2 /hpf (0-5) 09/13/17 02:40 Urine WBC 2-5 /hpf (0-5) 09/13/17 02:40 Ur Epithelial Cells FEW /lpf (FEW) 09/13/17 02:40 Urine Bacteria FEW /hpf (NONE SEEN) 09/13/17 02:40 Fine Granular Casts 0-2 /lpf (NONE SEEN) H 09/07/17 11:30 Coarse Granular Casts 2-5 /lpf (NONE SEEN) H 09/07/17 11:30 Urine Mucus FEW /lpf (FEW) 09/07/17 11:30 Urine Yeast MANY /hpf (NONE SEEN) H 09/13/17 02:40 U Random Total Protein 104.0 mg/dL 09/10/17 21:45 Ur Random Sodium 73 mmol/L 09/13/17 02:40 Urine Collection Time 24 hours 09/10/17 21:45 Urine Total Volume 550 ml 09/10/17 21:45 Urine Creatinine 42.0 mg/dl (28.0-217.0) 09/10/17 21:45 Creat Clearance 24 Hr 8 ml/min (88.00-128.00) L 09/10/17 21:45 U Tot Protein 24h, Calc 572.0 mg/24 hr (0-165) H 09/10/17 21:45 Ur Sodium 24 Hour 39 mmol/24H (40-220) L 09/10/17 21:45 Body Surface Area 1.54 09/10/17 21:45 Random Vancomycin 14.8 ug/mL (5.0-40.0) 09/09/17 05:54 - Physical Exam Vitals and I&O: Vital Signs Temp 98.6 F 09/13/17 04:00 Pulse 73 09/13/17 07:25 Resp 18 09/13/17 07:25 BP 140/56 09/13/17 04:00 Pulse Ox 99 09/13/17 07:25 Intake & Output 09/12/17 09/13/17 09/13/17 18:59 06:59 18:59 Intake Total 1050 1000 Output Total 670 900 Balance 380 100 Weight (lbs) 66.224 kg 66.86 kg Intake: Intake, IV Amount 1050 1000 Dextrose 5% 1,000 ml @ 1000 1000 125 mls/hr IV .Q8H [facility] Rx #:[id number] Piperacillin Sodium/ 50 Tazobact 2.25 gm In Sodium Chloride 0.9% 50 ml @ 100 mls/hr IV Q6HR [facility] Rx#:[id number] Output: Gastric Drainage 270 100 Urine 300 800 Other 100 Other: # Bowel Movements 0 Active Medications: Current Medications Acetaminophen (Tylenol) 650 mg PO Q6HR PRN PRN Reason: MILD PAIN OR TEMP>100.4 Stop: 11/06/17 16:35 Alendronate Sodium (Fosamax) 70 mg PO QSAT [facility] Stop: 11/08/17 06:29 Last Admin: 09/09/17 07:10 Dose: Not Given Aspirin (Aspirin Chewable) 81 mg PO DAILY [facility] Stop: 11/07/17 08:59 Last Admin: 09/12/17 10:02 Dose: 81 mg Bisacodyl (Dulcolax 10 Mg Supp) 10 mg RC DAILY PRN PRN Reason: IF MOM INEFFECTIVE Stop: 11/06/17 16:35 Clonazepam (Klonopin) 1 mg PO DAILY [facility] PRN Reason: Protocol Stop: 11/07/17 08:59 Last Admin: 09/12/17 10:03 Dose: 1 mg Clonazepam (Klonopin) 2 mg PO HS [facility] Stop: 11/10/17 20:59 Last Admin: 09/12/17 20:47 Dose: Not Given Cyanocobalamin (Vitamin B12) 1,000 mcg PO DAILY [facility] Stop: 11/07/17 08:59 Last Admin: 09/12/17 10:02 Dose: 1,000 mcg Diltiazem HCl (Cardizem) 20 mg IVP Q3H PRN PRN Reason: Heart Rate > than 120 bpm Stop: 11/06/17 16:44 Docusate Sodium (Colace) 100 mg PO DAILY [facility] Stop: 11/07/17 08:59 Last Admin: 09/12/17 10:02 Dose: 100 mg Enalaprilat (Vasotec) 1.25 mg IVP Q6HR PRN PRN Reason: SBP > 170 Stop: 11/10/17 04:29 Last Admin: 09/11/17 04:47 Dose: 1.25 mg Heparin Sodium (Porcine) (Heparin) 5,000 units SUBQ Q12HR [facility] Stop: 11/06/17 20:59 Last Admin: 09/12/17 20:39 Dose: 5,000 units Phenylephrine HCl 10 mg/ (Sodium Chloride) 250 mls @ 30 mls/hr IV TITR [facility]; 20 MCG/MIN PRN Reason: Protocol Stop: 11/06/17 21:59 Last Titration: 09/08/17 06:01 Dose: 0 mcg/min, 0 mls/hr Piperacillin Sod/Tazobactam (Sod 2.25 gm/ Sodium Chloride) 50 mls @ 100 mls/hr IV Q6HR [facility] Stop: 11/07/17 11:59 Last Admin: 09/12/17 12:53 Dose: 100 mls/hr Norepinephrine Bitartrate 4 mg (/ Dextrose) 254 mls @ 0 mls/hr IV STAT PRN; Protocol; Per Protocol PRN Reason: BP MAINTENANCE (PER PROTOCOL) Stop: 11/06/17 16:11 Last Titration: 09/10/17 06:20 Dose: 0 mcg/min, 0 mls/hr Dextrose (D5w) 1,000 mls @ 125 mls/hr IV .Q8H [facility] Stop: 11/10/17 15:48 Last Admin: 09/13/17 04:13 Dose: 125 mls/hr Insulin Aspart (Novolog Insulin Sliding Scale) 0 units SUBQ ACHS [facility] PRN Reason: Protocol Stop: 11/07/17 11:29 Last Admin: 09/13/17 07:21 Dose: 4 units Insulin Detemir (Levemir Insulin) 10 units SUBQ HS [facility] Stop: 11/06/17 20:59 Last Admin: 09/12/17 20:47 Dose: Not Given Lactobacillus Rhamnosus (Culturelle) 1 each PO DAILY [facility] Stop: 11/09/17 08:59 Last Admin: 09/12/17 10:02 Dose: 1 each Lorazepam (Ativan) 0.5 mg PO Q6HR PRN; Protocol PRN Reason: Anxiety Stop: 11/06/17 16:35 Magnesium Hydroxide (Milk Of Magnesia) 30 ml PO DAILY PRN PRN Reason: Constipation Stop: 11/06/17 16:35 Megestrol Acetate (Megace) 400 mg PO TID [facility] Stop: 11/06/17 20:59 Last Admin: 09/12/17 20:47 Dose: Not Given Miscellaneous (Clinical Monitoring) 1 ea PRN PRN PRN Reason: RENAL DOSE ZOSYN Stop: 11/07/17 07:51 Miscellaneous (Zosyn Iv Per Pharmacy) 1 ea PRN PRN PRN Reason: PROTOCOL Stop: 11/07/17 14:31 Miscellaneous (Probiotic Screen) 1 ea PRN PRN PRN Reason: PROTOCOL Stop: 11/08/17 10:15 Morphine Sulfate (Morphine) 1 mg IVP Q4HR PRN PRN Reason: Pain (Severe) Stop: 11/07/17 18:24 Last Admin: 09/13/17 06:13 Dose: 1 mg Morphine Sulfate (Morphine) 1 mg IVP Q6HR PRN PRN Reason: Pain (Moderate) Stop: 11/10/17 17:59 Multivitamins/Vitamin C (Theragran) 1 tab PO DAILY [facility] Stop: 11/07/17 08:59 Last Admin: 09/12/17 10:02 Dose: 1 tab Pantoprazole Sodium (Protonix) 40 mg IVP DAILY [facility] Stop: 11/06/17 18:59 Last Admin: 09/12/17 10:01 Dose: 40 mg Quetiapine Fumarate (Seroquel) 100 mg PO HS [facility] PRN Reason: Protocol Stop: 11/06/17 20:59 Last Admin: 09/12/17 20:47 Dose: Not Given Simvastatin (Zocor) 40 mg PO HS [facility] PRN Reason: Protocol Stop: 11/06/17 20:59 Last Admin: 09/12/17 20:48 Dose: Not Given Sodium Phosphate (Fleet Enema) 135 ml RC DAILY PRN PRN Reason: Constipation Stop: 11/06/17 16:35 General: Alert, Mild distress HEENT: Atraumatic, EOMI, Mucous membr. moist/pink Neck: Supple, +2 carotid pulse wo bruit Cardiovascular: Regular rate, Normal S1, Normal S2, Other (increased HR) Lungs: Other (decrease breath sounds) Abdomen: Bowel sounds, Soft Extremities: no Clubbing, no Cyanosis, no Edema Neurological: Sensation intact Skin: no Rash Psych/Mental Status: Mood NL Assessment/Plan - Assessment Assessment: Sepsis --- blood cultures x 2 pending, WBC's 29-> 31K --> 14K-->11K --> 8K will continue IV antibiotics per ID Cholecystitis s/p placement of PTC tube .... draining well. will continue for 4- 6 weeks per GI. CKD ---continue to monitor. h/h. 9.0 stable. dysphagia, poor oral intake ... for G-tube placement. anorexia ... will order CEA Left Pleural Effusion r/o CHF .... will monitor BNP. Chest xray done yesterday. UTI ... - Plan Plan: IV Zosyn IV fluids ID consult Pulmonary consult cardiology consult repeat chest xray blood cultures urine cultures repeat cbc, cmp admit to ICU Nutritional Asmnt/Malnutr-PDOC - Dietary Evaluation Malnutrition Findings (Please click <Entered> for more info): Nutritional Asmnt/Malnutrition Start: 09/07/17 16: 06 Text: Status: Active Freq: Document 11/02/17 16:06 LCHENG (Rec: 09/07/17 16:34 [email or web address] [email or web address]) Nutritional Asmnt/Malnutrition Patient General Information Nutritional Screening Consult Diagnosis Dehydration, leukcytosis, dementia Pertinent Medical Hx/Surgical Hx HTN, DM, Dyslipidemia, Arthritis, Dementia, Hyperlipidemia, Anxiety, Osteoporosis, Degenerative joint disease, Neurophay. Subjective Information Per H&P, pt was on pureed NCS, NSPOT diet from [facility] ([facility]). Pt had anorexia more than one month and wt loss of 25lb in the past two months. Pt was transfered to ICU d/t rapid response. Families were aside, not a propriate time to approach. Currently no plan for nutrition d/t pt is not responding per RN. Current Diet Order/ Nutrition Support no diet order/swallowing eval pending Pertinent Medications D5 50ml/hr Pertinent Labs 09/07 Na 143, K 4.6, Cl 111 H, BUN 53 H, Cr 0.9 GLU 182 H, POC 164 H Nutritional Hx/Data Height 1.42 m Height (Calculated Centimeters) 142.2 Current Weight (lbs) 55.338 kg Weight (Calculated Kilograms) 55.3 Weight (Calculated Grams) 88853.3 [place] Body Weight 90 Recent Weight Change Yes Weight Status Overweight GI Symptoms Food Allergies No Skin Integrity/Comment: 1/ pretibial pitting edema Estimated Nutritional Goals BEE in Kcals: Using Current wt Calories/Kcals/Kg 30 Kcals Calculated 1664 Protein: Using Current wt Protein g/k-1.2 Protein Calculated 56-67 Fluid: ml 1664-1943ml (30-35ml/kg) Nutritional Problem 1. Problem Problem Involuntary weight loss Etiology anorexia for more then one month Signs/Symptoms: recent wt loss of 25lb in two month Malnutrition Alert Interpretation of weight loss (Severe) >5% in 1 month Intervention/Recommendation Comments No nutrition intervention at this time. RD will follow up as high risk in 1-2 days. Expected Outcomes/Goals Expected Outcomes/Goals Pt to meet 50% of nutritional needs in the following 3 days.
[2017-09-13] MEDS: Aspirin 81mg Chewable Tab PO SCH (08:57)
[2017-09-13] MEDS: Lactobacillus Rhamnosus 10 Billion CFU Capsule PO SCH (08:58)
[2017-09-13] MEDS: Multivitamin Tab PO SCH (08:58)
--- NOTE | 2017-09-13 09:34 | Diagnostic Imaging Report ---
Portable chest x-ray HISTORY: Shortness of breath Compared with prior exam of September 09, 2017, there is persistent density in the left lower hemithorax consistent with a pleural effusion. Underlying pneumonia and/or atelectasis cannot be excluded. IMPRESSION: 1. No change in the cardiopulmonary status as noted above.
[2017-09-13] MEDS: Piperacillin/Tazobact 2.25 gm in 0.9% NS 50 ML IV SCH (12:15)
--- NOTE | 2017-09-13 13:19 | Infectious Disease Prog Note ---
Infectious Disease Subjective - Review of Systems Service Date: 09/13/17 Subjective: There is no new change. There is no fever. Infectious Disease Objective - Results Result Diagrams: 09/13/17 07:00 09/13/17 04:36 Recent Labs: Laboratory Last Values WBC 9.8 Th/cmm (4.8-10.8) D 09/13/17 07:00 RBC 3.70 Mil/cmm (3.80-5.20) L 09/13/17 07:00 Hgb 9.5 gm/dL (12-16) L 09/13/17 07:00 Hct 28.9 % (41.0-60) L 09/13/17 07:00 MCV 78.2 fl (81-100) L 09/13/17 07:00 MCH 25.7 pg (27.0-31.0) L 09/13/17 07:00 MCHC Differential 32.8 pg (28.0-36.0) 09/13/17 07:00 RDW 14.5 % (11.5-20.0) 09/13/17 07:00 Plt Count 174 Th/cmm (150-400) D 09/13/17 07:00 MPV 9.5 fl 09/13/17 07:00 Neutrophils % 83.4 % (40.0-80.0) H 09/13/17 07:00 Band Neutrophils % 5 % (0-10) 09/11/17 04:55 Lymphocytes % 10.7 % (20.0-50.0) L 09/13/17 07:00 Monocytes % 2.0 % (2.0-10.0) 09/13/17 07:00 Eosinophils % 3.8 % (0.0-5.0) 09/13/17 07:00 Basophils % 0.1 % (0.0-2.0) 09/13/17 07:00 Neutrophils (Manual) 82 % (40-80) H 09/11/17 04:55 Lymphocytes 11 % (20-50) L 09/11/17 04:55 Monocytes 2 % (2-10) 09/11/17 04:55 Eosinophils 0 % (0-5) 09/11/17 04:55 Basophils 0 % (0-3) 09/11/17 04:55 Platelet Estimate ADEQUATE (NORMAL) 09/11/17 04:55 Platelet Morphology NORMAL (NORMAL) 09/11/17 04:55 Anisocytosis 1+ 09/10/17 05:48 Microcytosis 1+ 09/11/17 04:55 RBC Morph Micro Appear ABNORMAL (NORMAL) 09/11/17 04:55 Eos Smear Source URINE 09/09/17 21:29 Eos Smear Total Cells NONE SEEN (NONE SEEN) 09/09/17 21:29 PT 10.9 SECONDS (9.5-11.5) 09/11/17 10:04 INR 1.05 (0.5-1.4) 09/11/17 10:04 PTT (Actin FS) 32.9 SECONDS (26.0-38.0) 09/11/17 10:04 Specimen Source Arterial 09/09/17 08:53 Sample Site Left Radial 09/09/17 08:53 pH 7.37 (7.35-7.45) 09/09/17 08:53 pCO2 28.0 mmHg (35.0-45.0) L 09/09/17 08:53 pO2 100.0 mmHg (80.0-100.0) 09/09/17 08:53 HCO3 18.9 mEq/L (20.0-26.0) L 09/09/17 08:53 Base Excess -7.7 mEq/L (-3.0-3.0) L 09/09/17 08:53 O2 Saturation 98.0 % (92.0-100.0) 09/09/17 08:53 Vinod Test YES 09/09/17 08:53 Vent Rate NA 09/09/17 08:53 Inspired O2 28 09/09/17 08:53 Tidal Volume NA 09/09/17 08:53 PEEP NA 09/09/17 08:53 Pressure (ins/psv/peep) NA 09/09/17 08:53 Critical Value FERNANDO CALLIE 09/09/17 08:53 Sodium 139 mEq/L (136-145) 09/13/17 04:36 Potassium 4.5 mEq/L (3.5-5.1) 09/13/17 04:36 Chloride 115 mEq/L (98-107) H 09/13/17 04:36 Carbon Dioxide 16.0 mEq/L (21.0-31.0) L 09/13/17 04:36 Anion Gap 12.5 (7.0-16.0) 09/13/17 04:36 BUN 44 mg/dL (7-25) H 09/13/17 04:36 Creatinine 2.7 mg/dL (0.6-1.2) H 09/13/17 04:36 Est GFR ( Amer) TNP 09/13/17 04:36 Est GFR (Non-Af Amer) TNP 09/13/17 04:36 BUN/Creatinine Ratio 16.3 09/13/17 04:36 Glucose 239 mg/dL (40-70) H D 09/13/17 04:36 POC Glucose 183 MG/DL (70 - 105) H 09/13/17 12:18 Hemoglobin A1c % 5.7 % (4.0-6.0) 09/07/17 10:40 Whole Bld Lactic Acid 2.66 mmol/L (0.60-1.99) H* 09/10/17 07:48 Uric Acid 5.4 mg/dL (2.3-6.6) 09/10/17 05:48 Calcium 7.3 mg/dL (8.6-10.3) L 09/13/17 04:36 Phosphorus 3.2 mg/dL (2.5-5.0) 09/11/17 04:55 Magnesium 2.3 mg/dL (1.9-2.7) 09/13/17 04:36 Total Bilirubin 0.7 mg/dL (0.3-1.0) 09/12/17 05:30 AST 12 U/L (13-39) L 09/12/17 05:30 ALT 21 U/L (7-52) 09/12/17 05:30 Alkaline Phosphatase 185 U/L (34-104) H 09/12/17 05:30 Ammonia 29 umol/L (16-53) 09/11/17 04:55 Troponin I 0.20 ng/mL (0.01-0.05) H* D 09/08/17 05:57 B-Natriuretic Peptide 311.0 pg/mL (5.0-100.0) H 09/12/17 05:30 Total Protein 4.5 gm/dL (6.0-8.3) L 09/12/17 05:30 Albumin 1.7 gm/dL (3.7-5.3) L 09/12/17 05:30 Globulin 2.8 gm/dL 09/12/17 05:30 Albumin/Globulin Ratio 0.6 (1.0-1.8) L 09/12/17 05:30 Lipase 20 U/L (11-82) 09/07/17 10:40 Procalcitonin SEE REF LAB REPORT 09/09/17 05:54 Urine Source [place] 09/13/17 02:40 Urine Color YELLOW 09/13/17 02:40 Urine Clarity CLEAR (CLEAR) 09/13/17 02:40 Urine pH 5.5 (4.6 - 8.0) 09/13/17 02:40 Ur Specific [place] 1.015 (1.005-1.030) 09/13/17 02:40 Urine Protein TRACE mg/dL (NEGATIVE) 09/13/17 02:40 Urine Glucose (UA) NEGATIVE mg/dL (NEGATIVE) 09/13/17 02:40 Urine Ketones NEGATIVE mg/dL (NEGATIVE) 09/13/17 02:40 Urine Blood TRACE (NEGATIVE) 09/13/17 02:40 Urine Nitrate NEGATIVE (NEGATIVE) 09/13/17 02:40 Urine Bilirubin NEGATIVE (NEGATIVE) 09/13/17 02:40 Urine Urobilinogen 0.2 E.U./dL (0.2 - 1.0) 09/13/17 02:40 Ur Leukocyte Esterase NEGATIVE (NEGATIVE) 09/13/17 02:40 Urine RBC 0-2 /hpf (0-5) 09/13/17 02:40 Urine WBC 2-5 /hpf (0-5) 09/13/17 02:40 Ur Epithelial Cells FEW /lpf (FEW) 09/13/17 02:40 Urine Bacteria FEW /hpf (NONE SEEN) 09/13/17 02:40 Fine Granular Casts 0-2 /lpf (NONE SEEN) H 09/07/17 11:30 Coarse Granular Casts 2-5 /lpf (NONE SEEN) H 09/07/17 11:30 Urine Mucus FEW /lpf (FEW) 09/07/17 11:30 Urine Yeast MANY /hpf (NONE SEEN) H 09/13/17 02:40 U Random Total Protein 104.0 mg/dL 09/10/17 21:45 Ur Random Sodium 73 mmol/L 09/13/17 02:40 Urine Collection Time 24 hours 09/10/17 21:45 Urine Total Volume 550 ml 09/10/17 21:45 Urine Creatinine 42.0 mg/dl (28.0-217.0) 09/10/17 21:45 Creat Clearance 24 Hr 8 ml/min (88.00-128.00) L 09/10/17 21:45 U Tot Protein 24h, Calc 572.0 mg/24 hr (0-165) H 09/10/17 21:45 Ur Sodium 24 Hour 39 mmol/24H (40-220) L 09/10/17 21:45 Body Surface Area 1.54 09/10/17 21:45 Random Vancomycin 14.8 ug/mL (5.0-40.0) 09/09/17 05:54 - Physical Exam Vitals and I&O: Vital Signs Temp 98.2 F 09/13/17 08:37 Pulse 77 09/13/17 08:37 Resp 18 09/13/17 08:37 BP 178/73 09/13/17 08:37 Pulse Ox 99 09/13/17 08:37 Intake & Output 09/12/17 09/13/17 09/13/17 18:59 06:59 18:59 Intake Total 1100 1000 Output Total 670 900 Balance 430 100 Weight (lbs) 66.224 kg 66.86 kg Intake: Intake, IV Amount 1100 1000 Dextrose 5% 1,000 ml @ 1000 1000 125 mls/hr IV .Q8H [facility] Rx #:[id number] Piperacillin Sodium/ 100 Tazobact 2.25 gm In Sodium Chloride 0.9% 50 ml @ 100 mls/hr IV Q6HR [facility] Rx#:[id number] Output: Gastric Drainage 270 100 Urine 300 800 Other 100 Other: # Bowel Movements 0 Active Medications: Current Medications Acetaminophen (Tylenol) 650 mg PO Q6HR PRN PRN Reason: MILD PAIN OR TEMP>100.4 Stop: 11/06/17 16:35 Alendronate Sodium (Fosamax) 70 mg PO QSAT [facility] Stop: 11/08/17 06:29 Last Admin: 09/09/17 07:10 Dose: Not Given Aspirin (Aspirin Chewable) 81 mg PO DAILY [facility] Stop: 11/07/17 08:59 Last Admin: 09/13/17 08:57 Dose: Not Given Bisacodyl (Dulcolax 10 Mg Supp) 10 mg RC DAILY PRN PRN Reason: IF MOM INEFFECTIVE Stop: 11/06/17 16:35 Clonazepam (Klonopin) 1 mg PO DAILY [facility] PRN Reason: Protocol Stop: 11/07/17 08:59 Last Admin: 09/13/17 08:58 Dose: Not Given Clonazepam (Klonopin) 2 mg PO HS [facility] Stop: 11/10/17 20:59 Last Admin: 09/12/17 20:47 Dose: Not Given Cyanocobalamin (Vitamin B12) 1,000 mcg PO DAILY [facility] Stop: 11/07/17 08:59 Last Admin: 09/13/17 08:58 Dose: Not Given Diltiazem HCl (Cardizem) 20 mg IVP Q3H PRN PRN Reason: Heart Rate > than 120 bpm Stop: 11/06/17 16:44 Docusate Sodium (Colace) 100 mg PO DAILY [facility] Stop: 11/07/17 08:59 Last Admin: 09/13/17 08:58 Dose: Not Given Enalaprilat (Vasotec) 1.25 mg IVP Q6HR PRN PRN Reason: SBP > 170 Stop: 11/10/17 04:29 Last Admin: 09/11/17 04:47 Dose: 1.25 mg Heparin Sodium (Porcine) (Heparin) 5,000 units SUBQ Q12HR [facility] Stop: 11/06/17 20:59 Last Admin: 09/13/17 09:16 Dose: 5,000 units Phenylephrine HCl 10 mg/ (Sodium Chloride) 250 mls @ 30 mls/hr IV TITR [facility]; 20 MCG/MIN PRN Reason: Protocol Stop: 11/06/17 21:59 Last Titration: 09/08/17 06:01 Dose: 0 mcg/min, 0 mls/hr Piperacillin Sod/Tazobactam (Sod 2.25 gm/ Sodium Chloride) 50 mls @ 100 mls/hr IV Q6HR [facility] Stop: 11/07/17 11:59 Last Admin: 09/13/17 12:15 Dose: 100 mls/hr Norepinephrine Bitartrate 4 mg (/ Dextrose) 254 mls @ 0 mls/hr IV STAT PRN; Protocol; Per Protocol PRN Reason: BP MAINTENANCE (PER PROTOCOL) Stop: 11/06/17 16:11 Last Titration: 09/10/17 06:20 Dose: 0 mcg/min, 0 mls/hr Dextrose (D5w) 1,000 mls @ 125 mls/hr IV .Q8H [facility] Stop: 11/10/17 15:48 Last Admin: 09/13/17 04:13 Dose: 125 mls/hr Insulin Aspart (Novolog Insulin Sliding Scale) 0 units SUBQ ACHS [facility] PRN Reason: Protocol Stop: 11/07/17 11:29 Last Admin: 09/13/17 12:41 Dose: Not Given Insulin Detemir (Levemir Insulin) 10 units SUBQ HS [facility] Stop: 11/06/17 20:59 Last Admin: 09/12/17 20:47 Dose: Not Given Lactobacillus Rhamnosus (Culturelle) 1 each PO DAILY [facility] Stop: 11/09/17 08:59 Last Admin: 09/13/17 08:58 Dose: Not Given Lorazepam (Ativan) 0.5 mg PO Q6HR PRN; Protocol PRN Reason: Anxiety Stop: 11/06/17 16:35 Magnesium Hydroxide (Milk Of Magnesia) 30 ml PO DAILY PRN PRN Reason: Constipation Stop: 11/06/17 16:35 Megestrol Acetate (Megace) 400 mg PO TID [facility] Stop: 11/06/17 20:59 Last Admin: 09/13/17 08:58 Dose: Not Given Miscellaneous (Clinical Monitoring) 1 ea PRN PRN PRN Reason: RENAL DOSE ZOSYN Stop: 11/07/17 07:51 Miscellaneous (Zosyn Iv Per Pharmacy) 1 ea PRN PRN PRN Reason: PROTOCOL Stop: 11/07/17 14:31 Miscellaneous (Probiotic Screen) 1 ea PRN PRN PRN Reason: PROTOCOL Stop: 11/08/17 10:15 Morphine Sulfate (Morphine) 1 mg IVP Q4HR PRN PRN Reason: Pain (Severe) Stop: 11/07/17 18:24 Last Admin: 09/13/17 12:11 Dose: 1 mg Morphine Sulfate (Morphine) 1 mg IVP Q6HR PRN PRN Reason: Pain (Moderate) Stop: 11/10/17 17:59 Multivitamins/Vitamin C (Theragran) 1 tab PO DAILY [facility] Stop: 11/07/17 08:59 Last Admin: 09/13/17 08:58 Dose: Not Given Pantoprazole Sodium (Protonix) 40 mg IVP DAILY [facility] Stop: 11/06/17 18:59 Last Admin: 09/13/17 09:16 Dose: 40 mg Quetiapine Fumarate (Seroquel) 100 mg PO HS [facility] PRN Reason: Protocol Stop: 11/06/17 20:59 Last Admin: 09/12/17 20:47 Dose: Not Given Simvastatin (Zocor) 40 mg PO HS [facility] PRN Reason: Protocol Stop: 11/06/17 20:59 Last Admin: 09/12/17 20:48 Dose: Not Given Sodium Phosphate (Fleet Enema) 135 ml RC DAILY PRN PRN Reason: Constipation Stop: 11/06/17 16:35 General: no acute distress, well developed, well nourished HEENT: atraumatic, normocephalic, PERRLA, EOMI, moist mucous membrane Neck: supple, no thyromegaly Cardiovascular: S1S2, regular Lungs: clear to auscultation bilaterally, clear to percussion Abdomen: soft, other (Cholecystostomy.), no tender, no distended Extremities: no cyanosis, no clubbing, no edema Neurological: awake, alert, oriented Infectious Disease Assmt/Plan - Assessment Assessment: 1. sepsis. Improving. 2. Acute cholecystitis. 3. dementia. 4. acute renal failure. 5. S/p PTC placement. - Plan Plan: Conitnue zosyn. plan to do peg. culture from PTC . Nutritional Asmnt/Malnutr-PDOC - Dietary Evaluation Malnutrition Findings (Please click <Entered> for more info): Nutritional Asmnt/Malnutrition Start: 09/07/17 16: 06 Text: Status: Active Freq: Document 09/07/17 16:06 LCSAGRARIOG (Rec: 09/07/17 16:34 [id number] [id number]) Nutritional Asmnt/Malnutrition Patient General Information Nutritional Screening Consult Diagnosis Dehydration, leukcytosis, dementia Pertinent Medical Hx/Surgical Hx HTN, DM, Dyslipidemia, Arthritis, Dementia, Hyperlipidemia, Anxiety, Osteoporosis, Degenerative joint disease, Neurophay. Subjective Information Per H&P, pt was on pureed NCS, NSPOT diet from [facility] ([facility]). Pt had anorexia more than one month and wt loss of 25lb in the past two months. Pt was transfered to ICU d/t rapid response. Families were aside, not a propriate time to approach. Currently no plan for nutrition d/t pt is not responding per RN. Current Diet Order/ Nutrition Support no diet order/swallowing eval pending Pertinent Medications D5 50ml/hr Pertinent Labs 09/07 Na 143, K 4.6, Cl 111 H, BUN 53 H, Cr 0.9 GLU 182 H, POC 164 H Nutritional Hx/Data Height 1.42 m Height (Calculated Centimeters) 142.2 Current Weight (lbs) 55.338 kg Weight (Calculated Kilograms) 55.3 Weight (Calculated Grams) 22874.3 [place] Body Weight 90 Recent Weight Change Yes Weight Status Overweight GI Symptoms Food Allergies No Skin Integrity/Comment: 11/09 pretibial pitting edema Estimated Nutritional Goals BEE in Kcals: Using Current wt Calories/Kcals/Kg 30 Kcals Calculated 1664 Protein: Using Current wt Protein g/k-1.2 Protein Calculated 56-67 Fluid: ml 1664-1943ml (30-35ml/kg) Nutritional Problem 1. Problem Problem Involuntary weight loss Etiology anorexia for more then one month Signs/Symptoms: recent wt loss of 25lb in two month Malnutrition Alert Interpretation of weight loss (Severe) >5% in 1 month Intervention/Recommendation Comments No nutrition intervention at this time. RD will follow up as high risk in 1-2 days. Expected Outcomes/Goals Expected Outcomes/Goals Pt to meet 50% of nutritional needs in the following 3 days.
--- NOTE | 2017-09-13 15:43 | General Progress Note ---
Subjective - Review of Systems Service Date: 09/13/17 Subjective: more awake today, interacting, comfortable Objective - Results Result Diagrams: 09/13/17 07:00 09/13/17 04:36 Recent Labs: Laboratory Last Values WBC 9.8 Th/cmm (4.8-10.8) D 09/13/17 07:00 RBC 3.70 Mil/cmm (3.80-5.20) L 09/13/17 07:00 Hgb 9.5 gm/dL (12-16) L 09/13/17 07:00 Hct 28.9 % (41.0-60) L 09/13/17 07:00 MCV 78.2 fl (81-100) L 09/13/17 07:00 MCH 25.7 pg (27.0-31.0) L 09/13/17 07:00 MCHC Differential 32.8 pg (28.0-36.0) 09/13/17 07:00 RDW 14.5 % (11.5-20.0) 09/13/17 07:00 Plt Count 174 Th/cmm (150-400) D 09/13/17 07:00 MPV 9.5 fl 09/13/17 07:00 Neutrophils % 83.4 % (40.0-80.0) H 09/13/17 07:00 Band Neutrophils % 5 % (0-10) 09/11/17 04:55 Lymphocytes % 10.7 % (20.0-50.0) L 09/13/17 07:00 Monocytes % 2.0 % (2.0-10.0) 09/13/17 07:00 Eosinophils % 3.8 % (0.0-5.0) 09/13/17 07:00 Basophils % 0.1 % (0.0-2.0) 09/13/17 07:00 Neutrophils (Manual) 82 % (40-80) H 09/11/17 04:55 Lymphocytes 11 % (20-50) L 09/11/17 04:55 Monocytes 2 % (2-10) 09/11/17 04:55 Eosinophils 0 % (0-5) 09/11/17 04:55 Basophils 0 % (0-3) 09/11/17 04:55 Platelet Estimate ADEQUATE (NORMAL) 09/11/17 04:55 Platelet Morphology NORMAL (NORMAL) 09/11/17 04:55 Anisocytosis 1+ 09/10/17 05:48 Microcytosis 1+ 09/11/17 04:55 RBC Morph Micro Appear ABNORMAL (NORMAL) 09/11/17 04:55 Eos Smear Source URINE 09/09/17 21:29 Eos Smear Total Cells NONE SEEN (NONE SEEN) 09/09/17 21:29 PT 10.9 SECONDS (9.5-11.5) 09/11/17 10:04 INR 1.05 (0.5-1.4) 09/11/17 10:04 PTT (Actin FS) 32.9 SECONDS (26.0-38.0) 09/11/17 10:04 Specimen Source Arterial 09/09/17 08:53 Sample Site Left Radial 09/09/17 08:53 pH 7.37 (7.35-7.45) 09/09/17 08:53 pCO2 28.0 mmHg (35.0-45.0) L 09/09/17 08:53 pO2 100.0 mmHg (80.0-100.0) 09/09/17 08:53 HCO3 18.9 mEq/L (20.0-26.0) L 09/09/17 08:53 Base Excess -7.7 mEq/L (-3.0-3.0) L 09/09/17 08:53 O2 Saturation 98.0 % (92.0-100.0) 09/09/17 08:53 Vinod Test YES 09/09/17 08:53 Vent Rate NA 09/09/17 08:53 Inspired O2 28 09/09/17 08:53 Tidal Volume NA 09/09/17 08:53 PEEP NA 09/09/17 08:53 Pressure (ins/psv/peep) NA 09/09/17 08:53 Critical Value FERNANDO CALLIE 09/09/17 08:53 Sodium 139 mEq/L (136-145) 09/13/17 04:36 Potassium 4.5 mEq/L (3.5-5.1) 09/13/17 04:36 Chloride 115 mEq/L (98-107) H 09/13/17 04:36 Carbon Dioxide 16.0 mEq/L (21.0-31.0) L 09/13/17 04:36 Anion Gap 12.5 (7.0-16.0) 09/13/17 04:36 BUN 44 mg/dL (7-25) H 09/13/17 04:36 Creatinine 2.7 mg/dL (0.6-1.2) H 09/13/17 04:36 Est GFR ( Amer) TNP 09/13/17 04:36 Est GFR (Non-Af Amer) TNP 09/13/17 04:36 BUN/Creatinine Ratio 16.3 09/13/17 04:36 Glucose 239 mg/dL (40-70) H D 09/13/17 04:36 POC Glucose 183 MG/DL (70 - 105) H 09/13/17 12:18 Hemoglobin A1c % 5.7 % (4.0-6.0) 09/07/17 10:40 Whole Bld Lactic Acid 2.66 mmol/L (0.60-1.99) H* 09/10/17 07:48 Uric Acid 5.4 mg/dL (2.3-6.6) 09/10/17 05:48 Calcium 7.3 mg/dL (8.6-10.3) L 09/13/17 04:36 Phosphorus 3.2 mg/dL (2.5-5.0) 09/11/17 04:55 Magnesium 2.3 mg/dL (1.9-2.7) 09/13/17 04:36 Total Bilirubin 0.7 mg/dL (0.3-1.0) 09/12/17 05:30 AST 12 U/L (13-39) L 09/12/17 05:30 ALT 21 U/L (7-52) 09/12/17 05:30 Alkaline Phosphatase 185 U/L (34-104) H 09/12/17 05:30 Ammonia 29 umol/L (16-53) 09/11/17 04:55 Troponin I 0.20 ng/mL (0.01-0.05) H* D 09/08/17 05:57 B-Natriuretic Peptide 311.0 pg/mL (5.0-100.0) H 09/12/17 05:30 Total Protein 4.5 gm/dL (6.0-8.3) L 09/12/17 05:30 Albumin 1.7 gm/dL (3.7-5.3) L 09/12/17 05:30 Globulin 2.8 gm/dL 09/12/17 05:30 Albumin/Globulin Ratio 0.6 (1.0-1.8) L 09/12/17 05:30 Lipase 20 U/L (11-82) 09/07/17 10:40 Procalcitonin SEE REF LAB REPORT 09/09/17 05:54 Urine Source [place] 09/13/17 02:40 Urine Color YELLOW 09/13/17 02:40 Urine Clarity CLEAR (CLEAR) 09/13/17 02:40 Urine pH 5.5 (4.6 - 8.0) 09/13/17 02:40 Ur Specific [place] 1.015 (1.005-1.030) 09/13/17 02:40 Urine Protein TRACE mg/dL (NEGATIVE) 09/13/17 02:40 Urine Glucose (UA) NEGATIVE mg/dL (NEGATIVE) 09/13/17 02:40 Urine Ketones NEGATIVE mg/dL (NEGATIVE) 09/13/17 02:40 Urine Blood TRACE (NEGATIVE) 09/13/17 02:40 Urine Nitrate NEGATIVE (NEGATIVE) 09/13/17 02:40 Urine Bilirubin NEGATIVE (NEGATIVE) 09/13/17 02:40 Urine Urobilinogen 0.2 E.U./dL (0.2 - 1.0) 09/13/17 02:40 Ur Leukocyte Esterase NEGATIVE (NEGATIVE) 09/13/17 02:40 Urine RBC 0-2 /hpf (0-5) 09/13/17 02:40 Urine WBC 2-5 /hpf (0-5) 09/13/17 02:40 Ur Epithelial Cells FEW /lpf (FEW) 09/13/17 02:40 Urine Bacteria FEW /hpf (NONE SEEN) 09/13/17 02:40 Fine Granular Casts 0-2 /lpf (NONE SEEN) H 09/07/17 11:30 Coarse Granular Casts 2-5 /lpf (NONE SEEN) H 09/07/17 11:30 Urine Mucus FEW /lpf (FEW) 09/07/17 11:30 Urine Yeast MANY /hpf (NONE SEEN) H 09/13/17 02:40 U Random Total Protein 104.0 mg/dL 09/10/17 21:45 Ur Random Sodium 73 mmol/L 09/13/17 02:40 Urine Collection Time 24 hours 09/10/17 21:45 Urine Total Volume 550 ml 09/10/17 21:45 Urine Creatinine 42.0 mg/dl (28.0-217.0) 09/10/17 21:45 Creat Clearance 24 Hr 8 ml/min (88.00-128.00) L 09/10/17 21:45 U Tot Protein 24h, Calc 572.0 mg/24 hr (0-165) H 09/10/17 21:45 Ur Sodium 24 Hour 39 mmol/24H (40-220) L 09/10/17 21:45 Body Surface Area 1.54 09/10/17 21:45 Random Vancomycin 14.8 ug/mL (5.0-40.0) 09/09/17 05:54 - Physical Exam Vitals and I&O: Vital Signs Temp 98 F 09/13/17 12:00 Pulse 78 09/13/17 12:00 Resp 18 09/13/17 12:00 BP 127/68 09/13/17 14:00 Pulse Ox 95 09/13/17 12:00 Intake & Output 09/12/17 09/13/17 09/13/17 18:59 06:59 18:59 Intake Total 1100 1000 Output Total 670 900 Balance 430 100 Weight (lbs) 66.224 kg 66.86 kg Intake: Intake, IV Amount 1100 1000 Dextrose 5% 1,000 ml @ 1000 1000 125 mls/hr IV .Q8H [facility] Rx #:[id number] Piperacillin Sodium/ 100 Tazobact 2.25 gm In Sodium Chloride 0.9% 50 ml @ 100 mls/hr IV Q6HR [facility] Rx#:[id number] Output: Gastric Drainage 270 100 Urine 300 800 Other 100 Other: # Bowel Movements 0 Active Medications: Current Medications Acetaminophen (Tylenol) 650 mg PO Q6HR PRN PRN Reason: MILD PAIN OR TEMP>100.4 Stop: 11/06/17 16:35 Alendronate Sodium (Fosamax) 70 mg PO QSAT [facility] Stop: 11/08/17 06:29 Last Admin: 09/09/17 07:10 Dose: Not Given Aspirin (Aspirin Chewable) 81 mg PO DAILY [facility] Stop: 11/07/17 08:59 Last Admin: 09/13/17 08:57 Dose: Not Given Bisacodyl (Dulcolax 10 Mg Supp) 10 mg RC DAILY PRN PRN Reason: IF MOM INEFFECTIVE Stop: 11/06/17 16:35 Clonazepam (Klonopin) 1 mg PO DAILY [facility] PRN Reason: Protocol Stop: 11/07/17 08:59 Last Admin: 09/13/17 08:58 Dose: Not Given Clonazepam (Klonopin) 2 mg PO HS [facility] Stop: 11/10/17 20:59 Last Admin: 09/12/17 20:47 Dose: Not Given Cyanocobalamin (Vitamin B12) 1,000 mcg PO DAILY [facility] Stop: 11/07/17 08:59 Last Admin: 09/13/17 08:58 Dose: Not Given Diltiazem HCl (Cardizem) 20 mg IVP Q3H PRN PRN Reason: Heart Rate > than 120 bpm Stop: 11/06/17 16:44 Docusate Sodium (Colace) 100 mg PO DAILY [facility] Stop: 11/07/17 08:59 Last Admin: 09/13/17 08:58 Dose: Not Given Enalaprilat (Vasotec) 1.25 mg IVP Q6HR PRN PRN Reason: SBP > 170 Stop: 11/10/17 04:29 Last Admin: 09/11/17 04:47 Dose: 1.25 mg Heparin Sodium (Porcine) (Heparin) 5,000 units SUBQ Q12HR [facility] Stop: 11/06/17 20:59 Last Admin: 09/13/17 09:16 Dose: 5,000 units Phenylephrine HCl 10 mg/ (Sodium Chloride) 250 mls @ 30 mls/hr IV TITR [facility]; 20 MCG/MIN PRN Reason: Protocol Stop: 11/06/17 21:59 Last Titration: 09/08/17 06:01 Dose: 0 mcg/min, 0 mls/hr Piperacillin Sod/Tazobactam (Sod 2.25 gm/ Sodium Chloride) 50 mls @ 100 mls/hr IV Q6HR [facility] Stop: 11/07/17 11:59 Last Admin: 09/13/17 12:15 Dose: 100 mls/hr Norepinephrine Bitartrate 4 mg (/ Dextrose) 254 mls @ 0 mls/hr IV STAT PRN; Protocol; Per Protocol PRN Reason: BP MAINTENANCE (PER PROTOCOL) Stop: 11/06/17 16:11 Last Titration: 09/10/17 06:20 Dose: 0 mcg/min, 0 mls/hr Dextrose (D5w) 1,000 mls @ 125 mls/hr IV .Q8H [facility] Stop: 11/10/17 15:48 Last Admin: 09/13/17 04:13 Dose: 125 mls/hr Insulin Aspart (Novolog Insulin Sliding Scale) 0 units SUBQ ACHS [facility] PRN Reason: Protocol Stop: 11/07/17 11:29 Last Admin: 09/13/17 12:41 Dose: Not Given Insulin Detemir (Levemir Insulin) 10 units SUBQ HS [facility] Stop: 11/06/17 20:59 Last Admin: 09/12/17 20:47 Dose: Not Given Lactobacillus Rhamnosus (Culturelle) 1 each PO DAILY [facility] Stop: 11/09/17 08:59 Last Admin: 09/13/17 08:58 Dose: Not Given Lorazepam (Ativan) 0.5 mg PO Q6HR PRN; Protocol PRN Reason: Anxiety Stop: 11/06/17 16:35 Magnesium Hydroxide (Milk Of Magnesia) 30 ml PO DAILY PRN PRN Reason: Constipation Stop: 11/06/17 16:35 Megestrol Acetate (Megace) 400 mg PO TID [facility] Stop: 11/06/17 20:59 Last Admin: 09/13/17 15:17 Dose: Not Given Miscellaneous (Clinical Monitoring) 1 ea PRN PRN PRN Reason: RENAL DOSE ZOSYN Stop: 11/07/17 07:51 Miscellaneous (Zosyn Iv Per Pharmacy) 1 [facility] PRN PRN PRN Reason: PROTOCOL Stop: 11/07/17 14:31 Miscellaneous (Probiotic Screen) 1 [facility] PRN PRN PRN Reason: PROTOCOL Stop: 11/08/17 10:15 Morphine Sulfate (Morphine) 1 mg IVP Q4HR PRN PRN Reason: Pain (Severe) Stop: 11/07/17 18:24 Last Admin: 09/13/17 12:11 Dose: 1 mg Morphine Sulfate (Morphine) 1 mg IVP Q6HR PRN PRN Reason: Pain (Moderate) Stop: 11/10/17 17:59 Multivitamins/Vitamin C (Theragran) 1 tab PO DAILY [facility] Stop: 11/07/17 08:59 Last Admin: 09/13/17 08:58 Dose: Not Given Pantoprazole Sodium (Protonix) 40 mg IVP DAILY [facility] Stop: 11/06/17 18:59 Last Admin: 09/13/17 09:16 Dose: 40 mg Quetiapine Fumarate (Seroquel) 100 mg PO HS [facility] PRN Reason: Protocol Stop: 11/06/17 20:59 Last Admin: 09/12/17 20:47 Dose: Not Given Simvastatin (Zocor) 40 mg PO HS [facility] PRN Reason: Protocol Stop: 11/06/17 20:59 Last Admin: 09/12/17 20:48 Dose: Not Given Sodium Phosphate (Fleet Enema) 135 ml RC DAILY PRN PRN Reason: Constipation Stop: 11/06/17 16:35 General: Alert, Mild distress HEENT: Atraumatic, EOMI, Mucous membr. moist/pink Neck: Supple, +2 carotid pulse wo bruit Cardiovascular: Regular rate, Normal S1, Normal S2, Other (increased HR) Lungs: Other (decrease breath sounds) Abdomen: Bowel sounds, Soft Extremities: no Clubbing, no Cyanosis, no Edema Neurological: Sensation intact Skin: no Rash Psych/Mental Status: Mood NL Assessment/Plan - Assessment Assessment: JHOAN Septic shock better Acute cholecystitis s/p drainage of GB FTT Severe malnutrition Microcytic anemia Type 2 DM Dyslipidemia Ess Htn Non gap met acid - Plan Plan: Lab - Result Diagrams 09/11/17 04:55 09/11/17 04:55 Current Medications Acetaminophen (Tylenol) 650 mg PO Q6HR PRN PRN Reason: MILD PAIN OR TEMP>100.4 Stop: 11/06/17 16:35 Alendronate Sodium (Fosamax) 70 mg PO QSAT [facility] Stop: 11/08/17 06:29 Last Admin: 09/09/17 07:10 Dose: Not Given Aspirin (Aspirin Chewable) 81 mg PO DAILY [facility] Stop: 11/07/17 08:59 Last Admin: 09/11/17 09:46 Dose: Not Given Bisacodyl (Dulcolax 10 Mg Supp) 10 mg RC DAILY PRN PRN Reason: IF MOM INEFFECTIVE Stop: 11/06/17 16:35 Clonazepam (Klonopin) 1 mg PO DAILY [facility] PRN Reason: Protocol Stop: 11/07/17 08:59 Last Admin: 09/11/17 09:46 Dose: Not Given Clonazepam (Klonopin) 2 mg PO HS [facility] Stop: 11/10/17 20:59 Cyanocobalamin (Vitamin B12) 1,000 mcg PO DAILY [facility] Stop: 11/07/17 08:59 Last Admin: 09/11/17 09:46 Dose: Not Given Diltiazem HCl (Cardizem) 20 mg IVP Q3H PRN PRN Reason: Heart Rate > than 120 bpm Stop: 11/06/17 16:44 Docusate Sodium (Colace) 100 mg PO DAILY [facility] Stop: 11/07/17 08:59 Last Admin: 09/11/17 09:47 Dose: Not Given Enalaprilat (Vasotec) 1.25 mg IVP Q6HR PRN PRN Reason: SBP > 170 Stop: 11/10/17 04:29 Last Admin: 09/11/17 04:47 Dose: 1.25 mg Heparin Sodium (Porcine) (Heparin) 5,000 units SUBQ Q12HR [facility] Stop: 11/06/17 20:59 Last Admin: 09/11/17 09:47 Dose: Not Given Phenylephrine HCl 10 mg/ (Sodium Chloride) 250 mls @ 30 mls/hr IV TITR [facility]; 20 MCG/MIN PRN Reason: Protocol Stop: 11/06/17 21:59 Last Titration: 09/08/17 06:01 Dose: 0 mcg/min, 0 mls/hr Piperacillin Sod/Tazobactam (Sod 2.25 gm/ Sodium Chloride) 50 mls @ 100 mls/hr IV Q6HR [facility] Stop: 11/07/17 11:59 Last Infusion: 09/11/17 11:45 Dose: Infused Norepinephrine Bitartrate 4 mg (/ Dextrose) 254 mls @ 0 mls/hr IV STAT PRN; Protocol; Per Protocol PRN Reason: BP MAINTENANCE (PER PROTOCOL) Stop: 11/06/17 16:11 Last Titration: 09/10/17 06:20 Dose: 0 mcg/min, 0 mls/hr Dextrose (D5w) 1,000 mls @ 125 mls/hr IV .Q8H [facility] Stop: 11/10/17 15:48 Insulin Aspart (Novolog Insulin Sliding Scale) 0 units SUBQ ACHS [facility] PRN Reason: Protocol Stop: 11/07/17 11:29 Last Admin: 09/11/17 11:20 Dose: Not Given Insulin Detemir (Levemir Insulin) 10 units SUBQ HS [facility] Stop: 11/06/17 20:59 Last Admin: 09/10/17 21:11 Dose: 10 units Lactobacillus Rhamnosus (Culturelle) 1 each PO DAILY [facility] Stop: 11/09/17 08:59 Last Admin: 09/11/17 09:47 Dose: Not Given Lorazepam (Ativan) 0.5 mg PO Q6HR PRN; Protocol PRN Reason: Anxiety Stop: 11/06/17 16:35 Magnesium Hydroxide (Milk Of Magnesia) 30 ml PO DAILY PRN PRN Reason: Constipation Stop: 11/06/17 16:35 Megestrol Acetate (Megace) 400 mg PO TID [facility] Stop: 11/06/17 20:59 Last Admin: 09/11/17 09:47 Dose: Not Given Miscellaneous (Clinical Monitoring) 1 ea PRN PRN PRN Reason: RENAL DOSE ZOSYN Stop: 11/07/17 07:51 Miscellaneous (Zosyn Iv Per Pharmacy) 1 [facility] PRN PRN PRN Reason: PROTOCOL Stop: 11/07/17 14:31 Miscellaneous (Probiotic Screen) 1 [facility]a PRN PRN PRN Reason: PROTOCOL Stop: 11/08/17 10:15 Morphine Sulfate (Morphine) 1 mg IVP Q4HR PRN PRN Reason: Pain (Moderate-Severe) Stop: 11/07/17 18:24 Multivitamins/Vitamin C (Theragran) 1 tab PO DAILY [facility] Stop: 11/07/17 08:59 Last Admin: 09/11/17 09:47 Dose: Not Given Pantoprazole Sodium (Protonix) 40 mg IVP DAILY [facility] Stop: 11/06/17 18:59 Last Admin: 09/11/17 09:45 Dose: 40 mg Quetiapine Fumarate (Seroquel) 100 mg PO [facility] PRN Reason: Protocol Stop: 11/06/17 20:59 Last Admin: 09/10/17 22:12 Dose: Not Given Simvastatin (Zocor) 40 mg PO [facility] PRN Reason: Protocol Stop: 11/06/17 20:59 Last Admin: 09/10/17 22:13 Dose: Not Given Sodium Phosphate (Fleet Enema) 135 ml RC DAILY PRN PRN Reason: Constipation Stop: 11/06/17 16:35 Lab - Result Diagrams 09/13/17 07:00 09/13/17 04:36 Na down to 139 C02 better @ 16 Kidney fnc basically the same already had drainage of GB @ [facility] w/ PCT replace K f/u electrolytes start NaHC03 discussed w/ daughter @ bedside Nutritional Asmnt/Malnutr-PDOC - Dietary Evaluation Malnutrition Findings (Please click <Entered> for more info): Nutritional Asmnt/Malnutrition Start: 09/07/17 16: 06 Text: Status: Complete Freq: Document 09/07/17 16:06 ZACG (Rec: 09/07/17 16:34 [email or web address] [email or web address]) Nutritional Asmnt/Malnutrition Patient General Information Nutritional Screening Consult Diagnosis Dehydration, leukcytosis, dementia Pertinent Medical Hx/Surgical Hx HTN, DM, Dyslipidemia, Arthritis, Dementia, Hyperlipidemia, Anxiety, Osteoporosis, Degenerative joint disease, Neurophay. Subjective Information Per H&P, pt was on pureed NCS, NSPOT diet from [facility] ([facility]). Pt had anorexia more than one month and wt loss of 25lb in the past two months. Pt was transfered to ICU d/t rapid response. Families were aside, not a propriate time to approach. Currently no plan for nutrition d/t pt is not responding per RN. Current Diet Order/ Nutrition Support no diet order/swallowing eval pending Pertinent Medications D5 50ml/hr Pertinent Labs 09/07 Na 143, K 4.6, Cl 111 H, BUN 53 H, Cr 0.9 GLU 182 H, POC 164 H Nutritional Hx/Data Height 1.42 m Height (Calculated Centimeters) 142.2 Current Weight (lbs) 55.338 kg Weight (Calculated Kilograms) 55.3 Weight (Calculated Grams) 68924.3 [place] Body Weight 90 Recent Weight Change Yes Weight Status Overweight GI Symptoms Food Allergies No Skin Integrity/Comment: 11/09 pretibial pitting edema Estimated Nutritional Goals BEE in Kcals: Using Current wt Calories/Kcals/Kg 30 Kcals Calculated 1664 Protein: Using Current wt Protein g/k-1.2 Protein Calculated 56-67 Fluid: ml 1664-1943ml (30-35ml/kg) Nutritional Problem 1. Problem Problem Involuntary weight loss Etiology anorexia for more then one month Signs/Symptoms: recent wt loss of 25lb in two month Malnutrition Alert Interpretation of weight loss (Severe) >5% in 1 month Intervention/Recommendation Comments No nutrition intervention at this time. RD will follow up as high risk in 1-2 days. Expected Outcomes/Goals Expected Outcomes/Goals Pt to meet 50% of nutritional needs in the following 3 days.
[2017-09-13] MEDS: Insulin Detemir 100 units/mL 10mL Vial SUBQ SCH (21:30)
[2017-09-14 06:12] LABS: % BASOPHILS 0.1 % (0.0-2.0); % EOSINOPHILS 5.9 % (0.0-5.0); % LYMPHOCYTES 14.8 % (20.0-50.0); % MONOCYTES 3.6 % (2.0-10.0); % NEUTROPHILS 75.6 % (40.0-80.0); HEMATOCRIT 28.1 % (41.0-60); HEMOGLOBIN 9.1 gm/dL (12-16); MEAN CELL VOLUME 77.1 fl (81-100); MEAN CORPUSCULAR HEMOGLOBIN 25.1 pg (27.0-31.0); MEAN CORPUSCULAR HGB CONC 32.6 pg (28.0-36.0); MEAN PLATELET VOLUME 8.9 fl; NEUTROPHILE ABSOLUTE 6.7 Th/cmm (1.8-8.0); RED BLOOD COUNT 3.64 Mil/cmm (3.80-5.20); RED CELL DISTRIBUTION WIDTH 13.9 % (11.5-20.0); WHITE BLOOD COUNT 8.8 Th/cmm (4.8-10.8)
[2017-09-14 06:14] LABS: PLATELET COUNT 214 Th/cmm (150-400)
[2017-09-14 06:21] LABS: INR 1.1 (0.5-1.4); PROTHROMBIN TIME (TEST) 11.5 SECONDS (9.5-11.5)
[2017-09-14 06:25] LABS: ANION GAP 10.9 (7.0-16.0); BUN - UREA NITROGEN 40 mg/dL (7-25); BUN/CREATININE RATIO 14.8; CALCIUM SERUM 7.7 mg/dL (8.6-10.3); CARBON DIOXIDE 19.5 mEq/L (21.0-31.0); CHLORIDE 112 mEq/L (98-107); CREATININE - SERUM 2.7 mg/dL (0.6-1.2); GLUCOSE 191 mg/dL (70-105); POTASSIUM SERUM 3.4 mEq/L (3.5-5.1); SODIUM SERUM 139 mEq/L (136-145)
[2017-09-14] MEDS: Dextrose 5% 1,000 ML IV SCH ×2 (06:39→10:25)
--- NOTE | 2017-09-14 08:20 | General Progress Note ---
Subjective - Review of Systems Service Date: 09/14/17 Subjective: Patient tolerating PTC tube placement. No new complaints. For G-tube placement this AM. more awake and alert today. no overt pain. smiling. Objective - Results Result Diagrams: 09/14/17 05:20 09/14/17 05:20 Recent Labs: Laboratory Last Values WBC 8.8 Th/cmm (4.8-10.8) 09/14/17 05:20 RBC 3.64 Mil/cmm (3.80-5.20) L 09/14/17 05:20 Hgb 9.1 gm/dL (12-16) L 09/14/17 05:20 Hct 28.1 % (41.0-60) L 09/14/17 05:20 MCV 77.1 fl (81-100) L 09/14/17 05:20 MCH 25.1 pg (27.0-31.0) L 09/14/17 05:20 MCHC Differential 32.6 pg (28.0-36.0) 09/14/17 05:20 RDW 13.9 % (11.5-20.0) 09/14/17 05:20 Plt Count 214 Th/cmm (150-400) D 09/14/17 05:20 MPV 8.9 fl 09/14/17 05:20 Neutrophils % 75.6 % (40.0-80.0) 09/14/17 05:20 Band Neutrophils % 5 % (0-10) 09/11/17 04:55 Lymphocytes % 14.8 % (20.0-50.0) L 09/14/17 05:20 Monocytes % 3.6 % (2.0-10.0) 09/14/17 05:20 Eosinophils % 5.9 % (0.0-5.0) H 09/14/17 05:20 Basophils % 0.1 % (0.0-2.0) 09/14/17 05:20 Neutrophils (Manual) 82 % (40-80) H 09/11/17 04:55 Lymphocytes 11 % (20-50) L 09/11/17 04:55 Monocytes 2 % (2-10) 09/11/17 04:55 Eosinophils 0 % (0-5) 09/11/17 04:55 Basophils 0 % (0-3) 09/11/17 04:55 Platelet Estimate ADEQUATE (NORMAL) 09/11/17 04:55 Platelet Morphology NORMAL (NORMAL) 09/11/17 04:55 Anisocytosis 1+ 09/10/17 05:48 Microcytosis 1+ 09/11/17 04:55 RBC Morph Micro Appear ABNORMAL (NORMAL) 09/11/17 04:55 Eos Smear Source URINE 09/09/17 21:29 Eos Smear Total Cells NONE SEEN (NONE SEEN) 09/09/17 21:29 PT 11.5 SECONDS (9.5-11.5) 09/14/17 05:20 INR 1.10 (0.5-1.4) 09/14/17 05:20 PTT (Actin FS) 32.9 SECONDS (26.0-38.0) 09/11/17 10:04 Specimen Source Arterial 09/09/17 08:53 Sample Site Left Radial 09/09/17 08:53 pH 7.37 (7.35-7.45) 09/09/17 08:53 pCO2 28.0 mmHg (35.0-45.0) L 09/09/17 08:53 pO2 100.0 mmHg (80.0-100.0) 09/09/17 08:53 HCO3 18.9 mEq/L (20.0-26.0) L 09/09/17 08:53 Base Excess -7.7 mEq/L (-3.0-3.0) L 09/09/17 08:53 O2 Saturation 98.0 % (92.0-100.0) 09/09/17 08:53 Vinod Test YES 09/09/17 08:53 Vent Rate NA 09/09/17 08:53 Inspired O2 28 09/09/17 08:53 Tidal Volume NA 09/09/17 08:53 PEEP NA 09/09/17 08:53 Pressure (ins/psv/peep) NA 09/09/17 08:53 Critical Value FERNANDO LANGSTONO 09/09/17 08:53 Sodium 139 mEq/L (136-145) 09/14/17 05:20 Potassium 3.4 mEq/L (3.5-5.1) L 09/14/17 05:20 Chloride 112 mEq/L (98-107) H 09/14/17 05:20 Carbon Dioxide 19.5 mEq/L (21.0-31.0) L 09/14/17 05:20 Anion Gap 10.9 (7.0-16.0) 09/14/17 05:20 BUN 40 mg/dL (7-25) H 09/14/17 05:20 Creatinine 2.7 mg/dL (0.6-1.2) H 09/14/17 05:20 Est GFR ( Amer) TNP 09/14/17 05:20 Est GFR (Non-Af Amer) TNP 09/14/17 05:20 BUN/Creatinine Ratio 14.8 09/14/17 05:20 Glucose 191 mg/dL (70-105) H 09/14/17 05:20 POC Glucose 132 MG/DL (70 - 105) H 09/14/17 07:43 Hemoglobin A1c % 5.7 % (4.0-6.0) 09/07/17 10:40 Whole Bld Lactic Acid 2.66 mmol/L (0.60-1.99) H* 09/10/17 07:48 Uric Acid 5.4 mg/dL (2.3-6.6) 09/10/17 05:48 Calcium 7.7 mg/dL (8.6-10.3) L 09/14/17 05:20 Phosphorus 3.2 mg/dL (2.5-5.0) 09/11/17 04:55 Magnesium 2.3 mg/dL (1.9-2.7) 09/13/17 04:36 Total Bilirubin 0.7 mg/dL (0.3-1.0) 09/12/17 05:30 AST 12 U/L (13-39) L 09/12/17 05:30 ALT 21 U/L (7-52) 09/12/17 05:30 Alkaline Phosphatase 185 U/L (34-104) H 09/12/17 05:30 Ammonia 29 umol/L (16-53) 09/11/17 04:55 Troponin I 0.20 ng/mL (0.01-0.05) H* D 09/08/17 05:57 B-Natriuretic Peptide 311.0 pg/mL (5.0-100.0) H 09/12/17 05:30 Total Protein 4.5 gm/dL (6.0-8.3) L 09/12/17 05:30 Albumin 1.7 gm/dL (3.7-5.3) L 09/12/17 05:30 Globulin 2.8 gm/dL 09/12/17 05:30 Albumin/Globulin Ratio 0.6 (1.0-1.8) L 09/12/17 05:30 Lipase 20 U/L (11-82) 09/07/17 10:40 Procalcitonin SEE REF LAB REPORT 09/09/17 05:54 Urine Source [place] 09/13/17 02:40 Urine Color YELLOW 09/13/17 02:40 Urine Clarity CLEAR (CLEAR) 09/13/17 02:40 Urine pH 5.5 (4.6 - 8.0) 09/13/17 02:40 Ur Specific [place] 1.015 (1.005-1.030) 09/13/17 02:40 Urine Protein TRACE mg/dL (NEGATIVE) 09/13/17 02:40 Urine Glucose (UA) NEGATIVE mg/dL (NEGATIVE) 09/13/17 02:40 Urine Ketones NEGATIVE mg/dL (NEGATIVE) 09/13/17 02:40 Urine Blood TRACE (NEGATIVE) 09/13/17 02:40 Urine Nitrate NEGATIVE (NEGATIVE) 09/13/17 02:40 Urine Bilirubin NEGATIVE (NEGATIVE) 09/13/17 02:40 Urine Urobilinogen 0.2 E.U./dL (0.2 - 1.0) 09/13/17 02:40 Ur Leukocyte Esterase NEGATIVE (NEGATIVE) 09/13/17 02:40 Urine RBC 0-2 /hpf (0-5) 09/13/17 02:40 Urine WBC 2-5 /hpf (0-5) 09/13/17 02:40 Ur Epithelial Cells FEW /lpf (FEW) 09/13/17 02:40 Urine Bacteria FEW /hpf (NONE SEEN) 09/13/17 02:40 Fine Granular Casts 0-2 /lpf (NONE SEEN) H 09/07/17 11:30 Coarse Granular Casts 2-5 /lpf (NONE SEEN) H 09/07/17 11:30 Urine Mucus FEW /lpf (FEW) 09/07/17 11:30 Urine Yeast MANY /hpf (NONE SEEN) H 09/13/17 02:40 U Random Total Protein 104.0 mg/dL 09/10/17 21:45 Ur Random Sodium 73 mmol/L 09/13/17 02:40 Urine Collection Time 24 hours 09/10/17 21:45 Urine Total Volume 550 ml 09/10/17 21:45 Urine Creatinine 42.0 mg/dl (28.0-217.0) 09/10/17 21:45 Creat Clearance 24 Hr 8 ml/min (88.00-128.00) L 09/10/17 21:45 U Tot Protein 24h, Calc 572.0 mg/24 hr (0-165) H 09/10/17 21:45 Ur Sodium 24 Hour 39 mmol/24H (40-220) L 09/10/17 21:45 Body Surface Area 1.54 09/10/17 21:45 Random Vancomycin 14.8 ug/mL (5.0-40.0) 09/09/17 05:54 - Physical Exam Vitals and I&O: Vital Signs Temp 97.3 F 09/14/17 04:00 Pulse 73 09/14/17 04:00 Resp 19 09/14/17 04:00 BP 152/73 09/14/17 04:00 Pulse Ox 98 09/14/17 04:00 Intake & Output 09/13/17 09/14/17 09/14/17 18:59 06:59 18:59 Intake Total 1000 Output Total 80 720 Balance 920 -720 Weight (lbs) 66.86 kg 66.905 kg Intake: Intake, IV Amount 1000 Dextrose 5% 1,000 ml @ 1000 125 mls/hr IV .Q8H [facility] Rx #:[id number] Output: Urine 450 Stool 0 Other 80 270 Other: # Voids 3 Active Medications: Current Medications Acetaminophen (Tylenol) 650 mg PO Q6HR PRN PRN Reason: MILD PAIN OR TEMP>100.4 Stop: 11/06/17 16:35 Alendronate Sodium (Fosamax) 70 mg PO QSAT [facility] Stop: 11/08/17 06:29 Last Admin: 09/09/17 07:10 Dose: Not Given Aspirin (Aspirin Chewable) 81 mg PO DAILY [facility] Stop: 11/07/17 08:59 Last Admin: 09/13/17 08:57 Dose: Not Given Bisacodyl (Dulcolax 10 Mg Supp) 10 mg RC DAILY PRN PRN Reason: IF MOM INEFFECTIVE Stop: 11/06/17 16:35 Clonazepam (Klonopin) 1 mg PO DAILY [facility] PRN Reason: Protocol Stop: 11/07/17 08:59 Last Admin: 09/13/17 08:58 Dose: Not Given Clonazepam (Klonopin) 2 mg PO HS [facility] Stop: 11/10/17 20:59 Last Admin: 09/12/17 20:47 Dose: Not Given Cyanocobalamin (Vitamin B12) 1,000 mcg PO DAILY [facility] Stop: 11/07/17 08:59 Last Admin: 09/13/17 08:58 Dose: Not Given Diltiazem HCl (Cardizem) 20 mg IVP Q3H PRN PRN Reason: Heart Rate > than 120 bpm Stop: 11/06/17 16:44 Docusate Sodium (Colace) 100 mg PO DAILY [facility] Stop: 11/07/17 08:59 Last Admin: 09/13/17 08:58 Dose: Not Given Enalaprilat (Vasotec) 1.25 mg IVP Q6HR PRN PRN Reason: SBP > 170 Stop: 11/10/17 04:29 Last Admin: 09/11/17 04:47 Dose: 1.25 mg Heparin Sodium (Porcine) (Heparin) 5,000 units SUBQ Q12HR [facility] Stop: 11/06/17 20:59 Last Admin: 09/13/17 21:00 Dose: Not Given Phenylephrine HCl 10 mg/ (Sodium Chloride) 250 mls @ 30 mls/hr IV TITR [facility]; 20 MCG/MIN PRN Reason: Protocol Stop: 11/06/17 21:59 Last Titration: 09/08/17 06:01 Dose: 0 mcg/min, 0 mls/hr Piperacillin Sod/Tazobactam (Sod 2.25 gm/ Sodium Chloride) 50 mls @ 100 mls/hr IV Q6HR [facility] Stop: 11/07/17 11:59 Last Admin: 09/13/17 12:15 Dose: 100 mls/hr Norepinephrine Bitartrate 4 mg (/ Dextrose) 254 mls @ 0 mls/hr IV STAT PRN; Protocol; Per Protocol PRN Reason: BP MAINTENANCE (PER PROTOCOL) Stop: 11/06/17 16:11 Last Titration: 09/10/17 06:20 Dose: 0 mcg/min, 0 mls/hr Dextrose (D5w) 1,000 mls @ 125 mls/hr IV .Q8H [facility] Stop: 11/10/17 15:48 Last Admin: 09/14/17 06:39 Dose: 125 mls/hr Insulin Aspart (Novolog Insulin Sliding Scale) 0 units SUBQ ACHS [facility] PRN Reason: Protocol Stop: 11/07/17 11:29 Last Admin: 09/13/17 21:45 Dose: 2 units Insulin Detemir (Levemir Insulin) 10 units SUBQ HS [facility] Stop: 11/06/17 20:59 Last Admin: 09/13/17 21:30 Dose: 10 units Lactobacillus Rhamnosus (Culturelle) 1 each PO DAILY [facility] Stop: 11/09/17 08:59 Last Admin: 09/13/17 08:58 Dose: Not Given Lorazepam (Ativan) 0.5 mg PO Q6HR PRN; Protocol PRN Reason: Anxiety Stop: 11/06/17 16:35 Magnesium Hydroxide (Milk Of Magnesia) 30 ml PO DAILY PRN PRN Reason: Constipation Stop: 11/06/17 16:35 Megestrol Acetate (Megace) 400 mg PO TID [facility] Stop: 11/06/17 20:59 Last Admin: 09/13/17 15:17 Dose: Not Given Miscellaneous (Clinical Monitoring) 1 ea PRN PRN PRN Reason: RENAL DOSE ZOSYN Stop: 11/07/17 07:51 Miscellaneous (Zosyn Iv Per Pharmacy) 1 [facility] PRN PRN PRN Reason: PROTOCOL Stop: 11/07/17 14:31 Miscellaneous (Probiotic Screen) 1 [facility] PRN PRN PRN Reason: PROTOCOL Stop: 11/08/17 10:15 Morphine Sulfate (Morphine) 1 mg IVP Q4HR PRN PRN Reason: Pain (Severe) Stop: 11/07/17 18:24 Last Admin: 09/13/17 12:11 Dose: 1 mg Morphine Sulfate (Morphine) 1 mg IVP Q6HR PRN PRN Reason: Pain (Moderate) Stop: 11/10/17 17:59 Multivitamins/Vitamin C (Theragran) 1 tab PO DAILY [facility] Stop: 11/07/17 08:59 Last Admin: 09/13/17 08:58 Dose: Not Given Pantoprazole Sodium (Protonix) 40 mg IVP DAILY [facility] Stop: 11/06/17 18:59 Last Admin: 09/13/17 09:16 Dose: 40 mg Quetiapine Fumarate (Seroquel) 100 mg PO HS [facility] PRN Reason: Protocol Stop: 11/06/17 20:59 Last Admin: 09/12/17 20:47 Dose: Not Given Simvastatin (Zocor) 40 mg PO HS [facility] PRN Reason: Protocol Stop: 11/06/17 20:59 Last Admin: 09/12/17 20:48 Dose: Not Given Sodium Bicarbonate (Sodium Bicarbonate) 650 mg PO BID [facility] PRN Reason: Protocol Stop: 11/12/17 16:59 Sodium Phosphate (Fleet Enema) 135 ml RC DAILY PRN PRN Reason: Constipation Stop: 11/06/17 16:35 General: Alert, Mild distress HEENT: Atraumatic, EOMI, Mucous membr. moist/pink Neck: Supple, +2 carotid pulse wo bruit Cardiovascular: Regular rate, Normal S1, Normal S2, Other (increased HR) Lungs: Other (decrease breath sounds) Abdomen: Bowel sounds, Soft Extremities: no Clubbing, no Cyanosis, no Edema Neurological: Sensation intact Skin: no Rash Psych/Mental Status: Mood NL Assessment/Plan - Assessment Assessment: Sepsis --- blood cultures x 2 pending, WBC's 29-> 31K --> 14K-->11K --> 8K will continue IV antibiotics per ID Cholecystitis s/p placement of PTC tube .... draining well. will continue for 4- 6 weeks per GI. dementia CKD ---repeat bmp. h/h. 9.0 stable. dysphagia, poor oral intake ... for G-tube placement today. anorexia ... will order CEA Left Pleural Effusion r/o CHF .... will monitor BNP. Chest xray done yesterday. UTI ... - Plan Plan: continue current treatment. for G-tube placement. Nutritional Asmnt/Malnutr-PDOC - Dietary Evaluation Malnutrition Findings (Please click <Entered> for more info): Nutritional Asmnt/Malnutrition Start: 09/07/17 16: 06 Text: Status: Complete Freq: Document 09/07/17 16:06 NIK (Rec: 09/07/17 16:34 [id number] Nutritional Asmnt/Malnutrition Patient General Information Nutritional Screening Consult Diagnosis Dehydration, leukcytosis, dementia Pertinent Medical Hx/Surgical Hx HTN, DM, Dyslipidemia, Arthritis, Dementia, Hyperlipidemia, Anxiety, Osteoporosis, Degenerative joint disease, Neurophay. Subjective Information Per H&P, pt was on pureed NCS, NSPOT diet from [facility] ([facility]). Pt had anorexia more than one month and wt loss of 25lb in the past two months. Pt was transfered to ICU d/t rapid response. Families were aside, not a propriate time to approach. Currently no plan for nutrition d/t pt is not responding per RN. Current Diet Order/ Nutrition Support no diet order/swallowing eval pending Pertinent Medications D5 50ml/hr Pertinent Labs 09/07 Na 143, K 4.6, Cl 111 H, BUN 53 H, Cr 0.9 GLU 182 H, POC 164 H Nutritional Hx/Data Height 1.42 m Height (Calculated Centimeters) 142.2 Current Weight (lbs) 55.338 kg Weight (Calculated Kilograms) 55.3 Weight (Calculated Grams) 91925.3 [place] Body Weight 90 Recent Weight Change Yes Weight Status Overweight GI Symptoms Food Allergies No Skin Integrity/Comment: 11/09 pretibial pitting edema Estimated Nutritional Goals BEE in Kcals: Using Current wt Calories/Kcals/Kg 30 Kcals Calculated 1664 Protein: Using Current wt Protein g/k-1.2 Protein Calculated 56-67 Fluid: ml 1664-1943ml (30-35ml/kg) Nutritional Problem 1. Problem Problem Involuntary weight loss Etiology anorexia for more then one month Signs/Symptoms: recent wt loss of 25lb in two month Malnutrition Alert Interpretation of weight loss (Severe) >5% in 1 month Intervention/Recommendation Comments No nutrition intervention at this time. RD will follow up as high risk in 1-2 days. Expected Outcomes/Goals Expected Outcomes/Goals Pt to meet 50% of nutritional needs in the following 3 days.
[2017-09-14] MEDS: INSULIN ASPART SLIDING SCALE 100 UNITS/ML UNIT SUBQ SCH ×4 (08:27→21:03)
[2017-09-14] MEDS ORDERED: KCL 20mEq/100mL Premix 20 MEQ/100 ML PIGGYBACK IV SCH (08:30)
[2017-09-14] MEDS: Aspirin 81mg Chewable Tab PO SCH (10:47)
[2017-09-14] MEDS: Multivitamin Tab PO SCH (10:47)
[2017-09-14] MEDS: Lactobacillus Rhamnosus 10 Billion CFU Capsule PO SCH (10:47)
[2017-09-14] MEDS: Piperacillin/Tazobact 2.25 gm in 0.9% NS 50 ML IV SCH ×2 (11:27→20:00)
--- NOTE | 2017-09-14 18:04 | General Progress Note ---
Subjective - Review of Systems Service Date: 09/14/17 Subjective: more awake today, interacting, comfortable Objective - Results Result Diagrams: 09/14/17 05:20 09/14/17 05:20 Recent Labs: Laboratory Last Values WBC 8.8 Th/cmm (4.8-10.8) 09/14/17 05:20 RBC 3.64 Mil/cmm (3.80-5.20) L 09/14/17 05:20 Hgb 9.1 gm/dL (12-16) L 09/14/17 05:20 Hct 28.1 % (41.0-60) L 09/14/17 05:20 MCV 77.1 fl (81-100) L 09/14/17 05:20 MCH 25.1 pg (27.0-31.0) L 09/14/17 05:20 MCHC Differential 32.6 pg (28.0-36.0) 09/14/17 05:20 RDW 13.9 % (11.5-20.0) 09/14/17 05:20 Plt Count 214 Th/cmm (150-400) D 09/14/17 05:20 MPV 8.9 fl 09/14/17 05:20 Neutrophils % 75.6 % (40.0-80.0) 09/14/17 05:20 Band Neutrophils % 5 % (0-10) 09/11/17 04:55 Lymphocytes % 14.8 % (20.0-50.0) L 09/14/17 05:20 Monocytes % 3.6 % (2.0-10.0) 09/14/17 05:20 Eosinophils % 5.9 % (0.0-5.0) H 09/14/17 05:20 Basophils % 0.1 % (0.0-2.0) 09/14/17 05:20 Neutrophils (Manual) 82 % (40-80) H 09/11/17 04:55 Lymphocytes 11 % (20-50) L 09/11/17 04:55 Monocytes 2 % (2-10) 09/11/17 04:55 Eosinophils 0 % (0-5) 09/11/17 04:55 Basophils 0 % (0-3) 09/11/17 04:55 Platelet Estimate ADEQUATE (NORMAL) 09/11/17 04:55 Platelet Morphology NORMAL (NORMAL) 09/11/17 04:55 Anisocytosis 1+ 09/10/17 05:48 Microcytosis 1+ 09/11/17 04:55 RBC Morph Micro Appear ABNORMAL (NORMAL) 09/11/17 04:55 Eos Smear Source URINE 09/09/17 21:29 Eos Smear Total Cells NONE SEEN (NONE SEEN) 09/09/17 21:29 PT 11.5 SECONDS (9.5-11.5) 09/14/17 05:20 INR 1.10 (0.5-1.4) 09/14/17 05:20 PTT (Actin FS) 32.9 SECONDS (26.0-38.0) 09/11/17 10:04 Specimen Source Arterial 09/09/17 08:53 Sample Site Left Radial 09/09/17 08:53 pH 7.37 (7.35-7.45) 09/09/17 08:53 pCO2 28.0 mmHg (35.0-45.0) L 09/09/17 08:53 pO2 100.0 mmHg (80.0-100.0) 09/09/17 08:53 HCO3 18.9 mEq/L (20.0-26.0) L 09/09/17 08:53 Base Excess -7.7 mEq/L (-3.0-3.0) L 09/09/17 08:53 O2 Saturation 98.0 % (92.0-100.0) 09/09/17 08:53 Vinod Test YES 09/09/17 08:53 Vent Rate NA 09/09/17 08:53 Inspired O2 28 09/09/17 08:53 Tidal Volume NA 09/09/17 08:53 PEEP NA 09/09/17 08:53 Pressure (ins/psv/peep) NA 09/09/17 08:53 Critical Value FERNANDO CALLIE 09/09/17 08:53 Sodium 139 mEq/L (136-145) 09/14/17 05:20 Potassium 3.4 mEq/L (3.5-5.1) L 09/14/17 05:20 Chloride 112 mEq/L (98-107) H 09/14/17 05:20 Carbon Dioxide 19.5 mEq/L (21.0-31.0) L 09/14/17 05:20 Anion Gap 10.9 (7.0-16.0) 09/14/17 05:20 BUN 40 mg/dL (7-25) H 09/14/17 05:20 Creatinine 2.7 mg/dL (0.6-1.2) H 09/14/17 05:20 Est GFR ( Amer) TNP 09/14/17 05:20 Est GFR (Non-Af Amer) TNP 09/14/17 05:20 BUN/Creatinine Ratio 14.8 09/14/17 05:20 Glucose 191 mg/dL (70-105) H 09/14/17 05:20 POC Glucose 109 MG/DL (70 - 105) H 09/14/17 11:40 Hemoglobin A1c % 5.7 % (4.0-6.0) 09/07/17 10:40 Whole Bld Lactic Acid 2.66 mmol/L (0.60-1.99) H* 09/10/17 07:48 Uric Acid 5.4 mg/dL (2.3-6.6) 09/10/17 05:48 Calcium 7.7 mg/dL (8.6-10.3) L 09/14/17 05:20 Phosphorus 3.2 mg/dL (2.5-5.0) 09/11/17 04:55 Magnesium 2.3 mg/dL (1.9-2.7) 09/13/17 04:36 Total Bilirubin 0.7 mg/dL (0.3-1.0) 09/12/17 05:30 AST 12 U/L (13-39) L 09/12/17 05:30 ALT 21 U/L (7-52) 09/12/17 05:30 Alkaline Phosphatase 185 U/L (34-104) H 09/12/17 05:30 Ammonia 29 umol/L (16-53) 09/11/17 04:55 Troponin I 0.20 ng/mL (0.01-0.05) H* D 09/08/17 05:57 B-Natriuretic Peptide 311.0 pg/mL (5.0-100.0) H 09/12/17 05:30 Total Protein 4.5 gm/dL (6.0-8.3) L 09/12/17 05:30 Albumin 1.7 gm/dL (3.7-5.3) L 09/12/17 05:30 Globulin 2.8 gm/dL 09/12/17 05:30 Albumin/Globulin Ratio 0.6 (1.0-1.8) L 09/12/17 05:30 Lipase 20 U/L (11-82) 09/07/17 10:40 Procalcitonin SEE REF LAB REPORT 09/09/17 05:54 Urine Source [place] 09/13/17 02:40 Urine Color YELLOW 09/13/17 02:40 Urine Clarity CLEAR (CLEAR) 09/13/17 02:40 Urine pH 5.5 (4.6 - 8.0) 09/13/17 02:40 Ur Specific [place] 1.015 (1.005-1.030) 09/13/17 02:40 Urine Protein TRACE mg/dL (NEGATIVE) 09/13/17 02:40 Urine Glucose (UA) NEGATIVE mg/dL (NEGATIVE) 09/13/17 02:40 Urine Ketones NEGATIVE mg/dL (NEGATIVE) 09/13/17 02:40 Urine Blood TRACE (NEGATIVE) 09/13/17 02:40 Urine Nitrate NEGATIVE (NEGATIVE) 09/13/17 02:40 Urine Bilirubin NEGATIVE (NEGATIVE) 09/13/17 02:40 Urine Urobilinogen 0.2 E.U./dL (0.2 - 1.0) 09/13/17 02:40 Ur Leukocyte Esterase NEGATIVE (NEGATIVE) 09/13/17 02:40 Urine RBC 0-2 /hpf (0-5) 09/13/17 02:40 Urine WBC 2-5 /hpf (0-5) 09/13/17 02:40 Ur Epithelial Cells FEW /lpf (FEW) 09/13/17 02:40 Urine Bacteria FEW /hpf (NONE SEEN) 09/13/17 02:40 Fine Granular Casts 0-2 /lpf (NONE SEEN) H 09/07/17 11:30 Coarse Granular Casts 2-5 /lpf (NONE SEEN) H 09/07/17 11:30 Urine Mucus FEW /lpf (FEW) 09/07/17 11:30 Urine Yeast MANY /hpf (NONE SEEN) H 09/13/17 02:40 U Random Total Protein 104.0 mg/dL 09/10/17 21:45 Ur Random Sodium 73 mmol/L 09/13/17 02:40 Urine Collection Time 24 hours 09/10/17 21:45 Urine Total Volume 550 ml 09/10/17 21:45 Urine Creatinine 42.0 mg/dl (28.0-217.0) 09/10/17 21:45 Creat Clearance 24 Hr 8 ml/min (88.00-128.00) L 09/10/17 21:45 U Tot Protein 24h, Calc 572.0 mg/24 hr (0-165) H 09/10/17 21:45 Ur Sodium 24 Hour 39 mmol/24H (40-220) L 09/10/17 21:45 Body Surface Area 1.54 09/10/17 21:45 Random Vancomycin 14.8 ug/mL (5.0-40.0) 09/09/17 05:54 - Physical Exam Vitals and I&O: Vital Signs Temp 98.1 F 09/14/17 08:00 Pulse 72 09/14/17 08:15 Resp 18 09/14/17 08:15 BP 147/95 09/14/17 08:00 Pulse Ox 98 09/14/17 08:15 Intake & Output 09/13/17 09/14/17 09/14/17 18:59 06:59 18:59 Intake Total 1050 470.833 Output Total 80 720 Balance 970 -720 470.833 Weight (lbs) 66.86 kg 66.905 kg Intake: Intake, IV Amount 1050 470.833 Dextrose 5% 1,000 ml @ 1000 470.833 125 mls/hr IV .Q8H [facility] Rx #:[id number] Piperacillin Sodium/ 50 Tazobact 2.25 gm In Sodium Chloride 0.9% 50 ml @ 100 mls/hr IV Q6HR [facility] Rx#:[id number] Output: Urine 450 Stool 0 Other 80 270 Other: # Voids 3 Active Medications: Current Medications Acetaminophen (Tylenol) 650 mg PO Q6HR PRN PRN Reason: MILD PAIN OR TEMP>100.4 Stop: 11/06/17 16:35 Alendronate Sodium (Fosamax) 70 mg PO QSAT [facility] Stop: 11/08/17 06:29 Last Admin: 09/09/17 07:10 Dose: Not Given Aspirin (Aspirin Chewable) 81 mg PO DAILY [facility] Stop: 11/07/17 08:59 Last Admin: 09/14/17 10:47 Dose: 81 mg Bisacodyl (Dulcolax 10 Mg Supp) 10 mg RC DAILY PRN PRN Reason: IF MOM INEFFECTIVE Stop: 11/06/17 16:35 Clonazepam (Klonopin) 1 mg PO DAILY [facility] PRN Reason: Protocol Stop: 11/07/17 08:59 Last Admin: 09/14/17 11:04 Dose: 1 mg Clonazepam (Klonopin) 2 mg PO HS [facility] Stop: 11/10/17 20:59 Last Admin: 09/13/17 21:00 Dose: Not Given Cyanocobalamin (Vitamin B12) 1,000 mcg PO DAILY [facility] Stop: 11/07/17 08:59 Last Admin: 09/14/17 10:48 Dose: 1,000 mcg Diltiazem HCl (Cardizem) 20 mg IVP Q3H PRN PRN Reason: Heart Rate > than 120 bpm Stop: 11/06/17 16:44 Docusate Sodium (Colace) 100 mg PO DAILY [facility] Stop: 11/07/17 08:59 Last Admin: 09/14/17 10:47 Dose: 100 mg Enalaprilat (Vasotec) 1.25 mg IVP Q6HR PRN PRN Reason: SBP > 170 Stop: 11/10/17 04:29 Last Admin: 09/11/17 04:47 Dose: 1.25 mg Heparin Sodium (Porcine) (Heparin) 5,000 units SUBQ Q12HR [facility] Stop: 11/06/17 20:59 Last Admin: 09/14/17 09:00 Dose: Not Given Phenylephrine HCl 10 mg/ (Sodium Chloride) 250 mls @ 30 mls/hr IV TITR [facility]; 20 MCG/MIN PRN Reason: Protocol Stop: 11/06/17 21:59 Last Titration: 09/08/17 06:01 Dose: 0 mcg/min, 0 mls/hr Piperacillin Sod/Tazobactam (Sod 2.25 gm/ Sodium Chloride) 50 mls @ 100 mls/hr IV Q6HR [facility] Stop: 11/07/17 11:59 Last Admin: 09/14/17 11:27 Dose: 100 mls/hr Norepinephrine Bitartrate 4 mg (/ Dextrose) 254 mls @ 0 mls/hr IV STAT PRN; Protocol; Per Protocol PRN Reason: BP MAINTENANCE (PER PROTOCOL) Stop: 11/06/17 16:11 Last Titration: 09/10/17 06:20 Dose: 0 mcg/min, 0 mls/hr Dextrose (D5w) 1,000 mls @ 125 mls/hr IV .Q8H [facility] Stop: 11/10/17 15:48 Last Admin: 09/14/17 10:25 Dose: 125 mls/hr Insulin Aspart (Novolog Insulin Sliding Scale) 0 units SUBQ ACHS [facility] PRN Reason: Protocol Stop: 11/07/17 11:29 Last Admin: 09/14/17 17:12 Dose: Not Given Insulin Detemir (Levemir Insulin) 10 units SUBQ HS [facility] Stop: 11/06/17 20:59 Last Admin: 09/13/17 21:30 Dose: 10 units Lactobacillus Rhamnosus (Culturelle) 1 each PO DAILY [facility] Stop: 11/09/17 08:59 Last Admin: 09/14/17 10:47 Dose: 1 each Lorazepam (Ativan) 0.5 mg PO Q6HR PRN; Protocol PRN Reason: Anxiety Stop: 11/06/17 16:35 Last Admin: 09/14/17 10:48 Dose: 0.5 mg Magnesium Hydroxide (Milk Of Magnesia) 30 ml PO DAILY PRN PRN Reason: Constipation Stop: 11/06/17 16:35 Miscellaneous (Clinical Monitoring) 1 ea PRN PRN PRN Reason: RENAL DOSE ZOSYN Stop: 11/07/17 07:51 Miscellaneous (Zosyn Iv Per Pharmacy) 1 ea PRN PRN PRN Reason: PROTOCOL Stop: 11/07/17 14:31 Miscellaneous (Probiotic Screen) 1 ea PRN PRN PRN Reason: PROTOCOL Stop: 11/08/17 10:15 Morphine Sulfate (Morphine) 1 mg IVP Q4HR PRN PRN Reason: Pain (Severe) Stop: 11/07/17 18:24 Last Admin: 09/13/17 12:11 Dose: 1 mg Morphine Sulfate (Morphine) 1 mg IVP Q6HR PRN PRN Reason: Pain (Moderate) Stop: 11/10/17 17:59 Multivitamins/Vitamin C (Theragran) 1 tab PO DAILY [facility] Stop: 11/07/17 08:59 Last Admin: 09/14/17 10:47 Dose: 1 tab Pantoprazole Sodium (Protonix) 40 mg IVP DAILY [facility] Stop: 11/06/17 18:59 Last Admin: 09/14/17 10:47 Dose: 40 mg Quetiapine Fumarate (Seroquel) 100 mg PO HS [facility] PRN Reason: Protocol Stop: 11/06/17 20:59 Last Admin: 09/13/17 21:00 Dose: Not Given Simvastatin (Zocor) 40 mg PO HS [facility] PRN Reason: Protocol Stop: 11/06/17 20:59 Last Admin: 09/13/17 21:00 Dose: Not Given Sodium Bicarbonate (Sodium Bicarbonate) 650 mg PO BID [facility] PRN Reason: Protocol Stop: 11/12/17 16:59 Last Admin: 09/14/17 17:08 Dose: 650 mg Sodium Phosphate (Fleet Enema) 135 ml RC DAILY PRN PRN Reason: Constipation Stop: 11/06/17 16:35 General: Alert, Mild distress HEENT: Atraumatic, EOMI, Mucous membr. moist/pink Neck: Supple, +2 carotid pulse wo bruit Cardiovascular: Regular rate, Normal S1, Normal S2, Other (increased HR) Lungs: Other (decrease breath sounds) Abdomen: Bowel sounds, Soft Extremities: no Clubbing, no Cyanosis, no Edema Neurological: Sensation intact Skin: no Rash Psych/Mental Status: Mood NL Assessment/Plan - Assessment Assessment: JHOAN Septic shock better Acute cholecystitis s/p drainage of GB FTT Severe malnutrition Microcytic anemia Type 2 DM Dyslipidemia Ess Htn Non gap met acid - Plan Plan: Lab - Result Diagrams 09/11/17 04:55 09/11/17 04:55 Current Medications Acetaminophen (Tylenol) 650 mg PO Q6HR PRN PRN Reason: MILD PAIN OR TEMP>100.4 Stop: 11/06/17 16:35 Alendronate Sodium (Fosamax) 70 mg PO QSAT [facility] Stop: 11/08/17 06:29 Last Admin: 09/09/17 07:10 Dose: Not Given Aspirin (Aspirin Chewable) 81 mg PO DAILY [facility] Stop: 11/07/17 08:59 Last Admin: 09/11/17 09:46 Dose: Not Given Bisacodyl (Dulcolax 10 Mg Supp) 10 mg RC DAILY PRN PRN Reason: IF MOM INEFFECTIVE Stop: 01/01/18 16:35 Clonazepam (Klonopin) 1 mg PO DAILY [facility] PRN Reason: Protocol Stop: 11/07/17 08:59 Last Admin: 09/11/17 09:46 Dose: Not Given Clonazepam (Klonopin) 2 mg PO HS [facility] Stop: 11/10/17 20:59 Cyanocobalamin (Vitamin B12) 1,000 mcg PO DAILY [facility] Stop: 11/07/17 08:59 Last Admin: 09/11/17 09:46 Dose: Not Given Diltiazem HCl (Cardizem) 20 mg IVP Q3H PRN PRN Reason: Heart Rate > than 120 bpm Stop: 11/06/17 16:44 Docusate Sodium (Colace) 100 mg PO DAILY [facility] Stop: 11/07/17 08:59 Last Admin: 09/11/17 09:47 Dose: Not Given Enalaprilat (Vasotec) 1.25 mg IVP Q6HR PRN PRN Reason: SBP > 170 Stop: 11/10/17 04:29 Last Admin: 09/11/17 04:47 Dose: 1.25 mg Heparin Sodium (Porcine) (Heparin) 5,000 units SUBQ Q12HR [facility] Stop: 11/06/17 20:59 Last Admin: 09/11/17 09:47 Dose: Not Given Phenylephrine HCl 10 mg/ (Sodium Chloride) 250 mls @ 30 mls/hr IV TITR [facility]; 20 MCG/MIN PRN Reason: Protocol Stop: 11/06/17 21:59 Last Titration: 09/08/17 06:01 Dose: 0 mcg/min, 0 mls/hr Piperacillin Sod/Tazobactam (Sod 2.25 gm/ Sodium Chloride) 50 mls @ 100 mls/hr IV Q6HR [facility] Stop: 11/07/17 11:59 Last Infusion: 09/11/17 11:45 Dose: Infused Norepinephrine Bitartrate 4 mg (/ Dextrose) 254 mls @ 0 mls/hr IV STAT PRN; Protocol; Per Protocol PRN Reason: BP MAINTENANCE (PER PROTOCOL) Stop: 11/06/17 16:11 Last Titration: 09/10/17 06:20 Dose: 0 mcg/min, 0 mls/hr Dextrose (D5w) 1,000 mls @ 125 mls/hr IV .Q8H [facility] Stop: 11/10/17 15:48 Insulin Aspart (Novolog Insulin Sliding Scale) 0 units SUBQ ACHS [facility] PRN Reason: Protocol Stop: 11/07/17 11:29 Last Admin: 09/11/17 11:20 Dose: Not Given Insulin Detemir (Levemir Insulin) 10 units SUBQ HS [facility] Stop: 11/06/17 20:59 Last Admin: 09/10/17 21:11 Dose: 10 units Lactobacillus Rhamnosus (Culturelle) 1 each PO DAILY [facility] Stop: 11/09/17 08:59 Last Admin: 09/11/17 09:47 Dose: Not Given Lorazepam (Ativan) 0.5 mg PO Q6HR PRN; Protocol PRN Reason: Anxiety Stop: 11/06/17 16:35 Magnesium Hydroxide (Milk Of Magnesia) 30 ml PO DAILY PRN PRN Reason: Constipation Stop: 11/06/17 16:35 Megestrol Acetate (Megace) 400 mg PO TID [facility] Stop: 11/06/17 20:59 Last Admin: 09/11/17 09:47 Dose: Not Given Miscellaneous (Clinical Monitoring) 1 ea PRN PRN PRN Reason: RENAL DOSE [facility] Stop: 11/07/17 07:51 Miscellaneous (Zosyn Iv Per Pharmacy) 1 ea PRN PRN PRN Reason: PROTOCOL Stop: 11/07/17 14:31 Miscellaneous (Probiotic Screen) 1 ea PRN PRN PRN Reason: PROTOCOL Stop: 11/08/17 10:15 Morphine Sulfate (Morphine) 1 mg IVP Q4HR PRN PRN Reason: Pain (Moderate-Severe) Stop: 11/07/17 18:24 Multivitamins/Vitamin C (Theragran) 1 tab PO DAILY [facility] Stop: 11/07/17 08:59 Last Admin: 09/11/17 09:47 Dose: Not Given Pantoprazole Sodium (Protonix) 40 mg IVP DAILY [facility] Stop: 11/06/17 18:59 Last Admin: 09/11/17 09:45 Dose: 40 mg Quetiapine Fumarate (Seroquel) 100 mg PO [facility] PRN Reason: Protocol Stop: 11/06/17 20:59 Last Admin: 09/10/17 22:12 Dose: Not Given Simvastatin (Zocor) 40 mg PO [facility] PRN Reason: Protocol Stop: 11/06/17 20:59 Last Admin: 09/10/17 22:13 Dose: Not Given Sodium Phosphate (Fleet Enema) 135 ml RC DAILY PRN PRN Reason: Constipation Stop: 11/06/17 16:35 Lab - Result Diagrams 09/14/17 05:20 09/14/17 05:20 Na down to 139 C02 better @ 19 Kidney fnc basically the same already had drainage of GB @ [facility] w/ PCT replace K, WBC stable f/u electrolytes start NaHC03 discussed w/ daughter @ bedside s/p PEG Nutritional Asmnt/Malnutr-PDOC - Dietary Evaluation Malnutrition Findings (Please click <Entered> for more info): Nutritional Asmnt/Malnutrition Start: 09/07/17 16: 06 Text: Status: Complete Freq: Document 09/07/17 16:06 NIK (Rec: 09/07/17 16:34 NIK [email or web address]-FN) Nutritional Asmnt/Malnutrition Patient General Information Nutritional Screening Consult Diagnosis Dehydration, leukcytosis, dementia Pertinent Medical Hx/Surgical Hx HTN, DM, Dyslipidemia, Arthritis, Dementia, Hyperlipidemia, Anxiety, Osteoporosis, Degenerative joint disease, Neurophay. Subjective Information Per H&P, pt was on pureed NCS, NSPOT diet from [facility] ([facility]). Pt had anorexia more than one month and wt loss of 25lb in the past two months. Pt was transfered to ICU d/t rapid response. Families were aside, not a propriate time to approach. Currently no plan for nutrition d/t pt is not responding per RN. Current Diet Order/ Nutrition Support no diet order/swallowing eval pending Pertinent Medications D5 50ml/hr Pertinent Labs 09/07 Na 143, K 4.6, Cl 111 H, BUN 53 H, Cr 0.9 GLU 182 H, POC 164 H Nutritional Hx/Data Height 1.42 m Height (Calculated Centimeters) 142.2 Current Weight (lbs) 55.338 kg Weight (Calculated Kilograms) 55.3 Weight (Calculated Grams) [address]12.[address] [place] Body Weight 90 Recent Weight Change Yes Weight Status Overweight GI Symptoms Food Allergies No Skin Integrity/Comment: 11/09 pretibial pitting edema Estimated Nutritional Goals BEE in Kcals: Using Current wt Calories/Kcals/Kg 30 Kcals Calculated 1664 Protein: Using Current wt Protein g/k-1.2 Protein Calculated 56-67 Fluid: ml 1664-1943ml (30-35ml/kg) Nutritional Problem 1. Problem Problem Involuntary weight loss Etiology anorexia for more then one month Signs/Symptoms: recent wt loss of 25lb in two month Malnutrition Alert Interpretation of weight loss (Severe) >5% in 1 month Intervention/Recommendation Comments No nutrition intervention at this time. RD will follow up as high risk in 1-2 days. Expected Outcomes/Goals Expected Outcomes/Goals Pt to meet 50% of nutritional needs in the following 3 days.
--- NOTE | 2017-09-14 20:37 | Operative Report ---
DATE OF SURGERY: 09/14/2017 INPATIENT EGD AND PEG PLACEMENT ENDOSCOPIST: Jeovany Chiu M.D. PROCEDURE: EGD with PEG placement. PREOPERATIVE DIAGNOSES: Anorexia, dysphagia, and cholecystitis. POSTOPERATIVE DIAGNOSIS: Percutaneous gastrostomy tube placement. INDICATION: The patient is a 72-year-old female who is a resident of a nursing facility, who has been losing 30 pounds over the past several months due to anorexia and dysphagia. Her family has consented for PEG placement and she is here for this procedure. Of note, the patient did have a cholecystitis recently, but this was treated with a percutaneous cholecystostomy tube and she is now stable. CONSENT: Informed consent was obtained from the patient's family. The risks and benefits of this procedure were discussed and included but not limited to infection, bleeding, need for surgery, cardiopulmonary complications, missed pathology, perforation, and even . The patient's family indicated that they understood these risks and wished to go forward with the procedure, specifically the risk of pulling out the PEG tube and PEG site infection and complication was discussed. ANESTHESIA: General anesthesia was used via the care of anesthesiologist. PROCEDURE IN DETAIL: The patient was connected to the appropriate monitoring devices including blood pressure, pulse, and pulse oximetry. An IV was in place. After the initiation of general anesthesia, the patient was placed in the supine position. A mouthpiece was inserted and secured. After adequate anesthesia, a gastroscope was introduced into the mouth and passed under direct visualization into the esophagus, stomach and second portion of the duodenum. The stomach was transilluminated and an optimal position for the PEG tube was identified using the single poke method. Lidocaine was administered subQ in this area using a small needle and subsequently a sheath was inserted through the abdomen into the stomach under direct visualization. The needle was removed and a guidewire was inserted through the sheath. The guidewire was grasped from above with a snare by the endoscopist. It was removed completely and the PEG tube was secured to the guidewire. The guidewire and PEG tube were then pulled through the mouth and esophagus and snug to the abdominal wall. The PEG tube was seen to freely twist with gentle manipulation on endoscopic views. There was no evidence of bleeding at the end of the procedure. The bolster was placed on the PEG tube site externally. The patient tolerated the procedure well and there were no obvious complications at the conclusion of the procedure. IMPRESSION: Successful placement of percutaneous gastrostomy tube. RECOMMENDATION: 1. This G-tube can be used immediately for medication and free water flushes. After 6 hours, feeding can be started at a rate of 10 mL an hour and increased by 10 mL per hour to a goal rate of 50 mL per hour. 2. Please hold for any residual greater than 100 mL. 3. Please flush with water 100 mL every 6 hours. 4. Please apply an abdominal binder to prevent the patient from pulling out this tube. 5. Antibiotics had been given for the initiation of this case, as the patient is being currently treated for cholecystitis. We will continue to follow the patient. Thank you for allowing me to participate in her care. [facility]# [id number]
[2017-09-14] MEDS: Insulin Detemir 100 units/mL 10mL Vial SUBQ SCH (21:16)
[2017-09-15] MEDS: Piperacillin/Tazobact 2.25 gm in 0.9% NS 50 ML IV SCH ×2 (02:20→06:28)
[2017-09-15] MEDS: Dextrose 5% 1,000 ML IV SCH (02:23)
[2017-09-15 06:16] LABS: % EOSINOPHILS 4.8 % (0.0-5.0); % LYMPHOCYTES 16.3 % (20.0-50.0); % MONOCYTES 3.8 % (2.0-10.0); % NEUTROPHILS 75.1 % (40.0-80.0); HEMOGLOBIN 9.4 gm/dL (12-16); MEAN CELL VOLUME 76.8 fl (81-100); MEAN CORPUSCULAR HEMOGLOBIN 24.9 pg (27.0-31.0); MEAN CORPUSCULAR HGB CONC 32.4 pg (28.0-36.0); MEAN PLATELET VOLUME 8.8 fl; NEUTROPHILE ABSOLUTE 8.1 Th/cmm (1.8-8.0); PLATELET COUNT 221 Th/cmm (150-400); RED BLOOD COUNT 3.78 Mil/cmm (3.80-5.20); RED CELL DISTRIBUTION WIDTH 14.1 % (11.5-20.0)
[2017-09-15 06:21] LABS: WHITE BLOOD COUNT 10.8 Th/cmm (4.8-10.8)
[2017-09-15 06:23] LABS: BUN - UREA NITROGEN 38 mg/dL (7-25); BUN/CREATININE RATIO 15.2; CALCIUM SERUM 7.3 mg/dL (8.6-10.3); CARBON DIOXIDE 15.2 mEq/L (21.0-31.0); CHLORIDE 110 mEq/L (98-107); CREATININE - SERUM 2.5 mg/dL (0.6-1.2); GLUCOSE 174 mg/dL (70-105); POTASSIUM SERUM 4.2 mEq/L (3.5-5.1); SODIUM SERUM 134 mEq/L (136-145)
[2017-09-15] MEDS: INSULIN ASPART SLIDING SCALE 100 UNITS/ML UNIT SUBQ SCH ×4 (06:38→16:46)
--- NOTE | 2017-09-15 07:40 | General Progress Note ---
Subjective - Review of Systems Service Date: 09/15/17 Subjective: s/p G-tube placement yesterday. more awake and alert today. no overt pain. smiling. Objective - Results Result Diagrams: 09/15/17 05:30 09/15/17 05:30 Recent Labs: Laboratory Last Values WBC 10.8 Th/cmm (4.8-10.8) D 09/15/17 05:30 RBC 3.78 Mil/cmm (3.80-5.20) L 09/15/17 05:30 Hgb 9.4 gm/dL (12-16) L 09/15/17 05:30 Hct 29.0 % (41.0-60) L 09/15/17 05:30 MCV 76.8 fl (81-100) L 09/15/17 05:30 MCH 24.9 pg (27.0-31.0) L 09/15/17 05:30 MCHC Differential 32.4 pg (28.0-36.0) 09/15/17 05:30 RDW 14.1 % (11.5-20.0) 09/15/17 05:30 Plt Count 221 Th/cmm (150-400) 09/15/17 05:30 MPV 8.8 fl 09/15/17 05:30 Neutrophils % 75.1 % (40.0-80.0) 09/15/17 05:30 Band Neutrophils % 5 % (0-10) 09/11/17 04:55 Lymphocytes % 16.3 % (20.0-50.0) L 09/15/17 05:30 Monocytes % 3.8 % (2.0-10.0) 09/15/17 05:30 Eosinophils % 4.8 % (0.0-5.0) 09/15/17 05:30 Basophils % 0.0 % (0.0-2.0) 09/15/17 05:30 Neutrophils (Manual) 82 % (40-80) H 09/11/17 04:55 Lymphocytes 11 % (20-50) L 09/11/17 04:55 Monocytes 2 % (2-10) 09/11/17 04:55 Eosinophils 0 % (0-5) 09/11/17 04:55 Basophils 0 % (0-3) 09/11/17 04:55 Platelet Estimate ADEQUATE (NORMAL) 09/11/17 04:55 Platelet Morphology NORMAL (NORMAL) 09/11/17 04:55 Anisocytosis 1+ 09/10/17 05:48 Microcytosis 1+ 09/11/17 04:55 RBC Morph Micro Appear ABNORMAL (NORMAL) 09/11/17 04:55 Eos Smear Source URINE 09/09/17 21:29 Eos Smear Total Cells NONE SEEN (NONE SEEN) 09/09/17 21:29 PT 11.5 SECONDS (9.5-11.5) 09/14/17 05:20 INR 1.10 (0.5-1.4) 09/14/17 05:20 PTT (Actin FS) 32.9 SECONDS (26.0-38.0) 09/11/17 10:04 Specimen Source Arterial 09/09/17 08:53 Sample Site Left Radial 09/09/17 08:53 pH 7.37 (7.35-7.45) 09/09/17 08:53 pCO2 28.0 mmHg (35.0-45.0) L 09/09/17 08:53 pO2 100.0 mmHg (80.0-100.0) 09/09/17 08:53 HCO3 18.9 mEq/L (20.0-26.0) L 09/09/17 08:53 Base Excess -7.7 mEq/L (-3.0-3.0) L 09/09/17 08:53 O2 Saturation 98.0 % (92.0-100.0) 09/09/17 08:53 Vinod Test YES 09/09/17 08:53 Vent Rate NA 09/09/17 08:53 Inspired O2 28 09/09/17 08:53 Tidal Volume NA 09/09/17 08:53 PEEP NA 09/09/17 08:53 Pressure (ins/psv/peep) NA 09/09/17 08:53 Critical Value FERNANDO CALLIE 09/09/17 08:53 Sodium 134 mEq/L (136-145) L 09/15/17 05:30 Potassium 4.2 mEq/L (3.5-5.1) 09/15/17 05:30 Chloride 110 mEq/L (98-107) H 09/15/17 05:30 Carbon Dioxide 15.2 mEq/L (21.0-31.0) L 09/15/17 05:30 Anion Gap 13.0 (7.0-16.0) 09/15/17 05:30 BUN 38 mg/dL (7-25) H 09/15/17 05:30 Creatinine 2.5 mg/dL (0.6-1.2) H 09/15/17 05:30 Est GFR ( Amer) TNP 09/15/17 05:30 Est GFR (Non-Af Amer) TNP 09/15/17 05:30 BUN/Creatinine Ratio 15.2 09/15/17 05:30 Glucose 174 mg/dL (70-105) H 09/15/17 05:30 POC Glucose 164 MG/DL (70 - 105) H 09/15/17 05:28 Hemoglobin A1c % 5.7 % (4.0-6.0) 09/07/17 10:40 Whole Bld Lactic Acid 2.66 mmol/L (0.60-1.99) H* 09/10/17 07:48 Uric Acid 5.4 mg/dL (2.3-6.6) 09/10/17 05:48 Calcium 7.3 mg/dL (8.6-10.3) L 09/15/17 05:30 Phosphorus 3.2 mg/dL (2.5-5.0) 09/11/17 04:55 Magnesium 2.3 mg/dL (1.9-2.7) 09/13/17 04:36 Total Bilirubin 0.7 mg/dL (0.3-1.0) 09/12/17 05:30 AST 12 U/L (13-39) L 09/12/17 05:30 ALT 21 U/L (7-52) 09/12/17 05:30 Alkaline Phosphatase 185 U/L (34-104) H 09/12/17 05:30 Ammonia 29 umol/L (16-53) 09/11/17 04:55 Troponin I 0.20 ng/mL (0.01-0.05) H* D 09/08/17 05:57 B-Natriuretic Peptide 311.0 pg/mL (5.0-100.0) H 09/12/17 05:30 Total Protein 4.5 gm/dL (6.0-8.3) L 09/12/17 05:30 Albumin 1.7 gm/dL (3.7-5.3) L 09/12/17 05:30 Globulin 2.8 gm/dL 09/12/17 05:30 Albumin/Globulin Ratio 0.6 (1.0-1.8) L 09/12/17 05:30 Lipase 20 U/L (11-82) 09/07/17 10:40 Procalcitonin SEE REF LAB REPORT 09/09/17 05:54 Urine Source [place] 09/13/17 02:40 Urine Color YELLOW 09/13/17 02:40 Urine Clarity CLEAR (CLEAR) 09/13/17 02:40 Urine pH 5.5 (4.6 - 8.0) 09/13/17 02:40 Ur Specific [place] 1.015 (1.005-1.030) 09/13/17 02:40 Urine Protein TRACE mg/dL (NEGATIVE) 09/13/17 02:40 Urine Glucose (UA) NEGATIVE mg/dL (NEGATIVE) 09/13/17 02:40 Urine Ketones NEGATIVE mg/dL (NEGATIVE) 09/13/17 02:40 Urine Blood TRACE (NEGATIVE) 09/13/17 02:40 Urine Nitrate NEGATIVE (NEGATIVE) 09/13/17 02:40 Urine Bilirubin NEGATIVE (NEGATIVE) 09/13/17 02:40 Urine Urobilinogen 0.2 E.U./dL (0.2 - 1.0) 09/13/17 02:40 Ur Leukocyte Esterase NEGATIVE (NEGATIVE) 09/13/17 02:40 Urine RBC 0-2 /hpf (0-5) 09/13/17 02:40 Urine WBC 2-5 /hpf (0-5) 09/13/17 02:40 Ur Epithelial Cells FEW /lpf (FEW) 09/13/17 02:40 Urine Bacteria FEW /hpf (NONE SEEN) 09/13/17 02:40 Fine Granular Casts 0-2 /lpf (NONE SEEN) H 09/07/17 11:30 Coarse Granular Casts 2-5 /lpf (NONE SEEN) H 09/07/17 11:30 Urine Mucus FEW /lpf (FEW) 09/07/17 11:30 Urine Yeast MANY /hpf (NONE SEEN) H 09/13/17 02:40 U Random Total Protein 104.0 mg/dL 09/10/17 21:45 Ur Random Sodium 73 mmol/L 09/13/17 02:40 Urine Collection Time 24 hours 09/10/17 21:45 Urine Total Volume 550 ml 09/10/17 21:45 Urine Creatinine 42.0 mg/dl (28.0-217.0) 09/10/17 21:45 Creat Clearance 24 Hr 8 ml/min (88.00-128.00) L 09/10/17 21:45 U Tot Protein 24h, Calc 572.0 mg/24 hr (0-165) H 09/10/17 21:45 Ur Sodium 24 Hour 39 mmol/24H (40-220) L 09/10/17 21:45 Body Surface Area 1.54 09/10/17 21:45 Random Vancomycin 14.8 ug/mL (5.0-40.0) 09/09/17 05:54 - Physical Exam Vitals and I&O: Vital Signs Temp 98.0 F 09/15/17 00:00 Pulse 80 09/15/17 00:00 Resp 18 09/15/17 00:00 BP 140/82 09/15/17 00:00 Pulse Ox 96 09/15/17 00:00 Intake & Output 09/14/17 09/15/17 09/15/17 18:59 06:59 18:59 Intake Total 1520.833 200 Output Total 1100 Balance 1520.833 -900 Weight (lbs) 66.905 kg Intake: Intake, IV Amount 1520.833 100 Dextrose 5% 1,000 ml @ 1470.833 125 mls/hr IV .Q8H [facility] Rx #:[id number] Piperacillin Sodium/ 50 100 Tazobact 2.25 gm In Sodium Chloride 0.9% 50 ml @ 100 mls/hr IV Q6HR [facility] Rx#:[id number] Tube Feeding 60 Other 40 Output: Urine 1000 Other 100 Active Medications: Current Medications Acetaminophen (Tylenol) 650 mg PO Q6HR PRN PRN Reason: MILD PAIN OR TEMP>100.4 Stop: 11/06/17 16:35 Last Admin: 09/14/17 21:01 Dose: 650 mg Alendronate Sodium (Fosamax) 70 mg PO QSAT [facility] Stop: 11/08/17 06:29 Last Admin: 09/09/17 07:10 Dose: Not Given Aspirin (Aspirin Chewable) 81 mg PO DAILY [facility] Stop: 11/07/17 08:59 Last Admin: 09/14/17 10:47 Dose: 81 mg Bisacodyl (Dulcolax 10 Mg Supp) 10 mg RC DAILY PRN PRN Reason: IF MOM INEFFECTIVE Stop: 11/06/17 16:35 Clonazepam (Klonopin) 1 mg PO DAILY [facility] PRN Reason: Protocol Stop: 11/07/17 08:59 Last Admin: 09/14/17 11:04 Dose: 1 mg Clonazepam (Klonopin) 2 mg PO HS [facility] Stop: 11/10/17 20:59 Last Admin: 09/14/17 22:09 Dose: Not Given Cyanocobalamin (Vitamin B12) 1,000 mcg PO DAILY [facility] Stop: 11/07/17 08:59 Last Admin: 09/14/17 10:48 Dose: 1,000 mcg Diltiazem HCl (Cardizem) 20 mg IVP Q3H PRN PRN Reason: Heart Rate > than 120 bpm Stop: 11/06/17 16:44 Docusate Sodium (Colace) 100 mg PO DAILY [facility] Stop: 11/07/17 08:59 Last Admin: 09/14/17 10:47 Dose: 100 mg Enalaprilat (Vasotec) 1.25 mg IVP Q6HR PRN PRN Reason: SBP > 170 Stop: 11/10/17 04:29 Last Admin: 09/11/17 04:47 Dose: 1.25 mg Heparin Sodium (Porcine) (Heparin) 5,000 units SUBQ Q12HR [facility] Stop: 11/06/17 20:59 Last Admin: 09/14/17 21:02 Dose: 5,000 units Phenylephrine HCl 10 mg/ (Sodium Chloride) 250 mls @ 30 mls/hr IV TITR [facility]; 20 MCG/MIN PRN Reason: Protocol Stop: 11/06/17 21:59 Last Titration: 09/08/17 06:01 Dose: 0 mcg/min, 0 mls/hr Piperacillin Sod/Tazobactam (Sod 2.25 gm/ Sodium Chloride) 50 mls @ 100 mls/hr IV Q6HR [facility] Stop: 11/07/17 11:59 Last Admin: 09/15/17 06:28 Dose: 100 mls/hr Norepinephrine Bitartrate 4 mg (/ Dextrose) 254 mls @ 0 mls/hr IV STAT PRN; Protocol; Per Protocol PRN Reason: BP MAINTENANCE (PER PROTOCOL) Stop: 11/06/17 16:11 Last Titration: 09/10/17 06:20 Dose: 0 mcg/min, 0 mls/hr Dextrose (D5w) 1,000 mls @ 125 mls/hr IV .Q8H [facility] Stop: 11/10/17 15:48 Last Admin: 09/15/17 02:23 Dose: 125 mls/hr Insulin Aspart (Novolog Insulin Sliding Scale) 0 units SUBQ ACHS [facility] PRN Reason: Protocol Stop: 11/07/17 11:29 Last Admin: 09/15/17 06:39 Dose: 2 units Insulin Detemir (Levemir Insulin) 10 units SUBQ HS [facility] Stop: 11/06/17 20:59 Last Admin: 09/14/17 21:16 Dose: 10 units Lactobacillus Rhamnosus (Culturelle) 1 each PO DAILY [facility] Stop: 11/09/17 08:59 Last Admin: 09/14/17 10:47 Dose: 1 each Magnesium Hydroxide (Milk Of Magnesia) 30 ml PO DAILY PRN PRN Reason: Constipation Stop: 11/06/17 16:35 Miscellaneous (Clinical Monitoring) 1 ea PRN PRN PRN Reason: RENAL DOSE ZOSYN Stop: 11/07/17 07:51 Miscellaneous (Zosyn Iv Per Pharmacy) 1 ea PRN PRN PRN Reason: PROTOCOL Stop: 11/07/17 14:31 Miscellaneous (Probiotic Screen) 1 ea PRN PRN PRN Reason: PROTOCOL Stop: 11/08/17 10:15 Morphine Sulfate (Morphine) 1 mg IVP Q4HR PRN PRN Reason: Pain (Severe) Stop: 11/07/17 18:24 Last Admin: 09/13/17 12:11 Dose: 1 mg Morphine Sulfate (Morphine) 1 mg IVP Q6HR PRN PRN Reason: Pain (Moderate) Stop: 11/10/17 17:59 Multivitamins/Vitamin C (Theragran) 1 tab PO DAILY [facility] Stop: 11/07/17 08:59 Last Admin: 09/14/17 10:47 Dose: 1 tab Pantoprazole Sodium (Protonix) 40 mg IVP DAILY [facility] Stop: 11/06/17 18:59 Last Admin: 11/09/17 10:47 Dose: 40 mg Quetiapine Fumarate (Seroquel) 100 mg PO HS [facility] PRN Reason: Protocol Stop: 11/06/17 20:59 Last Admin: 09/14/17 22:09 Dose: 100 mg Simvastatin (Zocor) 40 mg PO HS [facility] PRN Reason: Protocol Stop: 11/06/17 20:59 Last Admin: 09/14/17 21:02 Dose: 40 mg Sodium Bicarbonate (Sodium Bicarbonate) 650 mg PO BID [facility] PRN Reason: Protocol Stop: 11/12/17 16:59 Last Admin: 09/14/17 17:08 Dose: 650 mg Sodium Phosphate (Fleet Enema) 135 ml RC DAILY PRN PRN Reason: Constipation Stop: 11/06/17 16:35 General: Alert, Mild distress HEENT: Atraumatic, EOMI, Mucous membr. moist/pink Neck: Supple, +2 carotid pulse wo bruit Cardiovascular: Regular rate, Normal S1, Normal S2, Other (increased HR) Lungs: Other (decrease breath sounds) Abdomen: Bowel sounds, Soft Extremities: no Clubbing, no Cyanosis, no Edema Neurological: Sensation intact Skin: no Rash Psych/Mental Status: Mood NL Assessment/Plan - Assessment Assessment: Sepsis --- blood cultures x 2 pending, WBC's 29-> 31K --> 14K-->11K --> 8K will continue IV antibiotics per ID Cholecystitis s/p placement of PTC tube .... draining well. will continue for 4- 6 weeks per GI. dementia CKD ---repeat bmp. h/h. 9.0 stable. s/p G-tube placement yesterday .... anorexia ... will order CEA Left Pleural Effusion r/o CHF .... will monitor BNP. Chest xray done yesterday. UTI ... - Plan Plan: continue current treatment. for G-tube placement. Nutritional Asmnt/Malnutr-PDOC - Dietary Evaluation Malnutrition Findings (Please click <Entered> for more info): Nutritional Asmnt/Malnutrition Start: 09/07/17 16: 06 Text: Status: Complete Freq: Document 09/07/17 16:06 NIK (Rec: 09/07/17 16:34 NIK [email or web address]) Nutritional Asmnt/Malnutrition Patient General Information Nutritional Screening Consult Diagnosis Dehydration, leukcytosis, dementia Pertinent Medical Hx/Surgical Hx HTN, DM, Dyslipidemia, Arthritis, Dementia, Hyperlipidemia, Anxiety, Osteoporosis, Degenerative joint disease, Neurophay. Subjective Information Per H&P, pt was on pureed NCS, NSPOT diet from [facility] ([facility] Pt had anorexia more than one month and wt loss of 25lb in the past two months. Pt was transfered to ICU d/t rapid response. Families were aside, not a propriate time to approach. Currently no plan for nutrition d/t pt is not responding per RN. Current Diet Order/ Nutrition Support no diet order/swallowing eval pending Pertinent Medications D5 50ml/hr Pertinent Labs 09/07 Na 143, K 4.6, Cl 111 H, BUN 53 H, Cr 0.9 GLU 182 H, POC 164 H Nutritional Hx/Data Height 1.42 m Height (Calculated Centimeters) 142.2 Current Weight (lbs) 55.338 kg Weight (Calculated Kilograms) 55.3 Weight (Calculated Grams) 80878.3 [place] Body Weight 90 Recent Weight Change Yes Weight Status Overweight GI Symptoms Food Allergies No Skin Integrity/Comment: 11/09 pretibial pitting edema Estimated Nutritional Goals BEE in Kcals: Using Current wt Calories/Kcals/Kg 30 Kcals Calculated 1664 Protein: Using Current wt Protein g/k-1.2 Protein Calculated 56-67 Fluid: ml 1664-1943ml (30-35ml/kg) Nutritional Problem 1. Problem Problem Involuntary weight loss Etiology anorexia for more then one month Signs/Symptoms: recent wt loss of 25lb in two month Malnutrition Alert Interpretation of weight loss (Severe) >5% in 1 month Intervention/Recommendation Comments No nutrition intervention at this time. RD will follow up as high risk in 1-2 days. Expected Outcomes/Goals Expected Outcomes/Goals Pt to meet 50% of nutritional needs in the following 3 days.
--- NOTE | 2017-09-15 08:05 | GI Progress Note ---
Subjective - Review of Systems Subjective: G tube placed 09/14, no new events Objective - Results Result Diagrams: 09/15/17 05:30 09/15/17 05:30 Recent Labs: Laboratory Last Values WBC 10.8 Th/cmm (4.8-10.8) D 09/15/17 05:30 RBC 3.78 Mil/cmm (3.80-5.20) L 09/15/17 05:30 Hgb 9.4 gm/dL (12-16) L 09/15/17 05:30 Hct 29.0 % (41.0-60) L 09/15/17 05:30 MCV 76.8 fl (81-100) L 09/15/17 05:30 MCH 24.9 pg (27.0-31.0) L 09/15/17 05:30 MCHC Differential 32.4 pg (28.0-36.0) 09/15/17 05:30 RDW 14.1 % (11.5-20.0) 09/15/17 05:30 Plt Count 221 Th/cmm (150-400) 09/15/17 05:30 MPV 8.8 fl 09/15/17 05:30 Neutrophils % 75.1 % (40.0-80.0) 09/15/17 05:30 Band Neutrophils % 5 % (0-10) 09/11/17 04:55 Lymphocytes % 16.3 % (20.0-50.0) L 09/15/17 05:30 Monocytes % 3.8 % (2.0-10.0) 09/15/17 05:30 Eosinophils % 4.8 % (0.0-5.0) 09/15/17 05:30 Basophils % 0.0 % (0.0-2.0) 09/15/17 05:30 Neutrophils (Manual) 82 % (40-80) H 09/11/17 04:55 Lymphocytes 11 % (20-50) L 09/11/17 04:55 Monocytes 2 % (2-10) 09/11/17 04:55 Eosinophils 0 % (0-5) 09/11/17 04:55 Basophils 0 % (0-3) 09/11/17 04:55 Platelet Estimate ADEQUATE (NORMAL) 09/11/17 04:55 Platelet Morphology NORMAL (NORMAL) 09/11/17 04:55 Anisocytosis 1+ 09/10/17 05:48 Microcytosis 1+ 09/11/17 04:55 RBC Morph Micro Appear ABNORMAL (NORMAL) 09/11/17 04:55 Eos Smear Source URINE 09/09/17 21:29 Eos Smear Total Cells NONE SEEN (NONE SEEN) 09/09/17 21:29 PT 11.5 SECONDS (9.5-11.5) 09/14/17 05:20 INR 1.10 (0.5-1.4) 09/14/17 05:20 PTT (Actin FS) 32.9 SECONDS (26.0-38.0) 09/11/17 10:04 Specimen Source Arterial 09/09/17 08:53 Sample Site Left Radial 09/09/17 08:53 pH 7.37 (7.35-7.45) 09/09/17 08:53 pCO2 28.0 mmHg (35.0-45.0) L 09/09/17 08:53 pO2 100.0 mmHg (80.0-100.0) 09/09/17 08:53 HCO3 18.9 mEq/L (20.0-26.0) L 09/09/17 08:53 Base Excess -7.7 mEq/L (-3.0-3.0) L 09/09/17 08:53 O2 Saturation 98.0 % (92.0-100.0) 09/09/17 08:53 Vinod Test YES 09/09/17 08:53 Vent Rate NA 09/09/17 08:53 Inspired O2 28 09/09/17 08:53 Tidal Volume NA 09/09/17 08:53 PEEP NA 09/09/17 08:53 Pressure (ins/psv/peep) NA 09/09/17 08:53 Critical Value FERNANDO CLALIE 09/09/17 08:53 Sodium 134 mEq/L (136-145) L 09/15/17 05:30 Potassium 4.2 mEq/L (3.5-5.1) 09/15/17 05:30 Chloride 110 mEq/L (98-107) H 09/15/17 05:30 Carbon Dioxide 15.2 mEq/L (21.0-31.0) L 09/15/17 05:30 Anion Gap 13.0 (7.0-16.0) 09/15/17 05:30 BUN 38 mg/dL (7-25) H 09/15/17 05:30 Creatinine 2.5 mg/dL (0.6-1.2) H 09/15/17 05:30 Est GFR ( Amer) TNP 09/15/17 05:30 Est GFR (Non-Af Amer) TNP 09/15/17 05:30 BUN/Creatinine Ratio 15.2 09/15/17 05:30 Glucose 174 mg/dL (70-105) H 09/15/17 05:30 POC Glucose 164 MG/DL (70 - 105) H 09/15/17 05:28 Hemoglobin A1c % 5.7 % (4.0-6.0) 09/07/17 10:40 Whole Bld Lactic Acid 2.66 mmol/L (0.60-1.99) H* 09/10/17 07:48 Uric Acid 5.4 mg/dL (2.3-6.6) 09/10/17 05:48 Calcium 7.3 mg/dL (8.6-10.3) L 09/15/17 05:30 Phosphorus 3.2 mg/dL (2.5-5.0) 09/11/17 04:55 Magnesium 2.3 mg/dL (1.9-2.7) 09/13/17 04:36 Total Bilirubin 0.7 mg/dL (0.3-1.0) 09/12/17 05:30 AST 12 U/L (13-39) L 09/12/17 05:30 ALT 21 U/L (7-52) 09/12/17 05:30 Alkaline Phosphatase 185 U/L (34-104) H 09/12/17 05:30 Ammonia 29 umol/L (16-53) 09/11/17 04:55 Troponin I 0.20 ng/mL (0.01-0.05) H* D 09/08/17 05:57 B-Natriuretic Peptide 311.0 pg/mL (5.0-100.0) H 09/12/17 05:30 Total Protein 4.5 gm/dL (6.0-8.3) L 09/12/17 05:30 Albumin 1.7 gm/dL (3.7-5.3) L 09/12/17 05:30 Globulin 2.8 gm/dL 09/12/17 05:30 Albumin/Globulin Ratio 0.6 (1.0-1.8) L 09/12/17 05:30 Lipase 20 U/L (11-82) 09/07/17 10:40 Procalcitonin SEE REF LAB REPORT 09/09/17 05:54 Urine Source [place] 09/13/17 02:40 Urine Color YELLOW 09/13/17 02:40 Urine Clarity CLEAR (CLEAR) 09/13/17 02:40 Urine pH 5.5 (4.6 - 8.0) 09/13/17 02:40 Ur Specific [place] 1.015 (1.005-1.030) 09/13/17 02:40 Urine Protein TRACE mg/dL (NEGATIVE) 09/13/17 02:40 Urine Glucose (UA) NEGATIVE mg/dL (NEGATIVE) 09/13/17 02:40 Urine Ketones NEGATIVE mg/dL (NEGATIVE) 09/13/17 02:40 Urine Blood TRACE (NEGATIVE) 09/13/17 02:40 Urine Nitrate NEGATIVE (NEGATIVE) 09/13/17 02:40 Urine Bilirubin NEGATIVE (NEGATIVE) 09/13/17 02:40 Urine Urobilinogen 0.2 E.U./dL (0.2 - 1.0) 09/13/17 02:40 Ur Leukocyte Esterase NEGATIVE (NEGATIVE) 09/13/17 02:40 Urine RBC 0-2 /hpf (0-5) 09/13/17 02:40 Urine WBC 2-5 /hpf (0-5) 09/13/17 02:40 Ur Epithelial Cells FEW /lpf (FEW) 09/13/17 02:40 Urine Bacteria FEW /hpf (NONE SEEN) 09/13/17 02:40 Fine Granular Casts 0-2 /lpf (NONE SEEN) H 09/07/17 11:30 Coarse Granular Casts 2-5 /lpf (NONE SEEN) H 09/07/17 11:30 Urine Mucus FEW /lpf (FEW) 09/07/17 11:30 Urine Yeast MANY /hpf (NONE SEEN) H 09/13/17 02:40 U Random Total Protein 104.0 mg/dL 09/10/17 21:45 Ur Random Sodium 73 mmol/L 09/13/17 02:40 Urine Collection Time 24 hours 09/10/17 21:45 Urine Total Volume 550 ml 09/10/17 21:45 Urine Creatinine 42.0 mg/dl (28.0-217.0) 09/10/17 21:45 Creat Clearance 24 Hr 8 ml/min (88.00-128.00) L 09/10/17 21:45 U Tot Protein 24h, Calc 572.0 mg/24 hr (0-165) H 09/10/17 21:45 Ur Sodium 24 Hour 39 mmol/24H (40-220) L 09/10/17 21:45 Body Surface Area 1.54 09/10/17 21:45 Random Vancomycin 14.8 ug/mL (5.0-40.0) 09/09/17 05:54 - Physical Exam Vitals and I&O: Vital Signs Temp 98.0 F 09/15/17 00:00 Pulse 80 09/15/17 00:00 Resp 18 09/15/17 00:00 BP 140/82 09/15/17 00:00 Pulse Ox 96 09/15/17 00:00 Intake & Output 09/14/17 09/15/17 09/15/17 18:59 06:59 18:59 Intake Total 1520.833 200 Output Total 1100 Balance 1520.833 -900 Weight (lbs) 66.905 kg Intake: Intake, IV Amount 1520.833 100 Dextrose 5% 1,000 ml @ 1470.833 125 mls/hr IV .Q8H [facility] Rx #:[id number] Piperacillin Sodium/ 50 100 Tazobact 2.25 gm In Sodium Chloride 0.9% 50 ml @ 100 mls/hr IV Q6HR [facility] Rx#:[id number] Tube Feeding 60 Other 40 Output: Urine 1000 Other 100 Active Medications: Current Medications Acetaminophen (Tylenol) 650 mg PO Q6HR PRN PRN Reason: MILD PAIN OR TEMP>100.4 Stop: 11/06/17 16:35 Last Admin: 09/14/17 21:01 Dose: 650 mg Alendronate Sodium (Fosamax) 70 mg PO QSAT [facility] Stop: 11/08/17 06:29 Last Admin: 09/09/17 07:10 Dose: Not Given Aspirin (Aspirin Chewable) 81 mg PO DAILY [facility] Stop: 11/07/17 08:59 Last Admin: 09/14/17 10:47 Dose: 81 mg Bisacodyl (Dulcolax 10 Mg Supp) 10 mg RC DAILY PRN PRN Reason: IF MOM INEFFECTIVE Stop: 11/06/17 16:35 Clonazepam (Klonopin) 1 mg PO DAILY [facility] PRN Reason: Protocol Stop: 11/07/17 08:59 Last Admin: 09/14/17 11:04 Dose: 1 mg Clonazepam (Klonopin) 2 mg PO HS [facility] Stop: 11/10/17 20:59 Last Admin: 09/14/17 22:09 Dose: Not Given Cyanocobalamin (Vitamin B12) 1,000 mcg PO DAILY [facility] Stop: 11/07/17 08:59 Last Admin: 09/14/17 10:48 Dose: 1,000 mcg Diltiazem HCl (Cardizem) 20 mg IVP Q3H PRN PRN Reason: Heart Rate > than 120 bpm Stop: 11/06/17 16:44 Docusate Sodium (Colace) 100 mg PO DAILY [facility] Stop: 11/07/17 08:59 Last Admin: 09/14/17 10:47 Dose: 100 mg Enalaprilat (Vasotec) 1.25 mg IVP Q6HR PRN PRN Reason: SBP > 170 Stop: 11/10/17 04:29 Last Admin: 09/11/17 04:47 Dose: 1.25 mg Heparin Sodium (Porcine) (Heparin) 5,000 units SUBQ Q12HR [facility] Stop: 11/06/17 20:59 Last Admin: 09/14/17 21:02 Dose: 5,000 units Phenylephrine HCl 10 mg/ (Sodium Chloride) 250 mls @ 30 mls/hr IV TITR [facility]; 20 MCG/MIN PRN Reason: Protocol Stop: 11/06/17 21:59 Last Titration: 09/08/17 06:01 Dose: 0 mcg/min, 0 mls/hr Piperacillin Sod/Tazobactam (Sod 2.25 gm/ Sodium Chloride) 50 mls @ 100 mls/hr IV Q6HR [facility] Stop: 11/07/17 11:59 Last Admin: 09/15/17 06:28 Dose: 100 mls/hr Norepinephrine Bitartrate 4 mg (/ Dextrose) 254 mls @ 0 mls/hr IV STAT PRN; Protocol; Per Protocol PRN Reason: BP MAINTENANCE (PER PROTOCOL) Stop: 11/06/17 16:11 Last Titration: 09/10/17 06:20 Dose: 0 mcg/min, 0 mls/hr Dextrose (D5w) 1,000 mls @ 125 mls/hr IV .Q8H [facility] Stop: 11/10/17 15:48 Last Admin: 09/15/17 02:23 Dose: 125 mls/hr Insulin Aspart (Novolog Insulin Sliding Scale) 0 units SUBQ ACHS [facility] PRN Reason: Protocol Stop: 11/07/17 11:29 Last Admin: 09/15/17 06:39 Dose: 2 units Insulin Detemir (Levemir Insulin) 10 units SUBQ HS [facility] Stop: 11/06/17 20:59 Last Admin: 09/14/17 21:16 Dose: 10 units Lactobacillus Rhamnosus (Culturelle) 1 each PO DAILY [facility] Stop: 11/09/17 08:59 Last Admin: 09/14/17 10:47 Dose: 1 each Magnesium Hydroxide (Milk Of Magnesia) 30 ml PO DAILY PRN PRN Reason: Constipation Stop: 11/06/17 16:35 Miscellaneous (Clinical Monitoring) 1 ea PRN PRN PRN Reason: RENAL DOSE ZOSYN Stop: 11/07/17 07:51 Miscellaneous (Zosyn Iv Per Pharmacy) 1 ea PRN PRN PRN Reason: PROTOCOL Stop: 11/07/17 14:31 Miscellaneous (Probiotic Screen) 1 ea PRN PRN PRN Reason: PROTOCOL Stop: 11/08/17 10:15 Morphine Sulfate (Morphine) 1 mg IVP Q4HR PRN PRN Reason: Pain (Severe) Stop: 11/07/17 18:24 Last Admin: 09/13/17 12:11 Dose: 1 mg Morphine Sulfate (Morphine) 1 mg IVP Q6HR PRN PRN Reason: Pain (Moderate) Stop: 11/10/17 17:59 Multivitamins/Vitamin C (Theragran) 1 tab PO DAILY [facility] Stop: 11/07/17 08:59 Last Admin: 09/14/17 10:47 Dose: 1 tab Pantoprazole Sodium (Protonix) 40 mg IVP DAILY [facility] Stop: 11/06/17 18:59 Last Admin: 09/14/17 10:47 Dose: 40 mg Quetiapine Fumarate (Seroquel) 100 mg PO HS [facility] PRN Reason: Protocol Stop: 11/06/17 20:59 Last Admin: 09/14/17 22:09 Dose: 100 mg Simvastatin (Zocor) 40 mg PO HS [facility] PRN Reason: Protocol Stop: 11/06/17 20:59 Last Admin: 09/14/17 21:02 Dose: 40 mg Sodium Bicarbonate (Sodium Bicarbonate) 650 mg PO BID [facility] PRN Reason: Protocol Stop: 11/12/17 16:59 Last Admin: 09/14/17 17:08 Dose: 650 mg Sodium Phosphate (Fleet Enema) 135 ml RC DAILY PRN PRN Reason: Constipation Stop: 11/06/17 16:35 General: Alert HEENT: Atraumatic Neck: Supple Cardiovascular: Regular rate, Normal S1, Normal S2 Lungs: Other (decrease breath sounds) Abdomen: Bowel sounds, Soft (G tube site c/d/i) Extremities: no Clubbing, no Cyanosis, no Edema Skin: no Rash Psych/Mental Status: Mood NL Assessment/Plan - Assessment Assessment: # Septic shock, likely cholecystitis Now s/p PTC tube on 09/11. These tubes usually stay in for 4-6 weeks, and are removed by IR or by surgeon. She is doing much better from an infectious standpoint # Anorexia # dysphagia G tube placed 09/14/17, increasing feeds to goal rate today. Recommendations: - Increase feeds by 10cc/hr to goal rate of 50cc/hr - Flush with 100cc water every 6 hours - Check residuals every 6 hours, hold for residual greater than 100cc - Management of PTC tube and removal as per IR and surgery. She likely will still need cholecystectomy in the future to prevent recurrence - appreciate ID input Thank you for allowing me to participate in this patient's care.
[2017-09-15] MEDS: Lactobacillus Rhamnosus 10 Billion CFU Capsule PO SCH (09:29)
[2017-09-15] MEDS: Aspirin 81mg Chewable Tab PO SCH (09:29)
[2017-09-15] MEDS: Multivitamin Tab PO SCH (09:29)
--- NOTE | 2017-09-15 14:37 | General Progress Note ---
Subjective - Review of Systems Service Date: 09/15/17 Subjective: more awake today, interacting, comfortable Objective - Results Result Diagrams: 09/15/17 05:30 09/15/17 05:30 Recent Labs: Laboratory Last Values WBC 10.8 Th/cmm (4.8-10.8) D 09/15/17 05:30 RBC 3.78 Mil/cmm (3.80-5.20) L 09/15/17 05:30 Hgb 9.4 gm/dL (12-16) L 09/15/17 05:30 Hct 29.0 % (41.0-60) L 09/15/17 05:30 MCV 76.8 fl (81-100) L 09/15/17 05:30 MCH 24.9 pg (27.0-31.0) L 09/15/17 05:30 MCHC Differential 32.4 pg (28.0-36.0) 09/15/17 05:30 RDW 14.1 % (11.5-20.0) 09/15/17 05:30 Plt Count 221 Th/cmm (150-400) 09/15/17 05:30 MPV 8.8 fl 09/15/17 05:30 Neutrophils % 75.1 % (40.0-80.0) 09/15/17 05:30 Band Neutrophils % 5 % (0-10) 09/11/17 04:55 Lymphocytes % 16.3 % (20.0-50.0) L 09/15/17 05:30 Monocytes % 3.8 % (2.0-10.0) 09/15/17 05:30 Eosinophils % 4.8 % (0.0-5.0) 09/15/17 05:30 Basophils % 0.0 % (0.0-2.0) 09/15/17 05:30 Neutrophils (Manual) 82 % (40-80) H 09/11/17 04:55 Lymphocytes 11 % (20-50) L 09/11/17 04:55 Monocytes 2 % (2-10) 09/11/17 04:55 Eosinophils 0 % (0-5) 09/11/17 04:55 Basophils 0 % (0-3) 09/11/17 04:55 Platelet Estimate ADEQUATE (NORMAL) 09/11/17 04:55 Platelet Morphology NORMAL (NORMAL) 09/11/17 04:55 Anisocytosis 1+ 09/10/17 05:48 Microcytosis 1+ 09/11/17 04:55 RBC Morph Micro Appear ABNORMAL (NORMAL) 09/11/17 04:55 Eos Smear Source URINE 09/09/17 21:29 Eos Smear Total Cells NONE SEEN (NONE SEEN) 09/09/17 21:29 PT 11.5 SECONDS (9.5-11.5) 09/14/17 05:20 INR 1.10 (0.5-1.4) 09/14/17 05:20 PTT (Actin FS) 32.9 SECONDS (26.0-38.0) 09/11/17 10:04 Specimen Source Arterial 09/09/17 08:53 Sample Site Left Radial 09/09/17 08:53 pH 7.37 (7.35-7.45) 09/09/17 08:53 pCO2 28.0 mmHg (35.0-45.0) L 09/09/17 08:53 pO2 100.0 mmHg (80.0-100.0) 09/09/17 08:53 HCO3 18.9 mEq/L (20.0-26.0) L 09/09/17 08:53 Base Excess -7.7 mEq/L (-3.0-3.0) L 09/09/17 08:53 O2 Saturation 98.0 % (92.0-100.0) 09/09/17 08:53 Vinod Test YES 09/09/17 08:53 Vent Rate NA 09/09/17 08:53 Inspired O2 28 09/09/17 08:53 Tidal Volume NA 09/09/17 08:53 PEEP NA 09/09/17 08:53 Pressure (ins/psv/peep) NA 09/09/17 08:53 Critical Value FERNANDO CALLIE 09/09/17 08:53 Sodium 134 mEq/L (136-145) L 09/15/17 05:30 Potassium 4.2 mEq/L (3.5-5.1) 09/15/17 05:30 Chloride 110 mEq/L (98-107) H 09/15/17 05:30 Carbon Dioxide 15.2 mEq/L (21.0-31.0) L 09/15/17 05:30 Anion Gap 13.0 (7.0-16.0) 09/15/17 05:30 BUN 38 mg/dL (7-25) H 09/15/17 05:30 Creatinine 2.5 mg/dL (0.6-1.2) H 09/15/17 05:30 Est GFR ( Amer) TNP 09/15/17 05:30 Est GFR (Non-Af Amer) TNP 09/15/17 05:30 BUN/Creatinine Ratio 15.2 09/15/17 05:30 Glucose 174 mg/dL (70-105) H 09/15/17 05:30 POC Glucose 195 MG/DL (70 - 105) H 09/15/17 12:18 Hemoglobin A1c % 5.7 % (4.0-6.0) 09/07/17 10:40 Whole Bld Lactic Acid 2.66 mmol/L (0.60-1.99) H* 09/10/17 07:48 Uric Acid 5.4 mg/dL (2.3-6.6) 09/10/17 05:48 Calcium 7.3 mg/dL (8.6-10.3) L 09/15/17 05:30 Phosphorus 3.2 mg/dL (2.5-5.0) 09/11/17 04:55 Magnesium 2.3 mg/dL (1.9-2.7) 09/13/17 04:36 Total Bilirubin 0.7 mg/dL (0.3-1.0) 09/12/17 05:30 AST 12 U/L (13-39) L 09/12/17 05:30 ALT 21 U/L (7-52) 09/12/17 05:30 Alkaline Phosphatase 185 U/L (34-104) H 09/12/17 05:30 Ammonia 29 umol/L (16-53) 09/11/17 04:55 Troponin I 0.20 ng/mL (0.01-0.05) H* D 09/08/17 05:57 B-Natriuretic Peptide 311.0 pg/mL (5.0-100.0) H 09/12/17 05:30 Total Protein 4.5 gm/dL (6.0-8.3) L 09/12/17 05:30 Albumin 1.7 gm/dL (3.7-5.3) L 09/12/17 05:30 Globulin 2.8 gm/dL 09/12/17 05:30 Albumin/Globulin Ratio 0.6 (1.0-1.8) L 09/12/17 05:30 Lipase 20 U/L (11-82) 09/07/17 10:40 Carcinoembryonic Ag 5.2 ng/mL (0.0-4.7) H 09/13/17 07:00 Procalcitonin SEE REF LAB REPORT 09/09/17 05:54 Urine Source [place] 09/13/17 02:40 Urine Color YELLOW 09/13/17 02:40 Urine Clarity CLEAR (CLEAR) 09/13/17 02:40 Urine pH 5.5 (4.6 - 8.0) 09/13/17 02:40 Ur Specific [place] 1.015 (1.005-1.030) 09/13/17 02:40 Urine Protein TRACE mg/dL (NEGATIVE) 09/13/17 02:40 Urine Glucose (UA) NEGATIVE mg/dL (NEGATIVE) 09/13/17 02:40 Urine Ketones NEGATIVE mg/dL (NEGATIVE) 09/13/17 02:40 Urine Blood TRACE (NEGATIVE) 09/13/17 02:40 Urine Nitrate NEGATIVE (NEGATIVE) 09/13/17 02:40 Urine Bilirubin NEGATIVE (NEGATIVE) 09/13/17 02:40 Urine Urobilinogen 0.2 E.U./dL (0.2 - 1.0) 09/13/17 02:40 Ur Leukocyte Esterase NEGATIVE (NEGATIVE) 09/13/17 02:40 Urine RBC 0-2 /hpf (0-5) 09/13/17 02:40 Urine WBC 2-5 /hpf (0-5) 09/13/17 02:40 Ur Epithelial Cells FEW /lpf (FEW) 09/13/17 02:40 Urine Bacteria FEW /hpf (NONE SEEN) 09/13/17 02:40 Fine Granular Casts 0-2 /lpf (NONE SEEN) H 09/07/17 11:30 Coarse Granular Casts 2-5 /lpf (NONE SEEN) H 09/07/17 11:30 Urine Mucus FEW /lpf (FEW) 09/07/17 11:30 Urine Yeast MANY /hpf (NONE SEEN) H 09/13/17 02:40 U Random Total Protein 104.0 mg/dL 09/10/17 21:45 Ur Random Sodium 73 mmol/L 09/13/17 02:40 Urine Collection Time 24 hours 09/10/17 21:45 Urine Total Volume 550 ml 09/10/17 21:45 Urine Creatinine 42.0 mg/dl (28.0-217.0) 09/10/17 21:45 Creat Clearance 24 Hr 8 ml/min (88.00-128.00) L 09/10/17 21:45 U Tot Protein 24h, Calc 572.0 mg/24 hr (0-165) H 09/10/17 21:45 Ur Sodium 24 Hour 39 mmol/24H (40-220) L 09/10/17 21:45 Body Surface Area 1.54 09/10/17 21:45 Random Vancomycin 14.8 ug/mL (5.0-40.0) 09/09/17 05:54 - Physical Exam Vitals and I&O: Vital Signs Temp 97.2 F 09/15/17 12:25 Pulse 80 09/15/17 12:25 Resp 19 09/15/17 12:25 BP 104/51 09/15/17 12:25 Pulse Ox 98 09/15/17 12:25 Intake & Output 09/14/17 09/15/17 09/15/17 18:59 06:59 18:59 Intake Total 1520.833 200 Output Total 1100 Balance 1520.833 -900 Weight (lbs) 66.905 kg 66.905 kg Intake: Intake, IV Amount 1520.833 100 Dextrose 5% 1,000 ml @ 1470.833 125 mls/hr IV .Q8H [facility] Rx #:[id number] Piperacillin Sodium/ 50 100 Tazobact 2.25 gm In Sodium Chloride 0.9% 50 ml @ 100 mls/hr IV Q6HR [facility] Rx#:[id number] Tube Feeding 60 Other 40 Output: Urine 1000 Other 100 Active Medications: Current Medications Acetaminophen (Tylenol) 650 mg PO Q6HR PRN PRN Reason: MILD PAIN OR TEMP>100.4 Stop: 11/06/17 16:35 Last Admin: 09/14/17 21:01 Dose: 650 mg Alendronate Sodium (Fosamax) 70 mg PO QSAT [facility] Stop: 11/08/17 06:29 Last Admin: 09/09/17 07:10 Dose: Not Given Aspirin (Aspirin Chewable) 81 mg PO DAILY [facility] Stop: 11/07/17 08:59 Last Admin: 09/15/17 09:29 Dose: 81 mg Bisacodyl (Dulcolax 10 Mg Supp) 10 mg RC DAILY PRN PRN Reason: IF MOM INEFFECTIVE Stop: 11/06/17 16:35 Clonazepam (Klonopin) 1 mg PO DAILY [facility] PRN Reason: Protocol Stop: 11/07/17 08:59 Last Admin: 09/15/17 09:30 Dose: 1 mg Clonazepam (Klonopin) 2 mg PO HS [facility] Stop: 11/10/17 20:59 Last Admin: 09/14/17 22:09 Dose: Not Given Cyanocobalamin (Vitamin B12) 1,000 mcg PO DAILY [facility] Stop: 11/07/17 08:59 Last Admin: 09/15/17 09:29 Dose: 1,000 mcg Diltiazem HCl (Cardizem) 20 mg IVP Q3H PRN PRN Reason: Heart Rate > than 120 bpm Stop: 11/06/17 16:44 Docusate Sodium (Colace) 100 mg PO DAILY [facility] Stop: 11/07/17 08:59 Last Admin: 09/15/17 09:29 Dose: 100 mg Enalaprilat (Vasotec) 1.25 mg IVP Q6HR PRN PRN Reason: SBP > 170 Stop: 11/10/17 04:29 Last Admin: 09/11/17 04:47 Dose: 1.25 mg Furosemide (Lasix) 40 mg PO DAILY [facility] Stop: 11/15/17 08:59 Phenylephrine HCl 10 mg/ (Sodium Chloride) 250 mls @ 30 mls/hr IV TITR [facility]; 20 MCG/MIN PRN Reason: Protocol Stop: 11/06/17 21:59 Last Titration: 09/08/17 06:01 Dose: 0 mcg/min, 0 mls/hr Piperacillin Sod/Tazobactam (Sod 2.25 gm/ Sodium Chloride) 50 mls @ 100 mls/hr IV Q6HR [facility] Stop: 11/07/17 11:59 Last Admin: 09/15/17 06:28 Dose: 100 mls/hr Norepinephrine Bitartrate 4 mg (/ Dextrose) 254 mls @ 0 mls/hr IV STAT PRN; Protocol; Per Protocol PRN Reason: BP MAINTENANCE (PER PROTOCOL) Stop: 11/06/17 16:11 Last Titration: 09/10/17 06:20 Dose: 0 mcg/min, 0 mls/hr Dextrose (D5w) 1,000 mls @ 125 mls/hr IV .Q8H [facility] Stop: 11/10/17 15:48 Last Admin: 09/15/17 02:23 Dose: 125 mls/hr Insulin Aspart (Novolog Insulin Sliding Scale) 0 units SUBQ ACHS [facility] PRN Reason: Protocol Stop: 11/07/17 11:29 Last Admin: 09/15/17 06:39 Dose: 2 units Insulin Detemir (Levemir Insulin) 10 units SUBQ HS [facility] Stop: 11/06/17 20:59 Last Admin: 09/14/17 21:16 Dose: 10 units Lactobacillus Rhamnosus (Culturelle) 1 each PO DAILY [facility] Stop: 11/09/17 08:59 Last Admin: 09/15/17 09:29 Dose: 1 each Magnesium Hydroxide (Milk Of Magnesia) 30 ml PO DAILY PRN PRN Reason: Constipation Stop: 11/06/17 16:35 Miscellaneous (Clinical Monitoring) 1 ea PRN PRN PRN Reason: RENAL DOSE ZOSYN Stop: 11/07/17 07:51 Miscellaneous (Zosyn Iv Per Pharmacy) 1 ea PRN PRN PRN Reason: PROTOCOL Stop: 11/07/17 14:31 Miscellaneous (Probiotic Screen) 1 ea PRN PRN PRN Reason: PROTOCOL Stop: 11/08/17 10:15 Morphine Sulfate (Morphine) 1 mg IVP Q4HR PRN PRN Reason: Pain (Severe) Stop: 11/07/17 18:24 Last Admin: 09/13/17 12:11 Dose: 1 mg Morphine Sulfate (Morphine) 1 mg IVP Q6HR PRN PRN Reason: Pain (Moderate) Stop: 11/10/17 17:59 Multivitamins/Vitamin C (Theragran) 1 tab PO DAILY [facility] Stop: 11/07/17 08:59 Last Admin: 09/15/17 09:29 Dose: 1 tab Pantoprazole Sodium (Protonix) 40 mg IVP DAILY [facility] Stop: 11/06/17 18:59 Last Admin: 09/15/17 09:29 Dose: 40 mg Quetiapine Fumarate (Seroquel) 100 mg PO HS [facility] PRN Reason: Protocol Stop: 11/06/17 20:59 Last Admin: 09/14/17 22:09 Dose: 100 mg Simvastatin (Zocor) 40 mg PO HS [facility] PRN Reason: Protocol Stop: 11/06/17 20:59 Last Admin: 09/14/17 21:02 Dose: 40 mg Sodium Bicarbonate (Sodium Bicarbonate) 650 mg PO BID [facility] PRN Reason: Protocol Stop: 11/12/17 16:59 Last Admin: 09/15/17 09:29 Dose: 650 mg Sodium Phosphate (Fleet Enema) 135 ml RC DAILY PRN PRN Reason: Constipation Stop: 11/06/17 16:35 General: Alert, No acute distress HEENT: Atraumatic Neck: Supple, +2 carotid pulse wo bruit Cardiovascular: Regular rate, Normal S1, Normal S2 Lungs: Other (decrease breath sounds) Abdomen: Bowel sounds, Soft (G tube site c/d/i) Extremities: no Clubbing, no Cyanosis, no Edema Neurological: Sensation intact Skin: no Rash Psych/Mental Status: Mood NL Assessment/Plan - Assessment Assessment: JHOAN Septic shock better Acute cholecystitis s/p drainage of GB FTT Severe malnutrition Microcytic anemia Type 2 DM Dyslipidemia Ess Htn Non gap met acid - Plan Plan: Lab - Result Diagrams 09/11/17 04:55 09/11/17 04:55 Current Medications Acetaminophen (Tylenol) 650 mg PO Q6HR PRN PRN Reason: MILD PAIN OR TEMP>100.4 Stop: 11/06/17 16:35 Alendronate Sodium (Fosamax) 70 mg PO QSAT [facility] Stop: 11/08/17 06:29 Last Admin: 09/09/17 07:10 Dose: Not Given Aspirin (Aspirin Chewable) 81 mg PO DAILY [facility] Stop: 11/07/17 08:59 Last Admin: 09/11/17 09:46 Dose: Not Given Bisacodyl (Dulcolax 10 Mg Supp) 10 mg RC DAILY PRN PRN Reason: IF MOM INEFFECTIVE Stop: 11/06/17 16:35 Clonazepam (Klonopin) 1 mg PO DAILY [facility] PRN Reason: Protocol Stop: 11/07/17 08:59 Last Admin: 11/06/17 09:46 Dose: Not Given Clonazepam (Klonopin) 2 mg PO HS [facility] Stop: 11/10/17 20:59 Cyanocobalamin (Vitamin B12) 1,000 mcg PO DAILY [facility] Stop: 11/07/17 08:59 Last Admin: 09/11/17 09:46 Dose: Not Given Diltiazem HCl (Cardizem) 20 mg IVP Q3H PRN PRN Reason: Heart Rate > than 120 bpm Stop: 11/06/17 16:44 Docusate Sodium (Colace) 100 mg PO DAILY [facility] Stop: 11/07/17 08:59 Last Admin: 09/11/17 09:47 Dose: Not Given Enalaprilat (Vasotec) 1.25 mg IVP Q6HR PRN PRN Reason: SBP > 170 Stop: 11/10/17 04:29 Last Admin: 09/11/17 04:47 Dose: 1.25 mg Heparin Sodium (Porcine) (Heparin) 5,000 units SUBQ Q12HR [facility] Stop: 11/06/17 20:59 Last Admin: 09/11/17 09:47 Dose: Not Given Phenylephrine HCl 10 mg/ (Sodium Chloride) 250 mls @ 30 mls/hr IV TITR [facility]; 20 MCG/MIN PRN Reason: Protocol Stop: 11/06/17 21:59 Last Titration: 09/08/17 06:01 Dose: 0 mcg/min, 0 mls/hr Piperacillin Sod/Tazobactam (Sod 2.25 gm/ Sodium Chloride) 50 mls @ 100 mls/hr IV Q6HR [facility] Stop: 11/07/17 11:59 Last Infusion: 09/11/17 11:45 Dose: Infused Norepinephrine Bitartrate 4 mg (/ Dextrose) 254 mls @ 0 mls/hr IV STAT PRN; Protocol; Per Protocol PRN Reason: BP MAINTENANCE (PER PROTOCOL) Stop: 11/06/17 16:11 Last Titration: 09/10/17 06:20 Dose: 0 mcg/min, 0 mls/hr Dextrose (D5w) 1,000 mls @ 125 mls/hr IV .Q8H [facility] Stop: 11/10/17 15:48 Insulin Aspart (Novolog Insulin Sliding Scale) 0 units SUBQ ACHS [facility] PRN Reason: Protocol Stop: 11/07/17 11:29 Last Admin: 09/11/17 11:20 Dose: Not Given Insulin Detemir (Levemir Insulin) 10 units SUBQ HS [facility] Stop: 11/06/17 20:59 Last Admin: 09/10/17 21:11 Dose: 10 units Lactobacillus Rhamnosus (Culturelle) 1 each PO DAILY [facility] Stop: 11/09/17 08:59 Last Admin: 09/11/17 09:47 Dose: Not Given Lorazepam (Ativan) 0.5 mg PO Q6HR PRN; Protocol PRN Reason: Anxiety Stop: 11/06/17 16:35 Magnesium Hydroxide (Milk Of Magnesia) 30 ml PO DAILY PRN PRN Reason: Constipation Stop: 11/06/17 16:35 Megestrol Acetate (Megace) 400 mg PO TID [facility] Stop: 11/06/17 20:59 Last Admin: 09/11/17 09:47 Dose: Not Given Miscellaneous (Clinical Monitoring) 1 ea [facility] PRN PRN PRN Reason: RENAL DOSE [facility]OS[facility] Stop: 11/07/17 07:51 Miscellaneous (Zosyn Iv Per Pharmacy) 1 ea [facility] PRN PRN PRN Reason: PROTOCOL Stop: 11/07/17 14:31 Miscellaneous (Probiotic Screen) 1 ea MC PRN PRN PRN Reason: PROTOCOL Stop: 11/08/17 10:15 Morphine Sulfate (Morphine) 1 mg IVP Q4HR PRN PRN Reason: Pain (Moderate-Severe) Stop: 11/07/17 18:24 Multivitamins/Vitamin C (Theragran) 1 tab PO DAILY [facility] Stop: 11/07/17 08:59 Last Admin: 09/11/17 09:47 Dose: Not Given Pantoprazole Sodium (Protonix) 40 mg IVP DAILY [facility] Stop: 11/06/17 18:59 Last Admin: 09/11/17 09:45 Dose: 40 mg Quetiapine Fumarate (Seroquel) 100 mg PO HS [facility] PRN Reason: Protocol Stop: 11/06/17 20:59 Last Admin: 09/10/17 22:12 Dose: Not Given Simvastatin (Zocor) 40 mg PO [facility] PRN Reason: Protocol Stop: 11/06/17 20:59 Last Admin: 09/10/17 22:13 Dose: Not Given Sodium Phosphate (Fleet Enema) 135 ml RC DAILY PRN PRN Reason: Constipation Stop: 11/06/17 16 Lab - Result Diagrams 09/15/17 05:30 09/15/17 05:30 1 Na down to 134 C02 @ 15 Kidney fnc basically the same already had drainage of GB @ [facility] w/ PCT replace K, WBC stable f/u electrolytes start NaHC03 possible DC today s/p PEG Nutritional Asmnt/Malnutr-PDOC - Dietary Evaluation Malnutrition Findings (Please click <Entered> for more info): Nutritional Asmnt/Malnutrition Start: 09/07/17 16: 06 Text: Status: Complete Freq: Document 09/07/17 16:06 SAGR[place]IO (Rec: 09/07/17 16:34 HEN [email or web address]) Nutritional Asmnt/Malnutrition Patient General Information Nutritional Screening Consult Diagnosis Dehydration, leukcytosis, dementia Pertinent Medical Hx/Surgical Hx HTN, DM, Dyslipidemia, Arthritis, Dementia, Hyperlipidemia, Anxiety, Osteoporosis, Degenerative joint disease, Neurophay. Subjective Information Per H&P, pt was on pureed NCS, NSPOT diet from [facility] ([facility]). Pt had anorexia more than one month and wt loss of 25lb in the past two months. Pt was transfered to ICU d/t rapid response. Families were aside, not a propriate time to approach. Currently no plan for nutrition d/t pt is not responding per RN. Current Diet Order/ Nutrition Support no diet order/swallowing eval pending Pertinent Medications D5 50ml/hr Pertinent Labs 09/07 Na 143, K 4.6, Cl 111 H, BUN 53 H, Cr 0.9 GLU 182 H, POC 164 H Nutritional Hx/Data Height 1.42 m Height (Calculated Centimeters) 142.2 Current Weight (lbs) 55.338 kg Weight (Calculated Kilograms) 55.3 Weight (Calculated Grams) 69674.3 [place] Body Weight 90 Recent Weight Change Yes Weight Status Overweight GI Symptoms Food Allergies No Skin Integrity/Comment: 11/09 pretibial pitting edema Estimated Nutritional Goals BEE in Kcals: Using Current wt Calories/Kcals/Kg 30 Kcals Calculated 1664 Protein: Using Current wt Protein g/k-1.2 Protein Calculated 56-67 Fluid: ml 1664-1943ml (30-35ml/kg) Nutritional Problem 1. Problem Problem Involuntary weight loss Etiology anorexia for more then one month Signs/Symptoms: recent wt loss of 25lb in two month Malnutrition Alert Interpretation of weight loss (Severe) >5% in 1 month Intervention/Recommendation Comments No nutrition intervention at this time. RD will follow up as high risk in 1-2 days. Expected Outcomes/Goals Expected Outcomes/Goals Pt to meet 50% of nutritional needs in the following 3 days.
[2017-09-15] MEDS ORDERED: Furosemide 40 mg/4mL UDC PO SCH (14:45)
--- NOTE | 2017-09-15 16:15 | Infectious Disease Prog Note ---
Infectious Disease Subjective - Review of Systems Service Date: 09/15/17 Subjective: There is no new change. There is no fever. Infectious Disease Objective - Results Result Diagrams: 09/15/17 05:30 09/15/17 05:30 Recent Labs: Laboratory Last Values WBC 10.8 Th/cmm (4.8-10.8) D 09/15/17 05:30 RBC 3.78 Mil/cmm (3.80-5.20) L 09/15/17 05:30 Hgb 9.4 gm/dL (12-16) L 09/15/17 05:30 Hct 29.0 % (41.0-60) L 09/15/17 05:30 MCV 76.8 fl (81-100) L 09/15/17 05:30 MCH 24.9 pg (27.0-31.0) L 09/15/17 05:30 MCHC Differential 32.4 pg (28.0-36.0) 09/15/17 05:30 RDW 14.1 % (11.5-20.0) 09/15/17 05:30 Plt Count 221 Th/cmm (150-400) 09/15/17 05:30 MPV 8.8 fl 09/15/17 05:30 Neutrophils % 75.1 % (40.0-80.0) 09/15/17 05:30 Band Neutrophils % 5 % (0-10) 09/11/17 04:55 Lymphocytes % 16.3 % (20.0-50.0) L 09/15/17 05:30 Monocytes % 3.8 % (2.0-10.0) 09/15/17 05:30 Eosinophils % 4.8 % (0.0-5.0) 09/15/17 05:30 Basophils % 0.0 % (0.0-2.0) 09/15/17 05:30 Neutrophils (Manual) 82 % (40-80) H 09/11/17 04:55 Lymphocytes 11 % (20-50) L 09/11/17 04:55 Monocytes 2 % (2-10) 09/11/17 04:55 Eosinophils 0 % (0-5) 09/11/17 04:55 Basophils 0 % (0-3) 09/11/17 04:55 Platelet Estimate ADEQUATE (NORMAL) 09/11/17 04:55 Platelet Morphology NORMAL (NORMAL) 09/11/17 04:55 Anisocytosis 1+ 09/10/17 05:48 Microcytosis 1+ 09/11/17 04:55 RBC Morph Micro Appear ABNORMAL (NORMAL) 09/11/17 04:55 Eos Smear Source URINE 09/09/17 21:29 Eos Smear Total Cells NONE SEEN (NONE SEEN) 09/09/17 21:29 PT 11.5 SECONDS (9.5-11.5) 09/14/17 05:20 INR 1.10 (0.5-1.4) 09/14/17 05:20 PTT (Actin FS) 32.9 SECONDS (26.0-38.0) 09/11/17 10:04 Specimen Source Arterial 09/09/17 08:53 Sample Site Left Radial 09/09/17 08:53 pH 7.37 (7.35-7.45) 09/09/17 08:53 pCO2 28.0 mmHg (35.0-45.0) L 09/09/17 08:53 pO2 100.0 mmHg (80.0-100.0) 09/09/17 08:53 HCO3 18.9 mEq/L (20.0-26.0) L 09/09/17 08:53 Base Excess -7.7 mEq/L (-3.0-3.0) L 09/09/17 08:53 O2 Saturation 98.0 % (92.0-100.0) 09/09/17 08:53 Vinod Test YES 09/09/17 08:53 Vent Rate NA 09/09/17 08:53 Inspired O2 28 09/09/17 08:53 Tidal Volume NA 09/09/17 08:53 PEEP NA 09/09/17 08:53 Pressure (ins/psv/peep) NA 09/09/17 08:53 Critical Value FERNANDO CALLIE 09/09/17 08:53 Sodium 134 mEq/L (136-145) L 09/15/17 05:30 Potassium 4.2 mEq/L (3.5-5.1) 09/15/17 05:30 Chloride 110 mEq/L (98-107) H 09/15/17 05:30 Carbon Dioxide 15.2 mEq/L (21.0-31.0) L 09/15/17 05:30 Anion Gap 13.0 (7.0-16.0) 09/15/17 05:30 BUN 38 mg/dL (7-25) H 09/15/17 05:30 Creatinine 2.5 mg/dL (0.6-1.2) H 09/15/17 05:30 Est GFR ( Amer) TNP 09/15/17 05:30 Est GFR (Non-Af Amer) TNP 09/15/17 05:30 BUN/Creatinine Ratio 15.2 09/15/17 05:30 Glucose 174 mg/dL (70-105) H 09/15/17 05:30 POC Glucose 195 MG/DL (70 - 105) H 09/15/17 12:18 Hemoglobin A1c % 5.7 % (4.0-6.0) 09/07/17 10:40 Whole Bld Lactic Acid 2.66 mmol/L (0.60-1.99) H* 09/10/17 07:48 Uric Acid 5.4 mg/dL (2.3-6.6) 09/10/17 05:48 Calcium 7.3 mg/dL (8.6-10.3) L 09/15/17 05:30 Phosphorus 3.2 mg/dL (2.5-5.0) 09/11/17 04:55 Magnesium 2.3 mg/dL (1.9-2.7) 09/13/17 04:36 Total Bilirubin 0.7 mg/dL (0.3-1.0) 09/12/17 05:30 AST 12 U/L (13-39) L 09/12/17 05:30 ALT 21 U/L (7-52) 09/12/17 05:30 Alkaline Phosphatase 185 U/L (34-104) H 09/12/17 05:30 Ammonia 29 umol/L (16-53) 09/11/17 04:55 Troponin I 0.20 ng/mL (0.01-0.05) H* D 09/08/17 05:57 B-Natriuretic Peptide 311.0 pg/mL (5.0-100.0) H 09/12/17 05:30 Total Protein 4.5 gm/dL (6.0-8.3) L 09/12/17 05:30 Albumin 1.7 gm/dL (3.7-5.3) L 09/12/17 05:30 Globulin 2.8 gm/dL 09/12/17 05:30 Albumin/Globulin Ratio 0.6 (1.0-1.8) L 09/12/17 05:30 Lipase 20 U/L (11-82) 09/07/17 10:40 Carcinoembryonic Ag 5.2 ng/mL (0.0-4.7) H 09/13/17 07:00 Procalcitonin SEE REF LAB REPORT 09/09/17 05:54 Urine Source [place] 09/13/17 02:40 Urine Color YELLOW 09/13/17 02:40 Urine Clarity CLEAR (CLEAR) 09/13/17 02:40 Urine pH 5.5 (4.6 - 8.0) 09/13/17 02:40 Ur Specific [place] 1.015 (1.005-1.030) 09/13/17 02:40 Urine Protein TRACE mg/dL (NEGATIVE) 09/13/17 02:40 Urine Glucose (UA) NEGATIVE mg/dL (NEGATIVE) 09/13/17 02:40 Urine Ketones NEGATIVE mg/dL (NEGATIVE) 09/13/17 02:40 Urine Blood TRACE (NEGATIVE) 09/13/17 02:40 Urine Nitrate NEGATIVE (NEGATIVE) 09/13/17 02:40 Urine Bilirubin NEGATIVE (NEGATIVE) 09/13/17 02:40 Urine Urobilinogen 0.2 E.U./dL (0.2 - 1.0) 09/13/17 02:40 Ur Leukocyte Esterase NEGATIVE (NEGATIVE) 09/13/17 02:40 Urine RBC 0-2 /hpf (0-5) 09/13/17 02:40 Urine WBC 2-5 /hpf (0-5) 09/13/17 02:40 Ur Epithelial Cells FEW /lpf (FEW) 09/13/17 02:40 Urine Bacteria FEW /hpf (NONE SEEN) 09/13/17 02:40 Fine Granular Casts 0-2 /lpf (NONE SEEN) H 09/07/17 11:30 Coarse Granular Casts 2-5 /lpf (NONE SEEN) H 09/07/17 11:30 Urine Mucus FEW /lpf (FEW) 09/07/17 11:30 Urine Yeast MANY /hpf (NONE SEEN) H 09/13/17 02:40 U Random Total Protein 104.0 mg/dL 09/10/17 21:45 Ur Random Sodium 73 mmol/L 09/13/17 02:40 Urine Collection Time 24 hours 09/10/17 21:45 Urine Total Volume 550 ml 09/10/17 21:45 Urine Creatinine 42.0 mg/dl (28.0-217.0) 09/10/17 21:45 Creat Clearance 24 Hr 8 ml/min (88.00-128.00) L 09/10/17 21:45 U Tot Protein 24h, Calc 572.0 mg/24 hr (0-165) H 09/10/17 21:45 Ur Sodium 24 Hour 39 mmol/24H (40-220) L 09/10/17 21:45 Body Surface Area 1.54 09/10/17 21:45 Random Vancomycin 14.8 ug/mL (5.0-40.0) 09/09/17 05:54 - Physical Exam Vitals and I&O: Vital Signs Temp 97.2 F 09/15/17 12:25 Pulse 80 09/15/17 12:25 Resp 19 09/15/17 12:25 BP 123/63 09/15/17 15:03 Pulse Ox 98 09/15/17 12:25 Intake & Output 09/14/17 09/15/17 09/15/17 18:59 06:59 18:59 Intake Total 1520.833 200 Output Total 1100 Balance 1520.833 -900 Weight (lbs) 66.905 kg 66.905 kg Intake: Intake, IV Amount 1520.833 100 Dextrose 5% 1,000 ml @ 1470.833 125 mls/hr IV .Q8H [facility] Rx #:[id number] Piperacillin Sodium/ 50 100 Tazobact 2.25 gm In Sodium Chloride 0.9% 50 ml @ 100 mls/hr IV Q6HR [facility] Rx#:[id number] Tube Feeding 60 Other 40 Output: Urine 1000 Other 100 Active Medications: Current Medications Acetaminophen (Tylenol) 650 mg PO Q6HR PRN PRN Reason: MILD PAIN OR TEMP>100.4 Stop: 11/06/17 16:35 Last Admin: 09/14/17 21:01 Dose: 650 mg Alendronate Sodium (Fosamax) 70 mg PO QSAT [facility] Stop: 11/08/17 06:29 Last Admin: 09/09/17 07:10 Dose: Not Given Aspirin (Aspirin Chewable) 81 mg PO DAILY [facility] Stop: 11/07/17 08:59 Last Admin: 09/15/17 09:29 Dose: 81 mg Bisacodyl (Dulcolax 10 Mg Supp) 10 mg RC DAILY PRN PRN Reason: IF MOM INEFFECTIVE Stop: 11/06/17 16:35 Clonazepam (Klonopin) 1 mg PO DAILY [facility] PRN Reason: Protocol Stop: 11/07/17 08:59 Last Admin: 09/15/17 09:30 Dose: 1 mg Clonazepam (Klonopin) 2 mg PO HS [facility] Stop: 11/10/17 20:59 Last Admin: 09/14/17 22:09 Dose: Not Given Cyanocobalamin (Vitamin B12) 1,000 mcg PO DAILY [facility] Stop: 11/07/17 08:59 Last Admin: 09/15/17 09:29 Dose: 1,000 mcg Diltiazem HCl (Cardizem) 20 mg IVP Q3H PRN PRN Reason: Heart Rate > than 120 bpm Stop: 11/06/17 16:44 Docusate Sodium (Colace) 100 mg PO DAILY [facility] Stop: 11/07/17 08:59 Last Admin: 09/15/17 09:29 Dose: 100 mg Enalaprilat (Vasotec) 1.25 mg IVP Q6HR PRN PRN Reason: SBP > 170 Stop: 11/10/17 04:29 Last Admin: 09/11/17 04:47 Dose: 1.25 mg Furosemide (Lasix) 40 mg PO DAILY [facility] Stop: 11/14/17 14:44 Last Admin: 09/15/17 15:03 Dose: 40 mg Phenylephrine HCl 10 mg/ (Sodium Chloride) 250 mls @ 30 mls/hr IV TITR [facility]; 20 MCG/MIN PRN Reason: Protocol Stop: 11/06/17 21:59 Last Titration: 09/08/17 06:01 Dose: 0 mcg/min, 0 mls/hr Norepinephrine Bitartrate 4 mg (/ Dextrose) 254 mls @ 0 mls/hr IV STAT PRN; Protocol; Per Protocol PRN Reason: BP MAINTENANCE (PER PROTOCOL) Stop: 11/06/17 16:11 Last Titration: 09/10/17 06:20 Dose: 0 mcg/min, 0 mls/hr Dextrose (D5w) 1,000 mls @ 125 mls/hr IV .Q8H [facility] Stop: 11/10/17 15:48 Last Admin: 09/15/17 02:23 Dose: 125 mls/hr Piperacillin Sod/Tazobactam (Sod 2.25 gm/ Sodium Chloride) 50 mls @ 100 mls/hr IV Q8HR [facility] Stop: 11/07/17 11:59 Insulin Aspart (Novolog Insulin Sliding Scale) 0 units SUBQ ACHS [facility] PRN Reason: Protocol Stop: 11/07/17 11:29 Last Admin: 09/15/17 06:39 Dose: 2 units Insulin Detemir (Levemir Insulin) 10 units SUBQ HS [facility] Stop: 11/06/17 20:59 Last Admin: 09/14/17 21:16 Dose: 10 units Lactobacillus Rhamnosus (Culturelle) 1 each PO DAILY [facility] Stop: 11/09/17 08:59 Last Admin: 09/15/17 09:29 Dose: 1 each Magnesium Hydroxide (Milk Of Magnesia) 30 ml PO DAILY PRN PRN Reason: Constipation Stop: 11/06/17 16:35 Miscellaneous (Clinical Monitoring) 1 ea PRN PRN PRN Reason: RENAL DOSE ZOSYN Stop: 11/07/17 07:51 Miscellaneous (Zosyn Iv Per Pharmacy) 1 [facility] PRN PRN PRN Reason: PROTOCOL Stop: 11/07/17 14:31 Miscellaneous (Probiotic Screen) 1 [facility] PRN PRN PRN Reason: PROTOCOL Stop: 11/08/17 10:15 Morphine Sulfate (Morphine) 1 mg IVP Q4HR PRN PRN Reason: Pain (Severe) Stop: 11/07/17 18:24 Last Admin: 09/13/17 12:11 Dose: 1 mg Morphine Sulfate (Morphine) 1 mg IVP Q6HR PRN PRN Reason: Pain (Moderate) Stop: 11/10/17 17:59 Multivitamins/Vitamin C (Theragran) 1 tab PO DAILY [facility] Stop: 11/07/17 08:59 Last Admin: 09/15/17 09:29 Dose: 1 tab Pantoprazole Sodium (Protonix) 40 mg IVP DAILY [facility] Stop: 01/01/18 18:59 Last Admin: 09/15/17 09:29 Dose: 40 mg Quetiapine Fumarate (Seroquel) 100 mg PO HS [facility] PRN Reason: Protocol Stop: 11/06/17 20:59 Last Admin: 09/14/17 22:09 Dose: 100 mg Simvastatin (Zocor) 40 mg PO HS [facility] PRN Reason: Protocol Stop: 11/06/17 20:59 Last Admin: 09/14/17 21:02 Dose: 40 mg Sodium Bicarbonate (Sodium Bicarbonate) 650 mg PO BID [facility] PRN Reason: Protocol Stop: 11/12/17 16:59 Last Admin: 09/15/17 09:29 Dose: 650 mg Sodium Phosphate (Fleet Enema) 135 ml RC DAILY PRN PRN Reason: Constipation Stop: 11/06/17 16:35 General: no acute distress, well developed, well nourished HEENT: atraumatic, normocephalic, PERRLA, EOMI Neck: supple, no thyromegaly, no lymphadenopathy Cardiovascular: S1S2, regular Lungs: clear to auscultation bilaterally, clear to percussion Abdomen: soft, no tender, no distended, no mass Extremities: no cyanosis, no clubbing, no edema Neurological: awake, alert, other (confused) Skin: intact Infectious Disease Assmt/Plan - Assessment Assessment: 1. sepsis. Improved. 2. Acute cholecystitis. 3. dementia. 4. acute renal failure. 5. S/p PTC placement. - Plan Plan: Conitnue zosyn. change antibiotics to levaquin 500 po daily x 5 days. Nutritional Asmnt/Malnutr-PDOC - Dietary Evaluation Malnutrition Findings (Please click <Entered> for more info): Nutritional Asmnt/Malnutrition Start: 09/07/17 16: 06 Text: Status: Complete Freq: Document 09/07/17 16:06 NIK (Rec: 09/07/17 16:34 [id number] [email or web address]) Nutritional Asmnt/Malnutrition Patient General Information Nutritional Screening Consult Diagnosis Dehydration, leukcytosis, dementia Pertinent Medical Hx/Surgical Hx HTN, DM, Dyslipidemia, Arthritis, Dementia, Hyperlipidemia, Anxiety, Osteoporosis, Degenerative joint disease, Neurophay. Subjective Information Per H&P, pt was on pureed NCS, NSPOT diet from [facility] ([facility]). Pt had anorexia more than one month and wt loss of 25lb in the past two months. Pt was transfered to ICU d/t rapid response. Families were aside, not a propriate time to approach. Currently no plan for nutrition d/t pt is not responding per RN. Current Diet Order/ Nutrition Support no diet order/swallowing eval pending Pertinent Medications D5 50ml/hr Pertinent Labs 09/07 Na 143, K 4.6, Cl 111 H, BUN 53 H, Cr 0.9 GLU 182 H, POC 164 H Nutritional Hx/Data Height 1.42 m Height (Calculated Centimeters) 142.2 Current Weight (lbs) 55.338 kg Weight (Calculated Kilograms) 55.3 Weight (Calculated Grams) 43369.3 [place] Body Weight 90 Recent Weight Change Yes Weight Status Overweight GI Symptoms Food Allergies No Skin Integrity/Comment: 11/09 pretibial pitting edema Estimated Nutritional Goals BEE in Kcals: Using Current wt Calories/Kcals/Kg 30 Kcals Calculated 1664 Protein: Using Current wt Protein g/k-1.2 Protein Calculated 56-67 Fluid: ml 1664-1943ml (30-35ml/kg) Nutritional Problem 1. Problem Problem Involuntary weight loss Etiology anorexia for more then one month Signs/Symptoms: recent wt loss of 25lb in two month Malnutrition Alert Interpretation of weight loss (Severe) >5% in 1 month Intervention/Recommendation Comments No nutrition intervention at this time. RD will follow up as high risk in 1-2 days. Expected Outcomes/Goals Expected Outcomes/Goals Pt to meet 50% of nutritional needs in the following 3 days.
[2017-09-15] MEDS ORDERED: Piperacillin/Tazobact 2.25 gm in 0.9% NS 50 ML IV SCH (21:00)
--- NOTE | 2017-09-16 02:16 | Progress Notes ---
DATE: 09/15/2017 PROBLEM LIST: Septic shock, improved. Cholelithiasis with gallbladder insertion with a tube for drainage and also now has a G-tube. SYMPTOMS: The patient is lethargic, not too much communicative, not in acute distress, now started G-tube feeding. PHYSICAL EXAMINATION: GENERAL: Not in any acute distress. NECK: Veins not visualized. CHEST: Shows diminished air entry, otherwise unremarkable. HEART: Regular. ABDOMEN: Soft, nontender. LABORATORY DATA: White count is 10.8. Electrolytes show creatinine 2.5, BUN is 38 and slight elevation of the sugar. ASSESSMENT: The patient clinically appears to be stable, unchanged with multiple medical problems. PLANS AND SUGGESTIONS: We will continue G-tube feeding and consideration for discharge planning pending cholecystectomy tube as to how long will it to be there and go from there. JOB# [id number]
--- NOTE | 2017-09-16 02:23 | Progress Notes ---
DATE: 09/14/2017 PROBLEM LIST: 1. Status post septic shock. 2. Status post G-tube, history of percutaneous gallbladder tube with possibly stone. SYMPTOMS: Nil. The patient is quite obtunded, no respiratory distress. PHYSICAL EXAMINATION: VITAL SIGNS: Temperature is around 95-96, blood pressure 100/53. NECK: Veins not visualized. CHEST: Shows slightly tender ____. ASSESSMENT: The patient is clinically stable, not much changed. PLANS AND SUGGESTIONS: We will go ahead and continue current treatment and go from there. JOB# [id number]
== END 2017-09-15 17:55 | disposition home or self-care (01) | DRG 871 ==
LOC: ER 10:18 → MSI 12:00 → ICU 16:08 → TELE 09-11 13:19
PROVIDERS: ADMIT Family Medicine; ATTEND Family Medicine
PROC: 0DH68UZ Insertion of Feeding Device into Stomach, Via Natural or Artificial Opening Endoscopic (ICD-10-PCS; principal; 2017-09-14)
DX: A41.9 Sepsis, unspecified organism (principal); J18.9 Pneumonia, unspecified organism; J96.01 Acute respiratory failure with hypoxia; N17.0 Acute kidney failure with tubular necrosis; R65.21 Severe sepsis with septic shock; E43 Unspecified severe protein-calorie malnutrition; K80.00 Calculus of gallbladder with acute cholecystitis without obstruction; R64 Cachexia; E11.22 Type 2 diabetes mellitus with diabetic chronic kidney disease; E11.42 Type 2 diabetes mellitus with diabetic polyneuropathy; R13.10 Dysphagia, unspecified; N39.0 Urinary tract infection, site not specified; I13.0 Hypertensive heart and chronic kidney disease with heart failure and stage 1 through stage 4 chronic kidney disease, or unspecified chronic kidney disease; F03.90 Unspecified dementia, unspecified severity, without behavioral disturbance, psychotic disturbance, mood disturbance, and anxiety; E86.0 Dehydration; Z66 Do not resuscitate; M19.90 Unspecified osteoarthritis, unspecified site; E78.5 Hyperlipidemia, unspecified; E87.6 Hypokalemia; F41.9 Anxiety disorder, unspecified; M81.0 Age-related osteoporosis without current pathological fracture; N18.2 Chronic kidney disease, stage 2 (mild); I50.9 Heart failure, unspecified; R62.7 Adult failure to thrive; D50.9 Iron deficiency anemia, unspecified; Z68.33 Body mass index [BMI] 33.0-33.9, adult; Z82.49 Family history of ischemic heart disease and other diseases of the circulatory system; Z79.82 Long term (current) use of aspirin; Z79.84 Long term (current) use of oral hypoglycemic drugs
CPT/HCPCS: 36415-UA; 36600-90; 71010-TC; 75989-TC; 76700-TC; 78226-TC; 80048-TC; 80053-TC; 80202-TC; 81001-TC; 81015-TC; 81050-TC; 82140-TC; 82378-90; 82570-TC; 82575-TC; 82803-TC; 82948-90; 83036-90; 83605; 83690-TC; 83735-TC; 83880-TC; 84100-TC; 84145-90; 84156-TC; 84300-TC; 84484-TC; 84550-TC; 85007-TC; 85025-TC; 85027-TC; 85610-TC; 85730-TC; 87070-90; 87086-90; 90779; 90799; 93005; 94760; A9537; C9113; J0610; J0696; J1644; J1815; J2270; J2370; J2543; J2704; J3370; J3475; J3480; J7030; J7042; J7070; P9046; X3401; X6452; Z7506; Z7508; Z7610

== ENCOUNTER 2017-09-25 16:28 | Inpatient (IN) | payer MEDICARE, MEDICAID ==
--- NOTE | 2017-09-25 17:36 | ED Physician Chart ---
ED Chief Complaint/HPI - Patient Information Date Seen:: 09/25/17 Time Seen:: 16:50 Chief Complaint:: Failure to Thrive History of Present Illness:: onset x 3 days of failure to thrive with abnormal lab tests today; no report of trauma, H/As, neck pain, C/P, SOB, Abd. Pain, A/N/V/D/C, fever, chills, or urinary s/s Allergies:: Allergies Allergy/AdvReac Type Severity Reaction Status Date / Time No Known Allergies Allergy Verified 09/07/17 10:33 Vitals:: Vital Signs - 8 hr 09/25/17 16:48 Temp 98.0 F HR 104 RR 24 BP 112/70 O2 Sat % 99 Historian:: Patient, EMS, Family Member Review:: Nurse's Note Reviewed, Old Chart Reviewed, EMS run form Reviewed <Kvng Cho - Last Filed: 09/25/17 18:16> - Patient Information Allergies:: Allergies Allergy/AdvReac Type Severity Reaction Status Date / Time No Known Allergies Allergy Verified 09/07/17 10:33 Vitals:: Vital Signs - 8 hr 09/25/17 09/25/17 09/25/17 16:48 17:36 19:27 Temp 98.0 F 98.0 F 98.3 F HR 104 102 102 RR 24 20 15 BP 112/70 112/70 142/87 O2 Sat % 99 99 99 09/25/17 19:57 Temp 98.1 F HR 102 RR 20 BP 131/71 O2 Sat % 100 <Tanvir Ly - Last Filed: 09/25/17 20:45> ED Review of Systems - Review of Systems General/Constitutional: Fever, No chills, No weight loss, Weakness, No diaphoresis, No edema, No loss of appetite Skin: No skin lesions, No rash, No bruising Head: No headache, No light-headedness Eyes: No loss of vision, No pain, No diplopia ENT: No earache, No nasal drainage, No sore throat, No tinnitus Neck: No neck pain, No swelling, No thyromegaly, No stiffness, No mass noted Cardio Vascular: No chest pain, No palpitations, No PND, No orthopnea, No edema Pulmonary: No SOB, No cough, No sputum, No wheezing GI: No nausea, No vomiting, No diarrhea, No pain, No melena, No hematochezia, No constipation, No hematemesis G/U: No dysuria, No frequency, No hematuria Musculoskeletal: No bone or joint pain, No back pain, No muscle pain Endocrine: Polyuria, Polydipsia Psychiatric: Prior psych history, Depression, Anxiety, No suicidal ideation, No homicidal ideation, Auditory hallucination, No visual hallucination Hematopoietic: No bruising, No lymphadenopathy Allergic/Immuno: No urticaria, No angioedema Neurological: No syncope, No focal symptoms, Weakness, No paresthesia, No headache, No seizure, No dizziness, No confusion, No vertigo <Kvng Cho - Last Filed: 09/25/17 18:16> ED Past Medical History - Past Medical History Obtainable: Yes Past Medical History: HTN, DM, ESRD, Dementia Family History: Diabetes Melitus, HTN Social History: Non Smoker, No Alcohol, No Drug Use, Single, Care Facility Surgical History: None Psychiatricy History: Depression, Schizophrenia, Bipolar, Dementia Medication: Reviewed <Kvng Cho Last Filed: 09/25/17 18:16> Family Medical History - Family Member Mother Ethnicity: Living Status: Hx Family Cancer: No Hx Family Coronary Artery Disease: No Hx Family Congestive Heart Failure: Yes sister Hx Family Cancer: Yes Hx Family Coronary Artery Disease: No Hx Family Congestive Heart Failure: Yes Hx Family Hypertension: No Hx Family Stroke: No Hx Family Seizures: No Hx Family Dementia: No Hx Family AIDS: No Hx Family COPD: No Hx Family Hepatitis: No Hx Family Psychiatric Problems: No Hx Family Tuberculosis: No <Kvng Cho [place] Filed: 09/25/17 18:16> ED Physical Exam - Physical Examination General/Constitutional: Awake, Well-developed, well-nourished, Alert, No distress, GCS 15, Non-toxic appearing, Ambulatory Head: Atraumatic Eyes: Lids, conjuctiva normal, PERRL, EOMI Skin: Nl inspection, No rash, No skin lesions, No ecchymosis, Well hydrated, No lymphadenopathy Other Skin comments:: + Decubitus Ulcers ENMT: External ears, nose nl, TM canals nl, Nasal exam nl, Lips, teeth, gums nl , Oropharynx nl, Tonsils nl Neck: Nontender, Full ROM w/o pain, No JVD, No nuchal rigidity, No bruit, No mass, No stridor Respiratory: Nl effort/Exclusion, Clear to Auscultation, No Wheeze/Rhonchi/Rales Cardio Vascular: RRR, No murmur, gallop, rubs, NL S1 S2, Carotid/Femoral/Distal pulses equal bilaterally GI: No tenderness/rebounding/guarding, No organomegaly, No hernia, Normal BS's, Nondistended, No mass/bruits, No McBurney tenderness : No CVA tenderness Extremities: No tenderness or effusion, Full ROM, normal strength in all extremities, No edema, Normal digits & nails Neuro/Psych: Alert/oriented, DTR's symmetric, Normal sensory exam, Normal motor strength, Judgement/insight normal, Mood normal, Normal gait, No focal deficits Misc: Normal back, No paraspinal tenderness <Kvng Cho - Last Filed: 09/25/17 18:16> ED Labs/Radiology/EKG Results - Radiology Results Comments:: Left Pleural Effusion; CM - EKG Interpretations EKG Time:: 17:50 Rate & Rhythm: 102; ST Comments:: non-specific st-t changes <Kvng Cho - Last Filed: 09/25/17 18:16> - Lab Results Results: Laboratory Tests 09/25/17 09/25/17 09/25/17 18:10 18:10 18:10 WBC 6.6 D RBC 3.33 L Hgb 8.4 L Hct 25.4 L D MCV 76.3 L MCH 25.3 L MCHC Differential 33.1 RDW 15.4 Plt Count 217 MPV 7.6 Neutrophils % 60.5 Lymphocytes % 28.5 Monocytes % 3.5 Eosinophils % 7.2 H Basophils % 0.3 PT INR PTT (Actin FS) Sodium 141 Potassium 3.7 Chloride 119 H Carbon Dioxide 13.4 L Anion Gap 12.3 BUN 66 H Creatinine 1.9 H Est GFR ( Amer) TNP Est GFR (Non-Af Amer) TNP BUN/Creatinine Ratio 34.7 Glucose 180 H Whole Bld Lactic Acid Calcium 8.7 Total Bilirubin 0.3 AST 13 ALT 10 Alkaline Phosphatase 105 H Creatine Kinase 21 L Troponin I B-Natriuretic Peptide 256.0 H Total Protein 6.0 Albumin 2.3 L Globulin 3.7 Albumin/Globulin Ratio 0.6 L Triglycerides 121 Cholesterol 55 LDL Cholesterol Direct 25 L HDL Cholesterol 15 L 09/25/17 09/25/17 09/25/17 18:10 18:10 18:10 WBC RBC Hgb Hct MCV MCH MCHC Differential RDW Plt Count MPV Neutrophils % Lymphocytes % Monocytes % Eosinophils % Basophils % PT 11.7 H INR 1.12 PTT (Actin FS) 32.5 Sodium Potassium Chloride Carbon Dioxide Anion Gap BUN Creatinine Est GFR ( Amer) Est GFR (Non-Af Amer) BUN/Creatinine Ratio Glucose Whole Bld Lactic Acid 3.05 H* Calcium Total Bilirubin AST ALT Alkaline Phosphatase Creatine Kinase Troponin I 0.02 B-Natriuretic Peptide Total Protein Albumin Globulin Albumin/Globulin Ratio Triglycerides Cholesterol LDL Cholesterol Direct HDL Cholesterol <Tanvir Ly - Last Filed: 09/25/17 20:45> ED Septic Shock - . Is Septic Shock (SBP<90, OR Lactate>4 mmol\L) present?: No - <6hrs of presentation: Vital Signs: Vital Signs - 8 hr 09/25/17 16:48 Temp 98.0 F HR 104 RR 24 BP 112/70 O2 Sat % 99 <Kvng Cho - Last Filed: 09/25/17 18:16> - <6hrs of presentation: Vital Signs: Vital Signs - 8 hr 09/25/17 09/25/17 09/25/17 16:48 17:36 19:27 Temp 98.0 F 98.0 F 98.3 F HR 104 102 102 RR 24 20 15 BP 112/70 112/70 142/87 O2 Sat % 99 99 99 09/25/17 19:57 Temp 98.1 F HR 102 RR 20 BP 131/71 O2 Sat % 100 <Tanvir Ly - Last Filed: 09/25/17 20:45> ED Reassessment (Disposition) - Reassessment Reassessment Condition:: Improved - Patient Disposition Discharge/Transfer:: Acute Care w/in this hosp Admitted to:: Telemetry Admitting Medical Physician:: Gibran Quintero Condition at Disposition:: Improved <Tanvir Ly - Last Filed: 09/25/17 20:45> ED Discharge Plan <Kvng Cho - Last Filed: 09/25/17 18:16> <Tanvir Ly - Last Filed: 09/25/17 20:45> - Patient Disposition Admit/Discharge/Transfer: Acute Care w/in this hosp Condition at Disposition: Improved
[2017-09-25] MEDS ORDERED: Sodium Chloride 0.9% 1,000 ML IV ONE (17:38)
[2017-09-25 18:21] LABS: % BASOPHILS 0.3 % (0.0-2.0); % EOSINOPHILS 7.2 % (0.0-5.0); % LYMPHOCYTES 28.5 % (20.0-50.0); % MONOCYTES 3.5 % (2.0-10.0); % NEUTROPHILS 60.5 % (40.0-80.0); HEMOGLOBIN 8.4 gm/dL (12-16); MEAN CELL VOLUME 76.3 fl (81-100); MEAN CORPUSCULAR HEMOGLOBIN 25.3 pg (27.0-31.0); MEAN CORPUSCULAR HGB CONC 33.1 pg (28.0-36.0); MEAN PLATELET VOLUME 7.6 fl; PLATELET COUNT 217 Th/cmm (150-400); RED BLOOD COUNT 3.33 Mil/cmm (3.80-5.20); RED CELL DISTRIBUTION WIDTH 15.4 % (11.5-20.0)
[2017-09-25 18:25] LABS: HEMATOCRIT 25.4 % (41.0-60); WHITE BLOOD COUNT 6.6 Th/cmm (4.8-10.8)
[2017-09-25 18:31] LABS: INR 1.12 (0.5-1.4); PROTHROMBIN TIME (TEST) 11.7 SECONDS (9.5-11.5)
[2017-09-25 18:40] LABS: ALB/GLOB RATIO 0.6 (1.0-1.8); ALKALINE PHOSPHATASE 105 U/L (34-104); ANION GAP 12.3 (7.0-16.0); BILIRUBIN,TOTAL 0.3 mg/dL (0.3-1.0); BUN - UREA NITROGEN 66 mg/dL (7-25); BUN/CREATININE RATIO 34.7; CALCIUM SERUM 8.7 mg/dL (8.6-10.3); CARBON DIOXIDE 13.4 mEq/L (21.0-31.0); CHLORIDE 119 mEq/L (98-107); CHOLESTEROL 55 mg/dL (<200); CREATININE - SERUM 1.9 mg/dL (0.6-1.2); GLUCOSE 180 mg/dL (70-105); POTASSIUM SERUM 3.7 mEq/L (3.5-5.1); SGOT 13 U/L (13-39); SGPT/ALT 10 U/L (7-52); SODIUM SERUM 141 mEq/L (136-145); TRIGLYCERIDES 121 mg/dL (<150)
[2017-09-25 22:13] LABS: URINE BILIRUBIN NEGATIVE (NEGATIVE); URINE BLOOD SMALL (NEGATIVE); URINE GLUCOSE (UA) NEGATIVE (NEGATIVE); URINE KETONE NEGATIVE (NEGATIVE); URINE PH 5.5 (4.6 - 8.0); URINE PROTEIN TRACE mg/dL (NEGATIVE); URINE UROBILINOGEN 0.2 E.U./dL (0.2 - 1.0)
[2017-09-25 22:17] LABS: URINE COLOR YELLOW
[2017-09-25 22:18] LABS: URINE BACTERIA FEW /hpf (NONE SEEN); URINE EPITHELIAL CELLS OCCASIONAL /lpf (FEW)
[2017-09-26 04:34] VITALS: BP 129/67
--- NOTE | 2017-09-26 07:38 | Diagnostic Imaging Report ---
Exam: Portable chest x-ray HISTORY: Chest pain. Findings: Portable examination of the chest at the 1811 hours was reviewed study compared to prior exam of 09/13/2017. The study demonstrates a no acute pulmonic is trace or effusions. Mediastinal structures midline the heart is not enlarged. Degenerative changes of bony thorax appreciated. Pigtail catheter overlying the right upper abdomen. IMPRESSION: No acute disease.
--- NOTE | 2017-09-26 08:23 | History and Physical ---
History of Present Illness - HPI Chief Complaint: weakness and fatigue HPI: 72 year old female who presents to [facility] ER from SNF for 3 day history of weakness and fatigue. Patient was seen here about two weeks ago. During her last admission to the hospital she was found to be septic due to cholecystitis and was high risk for surgery at the time and as a result underwent percutaneous transabdominal cholecystotomy at an outside facility . Patient has a history of 30 lbs weight loss, HTN, DM, ESRD, Dementia, depression , schizophrenia, bipolar disorder, and dementia. Her initial labwork done in the ER revealed. WBC 6.6 H/H 8.4/25.4 Bun/Cr 66/1.9. She was subsequently admitted for further evaluation and treatment. Chest xray revaled left pleural effusion. Vital Signs: Last Vital Signs Temp 98.4 F 09/26/17 04:00 Pulse 97 09/26/17 04:00 Resp 19 09/26/17 04:00 BP 129/67 09/26/17 04:34 Pulse Ox 99 09/26/17 04:00 Past Medical History Cardiovascular: Report: HTN Pulmonary: Report: No Pertinent Hx CRIMINAL JUDGE: Report: Dementia GI: Report: Other (s/p percutaneous transabdominal cholecystomy, cholelithiasis , cholecystitis) Psych: Report: Bipolar, Depression, Schizophrenia Musculoskeletal: Report: No Pertinent Hx Rheumatologic: Report: No pertinent Hx Infectious Disease: Report: No Pertinent Hx Renal/: Report: No Pertinent Hx Endocrine: Report: Diabetes Dermatology: Report: No Pertinent Hx - Past Surgical History Past Surgical History: Other (s/p PTC insertion) Family Medical History - Family Member Mother History Unknown: Yes Ethnicity: Living Status: Hx Family Cancer: No Hx Family Coronary Artery Disease: No Hx Family Congestive Heart Failure: Yes sister History Unknown: Yes Ethnicity: Living Status: Hx Family Cancer: No Hx Family Coronary Artery Disease: No Hx Family Congestive Heart Failure: Yes Hx Family Hypertension: Yes Hx Family Stroke: No Hx Family Diabetes: Yes Hx Family Seizures: No Hx Family Dementia: No Hx Family AIDS: No Hx Family HIV: No Hx Family COPD: No Hx Family Hepatitis: No Hx Family Psychiatric Problems: No Hx Family Tuberculosis: No Social History Smoke: No Alcohol: None Drugs: None Lives: Skilled Nursing - Medications Home Medications: Home Medication Medication Instructions Recorded Type Acetaminophen [Tylenol] 640 mg GT Q6HR PRN 09/07/17 History Alendronate Sodium [Fosamax] 70 mg GT QTHUR 09/07/17 History Aspirin 81 mg GT DAILY 09/07/17 History Bisacodyl [Dulcolax 10 Mg Supp] 10 mg RC DAILY PRN 09/07/17 History Clonazepam [Klonopin] 2 mg GT HS 09/07/17 History Cyanocobalamin [Vitamin B12] 1 tab GT DAILY 09/07/17 History Docusate Sodium [Colace] 100 mg GT DAILY 09/07/17 History Fleet Enema 135 ml RC DAILY PRN 09/07/17 History Lisinopril 40 mg GT HS 09/07/17 History Magnesium Hydroxide [Milk of 30 ml GT DAILY PRN 09/07/17 History Magnesia] Melatonin 2 tab GT HS 09/07/17 History Metformin HCl [Glucophage] 1,000 mg GT BID 09/07/17 History QUEtiapine Fumarate [SEROquel] 1 tab GT HS 09/07/17 History Simvastatin [Zocor] 40 mg GT HS 09/07/17 History clonazePAM [klonoPIN] 1 tab GT DAILY 09/07/17 History Collagenase Clostridium Hist. 1 appl TP DAILY 09/25/17 History [Santyl] Fluocinonide 0.05% Cream [Lidex 1 appl TP DAILY 09/25/17 History 0.05%] Furosemide [Lasix] 40 mg GT DAILY 09/25/17 History Insulin Detemir [Levemir] 10 unit SQ HS 09/25/17 History Lactobacillus Rhamnosus 1 each GT DAILY 09/25/17 History [Culturelle] Loperamide [Imodium] 2 mg GT Q6H PRN 09/25/17 History Menthol/Zinc Oxide [Calmoseptine] 1 appl TP DAILY 09/25/17 History Potassium Chloride 20 meq GT DAILY 09/25/17 History Sodium Bicarbonate 650 mg GT BID 09/25/17 History Vits A & D/White Pet/Lanolin [A + 42.5 gm TP DAILY 09/25/17 History D Ointment] - Allergies Allergies/Adverse Reactions: Allergies Allergy/AdvReac Type Severity Reaction Status Date / Time No Known Allergies Allergy Verified 09/07/17 10:33 Review of Systems - Review of Systems Constitutional: Report: No Significant Eyes: Report: No Significant ENT: Report: No Significant Respiratory: Report: No Significant Cardiovascular: Report: No Significant Gastrointestinal: Report: No Significant Genitourinary: Report: No Significant Musculoskeletal: Report: No Significant Skin: Report: No Significant Neurological: Report: No Significant Physical Exam - Physical Exam HEENT: Report: Ears Nose Throat within normal limits, Pharnyx within normal limits Neck: Report: Within normal limits Cardiovascular Systems: Report: +s1/s2 noted, Regular, Rate and Rhythm Respiratory: Report: Breath Sounds are within normal limits Abdomen: Report: Non-tender to palpation, Other (presence of PTC) Back: Report: Inspection of back is within normal limits. Extremities: Report: Non-tender to palpation. Skin: Report: Color of skin is within normal limits - Lab Results All Lab Results last 24 hours: Laboratory Results - last 24 hr 09/26/17 01:23 POC Glucose 133 H - Assessment Assessment: Current Active Problems Problem Status Onset ABNORMAL LAB VALUES, HB/HCT Acute Anorexia Failure to thrive anemia left pleural effusion HTN DM ESRD Dementia - Plan Plan: see orders
[2017-09-26 09:01] LABS: % BASOPHILS 0.4 % (0.0-2.0); % EOSINOPHILS 8.4 % (0.0-5.0); % MONOCYTES 3.8 % (2.0-10.0); % NEUTROPHILS 57.4 % (40.0-80.0); HEMATOCRIT 23.7 % (41.0-60); MEAN CELL VOLUME 76.6 fl (81-100); MEAN CORPUSCULAR HEMOGLOBIN 24.9 pg (27.0-31.0); MEAN CORPUSCULAR HGB CONC 32.5 pg (28.0-36.0); MEAN PLATELET VOLUME 7.2 fl; NEUTROPHILE ABSOLUTE 3.5 Th/cmm (1.8-8.0); PLATELET COUNT 214 Th/cmm (150-400); RED BLOOD COUNT 3.09 Mil/cmm (3.80-5.20); RED CELL DISTRIBUTION WIDTH 15.1 % (11.5-20.0)
[2017-09-26 09:06] LABS: HEMOGLOBIN 7.7 gm/dL (12-16)
[2017-09-26 09:25] LABS: ALB/GLOB RATIO 0.6 (1.0-1.8); ALKALINE PHOSPHATASE 100 U/L (34-104); ANION GAP 11.7 (7.0-16.0); BILIRUBIN,TOTAL 0.3 mg/dL (0.3-1.0); BUN - UREA NITROGEN 64 mg/dL (7-25); BUN/CREATININE RATIO 35.6; CALCIUM SERUM 8.2 mg/dL (8.6-10.3); CARBON DIOXIDE 12.9 mEq/L (21.0-31.0); CHLORIDE 121 mEq/L (98-107); CREATININE - SERUM 1.8 mg/dL (0.6-1.2); POTASSIUM SERUM 3.6 mEq/L (3.5-5.1); SGOT 14 U/L (13-39); SGPT/ALT 10 U/L (7-52); SODIUM SERUM 142 mEq/L (136-145)
[2017-09-26 09:27] LABS: GLUCOSE 156 mg/dL (70-105)
[2017-09-26] MEDS ORDERED: Fleet Enema 135 mL RC PRN (09:38)
[2017-09-26] MEDS ORDERED: Magnesium Hydroxide (MOM) 30 mL UDC GT PRN (09:38)
[2017-09-26] MEDS ORDERED: Sodium Bicarbonate 8.4% 50mEq PFS IVP ONE (10:15)
[2017-09-26] MEDS ORDERED: Sodium Chloride 0.45% 1,000 ML IV SCH ×2 (10:30→19:09)
[2017-09-26] MEDS: Albuterol/Ipratropium Neb 3 ML AERS HHN SCH ×3 (15:51→23:06)
[2017-09-26] MEDS: Budesonide 0.5 Mg/2 mL Ud HHN SCH (19:15)
[2017-09-26] MEDS ORDERED: MELATONIN GT SCH (21:00)
[2017-09-26] MEDS: Insulin Detemir 100 units/mL 10mL Vial SUBQ SCH (21:27)
--- NOTE | 2017-09-27 00:52 | Consultation ---
DATE OF CONSULTATION: 09/26/2017 PATIENT OF: Dr. Allen Quintero HISTORY OF PRESENT ILLNESS: This 72-year-old female patient who recently had laparoscopic cholecystectomy. Postoperatively, the patient is having poor appetite, failure to thrive. At this time, the patient came to the Emergency Room and the patient is admitted. The patient was found to have severe anemia with lactic acidosis. PAST MEDICAL HISTORY: Cholecystectomy, hypertension, diabetes mellitus type 2, diabetic CKD stage 2, dementia, depression, schizophrenia, iron deficiency anemia, and lactic acidosis. FAMILY HISTORY: Unremarkable. SOCIAL HISTORY: No history of smoking, alcohol abuse. ALLERGIES: None. PHYSICAL EXAMINATION: VITAL SIGNS: Blood pressure 130/80, pulse 70, respirations 20. HEAD: Head normocephalic. No lumps or bumps. EYES: Pupils equal, reactive to light. Fundi show AV nicking, sclerae white, conjunctivae pink. NECK: Carotid 2+. Normal upstroke. JVD flat. Thyroid not palpable. Lymph nodes not palpable. CHEST: Shows increased AP diameter. No kyphosis, scoliosis. LUNGS: Bilateral bronchovesicular breath sounds. Occasional wheeze. No rales. HEART: PMI fifth intercostal space with lateral to midclavicular line. S1, S2. No S3, soft S4. Systolic murmur grade 2/6, lower left sternal border without radiation. ABDOMEN: Soft. Liver, spleen not palpable. No tenderness. NEUROLOGIC: Unremarkable. EXTREMITIES: Peripheral pulses 2+. No pedal edema. CLINICAL IMPRESSION: Severe anemia; hypertension; diabetes mellitus type 2; diabetic chronic kidney disease, stage 2; dementia; depression; schizophrenia; lactic acidosis. PLAN: At the present time, we will continue present care. Possibly will need transfusion and we will monitor the patient. JOB# [id number]
[2017-09-27] MEDS: Albuterol/Ipratropium Neb 3 ML AERS HHN SCH ×6 (02:16→23:50)
--- NOTE | 2017-09-27 04:53 | Consultation ---
DATE OF CONSULTATION: 09/26/2017 REASON FOR CONSULT: Worsening kidney function, electrolyte imbalance and fluid management. HISTORY OF PRESENT ILLNESS: This is a 72-year-old female with past medical history of chronic kidney disease who was brought in because of abnormal labs. Three days prior to admission, the patient was noted to be refusing her meals as well as fluid intake. A few hours prior to admission, labs drawn revealed a hemoglobin/hematocrit of 7.2/23. There was no hematemesis, hemoptysis, melena, hematochezia. Her hemoglobin/hematocrit at the Emergency Room were 8.4/25.4 followed by another set of labs which showed a hemoglobin/hematocrit of 7.7/23.7. Labs drawn at the ____ showed a BUN/creatinine of 66/2. A BUN/creatinine today were 68/1.8. She had no nausea and vomiting as well as diarrhea. PAST MEDICAL HISTORY: 1. Chronic kidney disease. 2. Acute cholecystitis. 3. Cholelithiasis. 4. Type 2 diabetes mellitus. 5. Alzheimer dementia. 6. Schizophrenia. 7. Depression. 8. Dyslipidemia. 9. Anxiety. 10. Essential hypertension. MEDICATIONS: Albuterol/ipratropium, alendronate, bisacodyl, budesonide, clonazepam, docusate sodium, procinonide, furosemide, detemir, lactobacillus, lisinopril, loperamide, magnesium hydroxide, melatonin, metformin, pantoprazole, potassium chloride, quetiapine, simvastatin, sodium bicarb, vitamin A and vitamin D. ALLERGIES: No known drug allergies. SOCIAL HISTORY: I was not able to obtain from the patient because of her depressed mental status. FAMILY HISTORY: I was not able to obtain from the patient because of her depressed mental status. REVIEW OF SYSTEMS: Again, I was not able to decipher directly from the patient because of her as mentioned slow mentation. PHYSICAL EXAMINATION: GENERAL: The patient is drowsy but arousable, not in any form of distress. VITAL SIGNS: Her blood pressure is 149/72, pulse 94, temperature 98.6 degrees. SKIN: Poor turgor, warm. No rash. No jaundice appreciated. HEENT: Head normocephalic, atraumatic. Eyes: Extraocular muscles intact. Pupils equal, round, reactive to light and accommodates. Anicteric sclerae. Pale conjunctivae. Nose, midline nasal septum. Mouth: Dry mucosa with poor dentition. NECK: Supple. No adenopathy. No thyromegaly. No bruits. Trachea palpated in the midline. CHEST AND CVS: S1, S2. No rub, murmur. No gallop appreciated. Point of maximal impulse fifth intercostal space, left midclavicular line. No abdominal or femoral bruits appreciated. LUNGS: Equal expansion. No use of accessory muscles. No supraclavicular retractions. Scattered rhonchi but no rales nor wheezes appreciated. BREASTS: Symmetrical without any discharge. ABDOMEN: Mildly globular, soft. Positive for bowel sounds. No bruits either diastolic or systolic. Presence of right percutaneous-abdominal catheter. GENITOURINARY: Normal-appearing female genitalia. MUSCULOSKELETAL: No effusions present in her joints, but unable to assess her range of motion. EXTREMITIES: No evidence of edema, cyanosis nor clubbing with palpable femoral but unable to fully appreciate popliteal, dorsalis pedis pulses. NEUROLOGIC: The patient, as mentioned, is drowsy at the present time, so I was not able to pursue further my neuro exam. LABORATORY DATA: Did reveal a white count of 6, hemoglobin 7.7, hematocrit 23.7, platelets 214, and polys 57.4%. Sodium 142, potassium 3.6, chloride 121, bicarb is 12.9, BUN is 64, creatinine 1.8, glucose 156. Calcium is 8.2, lactic acid 3.67, BNP 256, albumin is 2. IMPRESSION: 1. Acute kidney injury on chronic kidney disease. Chronic kidney disease is secondary to diabetic nephropathy with some underlying hypertensive nephrosclerosis. Acute kidney injury is initially prerenal in nature. The patient due to her psychosis refused to eat and drink. She also has hypoalbuminemia. She was not able to replenish her sensible and insensible fluid losses. Thus, she developed dehydration with a decreased ineffective circulating volume. This was also supported by physical exam. Poor skin turgor with dry oral mucosa. Her prerenal azotemia eventually progressed to acute tubular injury. She also has ongoing lactic acidosis, possibly from complicated UTI. With this in mind, she could have developed acute interstitial nephritis. 2. Anemia, acute on chronic kidney disease, possibly due to GI bleed. 3. Failure to thrive secondary to recurrence of schizophrenia/depression. 4. Elevated BNP, doubt that this is due to congestive heart failure based upon her clinical symptoms and chest x-ray. Possibilities would include elevated pulmonary hypertension and some valvular disease. 5. [place]ongap metabolic acidosis. 6. History of acute cholecystitis. 7. History of gallbladder stone. 8. Type 2 diabetes mellitus with CKD. 9. Essential hypertension with CKD. 10. Schizophrenia. 11. Depression/anxiety. 12. Dyslipidemia. PLAN: 1. Continue with IV fluids. 2. Discontinue furosemide for now along with metformin due to her kidney failure as well as acidosis. 3. Adjust detemir instead. 4. Follow up electrolytes as well as urinalysis. 5. Urine sodium, eosinophils and creatinine. 6. Follow up urine microalbumin to creatinine ratio. 7. Renal ultrasound in a.m. Thank you Dr. Quintero for this consult. I will follow the patient closely with you. JOB# [id number]
--- NOTE | 2017-09-27 05:04 | Progress Notes ---
DATE: 09/26/2017 PULMONARY AND CRITICAL CARE PROGRESS NOTE REASON FOR CONSULTATION: Possibly pneumonia and also the patient has a history of previous cholecystectomy and has still drainage. HISTORY OF PRESENT ILLNESS: This is a 72-year-old female who basically came to the Emergency Room with 3 days history of weakness, tiredness, fatigability and the patient had altered state of mind with quite sleepy, the patient at that time underwent cutaneous intra-abdominal cholecystectomy as the patient's family did not want to do any major surgery. Subsequently, the patient was transferred to convalescent home for further care and necessary treatment and I was asked to see this patient for further care and necessary treatment. Unfortunately, the patient is quite lethargic, sleepy and meaningful, detailed history from the patient is not available. Past medical history is failure to thrive, anorexia, history of gallbladder stone, has a percutaneous cholecystectomy tube inserted and also a history of G-tube inserted recently and also quite altered. PAST MEDICAL HISTORY: As mentioned above. Other history is very minimal with history of bipolar depression as well as schizophrenia and also possibly diabetic mellitus. PHYSICAL EXAMINATION: GENERAL: This is an elderly looking female, barely arousable, not in any acute distress. VITAL SIGNS: The patient's recorded vitals: Temperature is 98.4, blood pressure is 129/67, saturation 99% on 2 liters of oxygen. HEENT: Examination of the head is essentially unremarkable. Pupils appear to be equal and reactive to light. Conjunctivae are slightly pallor. Oral cavity shows dry mouth, otherwise unremarkable. NECK: No nodes in the neck could be palpated. CHEST: Shows diminished air entry at the bases with occasional secretory noise. ABDOMEN: Shows a cholecystectomy tube in the gallbladder fossa and also has a G-tube, otherwise soft, nontender. EXTREMITIES: Shows slight trace of peripheral edema. LABORATORY DATA: White count is 6.6, hemoglobin 8.4 and PT/INR is okay. Electrolytes are okay except for BUN 66, creatinine 1.9 and the patient's lactic acid is 3.05 and alkaline phosphatase is 105. Urine shows small blood with a small positive esterase with a moderate yeast. Chest x-ray shows some haziness on the left base with elevated diaphragm. IMPRESSION: 1. The patient has multisystem weakness/failure to thrive. 2. Status post cholecystitis with cholelithiasis with gallbladder drainage put and also history of G-tube. PLANS AND SUGGESTIONS: We will give aggressive inhalation treatment and bronchodilator inhaled steroid to see how she does it and continue G-tube feeding and we will discuss with GI for possibly removal of a drainage tube and see how she does and go from there. JOB# [id number]
[2017-09-27 06:35] LABS: % BASOPHILS 0.2 % (0.0-2.0); % EOSINOPHILS 6.3 % (0.0-5.0); % LYMPHOCYTES 33.2 % (20.0-50.0); % NEUTROPHILS 54.3 % (40.0-80.0); MEAN CELL VOLUME 79.7 fl (81-100); MEAN CORPUSCULAR HEMOGLOBIN 26.4 pg (27.0-31.0); MEAN CORPUSCULAR HGB CONC 33.1 pg (28.0-36.0); MEAN PLATELET VOLUME 7.6 fl; NEUTROPHILE ABSOLUTE 3.1 Th/cmm (1.8-8.0); RED BLOOD COUNT 3.78 Mil/cmm (3.80-5.20); RED CELL DISTRIBUTION WIDTH 15.2 % (11.5-20.0); WHITE BLOOD COUNT 5.7 Th/cmm (4.8-10.8)
[2017-09-27 06:43] LABS: HEMATOCRIT 30.2 % (41.0-60); PLATELET COUNT 167 Th/cmm (150-400)
[2017-09-27 06:59] LABS: ALB/GLOB RATIO 0.6 (1.0-1.8); ALKALINE PHOSPHATASE 83 U/L (34-104); ANION GAP 12.2 (7.0-16.0); BILIRUBIN,TOTAL 0.6 mg/dL (0.3-1.0); BUN - UREA NITROGEN 61 mg/dL (7-25); BUN/CREATININE RATIO 33.9; CALCIUM SERUM 8.4 mg/dL (8.6-10.3); CARBON DIOXIDE 14.2 mEq/L (21.0-31.0); CHLORIDE 122 mEq/L (98-107); CREATININE - SERUM 1.8 mg/dL (0.6-1.2); GLUCOSE 151 mg/dL (70-105); MAGNESIUM 1.9 mg/dL (1.9-2.7); PHOSPHOROUS 3.9 mg/dL (2.5-5.0); POTASSIUM SERUM 3.4 mEq/L (3.5-5.1); SGOT 14 U/L (13-39); SGPT/ALT 10 U/L (7-52); SODIUM SERUM 145 mEq/L (136-145); URIC ACID 10.2 mg/dL (2.3-6.6)
[2017-09-27] MEDS ORDERED: KCL 20mEq/100mL Premix 20 MEQ/100 ML PIGGYBACK IV SCH (08:00)
--- NOTE | 2017-09-27 08:06 | General Progress Note ---
Subjective - Review of Systems Service Date: 09/27/17 Subjective: Patient was seen and evaluated. S/p 2 packed RBC's blood transfusion. Hb 10 this AM. no acute distress. PTC tube draining well. Objective - Results Result Diagrams: 09/27/17 05:40 09/27/17 05:40 Recent Labs: Laboratory Last Values WBC 5.7 Th/cmm (4.8-10.8) 09/27/17 05:40 RBC 3.78 Mil/cmm (3.80-5.20) L 09/27/17 05:40 Hgb 10.0 gm/dL (12-16) L D 09/27/17 05:40 Hct 30.2 % (41.0-60) L D 09/27/17 05:40 MCV 79.7 fl (81-100) L 09/27/17 05:40 MCH 26.4 pg (27.0-31.0) L 09/27/17 05:40 MCHC Differential 33.1 pg (28.0-36.0) 09/27/17 05:40 RDW 15.2 % (11.5-20.0) 09/27/17 05:40 Plt Count 167 Th/cmm (150-400) D 09/27/17 05:40 MPV 7.6 fl 09/27/17 05:40 Neutrophils % 54.3 % (40.0-80.0) 09/27/17 05:40 Lymphocytes % 33.2 % (20.0-50.0) 09/27/17 05:40 Monocytes % 6.0 % (2.0-10.0) 09/27/17 05:40 Eosinophils % 6.3 % (0.0-5.0) H 09/27/17 05:40 Basophils % 0.2 % (0.0-2.0) 09/27/17 05:40 Eos Smear Source URINE 09/27/17 02:10 Eos Smear Total Cells FEW EOSINOPHILS SEEN (NONE SEEN) 09/27/17 02:10 PT 11.7 SECONDS (9.5-11.5) H 09/25/17 18:10 INR 1.12 (0.5-1.4) 09/25/17 18:10 PTT (Actin FS) 32.5 SECONDS (26.0-38.0) 09/25/17 18:10 Sodium 145 mEq/L (136-145) 09/27/17 05:40 Potassium 3.4 mEq/L (3.5-5.1) L 09/27/17 05:40 Chloride 122 mEq/L (98-107) H 09/27/17 05:40 Carbon Dioxide 14.2 mEq/L (21.0-31.0) L 09/27/17 05:40 Anion Gap 12.2 (7.0-16.0) 09/27/17 05:40 BUN 61 mg/dL (7-25) H 09/27/17 05:40 Creatinine 1.8 mg/dL (0.6-1.2) H 09/27/17 05:40 Est GFR ( Amer) TNP 09/27/17 05:40 Est GFR (Non-Af Amer) TNP 09/27/17 05:40 BUN/Creatinine Ratio 33.9 09/27/17 05:40 Glucose 151 mg/dL (70-105) H 09/27/17 05:40 POC Glucose 128 MG/DL (70 - 105) H 09/27/17 07:24 Whole Bld Lactic Acid 1.74 mmol/L (0.60-1.99) 09/27/17 05:40 Uric Acid 10.2 mg/dL (2.3-6.6) H 09/27/17 05:40 Calcium 8.4 mg/dL (8.6-10.3) L 09/27/17 05:40 Phosphorus 3.9 mg/dL (2.5-5.0) 09/27/17 05:40 Magnesium 1.9 mg/dL (1.9-2.7) 09/27/17 05:40 Total Bilirubin 0.6 mg/dL (0.3-1.0) 09/27/17 05:40 AST 14 U/L (13-39) 09/27/17 05:40 ALT 10 U/L (7-52) 09/27/17 05:40 Alkaline Phosphatase 83 U/L (34-104) 09/27/17 05:40 Creatine Kinase 21 U/L (30-223) L 09/25/17 18:10 Troponin I 0.02 ng/mL (0.01-0.05) 09/25/17 18:10 B-Natriuretic Peptide 256.0 pg/mL (5.0-100.0) H 09/25/17 18:10 Total Protein 5.5 gm/dL (6.0-8.3) L 09/27/17 05:40 Albumin 2.0 gm/dL (3.7-5.3) L 09/27/17 05:40 Globulin 3.5 gm/dL 09/27/17 05:40 Albumin/Globulin Ratio 0.6 (1.0-1.8) L 09/27/17 05:40 Triglycerides 121 mg/dL (<150) 09/25/17 18:10 Cholesterol 55 mg/dL (<200) 09/25/17 18:10 LDL Cholesterol Direct 25 mg/dL (75-193) L 09/25/17 18:10 HDL Cholesterol 15 mg/dL (23-92) L 09/25/17 18:10 Urine Source MIDSTREAM 09/25/17 17:00 Urine Color YELLOW 09/25/17 17:00 Urine Clarity HAZY (CLEAR) 09/25/17 17:00 Urine pH 5.5 (4.6 - 8.0) 09/25/17 17:00 Ur Specific [place] 1.010 (1.005-1.030) 09/25/17 17:00 Urine Protein TRACE mg/dL (NEGATIVE) 09/25/17 17:00 Urine Glucose (UA) NEGATIVE mg/dL (NEGATIVE) 09/25/17 17:00 Urine Ketones NEGATIVE mg/dL (NEGATIVE) 09/25/17 17:00 Urine Blood SMALL (NEGATIVE) H 09/25/17 17:00 Urine Nitrate NEGATIVE (NEGATIVE) 09/25/17 17:00 Urine Bilirubin NEGATIVE (NEGATIVE) 09/25/17 17:00 Urine Urobilinogen 0.2 E.U./dL (0.2 - 1.0) 09/25/17 17:00 Ur Leukocyte Esterase SMALL (NEGATIVE) H 09/25/17 17:00 Urine RBC 2-5 /hpf (0-5) 09/25/17 17:00 Urine WBC 6-10 /hpf (0-5) H 09/25/17 17:00 Ur Epithelial Cells OCCASIONAL /lpf (FEW) 09/25/17 17:00 Urine Bacteria FEW /hpf (NONE SEEN) 09/25/17 17:00 Urine Yeast MODERATE /hpf (NONE SEEN) H 09/25/17 17:00 Ur Random Sodium 67 mmol/L 09/27/17 02:10 Urine Creatinine 40.9 mg/dl (28.0-217.0) 09/27/17 02:10 Blood Type A POSITIVE 09/26/17 09:50 Antibody Screen NEGATIVE 09/26/17 09:50 Crossmatch See Detail 09/26/17 09:50 - Physical Exam Vitals and I&O: Vital Signs Temp 98.6 F 09/27/17 04:00 Pulse 98 09/27/17 04:00 Resp 16 09/27/17 05:06 BP 122/76 09/27/17 04:00 Pulse Ox 98 09/27/17 04:00 Intake & Output 09/26/17 09/27/17 09/27/17 18:59 06:59 18:59 Intake Total 350 Output Total 1050 560 Balance -700 -560 Weight (lbs) 66.678 kg 66.678 kg Intake: Blood Product 200 Other 150 Output: Urine 1000 400 Other 50 160 Other: # Bowel Movements 0 Active Medications: Current Medications Acetaminophen (Tylenol 650mg/20.3ml Suspension) 640 mg GT Q6HR PRN PRN Reason: MILD PAIN OR TEMP >100.4F Stop: 11/25/17 09:37 Albuterol/Ipratropium (Duoneb Neb) 3 ml HHN Q4HRT [facility] Stop: 11/25/17 14:59 Last Admin: 09/27/17 02:16 Dose: 3 ml Alendronate Sodium (Fosamax) 70 mg PO QTHUR [facility] Stop: 11/27/17 06:29 Bisacodyl (Dulcolax 10 Mg Supp) 10 mg RC DAILY PRN PRN Reason: Constipation Stop: 11/25/17 09:37 Budesonide (Pulmicort) 0.5 mg HHN BIDRT [facility] Stop: 11/25/17 18:59 Last Admin: 09/26/17 19:15 Dose: 0.5 mg Calamine/Phenol (Calmoseptine) 1 appl TP DAILY [facility] Stop: 11/26/17 08:59 [place] Oil/Chinese Balsam/Trypsin (Venelex) 1 appl TP DAILY [facility] Stop: 11/26/17 08:59 Clonazepam (Klonopin) 1 mg GT DAILY [facility] PRN Reason: Protocol Stop: 11/26/17 08:59 Clonazepam (Klonopin) 2 mg GT HS [facility] Stop: 11/25/17 20:59 Cyanocobalamin (Vitamin B12) 1,000 mcg GT DAILY [facility] Stop: 11/26/17 08:59 Docusate Sodium (Colace) 100 mg PO DAILY [facility] Stop: 11/26/17 08:59 Fluconazole (Diflucan) 100 mg PO DAILY [facility] Stop: 11/25/17 19:44 Last Admin: 09/26/17 23:38 Dose: 100 mg Fluocinonide (Lidex 0.05%) 1 appl TP DAILY [facility] Stop: 10/26/17 08:59 Sodium Chloride (Nacl 0.45%) 1,000 mls @ 100 mls/hr IV .Q10H [facility] Stop: 11/25/17 10:29 Potassium Chloride (Potassium Chloride) 20 meq in 100 mls @ 50 mls/hr IV Q2H [facility] Stop: 09/27/17 11:59 Insulin Aspart (Novolog Insulin Sliding Scale) 0 units SUBQ Q6HR [facility] PRN Reason: Protocol Stop: 11/26/17 11:59 Insulin Detemir (Levemir Insulin) 10 units SUBQ HS [facility] PRN Reason: Protocol Stop: 11/25/17 20:59 Last Admin: 09/26/17 21:27 Dose: 10 units Lactobacillus Rhamnosus (Culturelle) 1 each GT DAILY [facility] Stop: 11/26/17 08:59 Lisinopril (Zestril) 40 mg GT HS [facility] Stop: 11/25/17 20:59 Last Admin: 09/26/17 21:32 Dose: 40 mg Loperamide HCl (Imodium) 2 mg GT Q6H PRN PRN Reason: Diarrhea Stop: 11/25/17 09:37 Magnesium Hydroxide (Milk Of Magnesia) 30 ml GT DAILY PRN PRN Reason: Constipation Stop: 11/25/17 09:37 Miscellaneous (Melatonin [Melatonin]) 2 tab GT HS [facility] Stop: 11/25/17 20:59 Pantoprazole Sodium (Protonix) 40 mg IVP DAILY [facility] Stop: 11/26/17 08:59 Potassium Chloride (Potassium Chloride Elixir) 20 meq GT DAILY [facility] Stop: 11/26/17 08:59 Quetiapine Fumarate (Seroquel) 100 mg GT HS [facility] PRN Reason: Protocol Stop: 11/25/17 20:59 Simvastatin (Zocor) 40 mg GT HS [facility] PRN Reason: Protocol Stop: 11/25/17 20:59 Last Admin: 09/26/17 21:33 Dose: 40 mg Sodium Bicarbonate (Sodium Bicarbonate) 650 mg GT BID [facility] PRN Reason: Protocol Stop: 11/25/17 16:59 Last Admin: 09/26/17 17:22 Dose: 650 mg Sodium Phosphate (Fleet Enema) 135 ml RC DAILY PRN PRN Reason: Constipation Stop: 11/25/17 09:37 Vitamin A (Vitamin A & D) 5 gm TP DAILY [facility] Stop: 11/26/17 08:59 General: No acute distress HEENT: Atraumatic Cardiovascular: Regular rate, Normal S1, Normal S2 Lungs: Clear to auscultation Abdomen: Bowel sounds, Soft Extremities: no Clubbing, no Cyanosis, no Edema - Procedures Procedures: Procedures Procedure Code Date INSERTION OF FEEDING DEVICE INTO STOMACH, ENDO [id number] 09/07/17 Assessment/Plan - Problem List Patient Problems: All Active Problems ABNORMAL LAB VALUES, HB/HCT (Acute) - Assessment Assessment: Current Active Problems Problem Status Onset ABNORMAL LAB VALUES, HB/HCT Acute Anorexia Failure to thrive anemia hb 7 --> 10 s/p blood transfusion 2u pRBC left pleural effusion HTN DM Acute on CKD Dementia s/p Percutaneous transabdominal cholecystostomy hypokalemia - Plan Plan: anemia hb 7 --> 10 improved r/o GIB ... occult x 2, protonix IV, GI consult s/p blood transfusion 2u pRBC left pleural effusion ... cardiology consult, pulmonary consult HTN DM Acute on CKD ... renal consult Dementia s/p Percutaneous transabdominal cholecystostomy hypokalemia .. krider 40meq IV, repeat labwork tomorrow.
[2017-09-27] MEDS: Budesonide 0.5 Mg/2 mL Ud HHN SCH ×2 (08:08→18:55)
[2017-09-27 09:16] LABS: pH 7.36 (7.35-7.45)
[2017-09-27 09:17] LABS: BE(B) -8.7 mEq/L (-3.0-3.0); HCO3 18.1 mEq/L (20.0-26.0)
[2017-09-27 09:18] LABS: ABG SOURCE Arterial; ALLEN TEST Positive; FIO2 21
[2017-09-27] MEDS: Potassium Chloride Elixir 20 mEq /15 mL UDC GT SCH (09:19)
[2017-09-27] MEDS: Lactobacillus Rhamnosus 10 Billion CFU Capsule GT SCH (09:19)
[2017-09-27] MEDS: Menthol/Zinc Oxide Oint 113gm Tube TP SCH (09:20)
[2017-09-27] MEDS: Vitamin A/Vitamin D 5 gm Packet TP SCH (09:20)
[2017-09-27] MEDS ORDERED: Potassium Chloride 40 MEQ, Lidocaine 1% 20mL Vial 25 MG in Sodium Chloride 0.9% 250 ML IV ONE (09:30)
[2017-09-27] MEDS: INSULIN ASPART SLIDING SCALE 100 UNITS/ML UNIT SUBQ SCH ×3 (11:44→23:41)
[2017-09-27] MEDS: Venelex 60gm Tube TP SCH (13:09)
--- NOTE | 2017-09-27 13:59 | Diagnostic Imaging Report ---
Renal ultrasound HISTORY: Abnormal renal function test Exam is somewhat limited due to bowel gas and difficulty in patient cooperation. The right kidney is normal in size (10.2 x 4.5 x 5.4 cm). No focal lesions. No hydronephrosis. The left kidney is normal in size (9.8 x 5.0 x 5.3 cm). No focal lesions or hydronephrosis. The urinary bladder cannot be evaluated due to lack of distention. IMPRESSION: Negative examination of the kidneys.
--- NOTE | 2017-09-27 15:01 | General Progress Note ---
Subjective - Review of Systems Service Date: 09/27/17 Subjective: awake, weak Objective - Results Result Diagrams: 09/27/17 05:40 09/27/17 05:40 Recent Labs: Laboratory Last Values WBC 5.7 Th/cmm (4.8-10.8) 09/27/17 05:40 RBC 3.78 Mil/cmm (3.80-5.20) L 09/27/17 05:40 Hgb 10.0 gm/dL (12-16) L D 09/27/17 05:40 Hct 30.2 % (41.0-60) L D 09/27/17 05:40 MCV 79.7 fl (81-100) L 09/27/17 05:40 MCH 26.4 pg (27.0-31.0) L 09/27/17 05:40 MCHC Differential 33.1 pg (28.0-36.0) 09/27/17 05:40 RDW 15.2 % (11.5-20.0) 09/27/17 05:40 Plt Count 167 Th/cmm (150-400) D 09/27/17 05:40 MPV 7.6 fl 09/27/17 05:40 Neutrophils % 54.3 % (40.0-80.0) 09/27/17 05:40 Lymphocytes % 33.2 % (20.0-50.0) 09/27/17 05:40 Monocytes % 6.0 % (2.0-10.0) 09/27/17 05:40 Eosinophils % 6.3 % (0.0-5.0) H 09/27/17 05:40 Basophils % 0.2 % (0.0-2.0) 09/27/17 05:40 Eos Smear Source URINE 09/27/17 02:10 Eos Smear Total Cells FEW EOSINOPHILS SEEN (NONE SEEN) 09/27/17 02:10 PT 11.7 SECONDS (9.5-11.5) H 09/25/17 18:10 INR 1.12 (0.5-1.4) 09/25/17 18:10 PTT (Actin FS) 32.5 SECONDS (26.0-38.0) 09/25/17 18:10 Specimen Source Arterial 09/27/17 08:58 Sample Site Right Radial 09/27/17 08:58 pH 7.36 (7.35-7.45) 09/27/17 08:58 pCO2 27.0 mmHg (35.0-45.0) L 09/27/17 08:58 pO2 79.0 mmHg (80.0-100.0) L 09/27/17 08:58 HCO3 18.1 mEq/L (20.0-26.0) L 09/27/17 08:58 Base Excess -8.7 mEq/L (-3.0-3.0) L 09/27/17 08:58 O2 Saturation 95.0 % (92.0-100.0) 09/27/17 08:58 Vinod Test Positive 09/27/17 08:58 Vent Rate NA 09/27/17 08:58 Inspired O2 21 09/27/17 08:58 Tidal Volume NA 09/27/17 08:58 PEEP NA 09/27/17 08:58 Pressure (ins/psv/peep) NA 09/27/17 08:58 Critical Value LZHANG 09/27/17 08:58 Sodium 145 mEq/L (136-145) 09/27/17 05:40 Potassium 3.4 mEq/L (3.5-5.1) L 09/27/17 05:40 Chloride 122 mEq/L (98-107) H 09/27/17 05:40 Carbon Dioxide 14.2 mEq/L (21.0-31.0) L 09/27/17 05:40 Anion Gap 12.2 (7.0-16.0) 09/27/17 05:40 BUN 61 mg/dL (7-25) H 09/27/17 05:40 Creatinine 1.8 mg/dL (0.6-1.2) H 09/27/17 05:40 Est GFR ( Amer) TNP 09/27/17 05:40 Est GFR (Non-Af Amer) TNP 09/27/17 05:40 BUN/Creatinine Ratio 33.9 09/27/17 05:40 Glucose 151 mg/dL (70-105) H 09/27/17 05:40 POC Glucose 152 MG/DL (70 - 105) H 09/27/17 11:43 Whole Bld Lactic Acid 1.74 mmol/L (0.60-1.99) 09/27/17 05:40 Uric Acid 10.2 mg/dL (2.3-6.6) H 09/27/17 05:40 Calcium 8.4 mg/dL (8.6-10.3) L 09/27/17 05:40 Phosphorus 3.9 mg/dL (2.5-5.0) 09/27/17 05:40 Magnesium 1.9 mg/dL (1.9-2.7) 09/27/17 05:40 Total Bilirubin 0.6 mg/dL (0.3-1.0) 09/27/17 05:40 AST 14 U/L (13-39) 09/27/17 05:40 ALT 10 U/L (7-52) 09/27/17 05:40 Alkaline Phosphatase 83 U/L (34-104) 09/27/17 05:40 Creatine Kinase 21 U/L (30-223) L 09/25/17 18:10 Troponin I 0.02 ng/mL (0.01-0.05) 09/25/17 18:10 B-Natriuretic Peptide 256.0 pg/mL (5.0-100.0) H 09/25/17 18:10 Total Protein 5.5 gm/dL (6.0-8.3) L 09/27/17 05:40 Albumin 2.0 gm/dL (3.7-5.3) L 09/27/17 05:40 Globulin 3.5 gm/dL 09/27/17 05:40 Albumin/Globulin Ratio 0.6 (1.0-1.8) L 09/27/17 05:40 Triglycerides 121 mg/dL (<150) 09/25/17 18:10 Cholesterol 55 mg/dL (<200) 09/25/17 18:10 LDL Cholesterol Direct 25 mg/dL (75-193) L 09/25/17 18:10 HDL Cholesterol 15 mg/dL (23-92) L 09/25/17 18:10 Urine Source MIDSTREAM 09/25/17 17:00 Urine Color YELLOW 09/25/17 17:00 Urine Clarity HAZY (CLEAR) 09/25/17 17:00 Urine pH 5.5 (4.6 - 8.0) 09/25/17 17:00 Ur Specific Icard 1.010 (1.005-1.030) 09/25/17 17:00 Urine Protein TRACE mg/dL (NEGATIVE) 09/25/17 17:00 Urine Glucose (UA) NEGATIVE mg/dL (NEGATIVE) 09/25/17 17:00 Urine Ketones NEGATIVE mg/dL (NEGATIVE) 09/25/17 17:00 Urine Blood SMALL (NEGATIVE) H 09/25/17 17:00 Urine Nitrate NEGATIVE (NEGATIVE) 09/25/17 17:00 Urine Bilirubin NEGATIVE (NEGATIVE) 09/25/17 17:00 Urine Urobilinogen 0.2 E.U./dL (0.2 - 1.0) 09/25/17 17:00 Ur Leukocyte Esterase SMALL (NEGATIVE) H 09/25/17 17:00 Urine RBC 2-5 /hpf (0-5) 09/25/17 17:00 Urine WBC 6-10 /hpf (0-5) H 09/25/17 17:00 Ur Epithelial Cells OCCASIONAL /lpf (FEW) 09/25/17 17:00 Urine Bacteria FEW /hpf (NONE SEEN) 09/25/17 17:00 Urine Yeast MODERATE /hpf (NONE SEEN) H 09/25/17 17:00 Ur Random Sodium 67 mmol/L 09/27/17 02:10 Urine Creatinine 40.9 mg/dl (28.0-217.0) 09/27/17 02:10 Blood Type A POSITIVE 09/26/17 09:50 Antibody Screen NEGATIVE 09/26/17 09:50 Crossmatch See Detail 09/26/17 09:50 - Physical Exam Vitals and I&O: Vital Signs Temp 98.6 F 09/27/17 04:00 Pulse 98 09/27/17 11:26 Resp 22 09/27/17 11:26 BP 122/76 09/27/17 04:00 Pulse Ox 98 09/27/17 11:26 Intake & Output 09/26/17 09/27/17 09/27/17 18:59 06:59 18:59 Intake Total 350 Output Total 1050 560 Balance -700 -560 Weight (lbs) 66.678 kg 66.678 kg Intake: Blood Product 200 Other 150 Output: Urine 1000 400 Other 50 160 Other: # Bowel Movements 0 Active Medications: Current Medications Acetaminophen (Tylenol 650mg/20.3ml Suspension) 640 mg GT Q6HR PRN PRN Reason: MILD PAIN OR TEMP >100.4F Stop: 11/25/17 09:37 Albuterol/Ipratropium (Duoneb Neb) 3 ml HHN Q4HRT [facility] Stop: 11/25/17 14:59 Last Admin: 09/27/17 11:24 Dose: 3 ml Alendronate Sodium (Fosamax) 70 mg PO QTHUR [facility] Stop: 11/27/17 06:29 Bisacodyl (Dulcolax 10 Mg Supp) 10 mg RC DAILY PRN PRN Reason: Constipation Stop: 11/25/17 09:37 Budesonide (Pulmicort) 0.5 mg HHN BIDRT [facility] Stop: 11/25/17 18:59 Last Admin: 09/27/17 08:08 Dose: 0.5 mg Calamine/Phenol (Calmoseptine) 1 appl TP DAILY [facility] Stop: 11/26/17 08:59 Last Admin: 09/27/17 09:20 Dose: 1 appl [place] Oil/Luxembourger Balsam/Trypsin (Venelex) 1 appl TP DAILY [facility] Stop: 11/26/17 08:59 Last Admin: 09/27/17 13:09 Dose: 1 appl Clonazepam (Klonopin) 1 mg GT DAILY [facility] PRN Reason: Protocol Stop: 11/26/17 08:59 Clonazepam (Klonopin) 2 mg GT HS [facility] Stop: 11/25/17 20:59 Cyanocobalamin (Vitamin B12) 1,000 mcg GT DAILY [facility] Stop: 11/26/17 08:59 Last Admin: 09/27/17 09:19 Dose: 1,000 mcg Docusate Sodium (Colace) 100 mg PO DAILY [facility] Stop: 11/26/17 08:59 Last Admin: 09/27/17 09:19 Dose: 100 mg Fluconazole (Diflucan) 100 mg PO DAILY [facility] Stop: 11/25/17 19:44 Last Admin: 09/27/17 09:19 Dose: 100 mg Fluocinonide (Lidex 0.05%) 1 appl TP DAILY [facility] Stop: 10/26/17 08:59 Last Admin: 09/27/17 09:20 Dose: 1 appl Sodium Chloride (Nacl 0.45%) 1,000 mls @ 100 mls/hr IV .Q10H [facility] Stop: 11/25/17 10:29 Last Admin: 09/27/17 13:10 Dose: 100 mls/hr Insulin Aspart (Novolog Insulin Sliding Scale) 0 units SUBQ Q6HR [facility] PRN Reason: Protocol Stop: 11/26/17 11:59 Last Admin: 09/27/17 11:44 Dose: Not Given Insulin Detemir (Levemir Insulin) 10 units SUBQ HS [facility] PRN Reason: Protocol Stop: 11/25/17 20:59 Last Admin: 09/26/17 21:27 Dose: 10 units Lactobacillus Rhamnosus (Culturelle) 1 each GT DAILY [facility] Stop: 11/26/17 08:59 Last Admin: 09/27/17 09:19 Dose: 1 each Lisinopril (Zestril) 40 mg GT HS [facility] Stop: 11/25/17 20:59 Last Admin: 09/26/17 21:32 Dose: 40 mg Loperamide HCl (Imodium) 2 mg GT Q6H PRN PRN Reason: Diarrhea Stop: 11/25/17 09:37 Magnesium Hydroxide (Milk Of Magnesia) 30 ml GT DAILY PRN PRN Reason: Constipation Stop: 11/25/17 09:37 Miscellaneous (Melatonin [Melatonin]) 2 tab GT HS [facility] Stop: 11/25/17 20:59 Pantoprazole Sodium (Protonix) 40 mg IVP DAILY [facility] Stop: 11/26/17 08:59 Last Admin: 09/27/17 09:20 Dose: 40 mg Potassium Chloride (Potassium Chloride Elixir) 20 meq GT DAILY [facility] Stop: 11/26/17 08:59 Last Admin: 09/27/17 09:19 Dose: 20 meq Quetiapine Fumarate (Seroquel) 100 mg GT HS [facility] PRN Reason: Protocol Stop: 11/25/17 20:59 Simvastatin (Zocor) 40 mg GT HS [facility] PRN Reason: Protocol Stop: 11/25/17 20:59 Last Admin: 09/26/17 21:33 Dose: 40 mg Sodium Bicarbonate (Sodium Bicarbonate) 650 mg GT BID [facility] PRN Reason: Protocol Stop: 11/25/17 16:59 Last Admin: 09/27/17 09:19 Dose: 650 mg Sodium Phosphate (Fleet Enema) 135 ml RC DAILY PRN PRN Reason: Constipation Stop: 11/25/17 09:37 Vitamin A (Vitamin A & D) 5 gm TP DAILY [facility] Stop: 11/26/17 08:59 Last Admin: 09/27/17 09:20 Dose: 5 gm General: Alert, No acute distress, Other (weak) HEENT: Atraumatic Neck: Supple, +2 carotid pulse wo bruit Cardiovascular: Regular rate, Normal S1, Normal S2 Lungs: Other (few rhonchi) Abdomen: Bowel sounds, Soft Extremities: no Clubbing, no Cyanosis, no Edema Neurological: Sensation intact Skin: no Rash Psych/Mental Status: Mood NL - Procedures Procedures: Procedures Procedure Code Date INSERTION OF FEEDING DEVICE INTO STOMACH, ENDO [id number] 09/07/17 Assessment/Plan - Problem List Patient Problems: All Active Problems ABNORMAL LAB VALUES, HB/HCT (Acute) - Assessment Assessment: JHOAN on CKD Anemia acute on CD [place] met acid Type 2 DM Htn W/ CKD Schizo depression/anxiety - Plan Plan: Lab - Result Diagrams 09/27/17 05:40 09/27/17 05:40 Current Medications Acetaminophen (Tylenol 650mg/20.3ml Suspension) 640 mg GT Q6HR PRN PRN Reason: MILD PAIN OR TEMP >100.4F Stop: 11/25/17 09:37 Albuterol/Ipratropium (Duoneb Neb) 3 ml HHN Q4HRT [facility] Stop: 11/25/17 14:59 Last Admin: 09/27/17 11:24 Dose: 3 ml Alendronate Sodium (Fosamax) 70 mg PO QTHUR [facility] Stop: 11/27/17 06:29 Bisacodyl (Dulcolax 10 Mg Supp) 10 mg RC DAILY PRN PRN Reason: Constipation Stop: 11/25/17 09:37 Budesonide (Pulmicort) 0.5 mg HHN BIDRT [facility] Stop: 11/25/17 18:59 Last Admin: 09/27/17 08:08 Dose: 0.5 mg Calamine/Phenol (Calmoseptine) 1 appl TP DAILY [facility] Stop: 11/26/17 08:59 Last Admin: 09/27/17 09:20 Dose: 1 appl [place] Oil/Luxembourger Balsam/Trypsin (Venelex) 1 appl TP DAILY [facility] Stop: 11/26/17 08:59 Last Admin: 09/27/17 13:09 Dose: 1 appl Clonazepam (Klonopin) 1 mg GT DAILY [facility] PRN Reason: Protocol Stop: 11/26/17 08:59 Clonazepam (Klonopin) 2 mg GT HS [facility] Stop: 11/25/17 20:59 Cyanocobalamin (Vitamin B12) 1,000 mcg GT DAILY [facility] Stop: 11/26/17 08:59 Last Admin: 09/27/17 09:19 Dose: 1,000 mcg Docusate Sodium (Colace) 100 mg PO DAILY [facility] Stop: 11/26/17 08:59 Last Admin: 09/27/17 09:19 Dose: 100 mg Fluconazole (Diflucan) 100 mg PO DAILY [facility] Stop: 11/25/17 19:44 Last Admin: 09/27/17 09:19 Dose: 100 mg Fluocinonide (Lidex 0.05%) 1 appl TP DAILY [facility] Stop: 10/26/17 08:59 Last Admin: 09/27/17 09:20 Dose: 1 appl Sodium Chloride (Nacl 0.45%) 1,000 mls @ 100 mls/hr IV .Q10H [facility] Stop: 11/25/17 10:29 Last Admin: 09/27/17 13:10 Dose: 100 mls/hr Insulin Aspart (Novolog Insulin Sliding Scale) 0 units SUBQ Q6HR [facility] PRN Reason: Protocol Stop: 11/26/17 11:59 Last Admin: 09/27/17 11:44 Dose: Not Given Insulin Detemir (Levemir Insulin) 10 units SUBQ HS [facility] PRN Reason: Protocol Stop: 11/25/17 20:59 Last Admin: 09/26/17 21:27 Dose: 10 units Lactobacillus Rhamnosus (Culturelle) 1 each GT DAILY [facility] Stop: 11/26/17 08:59 Last Admin: 09/27/17 09:19 Dose: 1 each Lisinopril (Zestril) 40 mg GT HS [facility] Stop: 11/25/17 20:59 Last Admin: 09/26/17 21:32 Dose: 40 mg Loperamide HCl (Imodium) 2 mg GT Q6H PRN PRN Reason: Diarrhea Stop: 11/25/17 09:37 Magnesium Hydroxide (Milk Of Magnesia) 30 ml GT DAILY PRN PRN Reason: Constipation Stop: 11/25/17 09:37 Miscellaneous (Melatonin [Melatonin]) 2 tab GT HS [facility] Stop: 11/25/17 20:59 Pantoprazole Sodium (Protonix) 40 mg IVP DAILY [facility] Stop: 11/26/17 08:59 Last Admin: 09/27/17 09:20 Dose: 40 mg Potassium Chloride (Potassium Chloride Elixir) 20 meq GT DAILY [facility] Stop: 11/26/17 08:59 Last Admin: 09/27/17 09:19 Dose: 20 meq Quetiapine Fumarate (Seroquel) 100 mg GT HS [facility] PRN Reason: Protocol Stop: 11/25/17 20:59 Simvastatin (Zocor) 40 mg GT HS [facility] PRN Reason: Protocol Stop: 11/25/17 20:59 Last Admin: 09/26/17 21:33 Dose: 40 mg Sodium Bicarbonate (Sodium Bicarbonate) 650 mg GT BID [facility] PRN Reason: Protocol Stop: 11/25/17 16:59 Last Admin: 09/27/17 09:19 Dose: 650 mg Sodium Phosphate (Fleet Enema) 135 ml RC DAILY PRN PRN Reason: Constipation Stop: 11/25/17 09:37 Vitamin A (Vitamin A & D) 5 gm TP DAILY [facility] Stop: 11/26/17 08:59 Last Admin: 09/27/17 09:20 Dose: 5 gm Lab - Result Diagrams 09/27/17 05:40 09/27/17 05:40 CR, stable @ 1.8, likely baseline replace K & HC03 f/u electrolytes, cbc Nutritional Asmnt/Malnutr-PDOC - Dietary Evaluation Malnutrition Findings (Please click <Entered> for more info): Nutritional Asmnt/Malnutrition Start: 09/27/17 14: 24 Text: Status: Active Freq: Document 09/27/17 14:24 NIK (Rec: 09/27/17 14:45 [facility]) Nutritional Asmnt/Malnutrition Patient General Information Nutritional Screening High Risk Consult Diagnosis sever anemia, lactic acidosis Pertinent Medical Hx/Surgical Hx HTN, DM, ESRD, dementia, depression, schizophrenia, bipolar disorder, wt loss of 30lbs Subjective Information Consult received for pressure ulcer, sDTIx2. Per notes, pt from SNF was admiited for onset FTT x 3 days. Pt seen sleeping in bed, appeared no fat/muscle wasting noted. Spoke with TRACE Cardona, TF starts today. Current Diet Order/ Nutrition Support Novosource Renal 60ml/hr x 20hr Pertinent Medications vitamin B12, colace, novolog, levemir, culturelle, kcal, seroquel, nacl IV, Vitamin A&D Pertinent Labs 09/27 K 3.4L, Cl 122H, BUN 61H , Cr 1.8H, Glu 151H, POC 128- 175 since adm, alb 2.0L Nutritional Hx/Data Height 1.47 m Height (Calculated Centimeters) 147.3 Current Weight (lbs) 66.678 kg Weight (Calculated Kilograms) 66.7 Weight (Calculated Grams) 44610.1 [place] Body Weight 90 % [place] Body Weight 163 Body Mass Index (BMI) 30.7 Weight Status Obese GI Symptoms Skin Integrity/Comment: pitting 2+ edema on left arm, pressure ulcer on coccyx Estimated Nutritional Goals BEE in Kcals: Adj wt of IBW Calories/Kcals/Kg 30-35 Kcals Calculated 2638-1793 Protein: Adj wt of IBW Protein g/k.2-1.4 Protein Calculated 57-66 Fluid: ml [id number] or per MD Nutritional Problem 2. Problem Problem increased nutrition needs ( calorie and protein) Etiology increased metabolic demand for wound healing Signs/Symptoms: pressure ulcer 1. Problem Problem altered nutrition related lab values Etiology hx of ESRD and DM Signs/Symptoms: BUN 61H, Cr 1.8H, Glu 151H, POC 128-175 Malnutrition Alert Protein-Calorie Malnutrition N/A Is there a minimum of two criteria No selected? Query Text:Check all the applicable criteria. A minimum of two criteria are recommended for diagnosis of either severe or non-severe malnutrition. Intervention/Recommendation Comments 1. recommend Novasource renal 40ml/hr x 20hr daily. It provides 800ml total volume, 1600kcal
[2017-09-27] MEDS ORDERED: Sodium Bicarbonate 8.4% 50mEq PFS IVP STA (15:07)
[2017-09-27] MEDS: Insulin Detemir 100 units/mL 10mL Vial SUBQ SCH (21:06)
--- NOTE | 2017-09-27 21:19 | Progress Notes ---
DATE: 09/27/2017 PULMONARY PROGRESS NOTE PROBLEM LIST: 1. Chronic cachexia with anorexia, G-tube. 2. History of cholelithiasis with gallbladder tube put in. SYMPTOMS: Nil. She is quite obtunded, though no respiratory distress, etc. PHYSICAL EXAMINATION: VITAL SIGNS: The patient's recorded vitals: Afebrile, pulse in 90s, respiration is 20, saturation 100% on room air. NECK: Veins not visualized. Good bilateral carotid upstroke. CHEST: Shows diminished air entry with occasional rhonchi. HEART: Regular. ABDOMEN: Soft, nontender. LABORATORY DATA: The patient's white count is 7000, hemoglobin 10 g, pCO2 is 27, pO2 is 79, room air. Potassium is 3.4. ASSESSMENT: The patient is clinically stable respiratory cordero with possibly mild atelectasis left base with a gallbladder issue with significant cachexia, malnutrition, altered state of mind. PLANS AND SUGGESTIONS: Continue conservative treatment. No new acute respiratory care needed at this time and will be glad to follow you. JOB# [id number]
--- NOTE | 2017-09-27 21:23 | Consultation ---
DATE OF CONSULTATION: 09/27/2017 INPATIENT GASTROINTESTINAL CONSULTATION REFERRING PHYSICIAN: Dr. Quintero. REASON FOR CONSULTATION: Anemia. HISTORY: This is a 72-year-old female who was admitted to the hospital with failure to thrive. The patient is otherwise a poor historian, unable to give any meaningful history. PAST MEDICAL HISTORY: Hypertension, dementia, dysphagia, bipolar disorder, depression, schizophrenia, diabetes. PAST SURGICAL HISTORY: PEG tube placement. FAMILY HISTORY: Noncontributory. SOCIAL HISTORY: No tobacco, alcohol or drug usage. ALLERGIES: None. CURRENT MEDICATIONS: Tylenol, Fosamax, Dulcolax, Pulmicort, Klonopin, Colace, Diflucan, insulin, Zestril, Imodium, milk of magnesia, Protonix, Seroquel, Zocor. REVIEW OF SYSTEMS: Unobtainable. PHYSICAL EXAMINATION: VITAL SIGNS: Temperature 98.6, breathing 18, pulse of 107, blood pressure 147/66, satting 98%. GENERAL: In no apparent distress. EYES: Anicteric. Normal conjunctivae. HEENT: Normocephalic, atraumatic. Moist mucous membranes. NECK: Soft, supple. CHEST: Clear. No effort. CARDIOVASCULAR: Regular rate and rhythm. ABDOMEN: Soft, nontender, nondistended with a G-tube. SKIN: Warm, dry. EXTREMITIES: Reveal no cyanosis. LABORATORY DATA: Showed T-bili 0.6, AST 14, ALT 10, alkaline phosphatase 83. White count 5.7, hemoglobin 10, platelets of 167. IMPRESSION: This is a 72-year-old female with anemia, cause is unknown, could be anemia of chronic disease versus gastrointestinal blood loss. The patient does have mild azotemia, which could be a component of chronic kidney disease. PLAN: 1. Check stool OB. 2. Check iron, B12 and folic acid. 3. We may need GI workup if patient has any signs or symptoms of GI blood loss. Thank you for allowing me to participate. Please call me if any questions. JOB# [id number]
[2017-09-28] MEDS: Albuterol/Ipratropium Neb 3 ML AERS HHN SCH ×3 (03:37→11:41)
--- NOTE | 2017-09-28 05:17 | General Progress Note ---
Subjective - Review of Systems Service Date: 09/28/17 Subjective: S/p 2 packed RBC's blood transfusion. Hb 10 yesterday Patient was seen and evaluated. resting comfortable in bed. No further blood loss. Will discharge patient to senior care and continue to monitor H/H. Objective - Results Result Diagrams: 09/27/17 05:40 09/27/17 05:40 Recent Labs: Laboratory Last Values WBC 5.7 Th/cmm (4.8-10.8) 09/27/17 05:40 RBC 3.78 Mil/cmm (3.80-5.20) L 09/27/17 05:40 Hgb 10.0 gm/dL (12-16) L D 09/27/17 05:40 Hct 30.2 % (41.0-60) L D 09/27/17 05:40 MCV 79.7 fl (81-100) L 09/27/17 05:40 MCH 26.4 pg (27.0-31.0) L 09/27/17 05:40 MCHC Differential 33.1 pg (28.0-36.0) 09/27/17 05:40 RDW 15.2 % (11.5-20.0) 09/27/17 05:40 Plt Count 167 Th/cmm (150-400) D 09/27/17 05:40 MPV 7.6 fl 09/27/17 05:40 Neutrophils % 54.3 % (40.0-80.0) 09/27/17 05:40 Lymphocytes % 33.2 % (20.0-50.0) 09/27/17 05:40 Monocytes % 6.0 % (2.0-10.0) 09/27/17 05:40 Eosinophils % 6.3 % (0.0-5.0) H 09/27/17 05:40 Basophils % 0.2 % (0.0-2.0) 09/27/17 05:40 Eos Smear Source URINE 09/27/17 02:10 Eos Smear Total Cells FEW EOSINOPHILS SEEN (NONE SEEN) 09/27/17 02:10 PT 11.7 SECONDS (9.5-11.5) H 09/25/17 18:10 INR 1.12 (0.5-1.4) 09/25/17 18:10 PTT (Actin FS) 32.5 SECONDS (26.0-38.0) 09/25/17 18:10 Specimen Source Arterial 09/27/17 08:58 Sample Site Right Radial 09/27/17 08:58 pH 7.36 (7.35-7.45) 09/27/17 08:58 pCO2 27.0 mmHg (35.0-45.0) L 09/27/17 08:58 pO2 79.0 mmHg (80.0-100.0) L 09/27/17 08:58 HCO3 18.1 mEq/L (20.0-26.0) L 09/27/17 08:58 Base Excess -8.7 mEq/L (-3.0-3.0) L 09/27/17 08:58 O2 Saturation 95.0 % (92.0-100.0) 09/27/17 08:58 Vinod Test Positive 09/27/17 08:58 Vent Rate NA 09/27/17 08:58 Inspired O2 21 09/27/17 08:58 Tidal Volume NA 09/27/17 08:58 PEEP NA 09/27/17 08:58 Pressure (ins/psv/peep) NA 09/27/17 08:58 Critical Value LZHANG 09/27/17 08:58 Sodium 145 mEq/L (136-145) 09/27/17 05:40 Potassium 3.4 mEq/L (3.5-5.1) L 09/27/17 05:40 Chloride 122 mEq/L (98-107) H 09/27/17 05:40 Carbon Dioxide 14.2 mEq/L (21.0-31.0) L 09/27/17 05:40 Anion Gap 12.2 (7.0-16.0) 09/27/17 05:40 BUN 61 mg/dL (7-25) H 09/27/17 05:40 Creatinine 1.8 mg/dL (0.6-1.2) H 09/27/17 05:40 Est GFR ( Amer) TNP 09/27/17 05:40 Est GFR (Non-Af Amer) TNP 09/27/17 05:40 BUN/Creatinine Ratio 33.9 09/27/17 05:40 Glucose 151 mg/dL (70-105) H 09/27/17 05:40 POC Glucose 219 MG/DL (70 - 105) H 09/28/17 04:58 Whole Bld Lactic Acid 1.74 mmol/L (0.60-1.99) 09/27/17 05:40 Uric Acid 10.2 mg/dL (2.3-6.6) H 09/27/17 05:40 Calcium 8.4 mg/dL (8.6-10.3) L 09/27/17 05:40 Phosphorus 3.9 mg/dL (2.5-5.0) 09/27/17 05:40 Magnesium 1.9 mg/dL (1.9-2.7) 09/27/17 05:40 Total Bilirubin 0.6 mg/dL (0.3-1.0) 09/27/17 05:40 AST 14 U/L (13-39) 09/27/17 05:40 ALT 10 U/L (7-52) 09/27/17 05:40 Alkaline Phosphatase 83 U/L (34-104) 09/27/17 05:40 Creatine Kinase 21 U/L (30-223) L 09/25/17 18:10 Troponin I 0.02 ng/mL (0.01-0.05) 09/25/17 18:10 B-Natriuretic Peptide 256.0 pg/mL (5.0-100.0) H 09/25/17 18:10 Total Protein 5.5 gm/dL (6.0-8.3) L 09/27/17 05:40 Albumin 2.0 gm/dL (3.7-5.3) L 09/27/17 05:40 Globulin 3.5 gm/dL 09/27/17 05:40 Albumin/Globulin Ratio 0.6 (1.0-1.8) L 09/27/17 05:40 Triglycerides 121 mg/dL (<150) 09/25/17 18:10 Cholesterol 55 mg/dL (<200) 09/25/17 18:10 LDL Cholesterol Direct 25 mg/dL (75-193) L 09/25/17 18:10 HDL Cholesterol 15 mg/dL (23-92) L 09/25/17 18:10 Urine Source MIDSTREAM 09/25/17 17:00 Urine Color YELLOW 09/25/17 17:00 Urine Clarity HAZY (CLEAR) 09/25/17 17:00 Urine pH 5.5 (4.6 - 8.0) 09/25/17 17:00 Ur Specific [place] 1.010 (1.005-1.030) 09/25/17 17:00 Urine Protein TRACE mg/dL (NEGATIVE) 09/25/17 17:00 Urine Glucose (UA) NEGATIVE mg/dL (NEGATIVE) 09/25/17 17:00 Urine Ketones NEGATIVE mg/dL (NEGATIVE) 09/25/17 17:00 Urine Blood SMALL (NEGATIVE) H 09/25/17 17:00 Urine Nitrate NEGATIVE (NEGATIVE) 09/25/17 17:00 Urine Bilirubin NEGATIVE (NEGATIVE) 09/25/17 17:00 Urine Urobilinogen 0.2 E.U./dL (0.2 - 1.0) 09/25/17 17:00 Ur Leukocyte Esterase SMALL (NEGATIVE) H 09/25/17 17:00 Urine RBC 2-5 /hpf (0-5) 09/25/17 17:00 Urine WBC 6-10 /hpf (0-5) H 09/25/17 17:00 Ur Epithelial Cells OCCASIONAL /lpf (FEW) 09/25/17 17:00 Urine Bacteria FEW /hpf (NONE SEEN) 09/25/17 17:00 Urine Yeast MODERATE /hpf (NONE SEEN) H 09/25/17 17:00 Ur Random Sodium 67 mmol/L 09/27/17 02:10 Urine Creatinine 40.9 mg/dl (28.0-217.0) 09/27/17 02:10 Blood Type A POSITIVE 09/26/17 09:50 Antibody Screen NEGATIVE 09/26/17 09:50 Crossmatch See Detail 09/26/17 09:50 - Physical Exam Vitals and I&O: Vital Signs Temp 98.2 F 09/28/17 00:00 Pulse 95 09/28/17 03:40 Resp 18 09/28/17 03:40 BP 135/70 09/28/17 00:00 Pulse Ox 99 09/28/17 03:40 Intake & Output 09/27/17 09/27/17 09/28/17 06:59 18:59 06:59 Intake Total 340 Output Total 560 50 Balance -560 290 Weight (lbs) 66.678 kg 66.678 kg Intake: Tube Feeding 240 Other 100 Output: Gastric Drainage 50 Urine 400 Other 160 Other: # Voids 1,200 # Bowel Movements 0 Active Medications: Current Medications Acetaminophen (Tylenol 650mg/20.3ml Suspension) 640 mg GT Q6HR PRN PRN Reason: MILD PAIN OR TEMP >100.4F Stop: 11/25/17 09:37 Albuterol/Ipratropium (Duoneb Neb) 3 ml HHN Q4HRT [facility] Stop: 11/25/17 14:59 Last Admin: 09/28/17 03:37 Dose: 3 ml Bisacodyl (Dulcolax 10 Mg Supp) 10 mg RC DAILY PRN PRN Reason: Constipation Stop: 11/25/17 09:37 Budesonide (Pulmicort) 0.5 mg HHN BIDRT [facility] Stop: 11/25/17 18:59 Last Admin: 09/27/17 18:55 Dose: 0.5 mg Calamine/Phenol (Calmoseptine) 1 appl TP DAILY [facility] Stop: 11/26/17 08:59 Last Admin: 09/27/17 09:20 Dose: 1 appl [place] Oil/Bulgarian Balsam/Trypsin (Venelex) 1 appl TP DAILY [facility] Stop: 11/26/17 08:59 Last Admin: 09/27/17 13:09 Dose: 1 appl Clonazepam (Klonopin) 1 mg GT DAILY [facility] PRN Reason: Protocol Stop: 11/26/17 08:59 Clonazepam (Klonopin) 2 mg GT HS [facility] Stop: 11/25/17 20:59 Cyanocobalamin (Vitamin B12) 1,000 mcg GT DAILY [facility] Stop: 11/26/17 08:59 Last Admin: 09/27/17 09:19 Dose: 1,000 mcg Docusate Sodium (Colace) 100 mg PO DAILY [facility] Stop: 11/26/17 08:59 Last Admin: 09/27/17 09:19 Dose: 100 mg Fluconazole (Diflucan) 100 mg PO DAILY [facility] Stop: 11/25/17 19:44 Last Admin: 09/27/17 09:19 Dose: 100 mg Fluocinonide (Lidex 0.05%) 1 appl TP DAILY [facility] Stop: 10/26/17 08:59 Last Admin: 09/27/17 09:20 Dose: 1 appl Sodium Chloride (Nacl 0.45%) 1,000 mls @ 100 mls/hr IV .Q10H [facility] Stop: 11/25/17 10:29 Last Admin: 09/27/17 13:10 Dose: 100 mls/hr Insulin Aspart (Novolog Insulin Sliding Scale) 0 units SUBQ Q6HR [facility] PRN Reason: Protocol Stop: 11/26/17 11:59 Last Admin: 09/27/17 23:41 Dose: 2 units Insulin Detemir (Levemir Insulin) 10 units SUBQ HS [facility] PRN Reason: Protocol Stop: 11/25/17 20:59 Last Admin: 09/27/17 21:06 Dose: 10 units Lactobacillus Rhamnosus (Culturelle) 1 each GT DAILY [facility] Stop: 11/26/17 08:59 Last Admin: 09/27/17 09:19 Dose: 1 each Lisinopril (Zestril) 40 mg GT HS [facility] Stop: 11/25/17 20:59 Last Admin: 09/27/17 21:05 Dose: 40 mg Loperamide HCl (Imodium) 2 mg GT Q6H PRN PRN Reason: Diarrhea Stop: 11/25/17 09:37 Magnesium Hydroxide (Milk Of Magnesia) 30 ml GT DAILY PRN PRN Reason: Constipation Stop: 11/25/17 09:37 Pantoprazole Sodium (Protonix) 40 mg IVP DAILY [facility] Stop: 11/26/17 08:59 Last Admin: 09/27/17 09:20 Dose: 40 mg Potassium Chloride (Potassium Chloride Elixir) 20 meq GT DAILY [facility] Stop: 11/26/17 08:59 Last Admin: 09/27/17 09:19 Dose: 20 meq Quetiapine Fumarate (Seroquel) 100 mg GT HS [facility] PRN Reason: Protocol Stop: 11/25/17 20:59 Simvastatin (Zocor) 40 mg GT HS [facility] PRN Reason: Protocol Stop: 11/25/17 20:59 Last Admin: 09/27/17 21:06 Dose: 40 mg Sodium Bicarbonate (Sodium Bicarbonate) 650 mg GT BID [facility] PRN Reason: Protocol Stop: 11/25/17 16:59 Last Admin: 09/27/17 16:01 Dose: 650 mg Sodium Phosphate (Fleet Enema) 135 ml RC DAILY PRN PRN Reason: Constipation Stop: 11/25/17 09:37 Vitamin A (Vitamin A & D) 5 gm TP DAILY [facility] Stop: 11/26/17 08:59 Last Admin: 09/27/17 09:20 Dose: 5 gm General: Alert, No acute distress, Other (weak) HEENT: Atraumatic Neck: Supple, +2 carotid pulse wo bruit Cardiovascular: Regular rate, Normal S1, Normal S2 Lungs: Other (few rhonchi) Abdomen: Bowel sounds, Soft Extremities: no Clubbing, no Cyanosis, no Edema Neurological: Sensation intact Skin: no Rash Psych/Mental Status: Mood NL - Procedures Procedures: Procedures Procedure Code Date INSERTION OF FEEDING DEVICE INTO STOMACH, ENDO [id number] 09/07/17 Assessment/Plan - Problem List Patient Problems: All Active Problems ABNORMAL LAB VALUES, HB/HCT (Acute) - Assessment Assessment: Current Active Problems Problem Status Onset ABNORMAL LAB VALUES, HB/HCT Acute Anorexia Failure to thrive anemia left pleural effusion HTN DM ESRD Dementia - Plan Plan: will discharge patient back to senior care with same orders. Nutritional Asmnt/Malnutr-PDOC - Dietary Evaluation Malnutrition Findings (Please click <Entered> for more info): Nutritional Asmnt/Malnutrition Start: 09/27/17 14: 24 Text: Status: Complete Freq: Document 09/27/17 14:24 LCHENG (Rec: 09/27/17 14:45 [email or web address] [email or web address]) Nutritional Asmnt/Malnutrition Patient General Information Nutritional Screening High Risk Consult Diagnosis sever anemia, lactic acidosis Pertinent Medical Hx/Surgical Hx HTN, DM, ESRD, dementia, depression, schizophrenia, bipolar disorder, wt loss of 30lbs Subjective Information Consult received for pressure ulcer, [id number]. Per notes, pt from SNF was admiited for onset FTT x 3 days. Pt seen sleeping in bed, appeared no fat/muscle wasting noted. Spoke with TRACE Cardona, TF starts today. Current Diet Order/ Nutrition Support Novosource Renal 60ml/hr x 20hr Pertinent Medications vitamin B12, colace, novolog, levemir, culturelle, kcal, seroquel, nacl IV, Vitamin A&D Pertinent Labs 09/27 K 3.4L, Cl 122H, BUN 61H , Cr 1.8H, Glu 151H, POC 128- 175 since adm, alb 2.0L Nutritional Hx/Data Height 1.47 m Height (Calculated Centimeters) 147.3 Current Weight (lbs) 66.678 kg Weight (Calculated Kilograms) 66.7 Weight (Calculated Grams) 91180.1 [place] Body Weight 90 % [place] Body Weight 163 Body Mass Index (BMI) 30.7 Weight Status Obese GI Symptoms Skin Integrity/Comment: pitting 2+ edema on left arm, pressure ulcer on coccyx Estimated Nutritional Goals BEE in Kcals: Adj wt of IBW Calories/Kcals/Kg 30-35 Kcals Calculated [id number] Protein: Adj wt of IBW Protein g/k.2-1.4 Protein Calculated 57-66 Fluid: ml [id number] or per MD Nutritional Problem 2. Problem Problem increased nutrition needs ( calorie and protein) Etiology increased metabolic demand for wound healing Signs/Symptoms: pressure ulcer 1. Problem Problem altered nutrition related lab values Etiology hx of ESRD and DM Signs/Symptoms: BUN 61H, Cr 1.8H, Glu 151H, POC 128-175 Malnutrition Alert Protein-Calorie Malnutrition N/A Is there a minimum of two criteria No selected? Query Text:Check all the applicable criteria. A minimum of two criteria are recommended for diagnosis of either severe or non-severe malnutrition. Intervention/Recommendation Comments 1. Recommend Novasource renal 40ml/hr x 20hr daily. It provides 800ml total volume, 1600kcal, 73g protein, meeting 100% of nutritional needs. 2. Recommend Argen[place] 1 pk/day with TF to help wound healing 3. monitor TF rate, tolerance, residuals 4. Monitor wt weekly, labs, skin integrity 5. F/U as high risk in 2-3 days, 09/29-09/30 Expected Outcomes/Goals Expected Outcomes/Goals 1. pt to meet at least 75% of nutritional needs via nutrition support 2. wt stability, skin to improve, labs to improve
[2017-09-28] MEDS: INSULIN ASPART SLIDING SCALE 100 UNITS/ML UNIT SUBQ SCH ×2 (05:53→12:32)
[2017-09-28 06:04] LABS: % BASOPHILS 0.2 % (0.0-2.0); % EOSINOPHILS 13.5 % (0.0-5.0); % LYMPHOCYTES 25.8 % (20.0-50.0); % MONOCYTES 6.6 % (2.0-10.0); % NEUTROPHILS 53.9 % (40.0-80.0); HEMATOCRIT 31.4 % (41.0-60); HEMOGLOBIN 10.4 gm/dL (12-16); MEAN CELL VOLUME 79.3 fl (81-100); MEAN CORPUSCULAR HEMOGLOBIN 26.2 pg (27.0-31.0); MEAN PLATELET VOLUME 7.8 fl; NEUTROPHILE ABSOLUTE 3.3 Th/cmm (1.8-8.0); PLATELET COUNT 164 Th/cmm (150-400); RED BLOOD COUNT 3.95 Mil/cmm (3.80-5.20); RED CELL DISTRIBUTION WIDTH 15.7 % (11.5-20.0)
[2017-09-28 06:19] LABS: ALB/GLOB RATIO 0.6 (1.0-1.8); ALKALINE PHOSPHATASE 98 U/L (34-104); ANION GAP 10.2 (7.0-16.0); BILIRUBIN,TOTAL 0.5 mg/dL (0.3-1.0); BUN - UREA NITROGEN 53 mg/dL (7-25); BUN/CREATININE RATIO 29.4; CALCIUM SERUM 8.1 mg/dL (8.6-10.3); CARBON DIOXIDE 16.7 mEq/L (21.0-31.0); CHLORIDE 125 mEq/L (98-107); CREATININE - SERUM 1.8 mg/dL (0.6-1.2); POTASSIUM SERUM 3.9 mEq/L (3.5-5.1); SGOT 16 U/L (13-39); SGPT/ALT 12 U/L (7-52); SODIUM SERUM 148 mEq/L (136-145)
[2017-09-28 06:21] LABS: GLUCOSE 238 mg/dL (70-105)
[2017-09-28] MEDS: Budesonide 0.5 Mg/2 mL Ud HHN SCH (07:36)
[2017-09-28] MEDS: Venelex 60gm Tube TP SCH (08:50)
[2017-09-28] MEDS: Lactobacillus Rhamnosus 10 Billion CFU Capsule GT SCH (08:50)
[2017-09-28] MEDS: Menthol/Zinc Oxide Oint 113gm Tube TP SCH (08:52)
[2017-09-28] MEDS: Potassium Chloride Elixir 20 mEq /15 mL UDC GT SCH (08:53)
[2017-09-28] MEDS: Vitamin A/Vitamin D 5 gm Packet TP SCH (08:55)
[2017-09-30 01:17] LABS: FERRITIN 455 ng/mL (15-150); FOLIC ACID 15.3 ng/mL (>3.0); IRON SATURATION 22 % (15-55); TIBC (LC) 117 ug/dL (250-450); UIBC 91 ug/dL (118-369)
== END 2017-09-28 13:05 | disposition home or self-care (01) | DRG 682 ==
LOC: ER 16:28 → TELE 21:00
PROVIDERS: ADMIT Family Medicine; ATTEND Family Medicine
PROC: 30233N1 Transfusion of Nonautologous Red Blood Cells into Peripheral Vein, Percutaneous Approach (ICD-10-PCS; principal; 2017-09-26)
DX: I12.0 Hypertensive chronic kidney disease with stage 5 chronic kidney disease or end stage renal disease (principal); N18.6 End stage renal disease; E87.2 Acidosis; J90 Pleural effusion, not elsewhere classified; E46 Unspecified protein-calorie malnutrition; R64 Cachexia; N17.9 Acute kidney failure, unspecified; F29 Unspecified psychosis not due to a substance or known physiological condition; F20.9 Schizophrenia, unspecified; D64.9 Anemia, unspecified; E87.6 Hypokalemia; E11.22 Type 2 diabetes mellitus with diabetic chronic kidney disease; R62.7 Adult failure to thrive; F31.9 Bipolar disorder, unspecified; G30.9 Alzheimer's disease, unspecified; F02.80 Dementia in other diseases classified elsewhere, unspecified severity, without behavioral disturbance, psychotic disturbance, mood disturbance, and anxiety; E88.09 Other disorders of plasma-protein metabolism, not elsewhere classified; D63.1 Anemia in chronic kidney disease; E86.0 Dehydration; Z93.1 Gastrostomy status; Z82.49 Family history of ischemic heart disease and other diseases of the circulatory system; Z83.3 Family history of diabetes mellitus; Z79.82 Long term (current) use of aspirin; Z68.33 Body mass index [BMI] 33.0-33.9, adult; Z90.49 Acquired absence of other specified parts of digestive tract; Z79.4 Long term (current) use of insulin
CPT/HCPCS: 36415-UA; 36600-90; 71010-TC; 76770-TC; 80053-TC; 80061-TC; 81001-TC; 81015-TC; 82550-TC; 82570-TC; 82607-90; 82728-90; 82746-90; 82803-TC; 82948-90; 83540-90; 83550-90; 83605; 83735-TC; 83880-TC; 84100-TC; 84300-TC; 84484-TC; 84550-TC; 85025-TC; 85610-TC; 85730-TC; 86850-TC; 86900-TC; 86901-TC; 86922-TC; 93005; 94760; C9113; J1815; J2001; J3370; J3480; J7030; P9016; Z7610